=== PATIENT | male | born 1950 | race Caucasian/White ===

== ENCOUNTER 2017-10-05 05:31 | Day surgery (SDC) | payer MEDICARE, MEDICAID ==
[2017-09-27 14:36] LABS: BASOPHILS # (AUTO) 0.1 X10'3 (0-0.2); BASOPHILS % (AUTO) 0.3 % (0-1); EOSINOPHILS # (AUTO) 0.1 X10'3 (0-0.9); EOSINOPHILS % (AUTO) 0.2 % (0-6); LYMPHOCYTES # (AUTO) 18.4 X10'3 (1.1-4.8); MEAN CORPUSCULAR HEMOGLOBIN 31.7 PG (27.0-31.0); MEAN CORPUSCULAR HGB CONC 32.6 % (33.0-36.5); MEAN CORPUSCULAR VOLUME 97.1 FL (78-98); MEAN PLATELET VOLUME 7.6 FL (7.4-10.4); MONOCYTES # (AUTO) 1.3 X10'3 (0-0.9); MONOCYTES % (AUTO) 4.7 % (2-12); NEUTROPHILS # (AUTO) 7.3 X10'3 (1.8-7.7); NEUTROPHILS % (AUTO) 26.8 % (42-75); PRE OP HEMATOCRIT 41.5 % (42.0-52.0); PRE OP HEMOGLOBIN 13.5 g/dL (14.0-17.9); PRE OP PLATELET COUNT 196 X10'3 (140-440); RED BLOOD COUNT 4.27 X10'6 (4.70-6.10); RED CELL DISTRIBUTION WIDTH 14.7 % (11.5-14.5)
[2017-09-27 14:40] LABS: PARTIAL THROMBOPLASTIN TIME 22 SECONDS (22-32); PROTHROMBIN TIME 10.6 SECONDS (9.0-12.0)
[2017-09-27 14:47] LABS: ALBUMIN 3.3 G/DL (3.4-5.0); ALBUMIN/GLOBULIN RATIO 0.8 (1.1-1.5); ALKALINE PHOSPHATASE 41 IU/L (46-116); BLOOD UREA NITROGEN 30 MG/DL (7-18); BUN/CREATININE RATIO 37.5 (5.4-32.0); CALCIUM 9.2 MG/DL (8.5-10.1); CHLORIDE 106 MMOL/L (99-107); PRE OP ALT 8 U/L (30-65); PRE OP ANION GAP 9 (8-16); PRE OP AST 13 U/L (10-37); PRE OP BILIRUB, TOTAL 0.2 MG/DL (0.0-1.0); PRE OP GLUCOSE 85 MG/DL (70-104); PRE OP POTASSIUM 4.3 MMOL/L (3.4-5.1); PRE OP SODIUM 142 MMOL/L (135-145); TOTAL CARBON DIOXIDE 27.1 MMOL/L (24-32); TOTAL PROTEIN 7.2 G/DL (6.4-8.2); eGFR > 90 ML/MIN
[2017-09-27 15:31] LABS: PLATELET ESTIMATE NORMAL; TOTAL CELLS COUNTED 100
[2017-09-27 15:43] LABS: SMUDGE CELLS 2+
[2017-09-27 15:54] LABS: ELLIPTOCYTES FEW; SCHISTOCYTES FEW
[~2017-10-05] VITALS: Ht 170.2 cm; Wt 51.6 kg
[2017-10-05] VITALS (9 sets, daily range): BP systolic 106–122; BP diastolic 61–77
[~2017-10-05 05:31] MED LIST: Cefazolin 2GM/50ML dext iso,osmotic IVPB IV ONE; DIVA-76 PO; VANCOMYCIN INJ 1000 MG in NORMAL SALINE 250ml IV.SOLN IV ONE; famotidine 20mg tablet PO ONE; ringers solution, lacted 1,000 ML IV SCH
[2017-10-05] MEDS ORDERED: LIDOcaine 1% (10mg/ml) 2ml vial ONE (06:29)
[2017-10-05] MEDS ORDERED: cloNIDine hcl/PF 100mcg/ml inj ONE (07:20)
[2017-10-05] MEDS ORDERED: fentaNYL/PF 50MCG/1 ML 2ML syringe ONE (07:27)
[2017-10-05] MEDS ORDERED: MIDAZolam 5mg/ml 2ml vial ONE (07:27)
[2017-10-05] MEDS ORDERED: MIDAZolam 5mg/5ml vial ONE (07:29)
[2017-10-05] MEDS ORDERED: propofol inj 20 ML IV ONE (07:30)
[2017-10-05] MEDS ORDERED: ROPIVAcaine 0.5% (5mg/ml) 30ml vial ONE (07:30)
[2017-10-05] MEDS ORDERED: LIDOcaine 1%/PF 5ML 10 MG/ML VIAL ONE (07:30)
[2017-10-05] MEDS ORDERED: sevoflurane 250ml liquid IH ONE (07:47)
[2017-10-05] MEDS ORDERED: ePHEDrine 50MG/ML INJ. ONE (08:10)
[2017-10-05] MEDS ORDERED: dexamethasone sod phosphate 4mg/ml inj. ONE (09:05)
[2017-10-05] MEDS ORDERED: ondansetron/PF 4mg/2ml inj ONE (09:05)
[2017-10-05] MEDS ORDERED: ringers solution, lacted 1,000 ML IV SCH (09:18)
[2017-10-05] MEDS ORDERED: morphine 4 MG/ML inj SYRINge IV PRN ×2 (09:20)
[2017-10-05] MEDS ORDERED: meperidine/PF 25mg/ml syringe IV PRN ×3 (09:20)
[2017-10-05] MEDS ORDERED: proCHLORperazine 10 MG/2 ml inj IV PRN (09:20)
[2017-10-05] MEDS ORDERED: ondansetron/PF 4mg/2ml inj IV PRN (09:20)
[2017-10-05] MEDS ORDERED: BUPIVAcaine/PF 2.5mg/ml (0.25%) 10ml vial ONE (09:23)
[2017-10-06] MEDS ORDERED: HYDR-3964 PO (18:16)
[2017-10-06] MEDS ORDERED: ASPI81TA52 PO (18:17)
== END 2017-10-05 11:25 | disposition home or self-care (01) ==
LOC: PAS 05:31
PROVIDERS: ATTEND Orthopaedic Surgery
DX: S96.112A Strain of muscle and tendon of long extensor muscle of toe at ankle and foot level, left foot, initial encounter (principal); M19.072 Primary osteoarthritis, left ankle and foot; M25.775 Osteophyte, left foot; I10 Essential (primary) hypertension; I25.2 Old myocardial infarction; F32.9 Major depressive disorder, single episode, unspecified; G40.909 Epilepsy, unspecified, not intractable, without status epilepticus; I34.2 Nonrheumatic mitral (valve) stenosis; F41.9 Anxiety disorder, unspecified; K21.9 Gastro-esophageal reflux disease without esophagitis; B19.20 Unspecified viral hepatitis C without hepatic coma; E46 Unspecified protein-calorie malnutrition; F41.8 Other specified anxiety disorders; Z68.1 Body mass index [BMI] 19.9 or less, adult; Z87.891 Personal history of nicotine dependence; Z88.5 Allergy status to narcotic agent; Z87.01 Personal history of pneumonia (recurrent); Z85.6 Personal history of leukemia; Z88.8 Allergy status to other drugs, medicaments and biological substances; Z86.73 Personal history of transient ischemic attack (TIA), and cerebral infarction without residual deficits; Z79.82 Long term (current) use of aspirin; Z79.891 Long term (current) use of opiate analgesic; Z79.899 Other long term (current) drug therapy; Z98.890 Other specified postprocedural states; Z80.0 Family history of malignant neoplasm of digestive organs; X58.XXXA Exposure to other specified factors, initial encounter; Y93.89 Activity, other specified; Y92.89 Other specified places as the place of occurrence of the external cause; Y99.8 Other external cause status
CPT/HCPCS: 28208; 28740; 36415; 80053; 85025; 85610; 85730; 93005; A6449; C1713; C1762; J0690; J0735; J1100; J2001; J2250; J2405; J2704; J2795; J3010; J3370; J3490; J7120; A6250; A7000

== ENCOUNTER 2017-10-05 16:12 | Emergency (ER) | payer MEDICARE, MEDICAID ==
[~2017-10-05] VITALS: Ht 170.2 cm; Wt 58.2 kg
[~2017-10-05 16:12] MED LIST changes: -Cefazolin 2GM/50ML dext iso,osmotic IVPB IV ONE; -VANCOMYCIN INJ 1000 MG in NORMAL SALINE 250ml IV.SOLN IV ONE; -famotidine 20mg tablet PO ONE; -ringers solution, lacted 1,000 ML IV SCH
[2017-10-05 20:58] VITALS: BP 122/78
[2017-10-06] MEDS ORDERED: HYDR-3964 PO (18:16)
[2017-10-06] MEDS ORDERED: ASPI81TA52 PO (18:17)
== END 2017-10-05 21:01 | disposition home or self-care (01) ==
LOC: ER 16:13
DX: R26.89 Other abnormalities of gait and mobility (principal); R26.2 Difficulty in walking, not elsewhere classified; M79.671 Pain in right foot; Z86.73 Personal history of transient ischemic attack (TIA), and cerebral infarction without residual deficits; Z98.890 Other specified postprocedural states; Z88.5 Allergy status to narcotic agent; Z88.8 Allergy status to other drugs, medicaments and biological substances; Z79.82 Long term (current) use of aspirin; Z79.899 Other long term (current) drug therapy
CPT/HCPCS: 51702; 99284; A4315

== ENCOUNTER 2017-10-06 14:52 | Inpatient (IN) | payer MEDICARE, MEDICAID ==
[~2017-10-06] VITALS: Ht 172.7 cm; Wt 54.5 kg
[2017-10-06 15:17] LABS: BASOPHILS % (AUTO) 0.2 % (0-1); EOSINOPHILS % (AUTO) 0 % (0-6); HEMATOCRIT 33.6 % (42.0-52.0); HEMOGLOBIN 11.1 g/dl (14.0-17.9); LYMPHOCYTES # (AUTO) 16.2 X10'3 (1.1-4.8); LYMPHOCYTES % (AUTO) 66.5 % (21-51); MEAN CORPUSCULAR HEMOGLOBIN 31.9 PG (27.0-31.0); MEAN CORPUSCULAR VOLUME 96.6 FL (78-98); MEAN PLATELET VOLUME 7.2 FL (7.4-10.4); MONOCYTES # (AUTO) 0.6 X10'3 (0-0.9); MONOCYTES % (AUTO) 2.6 % (2-12); NEUTROPHILS # (AUTO) 7.5 X10'3 (1.8-7.7); NEUTROPHILS % (AUTO) 30.7 % (42-75); PLATELET COUNT 200 X10'3 (140-440); RED BLOOD COUNT 3.48 X10'6 (4.70-6.10); RED CELL DISTRIBUTION WIDTH 16.3 % (11.5-14.5); WHITE BLOOD COUNT 24.3 X10'3 (4.5-11.0)
[2017-10-06 15:31] LABS: ALANINE AMINOTRANSFERASE 7 U/L (12-78); ALBUMIN 2.9 G/DL (3.4-5.0); ALBUMIN/GLOBULIN RATIO 0.9 (1.1-1.5); ALKALINE PHOSPHATASE 40 IU/L (46-116); ANION GAP 7 (8-16); ASPARTATE AMINO TRANSFERASE 10 U/L (10-37); BILIRUBIN,TOTAL 0.2 MG/DL (0.1-1.0); BLOOD UREA NITROGEN 15 MG/DL (7-18); BUN/CREATININE RATIO 17.4 (5.4-32.0); CALCIUM 8.9 MG/DL (8.5-10.1); CHLORIDE 107 MMOL/L (99-107); CREATININE 0.86 MG/DL (0.60-1.10); GLUCOSE 88 MG/DL (70-104); POTASSIUM 4.1 MMOL/L (3.5-5.1); SODIUM 144 MMOL/L (135-145); TOTAL CARBON DIOXIDE 30.5 MMOL/L (24-32); TOTAL PROTEIN 6.3 G/DL (6.4-8.2); eGFR 88 ML/MIN
[2017-10-06 15:57] LABS: TOTAL CELLS COUNTED 100
[2017-10-06 15:58] LABS: ANISOCYTOSIS 1+; ELLIPTOCYTES 1+; PLATELET ESTIMATE NORMAL
[2017-10-06 15:59] LABS: POLYCHROMASIA FEW
[2017-10-06 16:29] LABS: CLARITY,URINE SLIGHTLY CLOUDY (Clear); COLOR,URINE YELLOW (Yellow); GLUCOSE, URINE NEGATIVE (Neg); KETONES,URINE TRACE mg/dl (Neg); LEUKOCYTE ESTERASE ,URINE NEGATIVE (Neg); NITRITES, URINE NEGATIVE (Neg); OCCULT BLOOD,URINE LARGE (Neg); PH,URINE 7.5 (4.8-8.0); PROTEIN,URINE 30 mg/dl (Neg); UROBILINOGEN,URINE 0.2 E.U/dL (0.2-1.0)
[2017-10-06 16:38] LABS: MUCUS STRANDS MODERATE /LPF (Neg); SQUAMOUS EPITHELIAL CELL,UR NONE SEEN /LPF (FEW); UA COLLECTION TYPE INDWELLING CATH
[2017-10-06 16:39] LABS: BACTERIA,URINE NONE SEEN /HPF (Neg); RBC,URINE TNTC /HPF (0-2); WBC,URINE 0-4 /HPF (0-4)
[2017-10-06] MEDS ORDERED: HYDROcodone/acetaminophen 10/325mg tab PO ONE (17:15)
[2017-10-06] MEDS ORDERED: HYDR-3964 PO (18:16)
[2017-10-06] MEDS ORDERED: ASPI81TA52 PO (18:17)
[2017-10-06] MEDS ORDERED: mag hydrox/Alum hydrox/simeth 30ml oral suspension PO PRN (19:30)
[2017-10-06] MEDS ORDERED: ondansetron/PF 4mg/2ml inj IV PRN (19:30)
[2017-10-06] MEDS ORDERED: acetaminophen 325mg tablet PO PRN (19:30)
[2017-10-06] MEDS: heparin, porcine 5000 units/ml vial SQ SCH (20:21)
[2017-10-06 20:55] VITALS: BP 126/56
[2017-10-06] MEDS: divalproex sodium 500mg tablet.DR PO SCH (21:50)
[2017-10-06 22:00] VITALS: BP 121/62
[2017-10-07 06:36] LABS: BASOPHILS # (AUTO) 0.1 X10'3 (0-0.2); BASOPHILS % (AUTO) 0.2 % (0-1); EOSINOPHILS % (AUTO) 0.2 % (0-6); HEMATOCRIT 32.4 % (42.0-52.0); HEMOGLOBIN 10.9 g/dl (14.0-17.9); LYMPHOCYTES # (AUTO) 16.7 X10'3 (1.1-4.8); LYMPHOCYTES % (AUTO) 75.2 % (21-51); MEAN CORPUSCULAR HEMOGLOBIN 32.3 PG (27.0-31.0); MEAN CORPUSCULAR HGB CONC 33.6 % (33.0-36.5); MEAN CORPUSCULAR VOLUME 96.1 FL (78-98); MEAN PLATELET VOLUME 7.8 FL (7.4-10.4); MONOCYTES # (AUTO) 0.6 X10'3 (0-0.9); MONOCYTES % (AUTO) 2.9 % (2-12); NEUTROPHILS # (AUTO) 4.8 X10'3 (1.8-7.7); NEUTROPHILS % (AUTO) 21.5 % (42-75); PLATELET COUNT 186 X10'3 (140-440); RED BLOOD COUNT 3.37 X10'6 (4.70-6.10); RED CELL DISTRIBUTION WIDTH 16.1 % (11.5-14.5); WHITE BLOOD COUNT 22.2 X10'3 (4.5-11.0)
[2017-10-07 07:00] LABS: ALANINE AMINOTRANSFERASE 10 U/L (12-78); ALBUMIN 2.7 G/DL (3.4-5.0); ALBUMIN/GLOBULIN RATIO 0.8 (1.1-1.5); ALKALINE PHOSPHATASE 34 IU/L (46-116); ANION GAP 7 (8-16); ASPARTATE AMINO TRANSFERASE 9 U/L (10-37); BILIRUBIN,TOTAL 0.2 MG/DL (0.1-1.0); BLOOD UREA NITROGEN 19 MG/DL (7-18); BUN/CREATININE RATIO 22.4 (5.4-32.0); CHLORIDE 107 MMOL/L (99-107); CREATININE 0.85 MG/DL (0.60-1.10); GLUCOSE 85 MG/DL (70-104); SODIUM 142 MMOL/L (135-145); TOTAL CARBON DIOXIDE 28.3 MMOL/L (24-32); TOTAL PROTEIN 6.1 G/DL (6.4-8.2); eGFR 90 ML/MIN
[2017-10-07] MEDS: aspirin 81mg tablet.DR PO SCH (07:15)
[2017-10-07] MEDS: divalproex sodium 500mg tablet.DR PO SCH ×2 (07:15→20:40)
[2017-10-07] MEDS: heparin, porcine 5000 units/ml vial SQ SCH ×2 (07:16→20:41)
[2017-10-07] MEDS: HYDROcodone/acetaminophen 5mg/325mg tablet PO PRN ×2 (07:20→18:50)
[2017-10-07 08:21] LABS: TOTAL CELLS COUNTED 100
[2017-10-07 08:22] LABS: ANISOCYTOSIS 1+; PLATELET ESTIMATE NORMAL; SMUDGE CELLS 1+
[2017-10-07 08:23] LABS: ELLIPTOCYTES 1+; POIKILOCYTOSIS 1+
[2017-10-07 10:00] VITALS: BP 100/57
[2017-10-07] MEDS: Protein Shake (high protein) 240ml (8oz) cup PO SCH (17:00)
[2017-10-07 18:00] VITALS: BP 103/57
[2017-10-07 22:00] VITALS: BP 111/49
[2017-10-08] MEDS: dextrose 5%-1/2 normal saline 1,000 ML IV SCH ×2 (03:46→23:30)
[2017-10-08] MEDS: HYDROcodone/acetaminophen 5mg/325mg tablet PO PRN ×2 (04:01→20:35)
[2017-10-08 06:00] VITALS: BP_SYST 118; BP_SYST 126; BP_DIAS 62; BP_DIAS 63
[2017-10-08 07:00] LABS: BASOPHILS % (AUTO) 0.1 % (0-1); EOSINOPHILS # (AUTO) 0.1 X10'3 (0-0.9); EOSINOPHILS % (AUTO) 0.2 % (0-6); HEMATOCRIT 32.8 % (42.0-52.0); HEMOGLOBIN 11.1 g/dl (14.0-17.9); LYMPHOCYTES # (AUTO) 18.9 X10'3 (1.1-4.8); LYMPHOCYTES % (AUTO) 77.2 % (21-51); MEAN CORPUSCULAR HEMOGLOBIN 32.3 PG (27.0-31.0); MEAN CORPUSCULAR HGB CONC 33.8 % (33.0-36.5); MEAN CORPUSCULAR VOLUME 95.5 FL (78-98); MEAN PLATELET VOLUME 7.7 FL (7.4-10.4); MONOCYTES # (AUTO) 0.6 X10'3 (0-0.9); MONOCYTES % (AUTO) 2.3 % (2-12); NEUTROPHILS # (AUTO) 4.9 X10'3 (1.8-7.7); NEUTROPHILS % (AUTO) 20.2 % (42-75); PLATELET COUNT 189 X10'3 (140-440); RED BLOOD COUNT 3.43 X10'6 (4.70-6.10); RED CELL DISTRIBUTION WIDTH 16.9 % (11.5-14.5); WHITE BLOOD COUNT 24.4 X10'3 (4.5-11.0)
[2017-10-08] MEDS: divalproex sodium 500mg tablet.DR PO SCH ×2 (07:24→20:34)
[2017-10-08] MEDS: heparin, porcine 5000 units/ml vial SQ SCH ×2 (07:24→20:36)
[2017-10-08] MEDS: aspirin 81mg tablet.DR PO SCH (07:24)
[2017-10-08 07:29] LABS: ALANINE AMINOTRANSFERASE 8 U/L (12-78); ALBUMIN 2.5 G/DL (3.4-5.0); ALBUMIN/GLOBULIN RATIO 0.7 (1.1-1.5); ALKALINE PHOSPHATASE 30 IU/L (46-116); ANION GAP 4 (8-16); ASPARTATE AMINO TRANSFERASE 9 U/L (10-37); BILIRUBIN,TOTAL 0.2 MG/DL (0.1-1.0); BLOOD UREA NITROGEN 24 MG/DL (7-18); BUN/CREATININE RATIO 25.5 (5.4-32.0); CALCIUM 8.8 MG/DL (8.5-10.1); CHLORIDE 107 MMOL/L (99-107); CREATININE 0.94 MG/DL (0.60-1.10); GLUCOSE 100 MG/DL (70-104); POTASSIUM 4.4 MMOL/L (3.5-5.1); SODIUM 141 MMOL/L (135-145); TOTAL CARBON DIOXIDE 29.6 MMOL/L (24-32); eGFR 80 ML/MIN
[2017-10-08 12:04] VITALS: BP 98/57
[2017-10-08 18:00] VITALS: BP 103/60
[2017-10-08] MEDS: Protein Shake (high protein) 240ml (8oz) cup PO SCH (18:24)
[2017-10-08] MEDS: levetiracetam 250mg tablet PO SCH (21:12)
[2017-10-08] MEDS: LORazepam 0.5 MG tablet PO PRN (21:12)
[2017-10-09] MEDS ORDERED: CLOP75TA15 PO (00:44)
[2017-10-09] MEDS ORDERED: LEVE750T6 PO (00:44)
[2017-10-09] MEDS: HYDROcodone/acetaminophen 5mg/325mg tablet PO PRN ×2 (04:36→18:34)
[2017-10-09] MEDS: LORazepam 0.5 MG tablet PO PRN ×2 (04:36→18:33)
[2017-10-09 05:30] VITALS: BP 112/58
[2017-10-09 06:06] LABS: BASOPHILS % (AUTO) 0.1 % (0-1); EOSINOPHILS # (AUTO) 0.1 X10'3 (0-0.9); EOSINOPHILS % (AUTO) 0.3 % (0-6); HEMATOCRIT 35.8 % (42.0-52.0); LYMPHOCYTES # (AUTO) 17.7 X10'3 (1.1-4.8); LYMPHOCYTES % (AUTO) 75.9 % (21-51); MEAN CORPUSCULAR HEMOGLOBIN 32.5 PG (27.0-31.0); MEAN CORPUSCULAR HGB CONC 33.6 % (33.0-36.5); MEAN CORPUSCULAR VOLUME 96.7 FL (78-98); MEAN PLATELET VOLUME 7.9 FL (7.4-10.4); MONOCYTES # (AUTO) 0.4 X10'3 (0-0.9); MONOCYTES % (AUTO) 1.7 % (2-12); NEUTROPHILS # (AUTO) 5.1 X10'3 (1.8-7.7); PLATELET COUNT 182 X10'3 (140-440); RED CELL DISTRIBUTION WIDTH 16.2 % (11.5-14.5); WHITE BLOOD COUNT 23.3 X10'3 (4.5-11.0)
[2017-10-09 06:25] LABS: ALANINE AMINOTRANSFERASE 11 U/L (12-78); ALBUMIN 2.6 G/DL (3.4-5.0); ALBUMIN/GLOBULIN RATIO 0.7 (1.1-1.5); ALKALINE PHOSPHATASE 33 IU/L (46-116); ANION GAP 8 (8-16); ASPARTATE AMINO TRANSFERASE 7 U/L (10-37); BILIRUBIN,TOTAL 0.2 MG/DL (0.1-1.0); BLOOD UREA NITROGEN 18 MG/DL (7-18); CALCIUM 8.8 MG/DL (8.5-10.1); CHLORIDE 106 MMOL/L (99-107); CREATININE 0.82 MG/DL (0.60-1.10); GLUCOSE 97 MG/DL (70-104); POTASSIUM 4.1 MMOL/L (3.5-5.1); SODIUM 140 MMOL/L (135-145); TOTAL PROTEIN 6.3 G/DL (6.4-8.2); eGFR > 90 ML/MIN
[2017-10-09] MEDS: levetiracetam 250mg tablet PO SCH ×2 (09:00→20:40)
[2017-10-09] MEDS: divalproex sodium 500mg tablet.DR PO SCH ×2 (09:00→20:40)
[2017-10-09] MEDS: clopidogrel 75mg tablet PO SCH (09:01)
[2017-10-09] MEDS: aspirin 81mg tablet.DR PO SCH (09:01)
[2017-10-09] MEDS: heparin, porcine 5000 units/ml vial SQ SCH ×2 (09:02→20:41)
[2017-10-09 10:00] VITALS: BP 117/65
[2017-10-09 17:01] VITALS: BP 110/67
[2017-10-09] MEDS: Protein Shake (high protein) 240ml (8oz) cup PO SCH (18:34)
[2017-10-09 19:00] VITALS: BP 112/58
[2017-10-09] MEDS: dextrose 5%-1/2 normal saline 1,000 ML IV SCH (19:30)
[2017-10-09 22:00] VITALS: BP 130/69
[2017-10-10] MEDS: LORazepam 0.5 MG tablet PO PRN ×3 (01:44→22:08)
[2017-10-10 05:00] VITALS: BP 92/46
[2017-10-10 05:52] LABS: BASOPHILS % (AUTO) 0.2 % (0-1); EOSINOPHILS # (AUTO) 0.2 X10'3 (0-0.9); EOSINOPHILS % (AUTO) 0.7 % (0-6); HEMATOCRIT 33.6 % (42.0-52.0); HEMOGLOBIN 11.4 g/dl (14.0-17.9); LYMPHOCYTES # (AUTO) 16.4 X10'3 (1.1-4.8); LYMPHOCYTES % (AUTO) 71.8 % (21-51); MEAN CORPUSCULAR HEMOGLOBIN 32.3 PG (27.0-31.0); MEAN CORPUSCULAR VOLUME 95.1 FL (78-98); MEAN PLATELET VOLUME 7.7 FL (7.4-10.4); MONOCYTES # (AUTO) 0.5 X10'3 (0-0.9); MONOCYTES % (AUTO) 2.2 % (2-12); NEUTROPHILS # (AUTO) 5.8 X10'3 (1.8-7.7); NEUTROPHILS % (AUTO) 25.1 % (42-75); PLATELET COUNT 191 X10'3 (140-440); RED BLOOD COUNT 3.53 X10'6 (4.70-6.10); RED CELL DISTRIBUTION WIDTH 16.2 % (11.5-14.5); WHITE BLOOD COUNT 22.9 X10'3 (4.5-11.0)
[2017-10-10 06:11] LABS: ALANINE AMINOTRANSFERASE 10 U/L (12-78); ALBUMIN 2.7 G/DL (3.4-5.0); ALBUMIN/GLOBULIN RATIO 0.8 (1.1-1.5); ALKALINE PHOSPHATASE 35 IU/L (46-116); ANION GAP 9 (8-16); ASPARTATE AMINO TRANSFERASE 10 U/L (10-37); BILIRUBIN,TOTAL 0.3 MG/DL (0.1-1.0); BLOOD UREA NITROGEN 21 MG/DL (7-18); BUN/CREATININE RATIO 27.3 (5.4-32.0); CALCIUM 8.7 MG/DL (8.5-10.1); CHLORIDE 106 MMOL/L (99-107); CREATININE 0.77 MG/DL (0.60-1.10); GLUCOSE 93 MG/DL (70-104); POTASSIUM 3.6 MMOL/L (3.5-5.1); SODIUM 142 MMOL/L (135-145); TOTAL CARBON DIOXIDE 26.6 MMOL/L (24-32); TOTAL PROTEIN 6.3 G/DL (6.4-8.2); eGFR > 90 ML/MIN
[2017-10-10 07:32] LABS: BASOPHILS % (MANUAL) 1 % (0-1); LYMPHOCYTES % (MANUAL) 73 % (21-51); MONOCYTES % (MANUAL) 2 % (2-12); NEUTROPHILS % (MANUAL) 24 % (42-75); PLATELET ESTIMATE NORMAL; SMUDGE CELLS 3+; TOTAL CELLS COUNTED 100
[2017-10-10 07:33] LABS: ANISOCYTOSIS 1+; ELLIPTOCYTES FEW
[2017-10-10 10:00] VITALS: BP 118/58
[2017-10-10] MEDS: heparin, porcine 5000 units/ml vial SQ SCH ×2 (11:02→19:42)
[2017-10-10] MEDS: levetiracetam 250mg tablet PO SCH ×2 (11:02→19:42)
[2017-10-10] MEDS: aspirin 81mg tablet.DR PO SCH (11:02)
[2017-10-10] MEDS: clopidogrel 75mg tablet PO SCH (11:02)
[2017-10-10] MEDS: divalproex sodium 500mg tablet.DR PO SCH ×2 (11:06→19:43)
[2017-10-10] MEDS: dextrose 5%-1/2 normal saline 1,000 ML IV SCH (15:30)
[2017-10-10] MEDS: Protein Shake (high protein) 240ml (8oz) cup PO SCH (17:00)
[2017-10-10 18:00] VITALS: BP 128/71
[2017-10-10 22:00] VITALS: BP 108/69
[2017-10-10] MEDS: HYDROcodone/acetaminophen 5mg/325mg tablet PO PRN (23:50)
[2017-10-11 06:00] VITALS: BP 111/74
[2017-10-11] MEDS: aspirin 81mg tablet.DR PO SCH (08:36)
[2017-10-11] MEDS: clopidogrel 75mg tablet PO SCH (08:36)
[2017-10-11] MEDS: divalproex sodium 500mg tablet.DR PO SCH ×2 (08:36→19:17)
[2017-10-11] MEDS: heparin, porcine 5000 units/ml vial SQ SCH ×2 (08:37→19:18)
[2017-10-11] MEDS: levetiracetam 250mg tablet PO SCH ×2 (08:37→19:18)
[2017-10-11] MEDS: HYDROcodone/acetaminophen 5mg/325mg tablet PO PRN ×2 (09:56→14:26)
[2017-10-11 10:00] VITALS: BP 119/59
[2017-10-11 13:30] VITALS: BP 127/79
[2017-10-11] MEDS: Protein Shake (high protein) 240ml (8oz) cup PO SCH (17:00)
[2017-10-11 17:08] VITALS: BP 108/54
[2017-10-11 18:00] VITALS: BP 108/54
[2017-10-11] MEDS: dextrose 5%-1/2 normal saline 1,000 ML IV SCH ×2 (18:33→19:26)
[2017-10-11] MEDS: LORazepam 0.5 MG tablet PO PRN (19:17)
[2017-10-11 22:00] VITALS: BP 138/66
[2017-10-12 06:00] VITALS: BP 122/62
[2017-10-12] MEDS: heparin, porcine 5000 units/ml vial SQ SCH ×2 (07:52→20:04)
[2017-10-12] MEDS: clopidogrel 75mg tablet PO SCH (07:52)
[2017-10-12] MEDS: levetiracetam 250mg tablet PO SCH ×2 (07:52→20:04)
[2017-10-12] MEDS: aspirin 81mg tablet.DR PO SCH (07:52)
[2017-10-12] MEDS: divalproex sodium 500mg tablet.DR PO SCH ×2 (07:52→20:03)
[2017-10-12 10:00] VITALS: BP 119/69
[2017-10-12] MEDS: Protein Shake (high protein) 240ml (8oz) cup PO SCH (17:00)
[2017-10-12] MEDS: LORazepam 0.5 MG tablet PO PRN ×2 (17:24→20:03)
[2017-10-12 18:00] VITALS: BP 111/69
[2017-10-12 22:00] VITALS: BP 114/53
[2017-10-13] MEDS: HYDROcodone/acetaminophen 5mg/325mg tablet PO PRN ×2 (03:28→21:18)
[2017-10-13 05:00] VITALS: BP 105/65
[2017-10-13] MEDS: divalproex sodium 500mg tablet.DR PO SCH ×2 (08:00→19:29)
[2017-10-13] MEDS: clopidogrel 75mg tablet PO SCH (09:12)
[2017-10-13] MEDS: levetiracetam 250mg tablet PO SCH ×2 (09:12→19:29)
[2017-10-13] MEDS: aspirin 81mg tablet.DR PO SCH (09:12)
[2017-10-13] MEDS: heparin, porcine 5000 units/ml vial SQ SCH ×2 (09:14→19:29)
[2017-10-13] MEDS: LORazepam 0.5 MG tablet PO PRN ×2 (14:30→21:18)
[2017-10-13 18:00] VITALS: BP 107/59
[2017-10-13] MEDS: Protein Shake (high protein) 240ml (8oz) cup PO SCH (18:46)
[2017-10-13 22:00] VITALS: BP 93/48
[2017-10-14 05:00] VITALS: BP 124/55
[2017-10-14 07:13] LABS: BASOPHILS % (AUTO) 0.2 % (0-1); EOSINOPHILS # (AUTO) 0.1 X10'3 (0-0.9); EOSINOPHILS % (AUTO) 0.5 % (0-6); HEMATOCRIT 35.9 % (42.0-52.0); HEMOGLOBIN 12.2 g/dl (14.0-17.9); LYMPHOCYTES # (AUTO) 18.5 X10'3 (1.1-4.8); LYMPHOCYTES % (AUTO) 75.9 % (21-51); MEAN CORPUSCULAR HEMOGLOBIN 32.6 PG (27.0-31.0); MEAN CORPUSCULAR HGB CONC 33.9 % (33.0-36.5); MEAN CORPUSCULAR VOLUME 96.1 FL (78-98); MEAN PLATELET VOLUME 7.1 FL (7.4-10.4); MONOCYTES # (AUTO) 0.6 X10'3 (0-0.9); MONOCYTES % (AUTO) 2.3 % (2-12); NEUTROPHILS # (AUTO) 5.1 X10'3 (1.8-7.7); NEUTROPHILS % (AUTO) 21.1 % (42-75); PLATELET COUNT 221 X10'3 (140-440); RED BLOOD COUNT 3.74 X10'6 (4.70-6.10); WHITE BLOOD COUNT 24.4 X10'3 (4.5-11.0)
[2017-10-14 07:41] LABS: ALANINE AMINOTRANSFERASE 11 U/L (12-78); ALBUMIN/GLOBULIN RATIO 0.7 (1.1-1.5); ALKALINE PHOSPHATASE 40 IU/L (46-116); ANION GAP 8 (8-16); ASPARTATE AMINO TRANSFERASE 6 U/L (10-37); BILIRUBIN,TOTAL 0.3 MG/DL (0.1-1.0); BLOOD UREA NITROGEN 31 MG/DL (7-18); BUN/CREATININE RATIO 34.4 (5.4-32.0); CALCIUM 9.5 MG/DL (8.5-10.1); CHLORIDE 104 MMOL/L (99-107); GLUCOSE 86 MG/DL (70-104); PHOSPHORUS 3.6 MG/DL (2.3-4.5); POTASSIUM 4.7 MMOL/L (3.5-5.1); SODIUM 139 MMOL/L (135-145); TOTAL CARBON DIOXIDE 27.1 MMOL/L (24-32); TOTAL PROTEIN 7.2 G/DL (6.4-8.2); eGFR 84 ML/MIN
[2017-10-14] MEDS: divalproex sodium 500mg tablet.DR PO SCH ×2 (08:30→19:45)
[2017-10-14] MEDS: levetiracetam 250mg tablet PO SCH ×2 (08:31→19:46)
[2017-10-14] MEDS: aspirin 81mg tablet.DR PO SCH (08:31)
[2017-10-14] MEDS: clopidogrel 75mg tablet PO SCH (08:31)
[2017-10-14] MEDS: heparin, porcine 5000 units/ml vial SQ SCH ×2 (08:32→19:46)
[2017-10-14 08:34] LABS: TOTAL CELLS COUNTED 100
[2017-10-14 08:37] LABS: ANISOCYTOSIS 1+; ELLIPTOCYTES 1+; PLATELET ESTIMATE NORMAL; ROULEAUX 1+; SMUDGE CELLS 2+
[2017-10-14 10:00] VITALS: BP 114/61
[2017-10-14] MEDS: Protein Shake (high protein) 240ml (8oz) cup PO SCH (17:58)
[2017-10-14 18:00] VITALS: BP 104/61
[2017-10-14] MEDS: HYDROcodone/acetaminophen 5mg/325mg tablet PO PRN (19:46)
[2017-10-14] MEDS: LORazepam 0.5 MG tablet PO PRN (19:46)
[2017-10-14 22:00] VITALS: BP 93/56
[2017-10-15] MEDS: clopidogrel 75mg tablet PO SCH (08:00)
[2017-10-15] MEDS: levetiracetam 250mg tablet PO SCH ×2 (08:00→20:11)
[2017-10-15] MEDS: divalproex sodium 500mg tablet.DR PO SCH ×2 (08:42→20:15)
[2017-10-15] MEDS: HYDROcodone/acetaminophen 5mg/325mg tablet PO PRN ×3 (08:42→20:14)
[2017-10-15] MEDS: aspirin 81mg tablet.DR PO SCH (08:42)
[2017-10-15] MEDS: LORazepam 0.5 MG tablet PO PRN ×3 (08:42→23:39)
[2017-10-15] MEDS: heparin, porcine 5000 units/ml vial SQ SCH ×2 (08:43→20:18)
[2017-10-15 11:00] VITALS: BP 144/78
[2017-10-15] MEDS: Protein Shake (high protein) 240ml (8oz) cup PO SCH (17:00)
[2017-10-15 18:00] VITALS: BP 106/72
[2017-10-15 22:00] VITALS: BP 109/71
[2017-10-16] MEDS: HYDROcodone/acetaminophen 5mg/325mg tablet PO PRN (03:56)
[2017-10-16 05:00] VITALS: BP 105/68
[2017-10-16] MEDS: aspirin 81mg tablet.DR PO SCH (08:46)
[2017-10-16] MEDS: levetiracetam 250mg tablet PO SCH ×2 (08:46→20:25)
[2017-10-16] MEDS: divalproex sodium 500mg tablet.DR PO SCH ×2 (08:46→20:25)
[2017-10-16] MEDS: clopidogrel 75mg tablet PO SCH (08:47)
[2017-10-16] MEDS: heparin, porcine 5000 units/ml vial SQ SCH ×2 (08:48→20:25)
[2017-10-16] MEDS: Protein Shake (high protein) 240ml (8oz) cup PO SCH (17:16)
[2017-10-16 18:00] VITALS: BP 102/59
[2017-10-16] MEDS: LORazepam 0.5 MG tablet PO PRN (18:39)
[2017-10-16] MEDS ORDERED: LORazepam 2 mg/ml vial IM ONE (19:10)
[2017-10-16 22:00] VITALS: BP 122/70
[2017-10-17] MEDS: LORazepam 0.5 MG tablet PO PRN ×2 (04:54→19:56)
[2017-10-17] MEDS: clopidogrel 75mg tablet PO SCH (08:07)
[2017-10-17] MEDS: aspirin 81mg tablet.DR PO SCH (08:07)
[2017-10-17] MEDS: divalproex sodium 500mg tablet.DR PO SCH ×2 (08:07→21:21)
[2017-10-17] MEDS: levetiracetam 250mg tablet PO SCH ×2 (08:07→19:51)
[2017-10-17] MEDS: heparin, porcine 5000 units/ml vial SQ SCH ×2 (08:08→19:51)
[2017-10-17 11:47] VITALS: BP 114/68
[2017-10-17] MEDS: Protein Shake (high protein) 240ml (8oz) cup PO SCH (17:25)
[2017-10-17 18:00] VITALS: BP 130/73
[2017-10-17 22:15] VITALS: BP 125/60
[2017-10-17] MEDS: HYDROcodone/acetaminophen 5mg/325mg tablet PO PRN (23:34)
[2017-10-18] MEDS: LORazepam 0.5 MG tablet PO PRN ×2 (02:29→19:50)
[2017-10-18 06:00] VITALS: BP 128/73
[2017-10-18 06:33] LABS: BASOPHILS # (AUTO) 0.1 X10'3 (0-0.2); BASOPHILS % (AUTO) 0.4 % (0-1); EOSINOPHILS % (AUTO) 0.1 % (0-6); HEMATOCRIT 33.9 % (42.0-52.0); HEMOGLOBIN 11.8 g/dl (14.0-17.9); LYMPHOCYTES # (AUTO) 18.3 X10'3 (1.1-4.8); LYMPHOCYTES % (AUTO) 79.3 % (21-51); MEAN CORPUSCULAR HEMOGLOBIN 33.3 PG (27.0-31.0); MEAN CORPUSCULAR HGB CONC 34.6 % (33.0-36.5); MEAN CORPUSCULAR VOLUME 96.2 FL (78-98); MONOCYTES # (AUTO) 0.7 X10'3 (0-0.9); NEUTROPHILS % (AUTO) 17.2 % (42-75); PLATELET COUNT 224 X10'3 (140-440); RED BLOOD COUNT 3.52 X10'6 (4.70-6.10); WHITE BLOOD COUNT 23.1 X10'3 (4.5-11.0)
[2017-10-18 07:31] LABS: SMUDGE CELLS 3+; TOTAL CELLS COUNTED 100
[2017-10-18 07:32] LABS: PLATELET ESTIMATE NORMAL
[2017-10-18 07:33] LABS: ANISOCYTOSIS 1+
[2017-10-18 07:35] LABS: ELLIPTOCYTES 1P
[2017-10-18] MEDS: levetiracetam 250mg tablet PO SCH ×2 (08:29→20:25)
[2017-10-18] MEDS: divalproex sodium 500mg tablet.DR PO SCH ×2 (08:29→20:25)
[2017-10-18] MEDS: clopidogrel 75mg tablet PO SCH (08:29)
[2017-10-18] MEDS: heparin, porcine 5000 units/ml vial SQ SCH ×2 (08:29→20:31)
[2017-10-18] MEDS: aspirin 81mg tablet.DR PO SCH (08:29)
[2017-10-18 10:00] VITALS: BP 98/41
[2017-10-18] MEDS: Protein Shake (high protein) 240ml (8oz) cup PO SCH (17:52)
[2017-10-18 18:00] VITALS: BP 109/56
[2017-10-18 22:00] VITALS: BP 92/59
[2017-10-18] MEDS ORDERED: haloperidol lactate 5mg/ml inj IM ONE (22:50)
[2017-10-19] MEDS: LORazepam 0.5 MG tablet PO PRN ×2 (02:20→08:00)
[2017-10-19] MEDS: HYDROcodone/acetaminophen 5mg/325mg tablet PO PRN (03:06)
[2017-10-19] MEDS ORDERED: LORazepam 2 mg/ml vial IM ONE ×2 (04:45→21:50)
[2017-10-19 06:00] VITALS: BP 116/77
[2017-10-19] MEDS: divalproex sodium 500mg tablet.DR PO SCH ×2 (08:00→19:53)
[2017-10-19] MEDS: levetiracetam 250mg tablet PO SCH ×2 (08:00→19:52)
[2017-10-19] MEDS: clopidogrel 75mg tablet PO SCH (08:00)
[2017-10-19] MEDS: aspirin 81mg tablet.DR PO SCH (08:00)
[2017-10-19] MEDS: heparin, porcine 5000 units/ml vial SQ SCH ×2 (08:05→19:52)
[2017-10-19 10:00] VITALS: BP 106/61
[2017-10-19] MEDS: Protein Shake (high protein) 240ml (8oz) cup PO SCH (17:20)
[2017-10-19 18:00] VITALS: BP 103/47
[2017-10-19] MEDS ORDERED: ziprasidone IM 20mg inj **IM only IM ONE (19:20)
[2017-10-19 22:00] VITALS: BP 129/69
[2017-10-20] MEDS: HYDROcodone/acetaminophen 5mg/325mg tablet PO PRN (02:32)
[2017-10-20] MEDS: LORazepam 0.5 MG tablet PO PRN ×2 (02:32→17:18)
[2017-10-20 06:00] VITALS: BP 103/63
[2017-10-20] MEDS: clopidogrel 75mg tablet PO SCH (09:20)
[2017-10-20] MEDS: divalproex sodium 500mg tablet.DR PO SCH ×2 (09:20→20:01)
[2017-10-20] MEDS: aspirin 81mg tablet.DR PO SCH (09:20)
[2017-10-20] MEDS: levetiracetam 250mg tablet PO SCH ×2 (09:20→20:01)
[2017-10-20] MEDS: heparin, porcine 5000 units/ml vial SQ SCH ×2 (09:21→20:01)
[2017-10-20] MEDS: FLUoxetine 20mg capsule PO SCH (13:39)
[2017-10-20] MEDS: Protein Shake (high protein) 240ml (8oz) cup PO SCH (17:00)
[2017-10-20 18:00] VITALS: BP 96/72
[2017-10-21] MEDS: magnesium hydroxide 30ml (MOM) UD suspension PO PRN (02:40)
[2017-10-21] MEDS: LORazepam 0.5 MG tablet PO PRN (03:57)
[2017-10-21] MEDS: HYDROcodone/acetaminophen 5mg/325mg tablet PO PRN (05:43)
[2017-10-21 06:00] VITALS: BP 110/70
[2017-10-21] MEDS: divalproex sodium 500mg tablet.DR PO SCH ×2 (08:27→21:00)
[2017-10-21] MEDS: FLUoxetine 20mg capsule PO SCH (08:27)
[2017-10-21] MEDS: levetiracetam 250mg tablet PO SCH ×2 (08:27→20:00)
[2017-10-21] MEDS: aspirin 81mg tablet.DR PO SCH (08:27)
[2017-10-21] MEDS: heparin, porcine 5000 units/ml vial SQ SCH ×2 (08:28→20:00)
[2017-10-21] MEDS: clopidogrel 75mg tablet PO SCH (08:28)
[2017-10-21 10:00] VITALS: BP 116/64
[2017-10-21] MEDS: QUEtiapine 25mg tablet PO ONE ×2 (11:40→12:09)
[2017-10-21] MEDS ORDERED: QUEtiapine 25mg tablet PO ONE (12:40)
[2017-10-21] MEDS: Protein Shake (high protein) 240ml (8oz) cup PO SCH (17:00)
[2017-10-21 18:00] VITALS: BP 139/74
[2017-10-21] MEDS ORDERED: LORazepam 2 mg/ml vial IM PRN (19:35)
[2017-10-21] MEDS ORDERED: LORazepam 2 mg/ml vial IM ONE (19:35)
[2017-10-21] MEDS ORDERED: ziprasidone IM 20mg inj **IM only IM ONE (19:35)
[2017-10-21] MEDS: mirtazapine 15mg tablet PO SCH (21:00)
[2017-10-21 22:00] VITALS: BP 157/82
[2017-10-22 06:54] VITALS: BP 123/73
[2017-10-22] MEDS: aspirin 81mg tablet.DR PO SCH (08:02)
[2017-10-22] MEDS: clopidogrel 75mg tablet PO SCH (08:02)
[2017-10-22] MEDS: divalproex sodium 500mg tablet.DR PO SCH ×2 (08:02→20:24)
[2017-10-22] MEDS: levetiracetam 250mg tablet PO SCH ×2 (08:02→20:24)
[2017-10-22] MEDS: heparin, porcine 5000 units/ml vial SQ SCH ×2 (08:02→20:25)
[2017-10-22] MEDS: LORazepam 0.5 MG tablet PO PRN (08:02)
[2017-10-22] MEDS: FLUoxetine 20mg capsule PO SCH (08:02)
[2017-10-22 11:32] VITALS: BP 141/77
[2017-10-22] MEDS: HYDROcodone/acetaminophen 5mg/325mg tablet PO PRN ×2 (12:21→21:02)
[2017-10-22] MEDS: Protein Shake (high protein) 240ml (8oz) cup PO SCH ×2 (17:24→20:42)
[2017-10-22 18:00] VITALS: BP 112/46
[2017-10-22] MEDS: mirtazapine 15mg tablet PO SCH (20:24)
[2017-10-23] MEDS: LORazepam 0.5 MG tablet PO PRN (01:25)
[2017-10-23 05:00] VITALS: BP 120/79
[2017-10-23 10:00] VITALS: BP 106/68
[2017-10-23] MEDS: levetiracetam 250mg tablet PO SCH ×2 (10:18→20:11)
[2017-10-23] MEDS: clopidogrel 75mg tablet PO SCH (10:18)
[2017-10-23] MEDS: divalproex sodium 500mg tablet.DR PO SCH ×2 (10:18→20:11)
[2017-10-23] MEDS: aspirin 81mg tablet.DR PO SCH (10:18)
[2017-10-23] MEDS: FLUoxetine 20mg capsule PO SCH (10:18)
[2017-10-23] MEDS: heparin, porcine 5000 units/ml vial SQ SCH ×2 (10:19→20:12)
[2017-10-23] MEDS: HYDROcodone/acetaminophen 5mg/325mg tablet PO PRN ×2 (10:20→22:25)
[2017-10-23 13:10] LABS: BASOPHILS # (AUTO) 0.1 X10'3 (0-0.2); BASOPHILS % (AUTO) 0.4 % (0-1); EOSINOPHILS # (AUTO) 0.1 X10'3 (0-0.9); EOSINOPHILS % (AUTO) 0.2 % (0-6); HEMOGLOBIN 12.7 g/dl (14.0-17.9); LYMPHOCYTES # (AUTO) 20.9 X10'3 (1.1-4.8); MEAN CORPUSCULAR HEMOGLOBIN 32.3 PG (27.0-31.0); MEAN CORPUSCULAR HGB CONC 33.4 % (33.0-36.5); MEAN CORPUSCULAR VOLUME 96.6 FL (78-98); MEAN PLATELET VOLUME 6.5 FL (7.4-10.4); MONOCYTES # (AUTO) 0.6 X10'3 (0-0.9); NEUTROPHILS % (AUTO) 24.4 % (42-75); PLATELET COUNT 312 X10'3 (140-440); RED BLOOD COUNT 3.93 X10'6 (4.70-6.10)
[2017-10-23 13:12] LABS: WHITE BLOOD COUNT 28.6 X10'3 (4.5-11.0)
[2017-10-23 13:31] LABS: VALPROATE 100 UG/ML (50-100)
[2017-10-23 14:12] LABS: TOTAL CELLS COUNTED 100
[2017-10-23 14:13] LABS: ANISOCYTOSIS 1+; PLATELET ESTIMATE NORMAL; SMUDGE CELLS 3+
[2017-10-23 18:00] VITALS: BP 112/73
[2017-10-23] MEDS: mirtazapine 15mg tablet PO SCH (20:10)
[2017-10-23 22:00] VITALS: BP 146/87
[2017-10-24] MEDS ORDERED: LORazepam 2 mg/ml vial IM ONE (04:45)
[2017-10-24] MEDS ORDERED: LORazepam 2 mg/ml vial IV PRN (04:50)
[2017-10-24] MEDS: divalproex sodium 500mg tablet.DR PO SCH ×2 (07:44→20:38)
[2017-10-24] MEDS: aspirin 81mg tablet.DR PO SCH (07:44)
[2017-10-24] MEDS: clopidogrel 75mg tablet PO SCH (07:45)
[2017-10-24] MEDS: levetiracetam 250mg tablet PO SCH ×2 (07:45→20:38)
[2017-10-24] MEDS: heparin, porcine 5000 units/ml vial SQ SCH ×2 (07:45→20:40)
[2017-10-24] MEDS: FLUoxetine 20mg capsule PO SCH (07:45)
[2017-10-24] MEDS: magnesium hydroxide 30ml (MOM) UD suspension PO PRN ×2 (07:53→22:14)
[2017-10-24 10:00] VITALS: BP 139/85
[2017-10-24] MEDS: HYDROcodone/acetaminophen 5mg/325mg tablet PO PRN (14:57)
[2017-10-24 18:00] VITALS: BP 117/70
[2017-10-24] MEDS: Protein Shake (high protein) 240ml (8oz) cup PO SCH (18:02)
[2017-10-24] MEDS: mirtazapine 15mg tablet PO SCH (20:38)
[2017-10-24 22:00] VITALS: BP 172/88
[2017-10-25] MEDS: haloperidol lactate 5mg/ml inj IM PRN (01:49)
[2017-10-25] MEDS ORDERED: LORazepam 2 mg/ml vial IM ONE (02:30)
[2017-10-25] MEDS ORDERED: hydrALAZINE 20mg/ml inj. IV PRN (02:30)
[2017-10-25 06:00] VITALS: BP 126/63
[2017-10-25] MEDS: aspirin 81mg tablet.DR PO SCH (08:00)
[2017-10-25] MEDS: divalproex sodium 500mg tablet.DR PO SCH ×2 (08:00→22:37)
[2017-10-25] MEDS: heparin, porcine 5000 units/ml vial SQ SCH ×2 (08:00→22:38)
[2017-10-25] MEDS: FLUoxetine 20mg capsule PO SCH (08:00)
[2017-10-25] MEDS: clopidogrel 75mg tablet PO SCH (08:00)
[2017-10-25] MEDS: levetiracetam 250mg tablet PO SCH ×2 (08:00→22:37)
[2017-10-25 10:00] VITALS: BP 123/69
[2017-10-25] MEDS: dextrose 5%-normal saline 1,000 ML IV SCH ×2 (10:25→22:39)
[2017-10-25 18:00] VITALS: BP 135/79
[2017-10-25] MEDS: Protein Shake (high protein) 240ml (8oz) cup PO SCH (18:00)
[2017-10-25] MEDS: mirtazapine 15mg tablet PO SCH (22:38)
[2017-10-26] MEDS: haloperidol lactate 5mg/ml inj IM PRN ×2 (01:39→20:17)
[2017-10-26] MEDS: magnesium hydroxide 30ml (MOM) UD suspension PO PRN (03:15)
[2017-10-26] MEDS: dextrose 5%-normal saline 1,000 ML IV SCH ×2 (05:55→12:54)
[2017-10-26 06:00] VITALS: BP 153/73
[2017-10-26 06:22] LABS: BASOPHILS % (AUTO) 0.2 % (0-1); EOSINOPHILS % (AUTO) 0.1 % (0-6); HEMATOCRIT 34.1 % (42.0-52.0); HEMOGLOBIN 11.5 g/dl (14.0-17.9); LYMPHOCYTES # (AUTO) 17.6 X10'3 (1.1-4.8); LYMPHOCYTES % (AUTO) 70.1 % (21-51); MEAN CORPUSCULAR HEMOGLOBIN 32.6 PG (27.0-31.0); MEAN CORPUSCULAR HGB CONC 33.8 % (33.0-36.5); MEAN CORPUSCULAR VOLUME 96.5 FL (78-98); MEAN PLATELET VOLUME 6.6 FL (7.4-10.4); MONOCYTES # (AUTO) 0.5 X10'3 (0-0.9); MONOCYTES % (AUTO) 2.2 % (2-12); NEUTROPHILS # (AUTO) 6.9 X10'3 (1.8-7.7); NEUTROPHILS % (AUTO) 27.4 % (42-75); PLATELET COUNT 255 X10'3 (140-440); RED BLOOD COUNT 3.53 X10'6 (4.70-6.10); RED CELL DISTRIBUTION WIDTH 16.9 % (11.5-14.5)
[2017-10-26 06:33] LABS: WHITE BLOOD COUNT 25.1 X10'3 (4.5-11.0)
[2017-10-26] MEDS: HYDROcodone/acetaminophen 5mg/325mg tablet PO PRN ×2 (06:47→13:54)
[2017-10-26 06:49] LABS: ALANINE AMINOTRANSFERASE 10 U/L (12-78); ALBUMIN 2.6 G/DL (3.4-5.0); ALBUMIN/GLOBULIN RATIO 0.7 (1.1-1.5); ALKALINE PHOSPHATASE 38 IU/L (46-116); ANION GAP 7 (8-16); ASPARTATE AMINO TRANSFERASE 15 U/L (10-37); BILIRUBIN,TOTAL 0.2 MG/DL (0.1-1.0); BLOOD UREA NITROGEN 32 MG/DL (7-18); BUN/CREATININE RATIO 35.2 (5.4-32.0); CALCIUM 8.7 MG/DL (8.5-10.1); CHLORIDE 109 MMOL/L (99-107); CREATININE 0.91 MG/DL (0.60-1.10); GLUCOSE 105 MG/DL (70-104); MAGNESIUM 1.9 MG/DL (1.5-2.4); PHOSPHORUS 2.8 MG/DL (2.3-4.5); POTASSIUM 4.2 MMOL/L (3.5-5.1); SODIUM 145 MMOL/L (135-145); TOTAL CARBON DIOXIDE 28.9 MMOL/L (24-32); TOTAL PROTEIN 6.4 G/DL (6.4-8.2); eGFR 83 ML/MIN
[2017-10-26] MEDS: clopidogrel 75mg tablet PO SCH (08:22)
[2017-10-26] MEDS: divalproex sodium 500mg tablet.DR PO SCH ×2 (08:22→20:18)
[2017-10-26] MEDS: FLUoxetine 20mg capsule PO SCH (08:22)
[2017-10-26] MEDS: levetiracetam 250mg tablet PO SCH ×2 (08:22→20:18)
[2017-10-26] MEDS: aspirin 81mg tablet.DR PO SCH (08:22)
[2017-10-26] MEDS: heparin, porcine 5000 units/ml vial SQ SCH ×2 (08:24→20:18)
[2017-10-26 08:44] LABS: TOTAL CELLS COUNTED 100
[2017-10-26 08:45] LABS: ANISOCYTOSIS 1+; PLATELET ESTIMATE NORMAL
[2017-10-26 08:46] LABS: BURR CELLS FEW; ELLIPTOCYTES FEW; SCHISTOCYTES FEW; SMUDGE CELLS 3+
[2017-10-26 10:00] VITALS: BP 113/62
[2017-10-26 18:00] VITALS: BP 128/65
[2017-10-26] MEDS: Protein Shake (high protein) 240ml (8oz) cup PO SCH (18:15)
[2017-10-26] MEDS: mirtazapine 15mg tablet PO SCH (20:18)
[2017-10-26] MEDS ORDERED: LORazepam 2 mg/ml vial IV ONE (23:00)
[2017-10-27 01:00] VITALS: BP 159/76
[2017-10-27] MEDS: levetiracetam 250mg tablet PO SCH ×3 (09:38→22:25)
[2017-10-27] MEDS: clopidogrel 75mg tablet PO SCH (09:38)
[2017-10-27] MEDS: aspirin 81mg tablet.DR PO SCH (09:38)
[2017-10-27] MEDS: divalproex sodium 500mg tablet.DR PO SCH ×3 (09:38→22:25)
[2017-10-27] MEDS: heparin, porcine 5000 units/ml vial SQ SCH ×2 (09:39→20:00)
[2017-10-27] MEDS: FLUoxetine 20mg capsule PO SCH (09:39)
[2017-10-27 10:00] VITALS: BP 142/88
[2017-10-27] MEDS: Protein Shake (high protein) 240ml (8oz) cup PO SCH ×2 (17:00→19:21)
[2017-10-27 18:00] VITALS: BP 97/53
[2017-10-27] MEDS: mirtazapine 15mg tablet PO SCH ×2 (21:00→22:25)
[2017-10-27 22:00] VITALS: BP 135/66
[2017-10-27 22:19] LABS: URINE AMPHETAMINE SCREEN NEGATIVE (Neg); URINE BARBITUATE SCREEN NEGATIVE (Neg); URINE BENZODIAZEPINES SCREEN NEGATIVE (Neg); URINE CANNABINOID SCREEN NEGATIVE (Neg); URINE COCAINE SCREEN NEGATIVE (Neg); URINE METHADONE SCREEN NEGATIVE (Neg); URINE OPIATE SCREEN NEGATIVE (Neg); URINE PHENCYCLIDINE SCREEN NEGATIVE (Neg)
[2017-10-28] MEDS: LORazepam 2 mg/ml vial IV PRN ×2 (01:43→19:28)
[2017-10-28] MEDS: HYDROcodone/acetaminophen 5mg/325mg tablet PO PRN (05:37)
[2017-10-28 06:00] VITALS: BP 125/73
[2017-10-28] MEDS: aspirin 81mg tablet.DR PO SCH (08:47)
[2017-10-28] MEDS: clopidogrel 75mg tablet PO SCH (08:47)
[2017-10-28] MEDS: FLUoxetine 20mg capsule PO SCH (08:47)
[2017-10-28] MEDS: levetiracetam 250mg tablet PO SCH (08:47)
[2017-10-28] MEDS: divalproex sodium 500mg tablet.DR PO SCH (08:47)
[2017-10-28] MEDS: heparin, porcine 5000 units/ml vial SQ SCH ×2 (08:48→20:00)
[2017-10-28 10:00] VITALS: BP 117/68
[2017-10-28] MEDS: QUEtiapine 25mg tablet PO SCH (13:53)
[2017-10-28 18:00] VITALS: BP 95/59
[2017-10-28] MEDS: Protein Smoothie (high protein) 240ml (8oz) cup PO SCH (18:27)
[2017-10-28 22:30] VITALS: BP 110/66
[2017-10-29] MEDS: QUEtiapine 25mg tablet PO SCH ×3 (00:06→20:35)
[2017-10-29] MEDS: levetiracetam 250mg tablet PO SCH ×3 (00:07→20:34)
[2017-10-29] MEDS: divalproex sodium 500mg tablet.DR PO SCH ×3 (00:09→20:35)
[2017-10-29 05:00] VITALS: BP 95/60
[2017-10-29] MEDS: clopidogrel 75mg tablet PO SCH (08:14)
[2017-10-29] MEDS: aspirin 81mg tablet.DR PO SCH (08:14)
[2017-10-29] MEDS: Protein Smoothie (high protein) 240ml (8oz) cup PO SCH ×3 (08:14→18:00)
[2017-10-29] MEDS: heparin, porcine 5000 units/ml vial SQ SCH ×2 (08:15→20:41)
[2017-10-29 17:00] VITALS: BP 109/67
[2017-10-29] MEDS: Protein Shake (high protein) 240ml (8oz) cup PO SCH (17:00)
[2017-10-29] MEDS: magnesium hydroxide 30ml (MOM) UD suspension PO PRN (17:11)
[2017-10-29 22:00] VITALS: BP 113/69
[2017-10-29] MEDS: LORazepam 2 mg/ml vial IV PRN (22:26)
[2017-10-30 01:00] VITALS: BP 94/67
[2017-10-30] MEDS: LORazepam 2 mg/ml vial IV PRN (04:15)
[2017-10-30 05:00] VITALS: BP 135/78
[2017-10-30 06:00] VITALS: BP 135/78
[2017-10-30] MEDS: Protein Smoothie (high protein) 240ml (8oz) cup PO SCH ×3 (08:00→18:00)
[2017-10-30] MEDS: divalproex sodium 500mg tablet.DR PO SCH ×2 (08:25→19:15)
[2017-10-30] MEDS: aspirin 81mg tablet.DR PO SCH (08:25)
[2017-10-30] MEDS: levetiracetam 250mg tablet PO SCH ×2 (08:26→19:16)
[2017-10-30] MEDS: clopidogrel 75mg tablet PO SCH (08:26)
[2017-10-30] MEDS: heparin, porcine 5000 units/ml vial SQ SCH ×2 (08:26→19:17)
[2017-10-30] MEDS: QUEtiapine 25mg tablet PO SCH (08:26)
[2017-10-30] MEDS: Protein Shake (high protein) 240ml (8oz) cup PO SCH (17:43)
[2017-10-30 18:00] VITALS: BP 143/75
[2017-10-30] MEDS ORDERED: OLANZapine **IM** 10 mg inj. IM PRN (18:45)
[2017-10-30] MEDS: quetiapine 100mg tablet PO SCH (19:15)
[2017-10-31 06:00] VITALS: BP 119/57
[2017-10-31] MEDS: levetiracetam 250mg tablet PO SCH ×2 (07:40→20:00)
[2017-10-31] MEDS: clopidogrel 75mg tablet PO SCH (07:40)
[2017-10-31] MEDS: quetiapine 100mg tablet PO SCH ×3 (07:40→22:42)
[2017-10-31] MEDS: divalproex sodium 500mg tablet.DR PO SCH ×3 (07:40→22:41)
[2017-10-31] MEDS: aspirin 81mg tablet.DR PO SCH (07:40)
[2017-10-31] MEDS: heparin, porcine 5000 units/ml vial SQ SCH ×2 (07:42→20:00)
[2017-10-31] MEDS: Protein Smoothie (high protein) 240ml (8oz) cup PO SCH ×3 (08:00→18:00)
[2017-10-31 11:00] VITALS: BP 179/79
[2017-10-31] MEDS: Protein Shake (high protein) 240ml (8oz) cup PO SCH (17:00)
[2017-10-31 18:00] VITALS: BP 95/53
[2017-10-31 21:45] VITALS: BP 111/59
[2017-11-01 07:00] VITALS: BP 97/50
[2017-11-01 10:00] VITALS: BP 124/80
[2017-11-01] MEDS: aspirin 81mg tablet.DR PO SCH (10:25)
[2017-11-01] MEDS: quetiapine 100mg tablet PO SCH ×2 (10:25→19:59)
[2017-11-01] MEDS: divalproex sodium 500mg tablet.DR PO SCH ×2 (10:25→20:00)
[2017-11-01] MEDS: levetiracetam 250mg tablet PO SCH ×2 (10:25→20:00)
[2017-11-01] MEDS: clopidogrel 75mg tablet PO SCH (10:25)
[2017-11-01] MEDS: heparin, porcine 5000 units/ml vial SQ SCH ×2 (10:26→20:00)
[2017-11-01] MEDS: Protein Smoothie (high protein) 240ml (8oz) cup PO SCH ×3 (10:26→18:48)
[2017-11-01] MEDS: HYDROcodone/acetaminophen 5mg/325mg tablet PO PRN (16:57)
[2017-11-01] MEDS: magnesium hydroxide 30ml (MOM) UD suspension PO PRN (16:58)
[2017-11-01] MEDS: Protein Shake (high protein) 240ml (8oz) cup PO SCH (17:00)
[2017-11-01 18:00] VITALS: BP 105/71
[2017-11-01 22:00] VITALS: BP 85/53
[2017-11-02 06:00] VITALS: BP 107/69
[2017-11-02] MEDS: Protein Smoothie (high protein) 240ml (8oz) cup PO SCH ×4 (08:00→20:46)
[2017-11-02] MEDS: heparin, porcine 5000 units/ml vial SQ SCH ×3 (08:00→20:00)
[2017-11-02 10:00] VITALS: BP 108/60
[2017-11-02] MEDS: quetiapine 100mg tablet PO SCH ×2 (10:15→21:00)
[2017-11-02] MEDS: aspirin 81mg tablet.DR PO SCH (10:15)
[2017-11-02] MEDS: divalproex sodium 500mg tablet.DR PO SCH ×2 (10:15→21:00)
[2017-11-02] MEDS: clopidogrel 75mg tablet PO SCH (10:16)
[2017-11-02] MEDS: levetiracetam 250mg tablet PO SCH ×2 (10:16→20:00)
[2017-11-02] MEDS: Protein Shake (high protein) 240ml (8oz) cup PO SCH (17:00)
[2017-11-02 18:00] VITALS: BP 108/52
[2017-11-02] MEDS: ciprofloxacin 0.3% 2.5ml ophthalmic solution LEFTEYE SCH (20:45)
[2017-11-02 22:00] VITALS: BP 137/80
[2017-11-03] MEDS: ciprofloxacin 0.3% 2.5ml ophthalmic solution LEFTEYE SCH ×6 (00:46→20:00)
[2017-11-03 05:00] VITALS: BP 132/63
[2017-11-03] MEDS: heparin, porcine 5000 units/ml vial SQ SCH ×2 (08:00→20:00)
[2017-11-03] MEDS: divalproex sodium 500mg tablet.DR PO SCH ×2 (08:24→21:03)
[2017-11-03] MEDS: aspirin 81mg tablet.DR PO SCH (08:27)
[2017-11-03] MEDS: clopidogrel 75mg tablet PO SCH (08:30)
[2017-11-03] MEDS: quetiapine 100mg tablet PO SCH ×3 (08:31→21:03)
[2017-11-03] MEDS: levetiracetam 250mg tablet PO SCH ×2 (08:37→21:04)
[2017-11-03 10:00] VITALS: BP 98/61
[2017-11-03] MEDS: Protein Smoothie (high protein) 240ml (8oz) cup PO SCH ×2 (13:00→18:00)
[2017-11-03 18:00] VITALS: BP_SYST 137; BP_SYST 93; BP_DIAS 60; BP_DIAS 71
[2017-11-03] MEDS: Protein Shake (high protein) 240ml (8oz) cup PO SCH (19:10)
[2017-11-03] MEDS: mirtazapine 15mg tablet PO SCH (21:03)
[2017-11-03 22:00] VITALS: BP 137/71
[2017-11-04] MEDS: ciprofloxacin 0.3% 2.5ml ophthalmic solution LEFTEYE SCH ×7 (04:00→23:50)
[2017-11-04 05:00] VITALS: BP 120/66
[2017-11-04] MEDS: heparin, porcine 5000 units/ml vial SQ SCH ×2 (08:00→20:00)
[2017-11-04] MEDS: Protein Smoothie (high protein) 240ml (8oz) cup PO SCH ×3 (08:39→18:05)
[2017-11-04] MEDS: divalproex sodium 500mg tablet.DR PO SCH ×2 (08:43→20:26)
[2017-11-04] MEDS: quetiapine 100mg tablet PO SCH ×3 (08:43→20:26)
[2017-11-04] MEDS: clopidogrel 75mg tablet PO SCH (08:47)
[2017-11-04] MEDS: levetiracetam 250mg tablet PO SCH ×2 (08:48→20:26)
[2017-11-04] MEDS: aspirin 81mg tablet.DR PO SCH (08:51)
[2017-11-04 10:00] VITALS: BP 102/58
[2017-11-04] MEDS: HYDROcodone/acetaminophen 5mg/325mg tablet PO PRN (12:49)
[2017-11-04] MEDS: Protein Shake (high protein) 240ml (8oz) cup PO SCH (17:47)
[2017-11-04 18:00] VITALS: BP 112/56
[2017-11-04] MEDS: mirtazapine 15mg tablet PO SCH (20:26)
[2017-11-04 21:40] VITALS: BP 92/51
[2017-11-05] MEDS: ciprofloxacin 0.3% 2.5ml ophthalmic solution LEFTEYE SCH ×6 (04:00→20:58)
[2017-11-05] MEDS: HYDROcodone/acetaminophen 5mg/325mg tablet PO PRN (05:28)
[2017-11-05 06:00] VITALS: BP 137/58
[2017-11-05] MEDS: heparin, porcine 5000 units/ml vial SQ SCH ×2 (08:00→20:58)
[2017-11-05] MEDS: divalproex sodium 500mg tablet.DR PO SCH ×2 (08:10→20:57)
[2017-11-05] MEDS: clopidogrel 75mg tablet PO SCH (08:10)
[2017-11-05] MEDS: quetiapine 100mg tablet PO SCH ×4 (08:10→20:57)
[2017-11-05] MEDS: levetiracetam 250mg tablet PO SCH ×2 (08:10→20:57)
[2017-11-05] MEDS: aspirin 81mg tablet.DR PO SCH (08:10)
[2017-11-05] MEDS: Protein Smoothie (high protein) 240ml (8oz) cup PO SCH ×3 (08:11→18:00)
[2017-11-05 10:00] VITALS: BP 130/69
[2017-11-05 11:23] VITALS: BP 130/69
[2017-11-05 18:00] VITALS: BP 117/67
[2017-11-05] MEDS: Protein Shake (high protein) 240ml (8oz) cup PO SCH (19:11)
[2017-11-05] MEDS: mirtazapine 15mg tablet PO SCH (20:58)
[2017-11-05 22:00] VITALS: BP 101/57
[2017-11-06] MEDS: ciprofloxacin 0.3% 2.5ml ophthalmic solution LEFTEYE SCH ×6 (04:19→20:50)
[2017-11-06] MEDS: heparin, porcine 5000 units/ml vial SQ SCH ×2 (07:17→20:00)
[2017-11-06] MEDS: aspirin 81mg tablet.DR PO SCH (07:19)
[2017-11-06] MEDS: divalproex sodium 500mg tablet.DR PO SCH ×2 (07:20→20:49)
[2017-11-06] MEDS: levetiracetam 250mg tablet PO SCH ×2 (07:21→20:50)
[2017-11-06] MEDS: quetiapine 100mg tablet PO SCH ×3 (07:22→20:49)
[2017-11-06] MEDS: clopidogrel 75mg tablet PO SCH (07:22)
[2017-11-06] MEDS: Protein Smoothie (high protein) 240ml (8oz) cup PO SCH ×3 (08:00→18:00)
[2017-11-06 10:31] VITALS: BP 104/71
[2017-11-06] MEDS: HYDROcodone/acetaminophen 5mg/325mg tablet PO PRN (11:43)
[2017-11-06] MEDS: magnesium hydroxide 30ml (MOM) UD suspension PO PRN (16:27)
[2017-11-06] MEDS: Protein Shake (high protein) 240ml (8oz) cup PO SCH (16:30)
[2017-11-06 18:00] VITALS: BP 96/56
[2017-11-06] MEDS: mirtazapine 15mg tablet PO SCH (20:50)
[2017-11-06 22:00] VITALS: BP 115/66
[2017-11-07] MEDS: ciprofloxacin 0.3% 2.5ml ophthalmic solution LEFTEYE SCH ×3 (04:00→09:47)
[2017-11-07 06:00] VITALS: BP 125/67
[2017-11-07] MEDS: Protein Smoothie (high protein) 240ml (8oz) cup PO SCH (08:00)
[2017-11-07] MEDS: aspirin 81mg tablet.DR PO SCH (09:37)
[2017-11-07] MEDS: quetiapine 100mg tablet PO SCH (09:37)
[2017-11-07] MEDS: clopidogrel 75mg tablet PO SCH (09:37)
[2017-11-07] MEDS: levetiracetam 250mg tablet PO SCH (09:47)
[2017-11-07] MEDS: divalproex sodium 500mg tablet.DR PO SCH (09:47)
[2017-11-07] MEDS: heparin, porcine 5000 units/ml vial SQ SCH (09:54)
[2017-11-07] MEDS ORDERED: QUET100T33 PO (11:34)
[2017-11-07] MEDS ORDERED: MIRT15TA8 PO (11:34)
== END 2017-11-07 12:15 | disposition home health service (06) | DRG 91 ==
LOC: ER 14:53 → ED HOLD 19:30 → ORTHO 4S 20:34
PROVIDERS: ADMIT Internal Medicine; ATTEND Family Medicine
DX: R26.81 Unsteadiness on feet (principal); E43 Unspecified severe protein-calorie malnutrition; C91.10 Chronic lymphocytic leukemia of B-cell type not having achieved remission; Z68.1 Body mass index [BMI] 19.9 or less, adult; F05 Delirium due to known physiological condition; I69.354 Hemiplegia and hemiparesis following cerebral infarction affecting left non-dominant side; I25.10 Atherosclerotic heart disease of native coronary artery without angina pectoris; E86.0 Dehydration; F01.50 Vascular dementia, unspecified severity, without behavioral disturbance, psychotic disturbance, mood disturbance, and anxiety; F41.9 Anxiety disorder, unspecified; G40.909 Epilepsy, unspecified, not intractable, without status epilepticus; G47.00 Insomnia, unspecified; B19.20 Unspecified viral hepatitis C without hepatic coma; F32.9 Major depressive disorder, single episode, unspecified; Z60.2 Problems related to living alone; H02.846 Edema of left eye, unspecified eyelid; Z75.1 Person awaiting admission to adequate facility elsewhere; Z88.8 Allergy status to other drugs, medicaments and biological substances; Z88.5 Allergy status to narcotic agent; Z79.899 Other long term (current) drug therapy; Z79.82 Long term (current) use of aspirin; Z80.0 Family history of malignant neoplasm of digestive organs
CPT/HCPCS: 36415; 70450; 71045; 73630; 80053; 80164; 80305; 81001; 83605; 83735; 83880; 84100; 84145; 84443; 85025; 87040; 87070; 92616; 93005; 97110; 97112; 97116; 97162; 97530; 97535; 99285; A4315; A6209; A6212; A6213; A6222; A6255; A6446; A6449; J1630; J1644; J2060; J3486; J7042

== ENCOUNTER 2017-12-16 18:22 | Inpatient (IN) | payer MEDICARE, MEDICAID ==
[~2017-12-16] VITALS: Ht 170.2 cm; Wt 58.4 kg
[~2017-12-16 18:22] MED LIST changes: +ASPI81TA52 PO; +CLOP75TA15 PO; +HYDR-3964 PO; +LEVE750T6 PO; +MIRT15TA8 PO; +QUET100T33 PO
[2017-12-16] MEDS ORDERED: ATORVASTATIN 20 MG TABLET (18:43)
[2017-12-16] MEDS ORDERED: CLOPIDOGREL 75 MG TABLET (18:43)
[2017-12-16] MEDS ORDERED: DIVALPROEX SOD DR 500 MG TAB (18:43)
[2017-12-16] MEDS ORDERED: LEVETIRACETAM 750 MG (18:43)
[2017-12-16] MEDS ORDERED: QUETIAPINE FUMARATE 100 MG TAB (18:43)
[2017-12-16] MEDS ORDERED: MIRTAZAPINE 30 MG TABLET (18:43)
[2017-12-16] MEDS ORDERED: normal saline 1000ml 1,000 ML IV ONE (20:30)
[2017-12-16 20:45] LABS: BASOPHILS % (AUTO) 0.2 % (0-1); EOSINOPHILS # (AUTO) 0.1 X10'3 (0-0.9); EOSINOPHILS % (AUTO) 0.6 % (0-6); HEMOGLOBIN 11.7 g/dl (14.0-17.9); LYMPHOCYTES # (AUTO) 12.4 X10'3 (1.1-4.8); LYMPHOCYTES % (AUTO) 65.4 % (21-51); MEAN CORPUSCULAR HEMOGLOBIN 31.4 PG (27.0-31.0); MEAN CORPUSCULAR HGB CONC 32.5 % (33.0-36.5); MEAN CORPUSCULAR VOLUME 96.7 FL (78-98); MONOCYTES # (AUTO) 0.7 X10'3 (0-0.9); MONOCYTES % (AUTO) 3.5 % (2-12); NEUTROPHILS # (AUTO) 5.7 X10'3 (1.8-7.7); NEUTROPHILS % (AUTO) 30.3 % (42-75); PLATELET COUNT 355 X10'3 (140-440); RED BLOOD COUNT 3.73 X10'6 (4.70-6.10); RED CELL DISTRIBUTION WIDTH 16.2 % (11.5-14.5)
[2017-12-16 20:58] LABS: PARTIAL THROMBOPLASTIN TIME 26 SECONDS (22-32)
[2017-12-16 21:01] LABS: ALANINE AMINOTRANSFERASE 10 U/L (12-78); ALBUMIN 2.9 G/DL (3.4-5.0); ALBUMIN/GLOBULIN RATIO 0.7 (1.1-1.5); ALKALINE PHOSPHATASE 45 IU/L (46-116); ANION GAP 8 (8-16); ASPARTATE AMINO TRANSFERASE 13 U/L (10-37); BILIRUBIN,TOTAL 0.2 MG/DL (0.1-1.0); BLOOD UREA NITROGEN 26 MG/DL (7-18); BUN/CREATININE RATIO 34.7 (5.4-32.0); CHLORIDE 105 MMOL/L (99-107); CREATININE 0.75 MG/DL (0.60-1.10); GLUCOSE 85 MG/DL (70-104); POTASSIUM 4.5 MMOL/L (3.5-5.1); SODIUM 143 MMOL/L (135-145); TOTAL CARBON DIOXIDE 30.5 MMOL/L (24-32); TOTAL PROTEIN 7.1 G/DL (6.4-8.2); eGFR > 90 ML/MIN
[2017-12-16 21:05] LABS: MAGNESIUM 1.7 MG/DL (1.5-2.4); TROPONIN I < 0.04 NG/ML (0.0-0.05)
--- NOTE | 2017-12-16 22:00 | NUR ---
ATTEMPTED TO CALL CAREGIVER MARIO AT [phone] WHICH WAS THE NUMBER THAT SHE PROVIDED TO EMS, NO ANSWER AT THAT NUMBER
[2017-12-16 22:06] LABS: ANISOCYTOSIS 1+; PLATELET ESTIMATE NORMAL; TOTAL CELLS COUNTED 100
[2017-12-16 22:08] LABS: ELLIPTOCYTES FEW
[2017-12-16 22:10] LABS: SMUDGE CELLS 3+
[2017-12-16 22:12] LABS: POLYCHROMASIA FEW
[2017-12-16] MEDS ORDERED: acetaminophen 325mg tablet PO PRN (22:35)
[2017-12-16] MEDS ORDERED: ondansetron/PF 4mg/2ml inj IV PRN (22:35)
[2017-12-16] MEDS: normal saline 1000ml 1,000 ML IV SCH (22:35)
[2017-12-16] MEDS ORDERED: mag hydrox/Alum hydrox/simeth 30ml oral suspension PO PRN (22:35)
[2017-12-16 22:40] VITALS: BP 95/56
[2017-12-17] MEDS: normal saline 1000ml 1,000 ML IV SCH ×2 (05:35→21:27)
[2017-12-17 06:15] LABS: BASOPHILS % (AUTO) 0.2 % (0-1); EOSINOPHILS # (AUTO) 0.1 X10'3 (0-0.9); EOSINOPHILS % (AUTO) 0.6 % (0-6); HEMATOCRIT 32.1 % (42.0-52.0); HEMOGLOBIN 10.5 g/dl (14.0-17.9); LYMPHOCYTES # (AUTO) 12.1 X10'3 (1.1-4.8); LYMPHOCYTES % (AUTO) 72.5 % (21-51); MEAN CORPUSCULAR HEMOGLOBIN 31.6 PG (27.0-31.0); MEAN CORPUSCULAR HGB CONC 32.7 % (33.0-36.5); MEAN CORPUSCULAR VOLUME 96.7 FL (78-98); MEAN PLATELET VOLUME 7.5 FL (7.4-10.4); MONOCYTES # (AUTO) 0.6 X10'3 (0-0.9); MONOCYTES % (AUTO) 3.6 % (2-12); NEUTROPHILS # (AUTO) 3.9 X10'3 (1.8-7.7); NEUTROPHILS % (AUTO) 23.1 % (42-75); PLATELET COUNT 316 X10'3 (140-440); RED BLOOD COUNT 3.32 X10'6 (4.70-6.10); RED CELL DISTRIBUTION WIDTH 16.2 % (11.5-14.5); WHITE BLOOD COUNT 16.7 X10'3 (4.5-11.0)
[2017-12-17 06:23] LABS: ALBUMIN 2.6 G/DL (3.4-5.0); ANION GAP 9 (8-16); BLOOD UREA NITROGEN 25 MG/DL (7-18); BUN/CREATININE RATIO 29.8 (5.4-32.0); CALCIUM 8.8 MG/DL (8.5-10.1); CHLORIDE 109 MMOL/L (99-107); CREATININE 0.84 MG/DL (0.60-1.10); GLUCOSE 93 MG/DL (70-104); POTASSIUM 4.4 MMOL/L (3.5-5.1); SODIUM 144 MMOL/L (135-145); eGFR > 90 ML/MIN
--- NOTE | 2017-12-17 06:33 | NUR ---
Two RN Skin Assessment has been completed with ,all skin assessed,with the following findings Red blanchable buttocks, multiple abrasions on lower ext. Addendum: 12/17/17 at 0636 by Marifer Cates RN Amended: Links added.
--- NOTE | 2017-12-17 06:35 | NUR ---
Patient in room [facility]. I have received report from Marifer CAZARES and had the opportunity to ask questions and assume patient care. patient awake in bed, bed alarm on, no complaints
--- NOTE | 2017-12-17 06:35 | NUR ---
Problems reprioritized. Patient report given, questions answered & plan of care reviewed with Yudelka CAZARES. Addendum: 12/17/17 at 0635 by Marifer Cates RN Amended: Links added.
[2017-12-17 07:23] LABS: ANISOCYTOSIS 1+; PLATELET ESTIMATE NORMAL; TOTAL CELLS COUNTED 100
[2017-12-17 07:24] LABS: POLYCHROMASIA FEW
[2017-12-17 07:25] LABS: SMUDGE CELLS 2+
[2017-12-17] MEDS: quetiapine 100mg tablet PO SCH ×3 (07:39→20:21)
[2017-12-17] MEDS: aspirin 81mg tablet.DR PO SCH (07:40)
[2017-12-17] MEDS: clopidogrel 75mg tablet PO SCH (07:40)
[2017-12-17] MEDS: levetiracetam 250mg tablet PO SCH ×2 (07:41→20:21)
[2017-12-17] MEDS: divalproex sodium 500mg tablet.DR PO SCH ×2 (07:45→20:20)
[2017-12-17 07:58] VITALS: BP 101/73
--- NOTE | 2017-12-17 11:28 | NUR ---
Dr. Valero rounded on patient I expressed to her my concern for elevated WBC and no antibiotics. 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 said we can cancel the UA it is not needed
[2017-12-17 12:22] VITALS: BP 96/55
--- NOTE | 2017-12-17 18:34 | NUR ---
Problems reprioritized. Patient report given,Lainne CAZARES questions answered & plan of care reviewed with . Patient awake in bed watching TV
[2017-12-17 20:00] VITALS: BP 103/62
[2017-12-17] MEDS: mirtazapine 15mg tablet PO SCH (20:27)
[2017-12-18] VITALS: BP 96/57
[2017-12-18 06:39] VITALS: BP 131/79
[2017-12-18] MEDS: levetiracetam 250mg tablet PO SCH ×2 (07:03→20:38)
[2017-12-18] MEDS: divalproex sodium 500mg tablet.DR PO SCH ×2 (07:03→20:37)
[2017-12-18] MEDS: clopidogrel 75mg tablet PO SCH (07:04)
[2017-12-18] MEDS: quetiapine 100mg tablet PO SCH ×3 (07:04→20:37)
[2017-12-18] MEDS: aspirin 81mg tablet.DR PO SCH (07:04)
[2017-12-18 10:25] LABS: BASOPHILS % (AUTO) 0.2 % (0-1); EOSINOPHILS # (AUTO) 0.1 X10'3 (0-0.9); EOSINOPHILS % (AUTO) 0.7 % (0-6); HEMATOCRIT 33.7 % (42.0-52.0); LYMPHOCYTES # (AUTO) 11.9 X10'3 (1.1-4.8); MEAN CORPUSCULAR HEMOGLOBIN 31.7 PG (27.0-31.0); MEAN CORPUSCULAR HGB CONC 32.7 % (33.0-36.5); MEAN CORPUSCULAR VOLUME 96.7 FL (78-98); MEAN PLATELET VOLUME 7.2 FL (7.4-10.4); MONOCYTES # (AUTO) 0.5 X10'3 (0-0.9); NEUTROPHILS # (AUTO) 4.7 X10'3 (1.8-7.7); NEUTROPHILS % (AUTO) 27.1 % (42-75); PLATELET COUNT 293 X10'3 (140-440); RED BLOOD COUNT 3.49 X10'6 (4.70-6.10); RED CELL DISTRIBUTION WIDTH 16.2 % (11.5-14.5); WHITE BLOOD COUNT 17.3 X10'3 (4.5-11.0)
[2017-12-18 10:38] LABS: ALBUMIN 2.6 G/DL (3.4-5.0); ANION GAP 9 (8-16); BLOOD UREA NITROGEN 18 MG/DL (7-18); BUN/CREATININE RATIO 25.4 (5.4-32.0); CALCIUM 8.8 MG/DL (8.5-10.1); CHLORIDE 107 MMOL/L (99-107); CREATININE 0.71 MG/DL (0.60-1.10); GLUCOSE 87 MG/DL (70-104); POTASSIUM 4.2 MMOL/L (3.5-5.1); SODIUM 143 MMOL/L (135-145); eGFR > 90 ML/MIN
[2017-12-18 12:00] VITALS: BP 122/68
[2017-12-18] MEDS: normal saline 1000ml 1,000 ML IV SCH (12:14)
[2017-12-18] MEDS: baclofen 10mg tablet PO SCH ×2 (12:17→20:38)
--- NOTE | 2017-12-18 12:23 | NUR ---
SS contacted pt's family (daughter in-law) left requesting a rt p/c to discuss pt's functioning in the home and family's desire for a dcp. Contact info for family: Braden & Imelda Lore [phone]. SS to meet pt face-face for a full psychosocial.
--- NOTE | 2017-12-18 17:49 | NUR ---
[facility] HAS COME UP TO MAKE SPLINT FOR PT WRIST. DR BAUTISTA WANTED WRIST SPLINTED. [facility] REQUESTED I FIND A BOARD AND SHELIA BANDAGE AND MAKE A SPLINT OUT OF THAT. PHYS. THERAPY DISAGREED THAT THAT WAS THE APPROPRIATE WAY TO SPLINT. I RE-PAGED [facility] AND SHE CAME AND MADE A SPLINT FOR PATIENT.
--- NOTE | 2017-12-18 18:29 | NUR ---
Problems reprioritized. Patient report given, questions answered & plan of care reviewed with Lianne CAZARES. new splint placed on left hand/arm
[2017-12-18 20:00] VITALS: BP 103/65
[2017-12-18] MEDS: mirtazapine 15mg tablet PO SCH (20:40)
[2017-12-19] VITALS: BP 105/61
[2017-12-19] MEDS: normal saline 1000ml 1,000 ML IV SCH (01:13)
[2017-12-19 08:00] VITALS: BP 108/55
[2017-12-19] MEDS: clopidogrel 75mg tablet PO SCH (08:07)
[2017-12-19] MEDS: baclofen 10mg tablet PO SCH ×3 (08:08→21:19)
[2017-12-19] MEDS: aspirin 81mg tablet.DR PO SCH (08:08)
[2017-12-19] MEDS: quetiapine 100mg tablet PO SCH ×3 (08:08→21:19)
[2017-12-19] MEDS: levetiracetam 250mg tablet PO SCH ×2 (08:09→21:19)
[2017-12-19] MEDS: divalproex sodium 500mg tablet.DR PO SCH ×2 (08:09→21:19)
[2017-12-19 12:11] VITALS: BP 113/53
[2017-12-19 13:05] LABS: BASOPHILS % (AUTO) 0.3 % (0-1); EOSINOPHILS # (AUTO) 0.1 X10'3 (0-0.9); EOSINOPHILS % (AUTO) 0.8 % (0-6); HEMATOCRIT 34.1 % (42.0-52.0); HEMOGLOBIN 11.2 g/dl (14.0-17.9); LYMPHOCYTES # (AUTO) 10.9 X10'3 (1.1-4.8); MEAN CORPUSCULAR HEMOGLOBIN 31.6 PG (27.0-31.0); MEAN CORPUSCULAR HGB CONC 32.9 % (33.0-36.5); MEAN CORPUSCULAR VOLUME 96.3 FL (78-98); MEAN PLATELET VOLUME 7.1 FL (7.4-10.4); MONOCYTES # (AUTO) 0.6 X10'3 (0-0.9); MONOCYTES % (AUTO) 3.3 % (2-12); NEUTROPHILS # (AUTO) 5.7 X10'3 (1.8-7.7); NEUTROPHILS % (AUTO) 32.6 % (42-75); PLATELET COUNT 298 X10'3 (140-440); RED BLOOD COUNT 3.54 X10'6 (4.70-6.10); WHITE BLOOD COUNT 17.4 X10'3 (4.5-11.0)
[2017-12-19 13:18] LABS: ALBUMIN 2.7 G/DL (3.4-5.0); ANION GAP 8 (8-16); BLOOD UREA NITROGEN 23 MG/DL (7-18); BUN/CREATININE RATIO 30.3 (5.4-32.0); CALCIUM 9.2 MG/DL (8.5-10.1); CHLORIDE 106 MMOL/L (99-107); CREATININE 0.76 MG/DL (0.60-1.10); GLUCOSE 91 MG/DL (70-104); POTASSIUM 4.2 MMOL/L (3.5-5.1); SODIUM 141 MMOL/L (135-145); TOTAL CARBON DIOXIDE 26.6 MMOL/L (24-32); eGFR > 90 ML/MIN
--- NOTE | 2017-12-19 18:30 | NUR ---
Patient in room [facility]. I have received report from Pallavi Bo RN and had the opportunity to ask questions and assume patient care. Patient resting, encouraged to eat. Will continue to monitor.
--- NOTE | 2017-12-19 18:31 | NUR ---
Problems reprioritized. Patient report given, questions answered & plan of care reviewed with Karen CAZARES.
[2017-12-19 20:00] VITALS: BP 108/71
[2017-12-19] MEDS: mirtazapine 15mg tablet PO SCH (21:22)
[2017-12-20] VITALS: BP 114/50
--- NOTE | 2017-12-20 06:38 | NUR ---
Problems reprioritized. Patient report given, questions answered & plan of care reviewed with Leilani CAZARES. Patient resting eyes closed respirations even.
[2017-12-20] MEDS: quetiapine 100mg tablet PO SCH ×3 (07:45→20:48)
[2017-12-20] MEDS: baclofen 10mg tablet PO SCH ×3 (07:45→20:49)
[2017-12-20] MEDS: clopidogrel 75mg tablet PO SCH (07:45)
[2017-12-20] MEDS: levetiracetam 250mg tablet PO SCH ×2 (07:45→20:48)
[2017-12-20] MEDS: aspirin 81mg tablet.DR PO SCH (07:45)
[2017-12-20] MEDS: divalproex sodium 500mg tablet.DR PO SCH ×2 (07:46→20:49)
[2017-12-20 08:02] LABS: BASOPHILS % (AUTO) 0.2 % (0-1); EOSINOPHILS # (AUTO) 0.1 X10'3 (0-0.9); EOSINOPHILS % (AUTO) 0.5 % (0-6); HEMATOCRIT 35.6 % (42.0-52.0); HEMOGLOBIN 11.6 g/dl (14.0-17.9); LYMPHOCYTES % (AUTO) 71.6 % (21-51); MEAN CORPUSCULAR HEMOGLOBIN 31.4 PG (27.0-31.0); MEAN CORPUSCULAR HGB CONC 32.7 % (33.0-36.5); MEAN CORPUSCULAR VOLUME 96.3 FL (78-98); MEAN PLATELET VOLUME 7.4 FL (7.4-10.4); MONOCYTES # (AUTO) 0.5 X10'3 (0-0.9); MONOCYTES % (AUTO) 2.7 % (2-12); NEUTROPHILS # (AUTO) 4.5 X10'3 (1.8-7.7); PLATELET COUNT 273 X10'3 (140-440); RED CELL DISTRIBUTION WIDTH 15.7 % (11.5-14.5); WHITE BLOOD COUNT 18.1 X10'3 (4.5-11.0)
[2017-12-20 08:08] LABS: ALBUMIN 2.8 G/DL (3.4-5.0); ANION GAP 7 (8-16); BLOOD UREA NITROGEN 27 MG/DL (7-18); BUN/CREATININE RATIO 35.1 (5.4-32.0); CALCIUM 9.2 MG/DL (8.5-10.1); CHLORIDE 107 MMOL/L (99-107); CREATININE 0.77 MG/DL (0.60-1.10); GLUCOSE 86 MG/DL (70-104); POTASSIUM 4.2 MMOL/L (3.5-5.1); SODIUM 142 MMOL/L (135-145); TOTAL CARBON DIOXIDE 28.3 MMOL/L (24-32); eGFR > 90 ML/MIN
[2017-12-20 08:21] VITALS: BP 109/68
[2017-12-20 09:11] LABS: TOTAL CELLS COUNTED 100
[2017-12-20 09:12] LABS: ANISOCYTOSIS 1+; PLATELET ESTIMATE NORMAL
[2017-12-20 09:15] LABS: SMUDGE CELLS 2+
[2017-12-20 12:11] VITALS: BP 111/61
--- NOTE | 2017-12-20 16:07 | NUR ---
SS had t/c with pt's son (Braden Torrez) and engaged him in formulating a safe d/c plan for pt. Per discussion, pt's son will pick pt up at time of d/c (requesting 24 hours notice). Family is trying to find a new [facility] caregiver for pt, family will provide care until they find someone willing to become pt's caregiver. SS will f/u with Cm & care team tomorrow re DCP and discuss possibility of Home Health Services and possible d/c date.
--- NOTE | 2017-12-20 16:12 | NUR ---
Initial: Pt admit w/ inability to care for himself once caregiver left him. Hx CLL and gravely disabled w/ L hemiparesis per MD note. PO 100% regular diet meeting needs on remeron. MATHIS 12/19. Will continue to monitor. Rec: 1. continue regular diet 2. wt per rx Addendum: 12/20/17 at [address] Amended: Links added.
--- NOTE | 2017-12-20 18:15 | NUR ---
Patient in room [facility]. I have received report from Leilani CAZARES and had the opportunity to ask questions and assume patient care. Patient resting, woken for dinner and sat up. Will continue to monitor.
--- NOTE | 2017-12-20 18:17 | NUR ---
Problems reprioritized. Patient report given, questions answered & plan of care reviewed with Ghada CAZARES.
[2017-12-20 20:00] VITALS: BP 112/61
[2017-12-20] MEDS: mirtazapine 15mg tablet PO SCH (20:48)
[2017-12-21] VITALS: BP 115/72
[2017-12-21 06:00] LABS: BASOPHILS % (AUTO) 0.1 % (0-1); EOSINOPHILS # (AUTO) 0.1 X10'3 (0-0.9); EOSINOPHILS % (AUTO) 0.4 % (0-6); HEMATOCRIT 37.3 % (42.0-52.0); HEMOGLOBIN 12.3 g/dl (14.0-17.9); LYMPHOCYTES # (AUTO) 12.9 X10'3 (1.1-4.8); LYMPHOCYTES % (AUTO) 63.7 % (21-51); MEAN CORPUSCULAR HEMOGLOBIN 31.4 PG (27.0-31.0); MEAN CORPUSCULAR HGB CONC 32.9 % (33.0-36.5); MEAN CORPUSCULAR VOLUME 95.6 FL (78-98); MEAN PLATELET VOLUME 7.4 FL (7.4-10.4); MONOCYTES # (AUTO) 0.7 X10'3 (0-0.9); MONOCYTES % (AUTO) 3.2 % (2-12); NEUTROPHILS # (AUTO) 6.6 X10'3 (1.8-7.7); NEUTROPHILS % (AUTO) 32.6 % (42-75); PLATELET COUNT 256 X10'3 (140-440); RED CELL DISTRIBUTION WIDTH 16.3 % (11.5-14.5); WHITE BLOOD COUNT 20.3 X10'3 (4.5-11.0)
[2017-12-21 06:16] LABS: ANION GAP 9 (8-16); BLOOD UREA NITROGEN 26 MG/DL (7-18); BUN/CREATININE RATIO 32.1 (5.4-32.0); CALCIUM 9.4 MG/DL (8.5-10.1); CHLORIDE 105 MMOL/L (99-107); CREATININE 0.81 MG/DL (0.60-1.10); GLUCOSE 85 MG/DL (70-104); POTASSIUM 4.3 MMOL/L (3.5-5.1); SODIUM 142 MMOL/L (135-145); TOTAL CARBON DIOXIDE 27.7 MMOL/L (24-32); eGFR > 90 ML/MIN
--- NOTE | 2017-12-21 06:30 | NUR ---
Problems reprioritized. Patient report given, questions answered & plan of care reviewed with Leilani CAZARES. Patient resting eyes closed respirations even.
--- NOTE | 2017-12-21 06:42 | NUR ---
Patient in room [facility]. I have received report from SAGE Riley and had the opportunity to ask questions and assume patient care.
[2017-12-21 08:00] VITALS: BP 114/57
[2017-12-21] MEDS: divalproex sodium 500mg tablet.DR PO SCH ×2 (08:08→20:29)
[2017-12-21] MEDS: baclofen 10mg tablet PO SCH ×3 (08:08→20:29)
[2017-12-21] MEDS: quetiapine 100mg tablet PO SCH ×3 (08:09→20:28)
[2017-12-21] MEDS: levetiracetam 250mg tablet PO SCH ×2 (08:09→20:29)
[2017-12-21] MEDS: aspirin 81mg tablet.DR PO SCH (08:09)
[2017-12-21] MEDS: clopidogrel 75mg tablet PO SCH (08:09)
[2017-12-21 11:00] VITALS: BP 106/58
[2017-12-21 11:34] LABS: ANISOCYTOSIS 1+; PLATELET ESTIMATE NORMAL; TOTAL CELLS COUNTED 100
[2017-12-21 11:35] LABS: SMUDGE CELLS 2+
[2017-12-21 11:36] LABS: POLYCHROMASIA FEW
[2017-12-21] MEDS ORDERED: BAC10T PO (11:41)
--- NOTE | 2017-12-21 12:07 | NUR ---
SS consulted w/attending physician & CM and was informed that pt is ready for d/c; informed physician & CM that pt's family will pick him up @ time of d/c. SS contacted [facility] to check status of pt's current IHSS support; left vm for pt's [facility]H[employer] SW requesting a rt p/c to discuss pt's on-going need for 24/7 caregiving.
--- NOTE | 2017-12-21 15:21 | NUR ---
Placed 2 phone calls to pt's son Arcenio re discharge with messages left both times.
--- NOTE | 2017-12-21 16:59 | NUR ---
SS contacted pt's son & daughter in-law via phone, left vm request rt p/c to arrange a pick-up time for pt as doctor's already signed a discharge order stipulating that pt is ready for d/c tomorrow. Plan: if family does not respond to coordinate pick-up time for pt, SS will contact [facility]PS as family is pt's IHSS provider at the moment.
--- NOTE | 2017-12-21 17:26 | NUR ---
Paged Dr. Valero re pt's family not responding to multiple calls and messages from this RN and Service Parts Coordinator to pick patient up. PAGER ID: [phone] MESSAGE: Pt Denis Torrez is still here. Unable to reach family. marketing services specialist will try again tomorrow.
--- NOTE | 2017-12-21 18:20 | NUR ---
Problems reprioritized. Patient report given, questions answered & plan of care reviewed with SAGE Sheppard.
--- NOTE | 2017-12-21 18:47 | NUR ---
Dr Valero aware we have been unable to contact family member Arcenio today for discharge, left message on voice mail. Per Dr Valero notify social human services assistants and have them make a plan. Reported off to noc shift RN
--- NOTE | 2017-12-21 18:48 | NUR ---
Patient in room [facility]. I have received report from TAMMIE CAZARES AND GIANFRANCO CAZARES and had the opportunity to ask questions and assume patient care.
[2017-12-21 20:00] VITALS: BP 113/61
[2017-12-21] MEDS: mirtazapine 15mg tablet PO SCH (20:28)
[2017-12-22] VITALS: BP 135/66
--- NOTE | 2017-12-22 06:30 | NUR ---
Problems reprioritized. Patient report given, questions answered & plan of care reviewed with VALENTINA CAZARES.
--- NOTE | 2017-12-22 06:54 | NUR ---
Patient in room [facility]. I have received report from SAGE Sheppard and had the opportunity to ask questions and assume patient care.
[2017-12-22 07:21] VITALS: BP 131/75
[2017-12-22] MEDS: baclofen 10mg tablet PO SCH ×3 (09:03→21:06)
[2017-12-22] MEDS: quetiapine 100mg tablet PO SCH ×3 (09:03→21:06)
[2017-12-22] MEDS: clopidogrel 75mg tablet PO SCH (09:03)
[2017-12-22] MEDS: levetiracetam 250mg tablet PO SCH ×2 (09:04→21:05)
[2017-12-22] MEDS: aspirin 81mg tablet.DR PO SCH (09:04)
[2017-12-22] MEDS: divalproex sodium 500mg tablet.DR PO SCH ×2 (09:04→21:06)
--- NOTE | 2017-12-22 09:45 | NUR ---
SS contacted pt's son & [id number] (Iftikhar Torrez) after they failed to rt p/cs from nurses & ss for the past 2 days to coordinate pick-up of pt as pt is ready for discharge home. Left VM with Iftikhar Torrez requesting a rt p/c. SS also contacted older son, Jaspal, spoke w/Jaspal Torrez via phone to let him know that hospital's been trying to reach Iftikhar to arrange pick-up time for pt but neither have rtd hospital's calls. Jaspal wanted to know if his father was walking again, after SS reminded him of the consultation family had w/physician the last time pt was hospitalized w/re to pt's ability to walk again, Jaspal responded by stating, "oh well he's just gonna have to wait until one of us can come and get him". As family's not willing to participate in pt's DCP, and they are currently his IHSS caregivers, SS contacted APS and reported concerns of possible abandonment as [place] is just a week away and family may not be in town for all of next week. APS social media marketing analyst will contact pt's sons.
[2017-12-22 11:50] VITALS: BP 101/67
--- NOTE | 2017-12-22 14:35 | NUR ---
SS have not received any rt p/cs from family to coordinate d/c for pt. SS contacted APS again to f/u on referral to APS. Per APS consultation, APS suggested that hospital "find placement for him as he needs 24/7 care and family's not doing that for him". SS informed APS that pt's been referred to all the local care facilities but he's been declined by some already, in the mean time he does not have any medical conditions that warrants hospitalization. APS informed that "we have a 10-day time frame from the time that the referral was called in to respond to it". Plan: per APS consult, APS has 10-days to respond to SS referral on behalf of pt; pt can conceivably be here for enext 10-days. Therefore, SS will continue to contact family to in an effort to coordinate a safe d/c for pt.
--- NOTE | 2017-12-22 18:15 | NUR ---
Problems reprioritized. Patient report given, questions answered & plan of care reviewed with Claribel Sanford RN.
--- NOTE | 2017-12-22 18:30 | NUR ---
Patient in room [facility]. I have received report from IRENE CAZARES and had the opportunity to ask questions and assume patient care.
[2017-12-22 20:00] VITALS: BP 110/60
--- NOTE | 2017-12-22 20:30 | NUR ---
CALLED DR. NDIAYE AND WAS INFORMED ABOUT PATIENT BEING COMBATIVE AND CONFUSED, JOSÉ MIGUEL FREDERICK WAS CALLED, HE HIT MALE STAFF WHO WAS TRYING TO HELP HIM, AND STILL CONTINUES TO BE PHYSICALLY AGGRESSIVE WITH ORDERS FOR ZYPREXA 5MG. IM ONE TIME DOSE AND SOFT WRIST RESTRAINT PRN.
[2017-12-22] MEDS ORDERED: OLANZapine **IM** 10 mg inj. IM ONE (20:35)
[2017-12-22] MEDS: mirtazapine 15mg tablet PO SCH (21:05)
[2017-12-23] VITALS: BP 137/75
--- NOTE | 2017-12-23 03:00 | NUR ---
PATIENT CALMED AT THIS TIME AND IS ABLE TO FOLLOW INSTRUCTIONS. RESTRAINTS DISCONTINUED.
--- NOTE | 2017-12-23 06:30 | NUR ---
Problems reprioritized. Patient report given, questions answered & plan of care reviewed with MOISES CAZARES.
--- NOTE | 2017-12-23 06:52 | NUR ---
Patient in room [facility]. I have received report from Silver CAZARES and had the opportunity to ask questions and assume patient care.
[2017-12-23 06:55] VITALS: BP 139/76
[2017-12-23] MEDS: divalproex sodium 500mg tablet.DR PO SCH ×2 (08:12→21:01)
[2017-12-23] MEDS: levetiracetam 250mg tablet PO SCH ×2 (08:13→21:02)
[2017-12-23] MEDS: clopidogrel 75mg tablet PO SCH (08:13)
[2017-12-23] MEDS: aspirin 81mg tablet.DR PO SCH (08:13)
[2017-12-23] MEDS: baclofen 10mg tablet PO SCH ×3 (08:13→21:02)
[2017-12-23] MEDS: quetiapine 100mg tablet PO SCH ×3 (08:13→21:03)
[2017-12-23 11:38] VITALS: BP 116/70
[2017-12-23] MEDS ORDERED: LORazepam 2 mg/ml vial IV PRN (12:20)
--- NOTE | 2017-12-23 18:29 | NUR ---
Problems reprioritized. Patient report given, questions answered & plan of care reviewed with Silver CAZARES.
--- NOTE | 2017-12-23 18:30 | NUR ---
Patient in room [facility]. I have received report from MOISES CAZARES and had the opportunity to ask questions and assume patient care.
[2017-12-23 20:00] VITALS: BP 115/71
[2017-12-23] MEDS: mirtazapine 15mg tablet PO SCH (21:02)
[2017-12-23] MEDS: LORazepam 0.5 MG tablet PO PRN (21:03)
[2017-12-24] VITALS: BP 146/77
--- NOTE | 2017-12-24 06:12 | NUR ---
Problems reprioritized. Patient report given, questions answered & plan of care reviewed with MOISES CAZARES.
--- NOTE | 2017-12-24 06:36 | NUR ---
Patient in room [facility]. I have received report from Silver CAZARES and had the opportunity to ask questions and assume patient care.
[2017-12-24 07:29] VITALS: BP 128/77
[2017-12-24] MEDS: divalproex sodium 500mg tablet.DR PO SCH ×2 (08:00→21:00)
[2017-12-24] MEDS: levetiracetam 250mg tablet PO SCH ×2 (08:00→21:00)
[2017-12-24] MEDS: clopidogrel 75mg tablet PO SCH (08:00)
[2017-12-24] MEDS: baclofen 10mg tablet PO SCH ×3 (08:00→21:01)
[2017-12-24] MEDS: quetiapine 100mg tablet PO SCH (08:00)
[2017-12-24] MEDS: aspirin 81mg tablet.DR PO SCH (08:00)
[2017-12-24 11:46] VITALS: BP 118/75
[2017-12-24] MEDS: QUEtiapine 25mg tablet PO SCH ×2 (12:22→21:01)
[2017-12-24] MEDS: LORazepam 0.5 MG tablet PO PRN (12:58)
--- NOTE | 2017-12-24 18:27 | NUR ---
Problems reprioritized. Patient report given, questions answered & plan of care reviewed with Pat RN.
--- NOTE | 2017-12-24 18:30 | NUR ---
Patient in room [facility]. I have received report from SAGE Dan and had the opportunity to ask questions and assume patient care.
[2017-12-24 19:30] VITALS: BP 87/63
[2017-12-24 20:00] VITALS: BP 103/66
[2017-12-24] MEDS: mirtazapine 15mg tablet PO SCH (21:01)
[2017-12-25] VITALS: BP 132/77
--- NOTE | 2017-12-25 06:01 | NUR ---
checked q1hr; slept at intervals with resp even and unlabored; awake late last night eating a sandwich; pt turned average q2hr; incont of urine; PCT reports he assisted with his care the previous business law instructor & reported he had a large BM...no further changes from earlier notes
--- NOTE | 2017-12-25 06:30 | NUR ---
report given to SAGE Sylvester
--- NOTE | 2017-12-25 06:54 | NUR ---
Patient in room [facility]. I have received report from Pat RN and had the opportunity to ask questions and assume patient care.
[2017-12-25 07:00] VITALS: BP 104/64
[2017-12-25] MEDS: baclofen 10mg tablet PO SCH ×3 (08:38→20:55)
[2017-12-25] MEDS: aspirin 81mg tablet.DR PO SCH (08:39)
[2017-12-25] MEDS: QUEtiapine 25mg tablet PO SCH ×3 (08:39→20:54)
[2017-12-25] MEDS: clopidogrel 75mg tablet PO SCH (08:39)
[2017-12-25] MEDS: divalproex sodium 500mg tablet.DR PO SCH ×2 (08:39→20:50)
[2017-12-25] MEDS: levetiracetam 250mg tablet PO SCH ×2 (08:40→20:55)
[2017-12-25 11:00] VITALS: BP 112/58
--- NOTE | 2017-12-25 11:21 | NUR ---
Cassi at staff Addendum: 12/25/17 at 1122 by Charlene Izquierdo RN Amended: Links added.
--- NOTE | 2017-12-25 16:35 | NUR ---
reassessment: Pt encephalopathy continues w/ PO 100% meals meeting needs. LBM 12/23. No nutrition concerns at this time. Rec: 1. continue regular diet 2. wt per rx Addendum: 12/25/17 at [address] Amended: Links added.
--- NOTE | 2017-12-25 18:48 | NUR ---
Patient in room [facility]. I have received report from Luis Miguel CAZARES and had the opportunity to ask questions and assume patient care. Patient attempting to get out of bed, continued to re-iterate safety and need to stay in bed to prevent falls.
[2017-12-25 19:00] VITALS: BP 112/65
[2017-12-25] MEDS: mirtazapine 15mg tablet PO SCH (20:51)
[2017-12-26] VITALS: BP 115/56
--- NOTE | 2017-12-26 06:00 | NUR ---
RECEIVED REPORT FROM ELLYN CAZARES
--- NOTE | 2017-12-26 06:30 | NUR ---
Patient in room [facility]. I have received report from ELLYN CAZARES and had the opportunity to ask questions and assume patient care.
--- NOTE | 2017-12-26 06:52 | NUR ---
Problems reprioritized. Patient report given, questions answered & plan of care reviewed with Kristine CAZARES. Patient resting eyes closed respirations.
[2017-12-26 07:00] VITALS: BP 155/77
--- NOTE | 2017-12-26 07:37 | NUR ---
navneetakote not available. pages pharmacy and requested it
[2017-12-26] MEDS: levetiracetam 250mg tablet PO SCH ×2 (07:39→19:33)
[2017-12-26] MEDS: QUEtiapine 25mg tablet PO SCH ×3 (07:39→19:32)
[2017-12-26] MEDS: aspirin 81mg tablet.DR PO SCH (07:39)
[2017-12-26] MEDS: clopidogrel 75mg tablet PO SCH (07:39)
[2017-12-26] MEDS: baclofen 10mg tablet PO SCH ×3 (07:39→19:32)
[2017-12-26] MEDS: divalproex sodium 500mg tablet.DR PO SCH ×2 (10:59→19:33)
[2017-12-26 11:00] VITALS: BP 104/67
--- NOTE | 2017-12-26 16:16 | NUR ---
Per consultation w/CM Director, SS will d/c contacting family to coordinate DCP as family is unwilling to participate in discharge planning activities for pt. CM will refer pt to LTC facilities. SS met pt today @ his bedside, pt was alert but only oriented to person-he knew who SS was but could not tell me where he is, why he's in the hospital or what season it is. Pt's mood appears to be slightly depressed. SS consulted w/CM re possible need for referral to the Public Guardian's office for a conservatorship as pt is not able to care for himself and there's no one who has come forward to assume care of him. Per consultation, CM will attempt to f/u with referrals to LTCs this week and revisit the discussion of involving the Public Guardian's office next week. SS to continue to monitor.
--- NOTE | 2017-12-26 18:00 | NUR ---
Problems reprioritized. Patient report given, questions answered & plan of care reviewed with ELENA CAZARES.
[2017-12-26] MEDS: mirtazapine 15mg tablet PO SCH (19:32)
[2017-12-26] MEDS: LORazepam 0.5 MG tablet PO PRN (19:32)
[2017-12-26 20:00] VITALS: BP 144/68
--- NOTE | 2017-12-26 22:47 | NUR ---
Patient in room [facility]. I have received report from SAGE Carmona and had the opportunity to ask questions and assume patient care. Addendum: 12/26/17 at 2248 by Bisi Hadley RN Amended: Links added.
[2017-12-26 23:00] VITALS: BP 146/86
[2017-12-27 04:50] LABS: BASOPHILS % (AUTO) 0.2 % (0-1); EOSINOPHILS % (AUTO) 0.1 % (0-6); HEMATOCRIT 37.8 % (42.0-52.0); HEMOGLOBIN 12.4 g/dl (14.0-17.9); LYMPHOCYTES # (AUTO) 12.7 X10'3 (1.1-4.8); LYMPHOCYTES % (AUTO) 51.5 % (21-51); MEAN CORPUSCULAR HEMOGLOBIN 31.3 PG (27.0-31.0); MEAN CORPUSCULAR HGB CONC 32.7 % (33.0-36.5); MEAN CORPUSCULAR VOLUME 95.7 FL (78-98); MEAN PLATELET VOLUME 7.8 FL (7.4-10.4); MONOCYTES # (AUTO) 0.6 X10'3 (0-0.9); MONOCYTES % (AUTO) 2.5 % (2-12); NEUTROPHILS # (AUTO) 11.3 X10'3 (1.8-7.7); NEUTROPHILS % (AUTO) 45.7 % (42-75); PLATELET COUNT 194 X10'3 (140-440); RED BLOOD COUNT 3.95 X10'6 (4.70-6.10); WHITE BLOOD COUNT 24.7 X10'3 (4.5-11.0)
[2017-12-27 05:10] LABS: ALANINE AMINOTRANSFERASE 9 U/L (12-78); ALBUMIN 3.1 G/DL (3.4-5.0); ALBUMIN/GLOBULIN RATIO 0.8 (1.1-1.5); ALKALINE PHOSPHATASE 43 IU/L (46-116); ANION GAP 8 (8-16); ASPARTATE AMINO TRANSFERASE 11 U/L (10-37); BILIRUBIN,TOTAL 0.3 MG/DL (0.1-1.0); BLOOD UREA NITROGEN 31 MG/DL (7-18); BUN/CREATININE RATIO 39.7 (5.4-32.0); CALCIUM 9.1 MG/DL (8.5-10.1); CHLORIDE 105 MMOL/L (99-107); CREATININE 0.78 MG/DL (0.60-1.10); GLUCOSE 90 MG/DL (70-104); POTASSIUM 4.1 MMOL/L (3.5-5.1); SODIUM 141 MMOL/L (135-145); TOTAL PROTEIN 7.2 G/DL (6.4-8.2); eGFR > 90 ML/MIN
--- NOTE | 2017-12-27 06:33 | NUR ---
Problems reprioritized. Patient report given, questions answered & plan of care reviewed with SAGE Duke. Addendum: 12/27/17 at 0633 by Bisi Hadley RN Amended: Links added.
[2017-12-27 06:40] LABS: TOTAL CELLS COUNTED 100
[2017-12-27 06:41] LABS: ANISOCYTOSIS 1+; ELLIPTOCYTES FEW; PLATELET ESTIMATE NORMAL; SMUDGE CELLS 2+; TARGET CELLS FEW
--- NOTE | 2017-12-27 07:03 | NUR ---
Patient in room [facility]. I have received report from Bisi CAZARES and had the opportunity to ask questions and assume patient care patient dry flow changed and given a warm blanket .
[2017-12-27 08:08] VITALS: BP 105/63
[2017-12-27] MEDS: divalproex sodium 500mg tablet.DR PO SCH ×2 (08:30→20:21)
[2017-12-27] MEDS: baclofen 10mg tablet PO SCH ×3 (08:30→20:21)
[2017-12-27] MEDS: QUEtiapine 25mg tablet PO SCH ×3 (08:31→20:21)
[2017-12-27] MEDS: levetiracetam 250mg tablet PO SCH ×2 (08:31→20:20)
[2017-12-27] MEDS: aspirin 81mg tablet.DR PO SCH (08:31)
[2017-12-27] MEDS: clopidogrel 75mg tablet PO SCH (08:31)
[2017-12-27 12:00] VITALS: BP 127/75
--- NOTE | 2017-12-27 13:49 | NUR ---
Patient very sedated does wake up to voice, however patient is unable to stay awake to eat his lunch keeps falling asleep with fork in his hand. Advised Dr Guadarrama awaiting a response from page.
[2017-12-27 18:00] VITALS: BP 115/67
[2017-12-27] MEDS: mirtazapine 15mg tablet PO SCH (20:21)
[2017-12-28] VITALS: BP 125/66
--- NOTE | 2017-12-28 01:34 | NUR ---
Patient in room [facility]. I have received report from SAGE Duke and had the opportunity to ask questions and assume patient care. Addendum: 12/28/17 at 0139 by Bisi Hadley RN Amended: Links added.
--- NOTE | 2017-12-28 06:29 | NUR ---
Problems reprioritized. Patient report given, questions answered & plan of care reviewed with SAGE Duke. Addendum: 12/28/17 at 0629 by Bisi Hadley RN Amended: Links added.
[2017-12-28 07:00] VITALS: BP 117/62
--- NOTE | 2017-12-28 07:11 | NUR ---
Patient in room [facility]. I have received report from Bisi CAZARES and had the opportunity to ask questions and assume patient care.
[2017-12-28] MEDS: divalproex sodium 500mg tablet.DR PO SCH ×2 (08:05→20:39)
[2017-12-28] MEDS: aspirin 81mg tablet.DR PO SCH (08:05)
[2017-12-28] MEDS: levetiracetam 250mg tablet PO SCH ×2 (08:05→20:38)
[2017-12-28] MEDS: QUEtiapine 25mg tablet PO SCH ×2 (08:05→20:40)
[2017-12-28] MEDS: clopidogrel 75mg tablet PO SCH (08:05)
[2017-12-28] MEDS: baclofen 10mg tablet PO SCH ×2 (08:05→20:38)
[2017-12-28] MEDS: enoxaparin 40mg/0.4ml syringe SUBCUT SCH (08:06)
[2017-12-28 12:00] VITALS: BP 122/62
[2017-12-28 18:00] VITALS: BP 115/64
--- NOTE | 2017-12-28 19:00 | NUR ---
Patient in room [facility] 348. I have received report from Leilani CAZARES and had the opportunity to ask questions and assume patient care.
--- NOTE | 2017-12-28 19:09 | NUR ---
Problems reprioritized. Patient report given, questions answered & plan of care reviewed with Kirsty CAZARES.
[2017-12-28] MEDS: mirtazapine 15mg tablet PO SCH (20:39)
[2017-12-29] VITALS: BP 118/70
--- NOTE | 2017-12-29 06:40 | NUR ---
Problems reprioritized. Patient report given, questions answered & plan of care reviewed with Uyen CAZARES.
[2017-12-29 07:00] VITALS: BP 123/70
[2017-12-29] MEDS: levetiracetam 250mg tablet PO SCH ×2 (08:47→20:30)
[2017-12-29] MEDS: clopidogrel 75mg tablet PO SCH (08:47)
[2017-12-29] MEDS: aspirin 81mg tablet.DR PO SCH (08:47)
[2017-12-29] MEDS: baclofen 10mg tablet PO SCH ×2 (08:47→20:29)
[2017-12-29] MEDS: divalproex sodium 500mg tablet.DR PO SCH ×2 (08:47→20:30)
[2017-12-29] MEDS: enoxaparin 40mg/0.4ml syringe SUBCUT SCH (08:48)
[2017-12-29] MEDS: QUEtiapine 25mg tablet PO SCH ×2 (08:58→20:29)
[2017-12-29 12:28] VITALS: BP 117/65
--- NOTE | 2017-12-29 18:07 | NUR ---
Problems reprioritized. Patient report given, questions answered & plan of care reviewed with arden myers.
[2017-12-29 20:00] VITALS: BP 117/69
[2017-12-29] MEDS: mirtazapine 15mg tablet PO SCH (20:29)
[2017-12-30] VITALS: BP 116/64
[2017-12-30 06:00] VITALS: BP 124/69
--- NOTE | 2017-12-30 06:30 | NUR ---
Problems reprioritized. Patient report given, questions answered & plan of care reviewed with Aryan CAZARES .
[2017-12-30] MEDS: levetiracetam 250mg tablet PO SCH ×2 (07:52→20:46)
[2017-12-30] MEDS: clopidogrel 75mg tablet PO SCH (07:52)
[2017-12-30] MEDS: divalproex sodium 500mg tablet.DR PO SCH ×2 (07:53→20:46)
[2017-12-30] MEDS: baclofen 10mg tablet PO SCH ×2 (07:53→20:47)
[2017-12-30] MEDS: QUEtiapine 25mg tablet PO SCH ×2 (07:53→20:47)
[2017-12-30] MEDS: aspirin 81mg tablet.DR PO SCH (07:53)
[2017-12-30] MEDS: enoxaparin 40mg/0.4ml syringe SUBCUT SCH (07:54)
[2017-12-30 11:00] VITALS: BP 101/74
--- NOTE | 2017-12-30 11:06 | NUR ---
Reassessment: PO intake 75-100% meeting nutrient needs. Per MD progress notes pt remains encephalopathic. LBM 12/27, pt with no routine bowel care. Will continue to follow. Rec: 1. Continue regular diet 2. Monitor need for bowel care 3. Wt per rx Addendum: 12/30/17 at [address] Amended: Links added.
--- NOTE | 2017-12-30 18:30 | NUR ---
Patient in room [facility]. I have received report from QUIN and had the opportunity to ask questions and assume patient care. ASSUMED CARE WITH RN STUDENT VELIA Dos Santos
[2017-12-30] MEDS: acetaminophen 325mg tablet PO PRN (19:59)
[2017-12-30 20:00] VITALS: BP 122/71
[2017-12-30] MEDS: mirtazapine 15mg tablet PO SCH (20:46)
[2017-12-31] VITALS: BP 107/64
--- NOTE | 2017-12-31 04:14 | NUR ---
Student documentation: I have reviewed and agree with all interventions, assessments performed and documented by VELIA Dos Santos
--- NOTE | 2017-12-31 04:14 | NUR ---
Student Medication Administration: For this medication-pass time frame, all medication were reviewed, dispensed, administered and documented per hospital policy by VELIA Dos Santos
--- NOTE | 2017-12-31 06:11 | NUR ---
Patient in room [facility]. I have received report from Janet CAZARES and had the opportunity to ask questions and assume patient care.
--- NOTE | 2017-12-31 06:52 | NUR ---
Problems reprioritized. Patient report given, questions answered & plan of care reviewed with JUAN ANTONIO.
[2017-12-31 07:49] VITALS: BP 123/69
[2017-12-31] MEDS: baclofen 10mg tablet PO SCH ×2 (08:25→20:00)
[2017-12-31] MEDS: divalproex sodium 500mg tablet.DR PO SCH ×2 (08:26→21:19)
[2017-12-31] MEDS: levetiracetam 250mg tablet PO SCH ×2 (08:26→21:19)
[2017-12-31] MEDS: enoxaparin 40mg/0.4ml syringe SUBCUT SCH (08:27)
[2017-12-31] MEDS: clopidogrel 75mg tablet PO SCH (08:27)
[2017-12-31] MEDS: aspirin 81mg tablet.DR PO SCH (08:27)
[2017-12-31] MEDS: QUEtiapine 25mg tablet PO SCH ×2 (08:27→21:19)
[2017-12-31 12:29] VITALS: BP 109/63
--- NOTE | 2017-12-31 17:36 | NUR ---
Patient pleasant to care for, was very cooperative in his care. He worked with PT and tolerated well. Patient ate his meals independently. Patient held a pleasant conversation with staff. No new orders given today.
--- NOTE | 2017-12-31 18:27 | NUR ---
Problems reprioritized. Patient report given, questions answered & plan of care reviewed with Gabby CAZARES.
--- NOTE | 2017-12-31 18:30 | NUR ---
Patient in room [facility]. I have received report from JUAN ANTONIO and had the opportunity to ask questions and assume patient care.
[2017-12-31 19:00] VITALS: BP 126/77
[2017-12-31] MEDS: mirtazapine 15mg tablet PO SCH (21:00)
[2017-12-31] MEDS: acetaminophen 325mg tablet PO PRN (21:27)
[2017-12-31 23:00] VITALS: BP 106/70
--- NOTE | 2018-01-01 06:34 | NUR ---
Problems reprioritized. Patient report given, questions answered & plan of care reviewed with JUAN ANTONIO.
--- NOTE | 2018-01-01 06:36 | NUR ---
Patient in room [facility] 348. I have received report from Gabby CAZARES and had the opportunity to ask questions and assume patient care.
[2018-01-01 07:20] VITALS: BP 119/68
[2018-01-01] MEDS: QUEtiapine 25mg tablet PO SCH ×2 (07:36→22:08)
[2018-01-01] MEDS: divalproex sodium 500mg tablet.DR PO SCH ×2 (07:36→22:08)
[2018-01-01] MEDS: baclofen 10mg tablet PO SCH ×2 (07:37→22:07)
[2018-01-01] MEDS: aspirin 81mg tablet.DR PO SCH (07:37)
[2018-01-01] MEDS: levetiracetam 250mg tablet PO SCH ×2 (07:37→22:07)
[2018-01-01] MEDS: clopidogrel 75mg tablet PO SCH (07:37)
[2018-01-01] MEDS: enoxaparin 40mg/0.4ml syringe SUBCUT SCH (07:38)
[2018-01-01 11:25] LABS: BASOPHILS # (AUTO) 0.1 X10'3 (0-0.2); BASOPHILS % (AUTO) 0.4 % (0-1); EOSINOPHILS # (AUTO) 0.1 X10'3 (0-0.9); EOSINOPHILS % (AUTO) 0.6 % (0-6); HEMATOCRIT 36.7 % (42.0-52.0); LYMPHOCYTES # (AUTO) 12.6 X10'3 (1.1-4.8); LYMPHOCYTES % (AUTO) 65.5 % (21-51); MEAN CORPUSCULAR HEMOGLOBIN 31.4 PG (27.0-31.0); MEAN CORPUSCULAR HGB CONC 32.5 % (33.0-36.5); MEAN CORPUSCULAR VOLUME 96.4 FL (78-98); MEAN PLATELET VOLUME 7.3 FL (7.4-10.4); MONOCYTES # (AUTO) 0.5 X10'3 (0-0.9); MONOCYTES % (AUTO) 2.5 % (2-12); PLATELET COUNT 208 X10'3 (140-440); RED BLOOD COUNT 3.81 X10'6 (4.70-6.10); RED CELL DISTRIBUTION WIDTH 16.5 % (11.5-14.5); WHITE BLOOD COUNT 19.3 X10'3 (4.5-11.0)
[2018-01-01 11:39] VITALS: BP 119/96
[2018-01-01 11:40] LABS: ALANINE AMINOTRANSFERASE 11 U/L (12-78); ALBUMIN 2.8 G/DL (3.4-5.0); ALBUMIN/GLOBULIN RATIO 0.7 (1.1-1.5); ALKALINE PHOSPHATASE 42 IU/L (46-116); ANION GAP 7 (8-16); ASPARTATE AMINO TRANSFERASE 13 U/L (10-37); BILIRUBIN,TOTAL 0.1 MG/DL (0.1-1.0); BLOOD UREA NITROGEN 32 MG/DL (7-18); BUN/CREATININE RATIO 36.4 (5.4-32.0); CALCIUM 8.8 MG/DL (8.5-10.1); CHLORIDE 105 MMOL/L (99-107); CREATININE 0.88 MG/DL (0.60-1.10); GLUCOSE 101 MG/DL (70-104); POTASSIUM 3.9 MMOL/L (3.5-5.1); SODIUM 142 MMOL/L (135-145); TOTAL CARBON DIOXIDE 29.8 MMOL/L (24-32); TOTAL PROTEIN 6.8 G/DL (6.4-8.2); eGFR 86 ML/MIN
--- NOTE | 2018-01-01 18:43 | NUR ---
Problems reprioritized. Patient report given, questions answered & plan of care reviewed with Silver CAZARES.
--- NOTE | 2018-01-01 18:45 | NUR ---
Patient in room [facility] 348. I have received report from JUAN ANTONIO CAZARES and had the opportunity to ask questions and assume patient care.
[2018-01-01 20:00] VITALS: BP 119/64
[2018-01-01] MEDS: mirtazapine 15mg tablet PO SCH (22:08)
[2018-01-02] VITALS: BP 104/59
--- NOTE | 2018-01-02 06:20 | NUR ---
Problems reprioritized. Patient report given, questions answered & plan of care reviewed with BONITA RN.
--- NOTE | 2018-01-02 06:30 | NUR ---
Patient in room [facility] 348. I have received report from Claribel Sanford RN and had the opportunity to ask questions and assume patient care.
[2018-01-02 07:52] VITALS: BP 119/57
[2018-01-02] MEDS: clopidogrel 75mg tablet PO SCH (09:22)
[2018-01-02] MEDS: divalproex sodium 500mg tablet.DR PO SCH ×2 (09:22→21:44)
[2018-01-02] MEDS: aspirin 81mg tablet.DR PO SCH (09:22)
[2018-01-02] MEDS: QUEtiapine 25mg tablet PO SCH ×2 (09:23→21:45)
[2018-01-02] MEDS: enoxaparin 40mg/0.4ml syringe SUBCUT SCH (09:23)
[2018-01-02] MEDS: levetiracetam 250mg tablet PO SCH ×2 (09:24→21:41)
[2018-01-02] MEDS: baclofen 10mg tablet PO SCH ×2 (09:24→21:42)
[2018-01-02] MEDS: acetaminophen 325mg tablet PO PRN (09:25)
[2018-01-02 12:57] VITALS: BP 94/55
--- NOTE | 2018-01-02 18:30 | NUR ---
Problems reprioritized. Patient report given, questions answered & plan of care reviewed with SAGE Mota.
[2018-01-02 19:00] VITALS: BP 110/68
[2018-01-02] MEDS: mirtazapine 15mg tablet PO SCH (21:43)
--- NOTE | 2018-01-02 23:50 | NUR ---
Patient in room [facility] 348. I have received report from Shannan CAZARES and had the opportunity to ask questions and assume patient care.
[2018-01-03] VITALS: BP 107/56
--- NOTE | 2018-01-03 03:42 | NUR ---
Eyes closed, mouth open and respirations slow and steady. Thus far, patient has not shown any s/s of pain. Addendum: 01/03/18 at 0343 by Svetlana Barkley RN Amended: Links added.
--- NOTE | 2018-01-03 06:30 | NUR ---
Patient in room [facility] 348. I have received report from NETO CAZARES and had the opportunity to ask questions and assume patient care.
--- NOTE | 2018-01-03 06:48 | NUR ---
Problems reprioritized. Patient report given, questions answered & plan of care reviewed with Onesimo RN. Pt. currently sleeping, eyes closed, respirations steady on left side. Bed low/locked and alarm on.
[2018-01-03 07:27] VITALS: BP 142/64
[2018-01-03] MEDS: divalproex sodium 500mg tablet.DR PO SCH ×2 (08:24→21:55)
[2018-01-03] MEDS: aspirin 81mg tablet.DR PO SCH (08:25)
[2018-01-03] MEDS: levetiracetam 250mg tablet PO SCH ×2 (08:26→21:54)
[2018-01-03] MEDS: clopidogrel 75mg tablet PO SCH (08:27)
[2018-01-03] MEDS: baclofen 10mg tablet PO SCH ×2 (08:27→21:55)
[2018-01-03] MEDS: QUEtiapine 25mg tablet PO SCH ×2 (08:31→21:57)
[2018-01-03] MEDS: enoxaparin 40mg/0.4ml syringe SUBCUT SCH (08:33)
--- NOTE | 2018-01-03 10:00 | NUR ---
pt refused am care/oral care Addendum: 01/03/18 at 1200 by Varun WING Amended: Links added.
--- NOTE | 2018-01-03 15:19 | NUR ---
SS consulted w/CM & Director of Cm/SS services as pt has been declined by [facility]. Per Consultation, SS was directed to contact family again to invite them to a family meeting w/physician and care team to assess feasibility of pt returning home. SS met w/pt and engaged him in discussion re his progress to date and gathering information re his preferences w/re to d/c destination. Per discussion, pt continues to maintain that he wants to return home, he would like his family to come to the hospital and talk to his doctor and care team to determine if it's possible for him to return home at this time. SS to contact family and coordinate family meeting.
[2018-01-03 15:49] VITALS: BP 136/62
--- NOTE | 2018-01-03 18:40 | NUR ---
Patient in room [facility] 348. I have received report from Onesimo Calderon and had the opportunity to ask questions and assume patient care.
--- NOTE | 2018-01-03 18:46 | NUR ---
Patient in room [facility] 348. I have received report from Onesimo CAZARES and had the opportunity to ask questions and assume patient care.
--- NOTE | 2018-01-03 18:50 | NUR ---
Patient laying in his bed eating cheetos. Patient chatty, in no distress. Patient states that he ate 100% of his dinner earlier this evening. Addendum: 01/03/18 at 1851 by Svetlana Barkley RN Amended: Links added.
--- NOTE | 2018-01-03 18:52 | NUR ---
Problems reprioritized. Patient report given, questions answered & plan of care reviewed with SONAL CAZARES.
[2018-01-03 19:00] VITALS: BP 143/68
[2018-01-03 19:22] VITALS: BP 111/59
[2018-01-03] MEDS: mirtazapine 15mg tablet PO SCH (21:56)
[2018-01-04] VITALS: BP 109/60
--- NOTE | 2018-01-04 06:30 | NUR ---
Problems reprioritized. Patient report given, questions answered & plan of care reviewed with Onesimo rn. Patient is resting comfortably at this time. Bed low and locked.
--- NOTE | 2018-01-04 06:30 | NUR ---
Patient in room [facility] 348. I have received report from Svetlana CAZARES and had the opportunity to ask questions and assume patient care.
[2018-01-04 07:30] VITALS: BP 115/62
[2018-01-04] MEDS: divalproex sodium 500mg tablet.DR PO SCH ×2 (09:20→21:01)
[2018-01-04] MEDS: aspirin 81mg tablet.DR PO SCH (09:20)
[2018-01-04] MEDS: baclofen 10mg tablet PO SCH ×2 (09:20→21:01)
[2018-01-04] MEDS: levetiracetam 250mg tablet PO SCH ×2 (09:21→21:01)
[2018-01-04] MEDS: clopidogrel 75mg tablet PO SCH (09:21)
[2018-01-04] MEDS: QUEtiapine 25mg tablet PO SCH ×2 (09:21→21:01)
[2018-01-04] MEDS: enoxaparin 40mg/0.4ml syringe SUBCUT SCH (09:27)
--- NOTE | 2018-01-04 09:58 | NUR ---
SS contacted pt's son & daughter in-law via phone (Braden & Imelda Torrez) left vm requesting a rt pc to coordinate a family meeting to discuss DCP and options for out of home placement for pt as he's not been accepted by any facilities.
[2018-01-04 11:00] VITALS: BP 110/68
--- NOTE | 2018-01-04 12:42 | NUR ---
Problems reprioritized. Patient report given, questions answered & plan of care reviewed with IRENE CAZARES.
--- NOTE | 2018-01-04 12:43 | NUR ---
Patient in room [facility] 348. I have received report from SAGE Echols and had the opportunity to ask questions and assume patient care.
[2018-01-04 18:00] VITALS: BP 102/52
--- NOTE | 2018-01-04 18:50 | NUR ---
Patient in room [facility] 348. I have received report from Radha CAZARES and had the opportunity to ask questions and assume patient care.
--- NOTE | 2018-01-04 18:54 | NUR ---
Problems reprioritized. Patient report given, questions answered & plan of care reviewed with SAGE Lofton.
[2018-01-04] MEDS: mirtazapine 15mg tablet PO SCH (21:01)
[2018-01-05] VITALS: BP 102/62
--- NOTE | 2018-01-05 06:15 | NUR ---
Problems reprioritized. Patient report given, questions answered & plan of care reviewed with Elizabeth CAZARES.
[2018-01-05 07:00] VITALS: BP 105/62
[2018-01-05] MEDS: QUEtiapine 25mg tablet PO SCH ×2 (09:09→20:56)
[2018-01-05] MEDS: divalproex sodium 500mg tablet.DR PO SCH ×2 (09:09→20:56)
[2018-01-05] MEDS: enoxaparin 40mg/0.4ml syringe SUBCUT SCH (09:10)
[2018-01-05] MEDS: clopidogrel 75mg tablet PO SCH (09:10)
[2018-01-05] MEDS: aspirin 81mg tablet.DR PO SCH (09:10)
[2018-01-05] MEDS: baclofen 10mg tablet PO SCH ×2 (09:10→20:56)
[2018-01-05] MEDS: levetiracetam 250mg tablet PO SCH ×2 (09:10→20:56)
--- NOTE | 2018-01-05 16:32 | NUR ---
SS completed request to establish Probate Conservatorship of pt and faxed to [facility] Public Guardian's office as pt's family did not response to invitation for a family conference with the care team to discuss options for a safe discharge for pt. Furthermore, family continues to report that they are unable to care for patient and wants the hospital to find parts counterman placement for patient.
--- NOTE | 2018-01-05 16:54 | NUR ---
Reassessment: Documented PO intake 100% on regular diet meeting nutrient needs. Per MD progress notes patient's metabolic encephalopathy has resolved. Pt continues with no edema or wounds. [facility] 01/04. Will continue to follow. Rec: 1. Continue regular diet 2. Monitor need for bowel care 3. Wt per rx Addendum: 01/05/18 at [address] Amended: Links added.
[2018-01-05 18:00] VITALS: BP 105/73
[2018-01-05] MEDS: mirtazapine 15mg tablet PO SCH (20:55)
[2018-01-06] VITALS: BP 110/62
--- NOTE | 2018-01-06 06:37 | NUR ---
Problems reprioritized. Patient report given, questions answered & plan of care reviewed with Leilani CAZARES.
--- NOTE | 2018-01-06 06:46 | NUR ---
Patient in room [facility]. I have received report from Kirsty CAZARES and had the opportunity to ask questions and assume patient care. Patient awake wanting to use urinal assisted him with placement. Addendum: 01/06/18 at 0655 by Leilani Collado RN Bed alarm on 3 rails up
[2018-01-06 06:48] VITALS: BP 103/66
[2018-01-06] MEDS: clopidogrel 75mg tablet PO SCH (07:55)
[2018-01-06] MEDS: enoxaparin 40mg/0.4ml syringe SUBCUT SCH (07:55)
[2018-01-06] MEDS: baclofen 10mg tablet PO SCH ×2 (07:55→20:00)
[2018-01-06] MEDS: levetiracetam 250mg tablet PO SCH ×2 (07:55→20:51)
[2018-01-06] MEDS: QUEtiapine 25mg tablet PO SCH ×2 (07:55→20:52)
[2018-01-06] MEDS: aspirin 81mg tablet.DR PO SCH (07:56)
[2018-01-06] MEDS: divalproex sodium 500mg tablet.DR PO SCH ×2 (07:56→20:51)
[2018-01-06 11:51] VITALS: BP 112/59
--- NOTE | 2018-01-06 18:39 | NUR ---
Problems reprioritized. Patient report given, questions answered & plan of care reviewed with Janis CAZARES.
--- NOTE | 2018-01-06 18:40 | NUR ---
Patient in room [facility]. I have received report from GIANFRANCO CAZARES and had the opportunity to ask questions and assume patient care. Addendum: 01/06/18 at 1840 by Nellie Sun RN Amended: Links added.
[2018-01-06 19:30] VITALS: BP 126/66
[2018-01-06] MEDS: mirtazapine 15mg tablet PO SCH (20:52)
--- NOTE | 2018-01-06 20:57 | NUR ---
TOOK HIS HS PILLS BUT REFUSED HIS BACOFEN SAID IT DOESN'T STOP LEFT FOOT SPASMS AND KICKING.
--- NOTE | 2018-01-06 21:35 | NUR ---
PT REPOSITIONED IN BED FOR COMFORT UP IN BED AND VOIDING PER URINAL.
[2018-01-06] MEDS: acetaminophen 325mg tablet PO PRN (23:18)
--- NOTE | 2018-01-06 23:20 | NUR ---
PT C/O LEFT FOOT PAIN 8/10 SHARP SHOOTING RADIATES TO THE SECOND TO BIG TOE ON THE LEFT FOOT.MEDICATED WITH TYLENOL FOR THIS.
[2018-01-07] VITALS: BP 97/59
--- NOTE | 2018-01-07 00:06 | NUR ---
pt resting eyes closed appears comfortable at this time.
--- NOTE | 2018-01-07 00:09 | NUR ---
pt jamee requested urinal be positioned in place for him to void.
--- NOTE | 2018-01-07 01:22 | NUR ---
pt confused and forgetful of events that has happened tonight. Ie what and when things have been done for and with him.
--- NOTE | 2018-01-07 03:09 | NUR ---
resting eyes closed without s&s of distress at this time.
--- NOTE | 2018-01-07 04:48 | NUR ---
pt used the urinal to void. no s&s of distress at this time.
--- NOTE | 2018-01-07 05:32 | NUR ---
resting eyes closed without changes at this time.
--- NOTE | 2018-01-07 06:20 | NUR ---
Patient in room [facility]. I have received report from SAGE Ballard and had the opportunity to ask questions and assume patient care.
--- NOTE | 2018-01-07 06:36 | NUR ---
Problems reprioritized. Patient report given, questions answered & plan of care reviewed with CECILIO CAZARES. Addendum: 01/07/18 at 0636 by Nellie Sun RN Amended: Links added.
[2018-01-07 07:28] VITALS: BP 120/78
[2018-01-07] MEDS: enoxaparin 40mg/0.4ml syringe SUBCUT SCH ×2 (08:00→13:38)
[2018-01-07] MEDS: aspirin 81mg tablet.DR PO SCH (08:06)
[2018-01-07] MEDS: divalproex sodium 500mg tablet.DR PO SCH ×2 (08:06→21:02)
[2018-01-07] MEDS: baclofen 10mg tablet PO SCH ×2 (08:07→20:00)
[2018-01-07] MEDS: levetiracetam 250mg tablet PO SCH ×2 (08:07→21:06)
[2018-01-07] MEDS: clopidogrel 75mg tablet PO SCH (08:08)
[2018-01-07] MEDS: QUEtiapine 25mg tablet PO SCH ×2 (08:09→21:05)
--- NOTE | 2018-01-07 08:25 | NUR ---
Did not give Lovenox injection because patient hasn't had labs since 01/01. Will address with doctor.
[2018-01-07 11:06] VITALS: BP 95/60
--- NOTE | 2018-01-07 13:02 | NUR ---
aware of that the patient hasn't had labs for 6 days. Wants me to give Lovenox anyway.
--- NOTE | 2018-01-07 17:29 | NUR ---
Bladder scanned patient because he had only voided 100ML for the entire shift. Patient had 244ML in his bladder. He hasn't had very much intake; encouraged an increase in water intake instead of soda.
--- NOTE | 2018-01-07 18:15 | NUR ---
Problems reprioritized. Patient report given, questions answered & plan of care reviewed with SAGE Ballard.
--- NOTE | 2018-01-07 18:43 | NUR ---
Patient in room [facility]. I have received report from CECILIO CAZARES and had the opportunity to ask questions and assume patient care. Addendum: 01/07/18 at 1844 by Nellie Sun RN Amended: Links added.
[2018-01-07 19:30] VITALS: BP 112/66
--- NOTE | 2018-01-07 20:30 | NUR ---
pt took his hs meds when explained the need for it and aslo due to giving him his favorite snack of vanilla ice cream. said he also likes vanilla pudding for his meds as well.
--- NOTE | 2018-01-07 21:00 | NUR ---
pt snacking on crackers his family had brought in for him. no complaints at this time.
[2018-01-07] MEDS: mirtazapine 15mg tablet PO SCH (21:02)
[2018-01-07] MEDS: LORazepam 0.5 MG tablet PO PRN (21:05)
--- NOTE | 2018-01-07 23:24 | NUR ---
pt administration internship light for urinal use to turn light on and off and repositioning.
[2018-01-08] VITALS: BP 129/92
--- NOTE | 2018-01-08 01:20 | NUR ---
pt appears comfortable resting eyes closed without s&s of distress at this time.
--- NOTE | 2018-01-08 03:37 | NUR ---
pt resting eyes closed without s&S of distress at this time.
--- NOTE | 2018-01-08 04:45 | NUR ---
resting eyes closed without s&s of distress at this time.
--- NOTE | 2018-01-08 06:15 | NUR ---
Patient in room [facility]. I have received report from SAGE Ballard and had the opportunity to ask questions and assume patient care.
--- NOTE | 2018-01-08 06:28 | NUR ---
Problems reprioritized. Patient report given, questions answered & plan of care reviewed with Shaye Calderon. Addendum: 01/08/18 at 0628 by Nellie Sun RN Amended: Links added.
[2018-01-08 06:56] VITALS: BP 116/56
[2018-01-08] MEDS: divalproex sodium 500mg tablet.DR PO SCH ×2 (07:13→20:30)
[2018-01-08] MEDS: baclofen 10mg tablet PO SCH ×2 (07:14→20:00)
[2018-01-08] MEDS: aspirin 81mg tablet.DR PO SCH (07:14)
[2018-01-08] MEDS: levetiracetam 250mg tablet PO SCH ×2 (07:14→20:31)
[2018-01-08] MEDS: clopidogrel 75mg tablet PO SCH (07:15)
[2018-01-08] MEDS: QUEtiapine 25mg tablet PO SCH ×2 (07:19→20:31)
[2018-01-08] MEDS: enoxaparin 40mg/0.4ml syringe SUBCUT SCH (07:19)
[2018-01-08 11:37] VITALS: BP 102/63
--- NOTE | 2018-01-08 14:20 | NUR ---
SS received vm from Delia Weiss [facility], requesting clarification re reasons for Depakote, Seroquel and any MH Dxs as well as appropriateness of SNF for pt, PG will open case and assign it to a social media intern by this Monday. SS rtd PG's p/c left vm requesting a call back from the PG re the challenges [facility]'s CMs & DCPs have had in finding an appropriate placement for him.
--- NOTE | 2018-01-08 18:20 | NUR ---
Problems reprioritized. Patient report given, questions answered & plan of care reviewed with SAGE Ballard.
--- NOTE | 2018-01-08 18:45 | NUR ---
Patient in room [facility]. I have received report from CECILIO CAZARES and had the opportunity to ask questions and assume patient care. Addendum: 01/08/18 at 1845 by Nellie Sun RN Amended: Links added.
[2018-01-08 19:30] VITALS: BP 91/47
[2018-01-08] MEDS: LORazepam 0.5 MG tablet PO PRN (20:31)
[2018-01-08] MEDS: mirtazapine 15mg tablet PO SCH (20:31)
[2018-01-08] MEDS: acetaminophen 325mg tablet PO PRN (20:32)
[2018-01-08] MEDS: magnesium hydroxide 30ml (MOM) UD suspension PO PRN (20:32)
--- NOTE | 2018-01-08 20:43 | NUR ---
PT AWAKE AFETR GETTING BACK IN BED WAS IN THE CHAIR. PT CONSTIPATED AND MEDICATED WITH MOM FOR THIS. PT REFUSED BACOLFEN BUT TOOK ATIVAN FOR ANXIETY AND HIS OTHER HS MEDS TOLERATED WELL AT THIS TIME.
--- NOTE | 2018-01-08 20:45 | NUR ---
pt constipated and medicated with MOM for this.
--- NOTE | 2018-01-08 22:00 | NUR ---
put on the bedpan and had medium hard formed stool.
--- NOTE | 2018-01-08 22:30 | NUR ---
PT REMAINS AWAKE AND SNACKING ON FOOD AT THE BEDSIDE.
--- NOTE | 2018-01-08 22:40 | NUR ---
pt had a seond formed BM.
[2018-01-09] VITALS: BP 94/59
--- NOTE | 2018-01-09 00:30 | NUR ---
PT YELLING AT STAFF THEN INC SKIN CARE DONE AND LIENS CHANGED.
--- NOTE | 2018-01-09 02:31 | NUR ---
RESTING EYES CLOSED NO S&S OF DISTRESS AT THIS TIME.
--- NOTE | 2018-01-09 04:15 | NUR ---
pt appears comfortable resting eyes closed without changes at this time.
--- NOTE | 2018-01-09 05:11 | NUR ---
remains resting without s&s of distress at this time.
--- NOTE | 2018-01-09 06:46 | NUR ---
Problems reprioritized. Patient report given, questions answered & plan of care reviewed with Jaclyn Calderon. Addendum: 01/09/18 at 0646 by Nellie Sun RN Amended: Links added.
--- NOTE | 2018-01-09 06:51 | NUR ---
Patient in room [facility]. I have received report from SAGE DC and had the opportunity to ask questions and assume patient care.
[2018-01-09 07:02] VITALS: BP 90/50
[2018-01-09] MEDS: levetiracetam 250mg tablet PO SCH ×2 (07:55→20:11)
[2018-01-09] MEDS: QUEtiapine 25mg tablet PO SCH ×2 (07:55→20:15)
[2018-01-09] MEDS: divalproex sodium 500mg tablet.DR PO SCH ×2 (07:55→20:11)
[2018-01-09] MEDS: clopidogrel 75mg tablet PO SCH (07:55)
[2018-01-09] MEDS: baclofen 10mg tablet PO SCH ×2 (07:56→20:08)
[2018-01-09] MEDS: aspirin 81mg tablet.DR PO SCH (07:56)
[2018-01-09] MEDS: enoxaparin 40mg/0.4ml syringe SUBCUT SCH (08:00)
[2018-01-09 11:27] VITALS: BP 105/56
--- NOTE | 2018-01-09 16:25 | NUR ---
SS contacted [facility] office, spoke w/[facility] Figueroa, per consultation-PG's office will not conserve pt if he cannot be placed anywhere. PG will contact family to see if there's a way for pt to rt to his home w/IHSS. PG also suggests d/c use of Seroquel for pt. CM informed.
--- NOTE | 2018-01-09 18:30 | NUR ---
Patient in room [facility]. I have received report from Jaclyn CAZARES and had the opportunity to ask questions and assume patient care.
--- NOTE | 2018-01-09 18:32 | NUR ---
Problems reprioritized. Patient report given, questions answered & plan of care reviewed with louis miranda.
[2018-01-09 19:00] VITALS: BP 101/62
[2018-01-09] MEDS: mirtazapine 15mg tablet PO SCH (20:08)
[2018-01-09] MEDS: LORazepam 0.5 MG tablet PO PRN (20:09)
[2018-01-10] VITALS: BP 98/53
--- NOTE | 2018-01-10 06:30 | NUR ---
Patient in room [facility]. I have received report from Susan CAZARES and had the opportunity to ask questions and assume patient care.
[2018-01-10 07:30] VITALS: BP 114/58
[2018-01-10] MEDS: clopidogrel 75mg tablet PO SCH (08:21)
[2018-01-10] MEDS: divalproex sodium 500mg tablet.DR PO SCH ×2 (08:21→20:51)
[2018-01-10] MEDS: levetiracetam 250mg tablet PO SCH ×2 (08:22→20:53)
[2018-01-10] MEDS: aspirin 81mg tablet.DR PO SCH (08:22)
[2018-01-10] MEDS: baclofen 10mg tablet PO SCH ×2 (08:23→20:51)
[2018-01-10] MEDS: QUEtiapine 25mg tablet PO SCH ×2 (08:23→20:53)
[2018-01-10] MEDS: enoxaparin 40mg/0.4ml syringe SUBCUT SCH (08:25)
[2018-01-10 11:00] VITALS: BP 91/53
[2018-01-10] MEDS ORDERED: haloperidol lactate 5mg/ml inj IM PRN (13:15)
--- NOTE | 2018-01-10 18:30 | NUR ---
Problems reprioritized. Patient report given, questions answered & plan of care reviewed with Margoth CAZARES.
--- NOTE | 2018-01-10 18:30 | NUR ---
Patient in room [facility]. I have received report from SAGE Echols and had the opportunity to ask questions and assume patient care. Pt sitting up in bed awake, alert. no complaints. combing hair. turns self wtih ease. Addendum: 01/10/18 at 1943 by Patricia Schuster RN Amended: Links added.
[2018-01-10 19:00] VITALS: BP 94/62
[2018-01-10] MEDS: mirtazapine 15mg tablet PO SCH (20:52)
[2018-01-10 23:30] VITALS: BP 102/53
[2018-01-11] VITALS (7 sets, daily range): BP systolic 101–124; BP diastolic 63–69
--- NOTE | 2018-01-11 06:33 | NUR ---
Problems reprioritized. Patient report given, questions answered & plan of care reviewed with SAGE DE OLIVEIRA. Addendum: 01/11/18 at 0634 by Patricia Schuster RN Amended: Links added.
[2018-01-11] MEDS: divalproex sodium 500mg tablet.DR PO SCH ×2 (08:35→21:59)
[2018-01-11] MEDS: QUEtiapine 25mg tablet PO SCH ×2 (08:37→21:59)
[2018-01-11] MEDS: aspirin 81mg tablet.DR PO SCH (08:38)
[2018-01-11] MEDS: baclofen 10mg tablet PO SCH ×2 (08:39→21:58)
[2018-01-11] MEDS: levetiracetam 250mg tablet PO SCH ×2 (08:39→21:58)
[2018-01-11] MEDS: clopidogrel 75mg tablet PO SCH (08:39)
[2018-01-11] MEDS: enoxaparin 40mg/0.4ml syringe SUBCUT SCH (08:47)
--- NOTE | 2018-01-11 10:13 | NUR ---
Reassessment: Documented PO intake fluctuates with average of 50-75% on regular diet likely meeting nutrient needs. Per physical assessment pt remains confused. notes state pt is awaiting placement and has started conservatorship process. [facility] 01/10. Will continue to follow. Rec: 1. Continue regular diet 2. Monitor need for bowel care 3. Wt per rx Addendum: 01/11/18 at [address] Amended: Links added.
--- NOTE | 2018-01-11 10:32 | NUR ---
pt ambulating with assist of P.T.
--- NOTE | 2018-01-11 12:00 | NUR ---
Patient in room [facility] 348 a. I have received report from Onesimo VALLES and had the opportunity to ask questions and assume patient care.
--- NOTE | 2018-01-11 14:30 | NUR ---
Patient refused bed bath/shower, oral care, linen change and warm wash cloth. Patient stated, "I would like a shower tomorrow."
--- NOTE | 2018-01-11 16:29 | NUR ---
Student documentation: I have reviewed and agree with all interventions, assessments performed and documented by Keerthi VALLES.
--- NOTE | 2018-01-11 16:52 | NUR ---
SS met w/pt and engaged pt in conversation to monitor his emotional status and verify reports to family members living in his home. Per discussion, pt continues to miss his home life and expressed desires to return there. Pt also reports that he has 2 dogs at his home and that his sons are going there to take care of them. Pt has been referred to APS & PG, neither agency sees any urgency w/pt's case. APS does not feel that family has any obligation to care for pt, PG feels that since pt has a home, & IHSS services he should go home and that they won't conserve him if he has no where to go. SS will continue to monitor.
--- NOTE | 2018-01-11 19:05 | NUR ---
Problems reprioritized. Patient report given, questions answered & plan of care reviewed with Claribel Sanford RN.
--- NOTE | 2018-01-11 19:06 | NUR ---
Patient in room [facility]. I have received report from YENNIFER CAZARES and had the opportunity to ask questions and assume patient care.
[2018-01-11] MEDS: mirtazapine 15mg tablet PO SCH (21:59)
[2018-01-12] VITALS: BP 116/54
--- NOTE | 2018-01-12 06:30 | NUR ---
Problems reprioritized. Patient report given, questions answered & plan of care reviewed with YENNIFER RN.
--- NOTE | 2018-01-12 06:30 | NUR ---
Patient in room [facility] 348. I have received report from Claribel Sanford RN and had the opportunity to ask questions and assume patient care.
[2018-01-12 08:00] VITALS: BP 142/78
[2018-01-12] MEDS: clopidogrel 75mg tablet PO SCH (08:34)
[2018-01-12] MEDS: aspirin 81mg tablet.DR PO SCH (08:34)
[2018-01-12] MEDS: baclofen 10mg tablet PO SCH ×3 (08:34→23:47)
[2018-01-12] MEDS: levetiracetam 250mg tablet PO SCH ×3 (08:34→23:44)
[2018-01-12] MEDS: enoxaparin 40mg/0.4ml syringe SUBCUT SCH (08:35)
[2018-01-12] MEDS: QUEtiapine 25mg tablet PO SCH ×3 (08:35→23:46)
[2018-01-12] MEDS: divalproex sodium 500mg tablet.DR PO SCH ×3 (08:41→23:45)
[2018-01-12 12:00] VITALS: BP 102/62
--- NOTE | 2018-01-12 18:37 | NUR ---
Problems reprioritized. Patient report given, questions answered & plan of care reviewed with SAGE Jean.
--- NOTE | 2018-01-12 18:38 | NUR ---
Patient in room [facility]. I have received report from Miri Calderon and had the opportunity to ask questions and assume patient care.
[2018-01-12 19:00] VITALS: BP 132/74
[2018-01-12] MEDS: mirtazapine 15mg tablet PO SCH ×2 (21:00→23:46)
[2018-01-12] MEDS ORDERED: LORazepam 2 mg/ml vial IM ONE (23:55)
--- NOTE | 2018-01-13 00:05 | NUR ---
Pt. agitated, trying to get out of bed, Dr. Templeton notified, new order received. Ativan 2 mg. given Im, security at bedside.
[2018-01-13] MEDS: normal saline 1000ml 1,000 ML IV SCH ×2 (00:13→10:13)
[2018-01-13] MEDS ORDERED: normal saline 500ml IV soln 500 ML IV ONE (00:15)
--- NOTE | 2018-01-13 00:25 | NUR ---
Dr. Templeton aware that Pt. refuses iv and tele but still ordered it, Pt. cont. to refuse iv and tele, Fabrication Mig Welder aware.
--- NOTE | 2018-01-13 06:15 | NUR ---
Patient in room TER[facility] 348a. I have received report from SAGE Jean and had the opportunity to ask questions and assume patient care.
--- NOTE | 2018-01-13 06:32 | NUR ---
Problems reprioritized. Patient report given, questions answered & plan of care reviewed with JANUSZ CAZARES.
[2018-01-13 07:40] VITALS: BP 111/63
[2018-01-13] MEDS: divalproex sodium 500mg tablet.DR PO SCH ×2 (07:40→20:01)
[2018-01-13] MEDS: baclofen 10mg tablet PO SCH ×2 (07:40→20:00)
[2018-01-13] MEDS: levetiracetam 250mg tablet PO SCH ×2 (07:41→20:01)
[2018-01-13] MEDS: aspirin 81mg tablet.DR PO SCH (07:41)
[2018-01-13] MEDS: clopidogrel 75mg tablet PO SCH (07:41)
[2018-01-13] MEDS: QUEtiapine 25mg tablet PO SCH ×2 (07:42→20:01)
[2018-01-13] MEDS: enoxaparin 40mg/0.4ml syringe SUBCUT SCH (07:45)
[2018-01-13 10:47] LABS: BASOPHILS % (AUTO) 0.2 % (0-1); EOSINOPHILS # (AUTO) 0.1 X10'3 (0-0.9); EOSINOPHILS % (AUTO) 0.7 % (0-6); HEMATOCRIT 37.5 % (42.0-52.0); HEMOGLOBIN 12.2 g/dl (14.0-17.9); LYMPHOCYTES # (AUTO) 10.3 X10'3 (1.1-4.8); LYMPHOCYTES % (AUTO) 66.5 % (21-51); MEAN CORPUSCULAR HEMOGLOBIN 31.3 PG (27.0-31.0); MEAN CORPUSCULAR HGB CONC 32.6 % (33.0-36.5); MEAN CORPUSCULAR VOLUME 96.1 FL (78-98); MEAN PLATELET VOLUME 7.5 FL (7.4-10.4); MONOCYTES # (AUTO) 0.2 X10'3 (0-0.9); MONOCYTES % (AUTO) 1.3 % (2-12); NEUTROPHILS # (AUTO) 4.8 X10'3 (1.8-7.7); NEUTROPHILS % (AUTO) 31.3 % (42-75); PLATELET COUNT 235 X10'3 (140-440); RED CELL DISTRIBUTION WIDTH 16.8 % (11.5-14.5); WHITE BLOOD COUNT 15.5 X10'3 (4.5-11.0)
[2018-01-13 10:59] LABS: ALANINE AMINOTRANSFERASE 7 U/L (12-78); ALBUMIN 2.8 G/DL (3.4-5.0); ALBUMIN/GLOBULIN RATIO 0.7 (1.1-1.5); ALKALINE PHOSPHATASE 42 IU/L (46-116); ANION GAP 9 (8-16); ASPARTATE AMINO TRANSFERASE 18 U/L (10-37); BILIRUBIN,TOTAL 0.2 MG/DL (0.1-1.0); BLOOD UREA NITROGEN 25 MG/DL (7-18); BUN/CREATININE RATIO 33.3 (5.4-32.0); CALCIUM 9.2 MG/DL (8.5-10.1); CHLORIDE 107 MMOL/L (99-107); CREATININE 0.75 MG/DL (0.60-1.10); GLUCOSE 111 MG/DL (70-104); POTASSIUM 3.9 MMOL/L (3.5-5.1); SODIUM 143 MMOL/L (135-145); TOTAL CARBON DIOXIDE 26.6 MMOL/L (24-32); TOTAL PROTEIN 6.7 G/DL (6.4-8.2); eGFR > 90 ML/MIN
[2018-01-13 11:29] LABS: ANISOCYTOSIS 1+; PLATELET ESTIMATE NORMAL; TOTAL CELLS COUNTED 100
[2018-01-13 11:31] LABS: SMUDGE CELLS 2+
[2018-01-13 11:45] VITALS: BP 93/64
--- NOTE | 2018-01-13 12:30 | NUR ---
Patient refusing IV placement and tele monitor. Spoke with Dr. Torres, orders discontinued.
[2018-01-13] MEDS: lactose-reduced food (Ensure Enlive) - 237ml bottle PO SCH ×2 (13:00→17:37)
[2018-01-13 18:00] VITALS: BP 99/60
--- NOTE | 2018-01-13 18:26 | NUR ---
Problems reprioritized. Patient report given, questions answered & plan of care reviewed with SAGE ZIMMERMAN.
--- NOTE | 2018-01-13 18:30 | NUR ---
Patient in room [facility]. I have received report from Eleanor CAZARES and had the opportunity to ask questions and assume patient care. Pt is in bed,bed alarm is on. No s/s of distress, pt is eating dinner
[2018-01-13] MEDS: mirtazapine 15mg tablet PO SCH (20:01)
[2018-01-14] VITALS: BP 91/69
--- NOTE | 2018-01-14 06:30 | NUR ---
Problems reprioritized. Patient report given, questions answered & plan of care reviewed with Grace RN. Patient in bed, bed alarm is on.
--- NOTE | 2018-01-14 06:32 | NUR ---
Patient in room [facility]. I have received report from Prakash CAZARES and had the opportunity to ask questions and assume patient care.
[2018-01-14] MEDS: baclofen 10mg tablet PO SCH ×2 (06:49→21:05)
[2018-01-14] MEDS: enoxaparin 40mg/0.4ml syringe SUBCUT SCH (06:49)
[2018-01-14] MEDS: aspirin 81mg tablet.DR PO SCH (06:49)
[2018-01-14] MEDS: QUEtiapine 25mg tablet PO SCH ×2 (06:49→21:05)
[2018-01-14] MEDS: clopidogrel 75mg tablet PO SCH (06:49)
[2018-01-14] MEDS: divalproex sodium 500mg tablet.DR PO SCH ×2 (06:50→21:06)
[2018-01-14] MEDS: levetiracetam 250mg tablet PO SCH ×2 (06:52→21:05)
[2018-01-14 07:49] VITALS: BP 108/48
[2018-01-14] MEDS: lactose-reduced food (Ensure Enlive) - 237ml bottle PO SCH ×3 (08:00→18:00)
[2018-01-14 11:25] VITALS: BP 108/62
--- NOTE | 2018-01-14 18:29 | NUR ---
Problems reprioritized. Patient report given, questions answered & plan of care reviewed with Kirsty CAZARES.
--- NOTE | 2018-01-14 18:29 | NUR ---
Patient in room [facility]. I have received report from Grace CAZARES and had the opportunity to ask questions and assume patient care. pt resting, BLL, SR up x2, call light in reach. will continue to monitor.
[2018-01-14 20:00] VITALS: BP 124/59
--- NOTE | 2018-01-14 20:00 | NUR ---
BM brown in color, hard, formed and small in size. could be part of a larger amount of stool not yet passed. Pt states ' my dinner gave me the diarrhea' but stool was anything but loose.
[2018-01-14] MEDS: mirtazapine 15mg tablet PO SCH (21:05)
[2018-01-14 23:30] VITALS: BP 105/65
--- NOTE | 2018-01-15 06:12 | NUR ---
Problems reprioritized. Patient report given, questions answered & plan of care reviewed with Grace CAZARES.
--- NOTE | 2018-01-15 06:15 | NUR ---
Patient in room [facility]. I have received report from Grace and had the opportunity to ask questions and assume patient care.
--- NOTE | 2018-01-15 06:27 | NUR ---
Patient in room [facility]. I have received report from Kirsty CAZARES and had the opportunity to ask questions and assume patient care.
[2018-01-15 07:10] VITALS: BP 113/46
[2018-01-15] MEDS: levetiracetam 250mg tablet PO SCH ×2 (07:13→20:47)
[2018-01-15] MEDS: divalproex sodium 500mg tablet.DR PO SCH ×2 (07:15→20:47)
[2018-01-15] MEDS: QUEtiapine 25mg tablet PO SCH ×2 (07:17→20:47)
[2018-01-15] MEDS: clopidogrel 75mg tablet PO SCH (07:17)
[2018-01-15] MEDS: aspirin 81mg tablet.DR PO SCH (07:17)
[2018-01-15] MEDS: baclofen 10mg tablet PO SCH ×2 (07:18→20:47)
[2018-01-15] MEDS: enoxaparin 40mg/0.4ml syringe SUBCUT SCH (07:19)
[2018-01-15] MEDS: lactose-reduced food (Ensure Enlive) - 237ml bottle PO SCH ×3 (08:34→18:03)
--- NOTE | 2018-01-15 10:33 | NUR ---
Student Medication Administration: For this medication-pass time frame, all medication were reviewed, dispensed, administered and documented per hospital policy by Anshul nursing care partner.
--- NOTE | 2018-01-15 10:33 | NUR ---
Student documentation: I have reviewed and agree with all interventions, assessments performed and documented by Anshul, executive director of nursing.
[2018-01-15 11:46] VITALS: BP 110/67
--- NOTE | 2018-01-15 11:48 | NUR ---
Problems reprioritized. Patient report given, questions answered & plan of care reviewed with Grace.
--- NOTE | 2018-01-15 12:36 | NUR ---
Patient in room [facility]. I have received report from Grace and had the opportunity to ask questions and assume patient care.
[2018-01-15 16:23] VITALS: BP 109/53
--- NOTE | 2018-01-15 16:39 | NUR ---
Student documentation: I have reviewed and agree with all interventions, assessments performed and documented by Martha student nurse.
--- NOTE | 2018-01-15 17:12 | NUR ---
Problems reprioritized. Patient report given, questions answered & plan of care reviewed with Grace.
--- NOTE | 2018-01-15 18:04 | NUR ---
Problems reprioritized. Patient report given, questions answered & plan of care reviewed with Kirsty CAZARES.
--- NOTE | 2018-01-15 18:04 | NUR ---
Patient in room [facility]. I have received report from Grace CAZARES and had the opportunity to ask questions and assume patient care.
[2018-01-15 20:00] VITALS: BP 109/58
[2018-01-15] MEDS: mirtazapine 15mg tablet PO SCH (20:47)
[2018-01-15 23:30] VITALS: BP 91/41
[2018-01-15 23:45] VITALS: BP 96/47
--- NOTE | 2018-01-16 06:15 | NUR ---
Patient in room [facility]. I have received report from Grace and had the opportunity to ask questions and assume patient care.
--- NOTE | 2018-01-16 06:32 | NUR ---
Problems reprioritized. Patient report given, questions answered & plan of care reviewed with Grace CAZARES.
--- NOTE | 2018-01-16 06:50 | NUR ---
Patient in room [facility]. I have received report from Kirsty CAZARES and had the opportunity to ask questions and assume patient care.
[2018-01-16] MEDS: divalproex sodium 500mg tablet.DR PO SCH ×2 (07:59→21:07)
[2018-01-16] MEDS: levetiracetam 250mg tablet PO SCH ×2 (08:00→21:07)
[2018-01-16] MEDS: aspirin 81mg tablet.DR PO SCH (08:00)
[2018-01-16] MEDS: QUEtiapine 25mg tablet PO SCH ×2 (08:00→21:07)
[2018-01-16] MEDS: baclofen 10mg tablet PO SCH ×2 (08:01→21:07)
[2018-01-16] MEDS: clopidogrel 75mg tablet PO SCH (08:01)
[2018-01-16] MEDS: enoxaparin 40mg/0.4ml syringe SUBCUT SCH (08:02)
[2018-01-16] MEDS: lactose-reduced food (Ensure Enlive) - 237ml bottle PO SCH ×3 (08:03→18:30)
--- NOTE | 2018-01-16 08:18 | NUR ---
On 01/15, pt was declined by 2 more SNF/LTCs facilities.
[2018-01-16 08:31] VITALS: BP 117/59
[2018-01-16 10:47] VITALS: BP 119/71
[2018-01-16 11:06] VITALS: BP 119/71
--- NOTE | 2018-01-16 11:59 | NUR ---
Problems reprioritized. Patient report given, questions answered & plan of care reviewed with Grace.
--- NOTE | 2018-01-16 12:00 | NUR ---
Patient in room [facility]. I have received report from Grace and had the opportunity to ask questions and assume patient care.
--- NOTE | 2018-01-16 15:49 | NUR ---
Student documentation: I have reviewed and agree with all interventions, assessments performed and documented by Martha student nurse.
[2018-01-16 16:21] VITALS: BP 111/59
--- NOTE | 2018-01-16 17:08 | NUR ---
Problems reprioritized. Patient report given, questions answered & plan of care reviewed with Grace.
--- NOTE | 2018-01-16 18:20 | NUR ---
Problems reprioritized. Patient report given, questions answered & plan of care reviewed with Kirsty CAZARES.
--- NOTE | 2018-01-16 18:20 | NUR ---
Patient in room [facility]. I have received report from Grace CAZARES and had the opportunity to ask questions and assume patient care.
[2018-01-16 20:00] VITALS: BP 123/73
[2018-01-16] MEDS: mirtazapine 15mg tablet PO SCH (21:08)
[2018-01-17 05:06] VITALS: BP 116/62
--- NOTE | 2018-01-17 06:50 | NUR ---
Problems reprioritized. Patient report given, questions answered & plan of care reviewed with Jackeline CAZARES.
[2018-01-17 07:15] VITALS: BP 110/65
[2018-01-17] MEDS: lactose-reduced food (Ensure Enlive) - 237ml bottle PO SCH ×3 (07:44→18:26)
[2018-01-17] MEDS: levetiracetam 250mg tablet PO SCH ×2 (07:57→20:46)
[2018-01-17] MEDS: aspirin 81mg tablet.DR PO SCH (07:57)
[2018-01-17] MEDS: clopidogrel 75mg tablet PO SCH (07:57)
[2018-01-17] MEDS: divalproex sodium 500mg tablet.DR PO SCH ×2 (07:57→20:48)
[2018-01-17] MEDS: QUEtiapine 25mg tablet PO SCH ×2 (07:58→20:47)
[2018-01-17] MEDS: enoxaparin 40mg/0.4ml syringe SUBCUT SCH (07:59)
[2018-01-17] MEDS: baclofen 10mg tablet PO SCH ×2 (08:06→20:47)
--- NOTE | 2018-01-17 09:52 | NUR ---
To date, family has not accepted invitation for a family conference. Today SS contacted [facility], left a vm requesting a rt p/c to f/u on recent referral for a probate conservatorship on behalf of pt. Pt is an older adult, who has limited mobility, experienced cognitive impairments associated w/TBI & Dementia, and whose family members have maintained that they are unable to care for him in the home. While our CM team have been providing LTC/SNFs referrals for pt (both locally & out of the area),these facilities have all declined to accept pt as pt's Dementia symptoms/behaviors are currently being managed via medication(s) which many facilities view as a chemical restraint. In addition, pt has no family members/a conservator who can assist care facilities in the decision making process w/re to pt's medical care. SS also contacted Pt's [facility] SW (Edith) in an attempt to identify pt's current [facility] caregiver to engage him/her in dcp activities for pt as pt no longer requires inpatient hospitalization. [facility] temporary receptionist informed SS that she cannot provide any information to SS, she did report that pt does currently have an active caregiver; this is different from what family's reported to SS. [facility] temporary receptionist would not provide name/contact info for this caregiver but transferred SS to pt's [facility] SW. SS left for Edith requesting a rt p/c.
[2018-01-17 11:30] VITALS: BP 125/74
--- NOTE | 2018-01-17 15:23 | NUR ---
reassessment: Pt PO 100% regular meals w/ protein supplement meeting needs. LBM 01/16. No nutrition concerns. Rec: 1. Continue regular diet 2. Monitor need for bowel care 3. Wt per rx Addendum: 01/17/18 at [address] Amended: Links added.
--- NOTE | 2018-01-17 16:45 | NUR ---
SS received rtd p/c from pt's IHSS SW and was informed that pt still has an active IHSS worker and that family never called IHSS to request for the 'protected supervision' time so a family member can be pt's overnight IHSS provider. SS contacted the [facility] office to f/u on referral for a probate conservatorship and was informed that since pt is safe now, the referral is not urgent for the PG's office.
--- NOTE | 2018-01-17 18:30 | NUR ---
Patient in room [facility]. I have received report from SAGE Viveros and had the opportunity to ask questions and assume patient care. Addendum: 01/17/18 at 1950 by Patricia Schuster RN Amended: Links added.
[2018-01-17 19:59] VITALS: BP 104/62
[2018-01-17] MEDS: mirtazapine 15mg tablet PO SCH (20:46)
[2018-01-18 00:30] VITALS: BP 125/63
--- NOTE | 2018-01-18 06:18 | NUR ---
Problems reprioritized. Patient report given, questions answered & plan of care reviewed with SAGE Viveros. Addendum: 01/18/18 at 0619 by Patricia Schuster RN Amended: Links added.
[2018-01-18 08:00] VITALS: BP 133/65
[2018-01-18] MEDS: lactose-reduced food (Ensure Enlive) - 237ml bottle PO SCH ×3 (08:30→18:03)
[2018-01-18] MEDS: aspirin 81mg tablet.DR PO SCH (08:38)
[2018-01-18] MEDS: clopidogrel 75mg tablet PO SCH (08:38)
[2018-01-18] MEDS: baclofen 10mg tablet PO SCH ×2 (08:39→20:46)
[2018-01-18] MEDS: levetiracetam 250mg tablet PO SCH ×2 (08:40→20:46)
[2018-01-18] MEDS: QUEtiapine 25mg tablet PO SCH ×2 (08:40→20:47)
[2018-01-18] MEDS: enoxaparin 40mg/0.4ml syringe SUBCUT SCH (08:41)
[2018-01-18] MEDS: divalproex sodium 500mg tablet.DR PO SCH ×2 (08:45→20:46)
[2018-01-18 12:00] VITALS: BP 125/72
--- NOTE | 2018-01-18 18:20 | NUR ---
Patient in room [facility]. I have received report from SAGE Viveros and had the opportunity to ask questions and assume patient care. Addendum: 01/18/18 at 1841 by Patricia Schuster RN Amended: Links added.
[2018-01-18 19:30] VITALS: BP 109/63
[2018-01-18] MEDS: mirtazapine 15mg tablet PO SCH (20:47)
[2018-01-19 00:30] VITALS: BP 107/59
--- NOTE | 2018-01-19 06:14 | NUR ---
Problems reprioritized. Patient report given, questions answered & plan of care reviewed with SAGE Viveros. Addendum: 01/19/18 at 0615 by Patricia Schuster RN Amended: Links added.
[2018-01-19 07:26] VITALS: BP 132/60
[2018-01-19] MEDS: lactose-reduced food (Ensure Enlive) - 237ml bottle PO SCH ×3 (08:00→18:00)
[2018-01-19] MEDS: levetiracetam 250mg tablet PO SCH ×2 (09:05→21:32)
[2018-01-19] MEDS: baclofen 10mg tablet PO SCH ×2 (09:06→21:40)
[2018-01-19] MEDS: aspirin 81mg tablet.DR PO SCH (09:06)
[2018-01-19] MEDS: clopidogrel 75mg tablet PO SCH (09:06)
[2018-01-19] MEDS: QUEtiapine 25mg tablet PO SCH ×2 (09:06→21:34)
[2018-01-19] MEDS: divalproex sodium 500mg tablet.DR PO SCH ×2 (09:09→21:39)
[2018-01-19] MEDS: enoxaparin 40mg/0.4ml syringe SUBCUT SCH (09:10)
[2018-01-19 12:00] VITALS: BP 132/72
[2018-01-19 18:00] VITALS: BP 109/64
--- NOTE | 2018-01-19 19:04 | NUR ---
Patient in room [facility] 348. I have received report from Jackeline CAZARES and had the opportunity to ask questions and assume patient care.
[2018-01-19] MEDS: mirtazapine 15mg tablet PO SCH (21:33)
[2018-01-20] VITALS: BP 117/65
--- NOTE | 2018-01-20 06:30 | NUR ---
Patient in room [facility]. I have received report from ELDER CAZARES and had the opportunity to ask questions and assume patient care.
--- NOTE | 2018-01-20 06:42 | NUR ---
Problems reprioritized. Patient report given, questions answered & plan of care reviewed with Uyen CAZARES. Pt awake in bed during report,no signs of distress noted.
[2018-01-20 07:00] VITALS: BP 125/79
[2018-01-20] MEDS: baclofen 10mg tablet PO SCH ×2 (07:54→20:53)
[2018-01-20] MEDS: levetiracetam 250mg tablet PO SCH ×2 (07:55→20:55)
[2018-01-20] MEDS: clopidogrel 75mg tablet PO SCH (07:55)
[2018-01-20] MEDS: QUEtiapine 25mg tablet PO SCH ×2 (07:55→20:53)
[2018-01-20] MEDS: divalproex sodium 500mg tablet.DR PO SCH ×2 (07:55→20:55)
[2018-01-20] MEDS: aspirin 81mg tablet.DR PO SCH (07:55)
[2018-01-20] MEDS: lactose-reduced food (Ensure Enlive) - 237ml bottle PO SCH ×4 (07:55→18:01)
[2018-01-20] MEDS: enoxaparin 40mg/0.4ml syringe SUBCUT SCH (07:56)
[2018-01-20 12:00] VITALS: BP 104/62
[2018-01-20 18:00] VITALS: BP 122/63
--- NOTE | 2018-01-20 18:09 | NUR ---
Problems reprioritized. Patient report given, questions answered & plan of care reviewed with ELDER CAZARES.
--- NOTE | 2018-01-20 18:50 | NUR ---
Patient in room [facility]. I have received report from Uyen CAZARES and had the opportunity to ask questions and assume patient care. Pt sitting up in bed comfortably with no signs of distress. Will continue to monitor.
[2018-01-20] MEDS: mirtazapine 15mg tablet PO SCH (20:55)
[2018-01-21] VITALS: BP 121/73
--- NOTE | 2018-01-21 06:44 | NUR ---
Problems reprioritized. Patient report given, questions answered & plan of care reviewed with Analisa CAZARES.
--- NOTE | 2018-01-21 06:51 | NUR ---
Patient in room [facility] 348. I have received report from Christina CAZARES and had the opportunity to ask questions and assume patient care.
[2018-01-21 07:25] VITALS: BP 108/69
[2018-01-21] MEDS: divalproex sodium 500mg tablet.DR PO SCH ×2 (07:47→20:16)
[2018-01-21] MEDS: lactose-reduced food (Ensure Enlive) - 237ml bottle PO SCH ×3 (07:47→17:56)
[2018-01-21] MEDS: levetiracetam 250mg tablet PO SCH ×2 (07:48→20:17)
[2018-01-21] MEDS: clopidogrel 75mg tablet PO SCH (07:48)
[2018-01-21] MEDS: QUEtiapine 25mg tablet PO SCH ×2 (07:48→20:16)
[2018-01-21] MEDS: aspirin 81mg tablet.DR PO SCH (07:48)
[2018-01-21] MEDS: baclofen 10mg tablet PO SCH ×2 (07:48→20:17)
[2018-01-21] MEDS: enoxaparin 40mg/0.4ml syringe SUBCUT SCH (07:49)
[2018-01-21 11:00] VITALS: BP 125/66
--- NOTE | 2018-01-21 12:52 | NUR ---
Dr. Cabral in to see pt.
[2018-01-21 18:00] VITALS: BP 98/57
--- NOTE | 2018-01-21 18:26 | NUR ---
Problems reprioritized. Patient report given, questions answered & plan of care reviewed with Bisi CAZARES.
[2018-01-21] MEDS: mirtazapine 15mg tablet PO SCH (20:17)
--- NOTE | 2018-01-21 21:03 | NUR ---
Patient in room [facility] 348. I have received report from SAGE Hauser and had the opportunity to ask questions and assume patient care. Addendum: 01/21/18 at 2104 by Bisi Hadley RN Amended: Links added.
[2018-01-22] VITALS: BP 123/68
--- NOTE | 2018-01-22 06:18 | NUR ---
Problems reprioritized. Patient report given, questions answered & plan of care reviewed with SAGE Carmona. Addendum: 01/22/18 at 0619 by Bisi Hadley RN Amended: Links added.
[2018-01-22 07:00] VITALS: BP 123/75
[2018-01-22] MEDS: divalproex sodium 500mg tablet.DR PO SCH ×2 (08:05→20:05)
[2018-01-22] MEDS: aspirin 81mg tablet.DR PO SCH (08:05)
[2018-01-22] MEDS: baclofen 10mg tablet PO SCH ×2 (08:06→20:06)
[2018-01-22] MEDS: clopidogrel 75mg tablet PO SCH (08:07)
[2018-01-22] MEDS: QUEtiapine 25mg tablet PO SCH ×2 (08:08→20:06)
[2018-01-22] MEDS: levetiracetam 250mg tablet PO SCH ×2 (08:09→20:06)
[2018-01-22] MEDS: enoxaparin 40mg/0.4ml syringe SUBCUT SCH (08:10)
[2018-01-22] MEDS: lactose-reduced food (Ensure Enlive) - 237ml bottle PO SCH ×3 (08:16→18:00)
[2018-01-22 11:00] VITALS: BP 101/59
--- NOTE | 2018-01-22 12:03 | NUR ---
Student Medication Administration: For this medication-pass time frame, all medication were reviewed, dispensed, administered and documented per hospital policy by Loli professional nursing assistant.
--- NOTE | 2018-01-22 15:50 | NUR ---
Patient in room [facility]. I have received report from ELENA CAZARES and had the opportunity to ask questions and assume patient care.
[2018-01-22 20:00] VITALS: BP 107/64
[2018-01-22] MEDS: mirtazapine 15mg tablet PO SCH (20:06)
--- NOTE | 2018-01-22 20:48 | NUR ---
Patient in room [facility] 348. I have received report from SAGE Webster and had the opportunity to ask questions and assume patient care. Addendum: 01/22/18 at 2048 by Bisi Hadley RN Amended: Links added.
[2018-01-23 00:11] VITALS: BP 96/61
--- NOTE | 2018-01-23 06:12 | NUR ---
Problems reprioritized. Patient report given, questions answered & plan of care reviewed with SAGE Webster. Addendum: 01/23/18 at 0612 by Bisi Hadley RN Amended: Links added.
--- NOTE | 2018-01-23 06:38 | NUR ---
Patient in room [facility]. I have received report from SAGE BOWEN and had the opportunity to ask questions and assume patient care.
[2018-01-23 07:30] VITALS: BP 95/61
[2018-01-23] MEDS: baclofen 10mg tablet PO SCH ×2 (08:23→20:10)
[2018-01-23] MEDS: aspirin 81mg tablet.DR PO SCH (08:24)
[2018-01-23] MEDS: levetiracetam 250mg tablet PO SCH ×2 (08:24→20:11)
[2018-01-23] MEDS: clopidogrel 75mg tablet PO SCH (08:24)
[2018-01-23] MEDS: lactose-reduced food (Ensure Enlive) - 237ml bottle PO SCH ×5 (08:25→22:25)
[2018-01-23] MEDS: enoxaparin 40mg/0.4ml syringe SUBCUT SCH (08:25)
[2018-01-23] MEDS: divalproex sodium 500mg tablet.DR PO SCH ×2 (08:26→20:10)
[2018-01-23] MEDS: QUEtiapine 25mg tablet PO SCH ×2 (08:26→20:10)
[2018-01-23 11:22] VITALS: BP 119/67
--- NOTE | 2018-01-23 15:43 | NUR ---
SS consulted w/CM-SS health unit supervisor re dcp for pt. Per consultation, as pt has no acute conditions, pt needs to be discharge home as he has a home. SS contacted pt's IHSS SW (Edith [phone]) to confirm that pt still has IHSS provider-he does. SS requested that IHSS reassess pt to increase his IHSS hours, Edith will go out and meet pt once he returns home to provide a reassessment. SS met w/pt to ascertain who his current IHSS caregiver is, pt reports that Godfrey is his caregiver and pt likes working with Godfrey. Pt even reported that he would even give Godfrey a room in his home if Godfrey wants to stay there at night. SS contacted Godfrey, , left vm requesting a call back to coordinate dcp. Attending RN informed.
--- NOTE | 2018-01-23 18:39 | NUR ---
Problems reprioritized. Patient report given, questions answered & plan of care reviewed with SAGE Garcia.
[2018-01-23 20:00] VITALS: BP 136/67
[2018-01-23] MEDS: mirtazapine 15mg tablet PO SCH (20:10)
--- NOTE | 2018-01-23 21:09 | NUR ---
Patient in room [facility] 348. I have received report from SAGE Webster and had the opportunity to ask questions and assume patient care. Addendum: 01/23/18 at 2109 by Bisi Hadley RN Amended: Links added.
[2018-01-24] VITALS: BP 109/67
--- NOTE | 2018-01-24 06:29 | NUR ---
Problems reprioritized. Patient report given, questions answered & plan of care reviewed with SAGE Olivo. Addendum: 01/24/18 at 0629 by Bisi Hadley RN Amended: Links added.
[2018-01-24] MEDS: divalproex sodium 500mg tablet.DR PO SCH ×2 (07:13→21:02)
[2018-01-24] MEDS: levetiracetam 250mg tablet PO SCH ×2 (07:13→19:21)
[2018-01-24] MEDS: clopidogrel 75mg tablet PO SCH (07:14)
[2018-01-24] MEDS: QUEtiapine 25mg tablet PO SCH ×2 (07:14→19:19)
[2018-01-24] MEDS: aspirin 81mg tablet.DR PO SCH (07:14)
[2018-01-24] MEDS: enoxaparin 40mg/0.4ml syringe SUBCUT SCH (07:18)
[2018-01-24] MEDS: baclofen 10mg tablet PO SCH ×2 (07:18→19:20)
[2018-01-24 08:00] VITALS: BP 119/58
--- NOTE | 2018-01-24 09:11 | NUR ---
SS contacted pt's IHSS caregiver via phone, left vm requesting rt p/c to coordinate pt's d/c home.
[2018-01-24 12:00] VITALS: BP 145/91
[2018-01-24] MEDS: lactose-reduced food (Ensure Enlive) - 237ml bottle PO SCH (17:56)
--- NOTE | 2018-01-24 19:03 | NUR ---
Problems reprioritized. Patient report given, questions answered & plan of care reviewed with JONATAN CHEUNG RN.
--- NOTE | 2018-01-24 19:04 | NUR ---
Patient in room [facility]. I have received report from ELEANOR CAZARES and had the opportunity to ask questions and assume patient care.
[2018-01-24] MEDS: mirtazapine 15mg tablet PO SCH (19:20)
[2018-01-24 20:00] VITALS: BP 112/61
[2018-01-25] VITALS: BP 99/56
--- NOTE | 2018-01-25 06:32 | NUR ---
Problems reprioritized. Patient report given, questions answered & plan of care reviewed with ELEANOR CAZARES.
[2018-01-25 07:14] VITALS: BP 121/69
[2018-01-25] MEDS: clopidogrel 75mg tablet PO SCH (08:22)
[2018-01-25] MEDS: aspirin 81mg tablet.DR PO SCH (08:23)
[2018-01-25] MEDS: levetiracetam 250mg tablet PO SCH ×2 (08:23→19:50)
[2018-01-25] MEDS: QUEtiapine 25mg tablet PO SCH ×2 (08:24→19:49)
[2018-01-25] MEDS: lactose-reduced food (Ensure Enlive) - 237ml bottle PO SCH ×3 (08:26→18:06)
[2018-01-25] MEDS: baclofen 10mg tablet PO SCH ×2 (08:26→19:49)
[2018-01-25] MEDS: enoxaparin 40mg/0.4ml syringe SUBCUT SCH (08:27)
[2018-01-25] MEDS: divalproex sodium 500mg tablet.DR PO SCH ×2 (08:28→19:49)
--- NOTE | 2018-01-25 09:38 | NUR ---
SS contacted APS and reported that pt's been abandoned by family & caregiver as no one's returning p/cs to coordinate dcp with hospital and pt no longer requires hospitalization & desires to rt home.
[2018-01-25 11:23] VITALS: BP 106/63
--- NOTE | 2018-01-25 16:58 | NUR ---
SS received rt p/c from APS, per consultation APS will not open case @ this time as pt does not meet criteria of an abandoned adult since he does not live w/family members. APS suggest to keep trying to engage the IHSS caregiver. SS will consult w/CM team to continue to provide referrals for LTCs.
[2018-01-25] MEDS: mirtazapine 15mg tablet PO SCH (19:49)
[2018-01-25 20:00] VITALS: BP 129/70
--- NOTE | 2018-01-25 23:45 | NUR ---
Patient in room [facility]. I have received report from ELEANOR CAZARES and had the opportunity to ask questions and assume patient care.
[2018-01-26] VITALS: BP 97/58
--- NOTE | 2018-01-26 06:30 | NUR ---
Problems reprioritized. Patient report given, questions answered & plan of care reviewed with IRENE CAZARES.
--- NOTE | 2018-01-26 06:36 | NUR ---
Patient in room [facility]. I have received report from SAGE Sheppard and had the opportunity to ask questions and assume patient care.
[2018-01-26 08:00] VITALS: BP 117/71
[2018-01-26] MEDS: levetiracetam 250mg tablet PO SCH ×2 (08:03→19:40)
[2018-01-26] MEDS: divalproex sodium 500mg tablet.DR PO SCH ×2 (08:03→21:36)
[2018-01-26] MEDS: clopidogrel 75mg tablet PO SCH (08:03)
[2018-01-26] MEDS: QUEtiapine 25mg tablet PO SCH ×2 (08:03→19:40)
[2018-01-26] MEDS: aspirin 81mg tablet.DR PO SCH (08:04)
[2018-01-26] MEDS: lactose-reduced food (Ensure Enlive) - 237ml bottle PO SCH ×4 (08:04→20:00)
[2018-01-26] MEDS: baclofen 10mg tablet PO SCH ×2 (08:04→19:39)
[2018-01-26] MEDS: enoxaparin 40mg/0.4ml syringe SUBCUT SCH (08:04)
[2018-01-26 11:00] VITALS: BP 122/64
--- NOTE | 2018-01-26 11:27 | NUR ---
Reassessment:Pt is refusing Ensure, states he does not enjoy them. Discussed dietary options with pt. Pt agreeable to Leonor High Protein shake, discussed with dietary. PO intake 75-100% likely meeting nutrition needs. [facility] 01/26. Will continue to monitor Addendum: 01/26/18 at [address] Amended: Links added. Addendum: 01/26/18 at [address] agree with note Addendum: 01/26/18 at [address] Reassessment:Pt is refusing Ensure, states he does not enjoy them but will try and drink them.Discussed dietary options with pt. Pt agreeable to Vanilla High Protein shake, discussed with dietary. PO intake 75-100% likely meeting nutrition needs. [facility] 01/26. Will continue to monitor.
[2018-01-26] MEDS: JUVEN Shake w/Arg/Glut/Ca2+Bmb (Juven 19.3gm) pkt 240ml PO SCH (13:00)
--- NOTE | 2018-01-26 18:10 | NUR ---
Problems reprioritized. Patient report given, questions answered & plan of care reviewed with Rafa Post RN.
[2018-01-26 20:00] VITALS: BP 128/77
[2018-01-26] MEDS: mirtazapine 15mg tablet PO SCH (21:00)
[2018-01-27] VITALS: BP 110/66
[2018-01-27 07:01] VITALS: BP 113/70
[2018-01-27] MEDS: levetiracetam 250mg tablet PO SCH ×2 (08:34→21:54)
[2018-01-27] MEDS: clopidogrel 75mg tablet PO SCH (08:34)
[2018-01-27] MEDS: aspirin 81mg tablet.DR PO SCH (08:34)
[2018-01-27] MEDS: divalproex sodium 500mg tablet.DR PO SCH ×2 (08:34→21:54)
[2018-01-27] MEDS: QUEtiapine 25mg tablet PO SCH ×2 (08:34→21:59)
[2018-01-27] MEDS: baclofen 10mg tablet PO SCH ×2 (08:34→21:55)
[2018-01-27] MEDS: enoxaparin 40mg/0.4ml syringe SUBCUT SCH (08:35)
[2018-01-27 11:14] LABS: BASOPHILS # (AUTO) 0.1 X10'3 (0-0.2); BASOPHILS % (AUTO) 0.3 % (0-1); EOSINOPHILS # (AUTO) 0.2 X10'3 (0-0.9); EOSINOPHILS % (AUTO) 0.8 % (0-6); HEMATOCRIT 34.3 % (42.0-52.0); HEMOGLOBIN 11.4 g/dl (14.0-17.9); LYMPHOCYTES # (AUTO) 11.7 X10'3 (1.1-4.8); LYMPHOCYTES % (AUTO) 58.7 % (21-51); MEAN CORPUSCULAR HEMOGLOBIN 31.6 PG (27.0-31.0); MEAN CORPUSCULAR HGB CONC 33.3 % (33.0-36.5); MEAN CORPUSCULAR VOLUME 94.9 FL (78-98); MEAN PLATELET VOLUME 8.1 FL (7.4-10.4); NEUTROPHILS % (AUTO) 35.2 % (42-75); PLATELET COUNT 184 X10'3 (140-440); RED BLOOD COUNT 3.62 X10'6 (4.70-6.10); RED CELL DISTRIBUTION WIDTH 16.5 % (11.5-14.5); WHITE BLOOD COUNT 19.9 X10'3 (4.5-11.0)
[2018-01-27 11:29] LABS: ALANINE AMINOTRANSFERASE 9 U/L (12-78); ALBUMIN 2.8 G/DL (3.4-5.0); ALBUMIN/GLOBULIN RATIO 0.7 (1.1-1.5); ALKALINE PHOSPHATASE 45 IU/L (46-116); ANION GAP 12 (8-16); ASPARTATE AMINO TRANSFERASE 13 U/L (10-37); BILIRUBIN,TOTAL 0.2 MG/DL (0.1-1.0); BLOOD UREA NITROGEN 28 MG/DL (7-18); BUN/CREATININE RATIO 37.3 (5.4-32.0); CALCIUM 8.5 MG/DL (8.5-10.1); CHLORIDE 106 MMOL/L (99-107); CREATININE 0.75 MG/DL (0.60-1.10); GLUCOSE 94 MG/DL (70-104); SODIUM 141 MMOL/L (135-145); TOTAL CARBON DIOXIDE 23.3 MMOL/L (24-32); TOTAL PROTEIN 6.7 G/DL (6.4-8.2); eGFR > 90 ML/MIN
[2018-01-27 11:48] LABS: PLATELET ESTIMATE NORMAL; SMUDGE CELLS 2+; TOTAL CELLS COUNTED 100
[2018-01-27 11:49] LABS: ANISOCYTOSIS 1+; POIKILOCYTOSIS 1+; POLYCHROMASIA FEW
[2018-01-27 12:09] VITALS: BP 117/67
[2018-01-27] MEDS: acetaminophen 325mg tablet PO PRN (13:58)
[2018-01-27] MEDS: lactose-reduced food (Ensure Enlive) - 237ml bottle PO SCH ×2 (13:58→18:46)
--- NOTE | 2018-01-27 18:41 | NUR ---
Problems reprioritized. Patient report given, questions answered & plan of care reviewed with SAGE Abdalla.
[2018-01-27 20:00] VITALS: BP_SYST 112; BP_SYST 154; BP_DIAS 55; BP_DIAS 78
[2018-01-27] MEDS: mirtazapine 15mg tablet PO SCH (21:54)
[2018-01-28] VITALS: BP 133/78
[2018-01-28 07:47] VITALS: BP 130/70
[2018-01-28] MEDS: levetiracetam 250mg tablet PO SCH ×2 (08:39→21:12)
[2018-01-28] MEDS: clopidogrel 75mg tablet PO SCH (08:40)
[2018-01-28] MEDS: aspirin 81mg tablet.DR PO SCH (08:40)
[2018-01-28] MEDS: enoxaparin 40mg/0.4ml syringe SUBCUT SCH (08:40)
[2018-01-28] MEDS: lactose-reduced food (Ensure Enlive) - 237ml bottle PO SCH ×3 (08:41→18:26)
--- NOTE | 2018-01-28 08:47 | NUR ---
sent message to pharmacy concerning patient need for depakote and seroquel AM dose needed.
[2018-01-28] MEDS: baclofen 10mg tablet PO SCH ×2 (08:51→21:14)
[2018-01-28] MEDS: divalproex sodium 500mg tablet.DR PO SCH ×2 (10:25→21:13)
[2018-01-28] MEDS: QUEtiapine 25mg tablet PO SCH ×2 (10:26→21:14)
[2018-01-28] MEDS: acetaminophen 325mg tablet PO PRN (13:25)
[2018-01-28 17:28] VITALS: BP 112/61
--- NOTE | 2018-01-28 18:25 | NUR ---
Patient in room [facility]. I have received report from Grace CAZARES and had the opportunity to ask questions and assume patient care. Patient eating dinner and requested a pepsi which was provided as requested. Will continue to monitor.
--- NOTE | 2018-01-28 18:25 | NUR ---
Problems reprioritized. Patient report given, questions answered & plan of care reviewed with Ghada CAZARES.
[2018-01-28 19:00] VITALS: BP 105/48
[2018-01-28] MEDS: mirtazapine 15mg tablet PO SCH (21:13)
[2018-01-29 02:58] VITALS: BP 140/74
--- NOTE | 2018-01-29 06:30 | NUR ---
Patient in room [facility]. I have received report from ELLYN CAZARES and had the opportunity to ask questions and assume patient care.
--- NOTE | 2018-01-29 06:53 | NUR ---
Problems reprioritized. Patient report given, questions answered & plan of care reviewed with Uyen CAZARES. Patient resting in bed respirations even.
[2018-01-29 07:00] VITALS: BP 134/73
[2018-01-29] MEDS: clopidogrel 75mg tablet PO SCH (07:55)
[2018-01-29] MEDS: baclofen 10mg tablet PO SCH ×2 (07:55→21:04)
[2018-01-29] MEDS: QUEtiapine 25mg tablet PO SCH ×2 (07:55→21:05)
[2018-01-29] MEDS: aspirin 81mg tablet.DR PO SCH (07:55)
[2018-01-29] MEDS: divalproex sodium 500mg tablet.DR PO SCH ×2 (07:56→21:07)
[2018-01-29] MEDS: lactose-reduced food (Ensure Enlive) - 237ml bottle PO SCH ×3 (07:56→18:33)
[2018-01-29] MEDS: enoxaparin 40mg/0.4ml syringe SUBCUT SCH (07:56)
[2018-01-29] MEDS: levetiracetam 250mg tablet PO SCH ×2 (07:56→21:07)
[2018-01-29 11:28] VITALS: BP 128/69
[2018-01-29] MEDS: HYDROcodone/acetaminophen 5mg/325mg tablet PO PRN ×2 (16:01→22:19)
[2018-01-29] MEDS: JUVEN Shake w/Arg/Glut/Ca2+Bmb (Juven 19.3gm) pkt 240ml PO SCH ×4 (18:00→18:33)
--- NOTE | 2018-01-29 18:16 | NUR ---
Problems reprioritized. Patient report given, questions answered & plan of care reviewed with ELLYN CAZARES.
[2018-01-29 19:13] VITALS: BP 116/69
[2018-01-29] MEDS: mirtazapine 15mg tablet PO SCH (21:05)
[2018-01-30] VITALS: BP 124/64
--- NOTE | 2018-01-30 06:30 | NUR ---
Problems reprioritized. Patient report given, questions answered & plan of care reviewed with Grace RN. Patient actively involved in bedside report.
--- NOTE | 2018-01-30 06:30 | NUR ---
I have received report from Ghada CAZARES and had the opportunity to ask questions and assume patient care.
[2018-01-30 07:24] VITALS: BP 118/71
[2018-01-30] MEDS: aspirin 81mg tablet.DR PO SCH (08:21)
[2018-01-30] MEDS: HYDROcodone/acetaminophen 5mg/325mg tablet PO PRN ×3 (08:21→20:27)
[2018-01-30] MEDS: clopidogrel 75mg tablet PO SCH (08:21)
[2018-01-30] MEDS: levetiracetam 250mg tablet PO SCH ×2 (08:21→20:26)
[2018-01-30] MEDS: divalproex sodium 500mg tablet.DR PO SCH ×2 (08:21→20:26)
[2018-01-30] MEDS: QUEtiapine 25mg tablet PO SCH ×2 (08:21→20:26)
[2018-01-30] MEDS: JUVEN Shake w/Arg/Glut/Ca2+Bmb (Juven 19.3gm) pkt 240ml PO SCH ×3 (08:22→18:01)
[2018-01-30] MEDS: lactose-reduced food (Ensure Enlive) - 237ml bottle PO SCH ×3 (08:22→18:01)
[2018-01-30] MEDS: baclofen 10mg tablet PO SCH ×2 (08:22→20:26)
[2018-01-30 11:10] VITALS: BP 102/68
[2018-01-30] MEDS: magnesium hydroxide 30ml (MOM) UD suspension PO PRN (14:12)
--- NOTE | 2018-01-30 17:58 | NUR ---
Report given to NOC shift.
[2018-01-30 20:00] VITALS: BP 120/67
[2018-01-30] MEDS: mirtazapine 15mg tablet PO SCH (20:26)
--- NOTE | 2018-01-30 21:13 | NUR ---
Patient in room [facility]. I have received report from SAGE Edwards and had the opportunity to ask questions and assume patient care. Addendum: 01/30/18 at 2114 by Bisi Hadley RN Amended: Links added.
[2018-01-30 23:00] VITALS: BP 102/65
--- NOTE | 2018-01-31 06:10 | NUR ---
Problems reprioritized. Patient report given, questions answered & plan of care reviewed with SAGE Edwards. Addendum: 01/31/18 at 0610 by Bisi Hadley RN Amended: Links added.
--- NOTE | 2018-01-31 06:18 | NUR ---
Patient in room [facility]. I have received report from Bisi CAZARES and had the opportunity to ask questions and assume patient care.
[2018-01-31] MEDS: QUEtiapine 25mg tablet PO SCH ×2 (08:10→20:00)
[2018-01-31] MEDS: clopidogrel 75mg tablet PO SCH (08:10)
[2018-01-31] MEDS: aspirin 81mg tablet.DR PO SCH (08:10)
[2018-01-31] MEDS: levetiracetam 250mg tablet PO SCH ×2 (08:10→19:59)
[2018-01-31] MEDS: divalproex sodium 500mg tablet.DR PO SCH ×2 (08:11→19:59)
[2018-01-31] MEDS: baclofen 10mg tablet PO SCH ×2 (08:11→20:00)
[2018-01-31] MEDS: lactose-reduced food (Ensure Enlive) - 237ml bottle PO SCH ×3 (08:14→13:17)
[2018-01-31] MEDS: JUVEN Shake w/Arg/Glut/Ca2+Bmb (Juven 19.3gm) pkt 240ml PO SCH ×3 (08:15→18:00)
[2018-01-31 08:50] VITALS: BP 114/65
[2018-01-31 11:40] VITALS: BP 101/59
--- NOTE | 2018-01-31 13:17 | NUR ---
Ensures have been DC'd.
[2018-01-31] MEDS: HYDROcodone/acetaminophen 5mg/325mg tablet PO PRN (17:10)
[2018-01-31 20:00] VITALS: BP 114/60
[2018-01-31] MEDS: mirtazapine 15mg tablet PO SCH (20:00)
--- NOTE | 2018-01-31 22:28 | NUR ---
Patient in room [facility]. I have received report from SAGE Edwards and had the opportunity to ask questions and assume patient care. Addendum: 01/31/18 at 2230 by Bisi Hadley RN Amended: Links added.
[2018-02-01 00:19] VITALS: BP 134/74
[2018-02-01] MEDS: HYDROcodone/acetaminophen 5mg/325mg tablet PO PRN (03:50)
--- NOTE | 2018-02-01 06:28 | NUR ---
Problems reprioritized. Patient report given, questions answered & plan of care reviewed with SAGE Wilson. Addendum: 02/01/18 at 0628 by Bisi Hadley RN Amended: Links added.
--- NOTE | 2018-02-01 06:44 | NUR ---
Patient in room [facility]. I have received report from SAGE Mathews and had the opportunity to ask questions and assume patient care.
[2018-02-01 07:00] VITALS: BP 100/54
[2018-02-01] MEDS: levetiracetam 250mg tablet PO SCH ×2 (07:30→20:17)
[2018-02-01] MEDS: aspirin 81mg tablet.DR PO SCH (07:30)
[2018-02-01] MEDS: divalproex sodium 500mg tablet.DR PO SCH ×2 (07:30→20:19)
[2018-02-01] MEDS: clopidogrel 75mg tablet PO SCH (07:31)
[2018-02-01] MEDS: QUEtiapine 25mg tablet PO SCH ×2 (07:31→20:18)
[2018-02-01] MEDS: baclofen 10mg tablet PO SCH ×2 (07:31→20:17)
[2018-02-01] MEDS: JUVEN Shake w/Arg/Glut/Ca2+Bmb (Juven 19.3gm) pkt 240ml PO SCH ×3 (07:37→18:02)
[2018-02-01] MEDS ORDERED: ondansetron 4mg rapidly disintigrating tab PO PRN (10:55)
[2018-02-01 11:00] VITALS: BP 123/62
--- NOTE | 2018-02-01 12:54 | NUR ---
SS contacted APS & PG to get updates re referrals for APS & PG services. APS did not open case for pt; PG noted that [facility] continues to seek placement for pt.
[2018-02-01 18:00] VITALS: BP 137/75
--- NOTE | 2018-02-01 18:26 | NUR ---
Problems reprioritized. Patient report given, questions answered & plan of care reviewed with SAGE Vasquez.
--- NOTE | 2018-02-01 18:26 | NUR ---
Patient in room [facility]. I have received report from Katie CAZARES and had the opportunity to ask questions and assume patient care. PT sitting up in bed eating dinner. No signs of distress. Will continue to monitor.
[2018-02-01] MEDS: mirtazapine 15mg tablet PO SCH (20:17)
[2018-02-01] MEDS: oxyCODONE/APAP 5-325mg tablet PO PRN (21:22)
[2018-02-02] VITALS: BP 110/66
--- NOTE | 2018-02-02 06:23 | NUR ---
Problems reprioritized. Patient report given, questions answered & plan of care reviewed with Katie CAZARES.
--- NOTE | 2018-02-02 06:24 | NUR ---
Patient in room [facility]. I have received report from Yumiko Vasquez and had the opportunity to ask questions and assume patient care.
[2018-02-02 07:00] VITALS: BP 104/68
[2018-02-02] MEDS: QUEtiapine 25mg tablet PO SCH ×2 (08:07→21:13)
[2018-02-02] MEDS: clopidogrel 75mg tablet PO SCH (08:07)
[2018-02-02] MEDS: baclofen 10mg tablet PO SCH ×2 (08:08→21:14)
[2018-02-02] MEDS: aspirin 81mg tablet.DR PO SCH (08:08)
[2018-02-02] MEDS: levetiracetam 250mg tablet PO SCH ×2 (08:08→21:13)
[2018-02-02] MEDS: divalproex sodium 500mg tablet.DR PO SCH ×2 (08:08→21:11)
[2018-02-02] MEDS: JUVEN Shake w/Arg/Glut/Ca2+Bmb (Juven 19.3gm) pkt 240ml PO SCH ×3 (08:14→18:50)
[2018-02-02 11:00] VITALS: BP 123/63
[2018-02-02] MEDS: oxyCODONE/APAP 5-325mg tablet PO PRN ×2 (13:50→21:12)
--- NOTE | 2018-02-02 17:48 | NUR ---
reassessment: Pt PO 100% meals w/ high protein shake added per meeting needs. LBM 01/30. No nutrition concerns at this time. Rec: 1. Continue regular diet 2. Wt per rx 3. Encourage ONS intake Addendum: 02/02/18 at [address] Amended: Links added.
[2018-02-02 18:00] VITALS: BP 147/60
--- NOTE | 2018-02-02 18:50 | NUR ---
Problems reprioritized. Patient report given, questions answered & plan of care reviewed with SAGE Escudero.
--- NOTE | 2018-02-02 19:05 | NUR ---
Patient in room [facility]. I have received report from Katie CAZARES and had the opportunity to ask questions and assume patient care.
[2018-02-02] MEDS: mirtazapine 15mg tablet PO SCH (21:12)
[2018-02-03] VITALS: BP 124/64
--- NOTE | 2018-02-03 06:30 | NUR ---
Patient in room [facility]. I have received report from SAGE Vasquez and had the opportunity to ask questions and assume patient care.
[2018-02-03 07:00] VITALS: BP 117/64
--- NOTE | 2018-02-03 07:03 | NUR ---
Problems reprioritized. Patient report given, questions answered & plan of care reviewed with Shannan RN.
[2018-02-03] MEDS: JUVEN Shake w/Arg/Glut/Ca2+Bmb (Juven 19.3gm) pkt 240ml PO SCH ×3 (08:00→18:10)
[2018-02-03] MEDS: clopidogrel 75mg tablet PO SCH (09:59)
[2018-02-03] MEDS: baclofen 10mg tablet PO SCH ×2 (09:59→21:58)
[2018-02-03] MEDS: levetiracetam 250mg tablet PO SCH ×2 (10:00→22:01)
[2018-02-03] MEDS: QUEtiapine 25mg tablet PO SCH ×2 (10:00→21:59)
[2018-02-03] MEDS: aspirin 81mg tablet.DR PO SCH (10:00)
[2018-02-03] MEDS: divalproex sodium 500mg tablet.DR PO SCH ×2 (10:00→22:01)
[2018-02-03] MEDS: magnesium hydroxide 30ml (MOM) UD suspension PO PRN (10:07)
[2018-02-03 11:00] VITALS: BP 126/63
[2018-02-03 18:00] VITALS: BP 126/90
--- NOTE | 2018-02-03 18:15 | NUR ---
Problems reprioritized. Patient report given, questions answered & plan of care reviewed with SAGE Vasquez.
[2018-02-03] MEDS: mirtazapine 15mg tablet PO SCH (21:59)
[2018-02-03] MEDS: oxyCODONE/APAP 5-325mg tablet PO PRN (22:00)
[2018-02-04] VITALS: BP 95/70
--- NOTE | 2018-02-04 06:18 | NUR ---
Pt was heard calling out for help. He was found beside the bed on his knees after trying to get out of bed to use the bathroom. Bed alarm was on at the time of the event, however it did not go off. Pt was assisted back to bed by the RN, aide and rn relief charge, vital signs were taken and stable, pt did not hit his head and was alert and oriented after the event. It was reinforced again for the pt not to get out of bed, a tabs alarm was placed on the pt. Hospitalist was paged, incident report was filed. Will continue to monitor.
[2018-02-04 06:30] VITALS: BP 128/54
--- NOTE | 2018-02-04 06:30 | NUR ---
Patient in room [facility]. I have received report from SAGE Vasquez and had the opportunity to ask questions and assume patient care.
--- NOTE | 2018-02-04 06:47 | NUR ---
Problems reprioritized. Patient report given, questions answered & plan of care reviewed with Shannan RN.
[2018-02-04] MEDS: JUVEN Shake w/Arg/Glut/Ca2+Bmb (Juven 19.3gm) pkt 240ml PO SCH ×3 (08:00→18:03)
[2018-02-04] MEDS: enoxaparin 40mg/0.4ml syringe SUBCUT SCH (09:06)
[2018-02-04] MEDS: aspirin 81mg tablet.DR PO SCH (09:07)
[2018-02-04] MEDS: divalproex sodium 500mg tablet.DR PO SCH ×2 (09:07→19:10)
[2018-02-04] MEDS: QUEtiapine 25mg tablet PO SCH ×2 (09:07→19:09)
[2018-02-04] MEDS: clopidogrel 75mg tablet PO SCH (09:07)
[2018-02-04] MEDS: levetiracetam 250mg tablet PO SCH ×2 (09:07→19:10)
[2018-02-04] MEDS: baclofen 10mg tablet PO SCH ×2 (09:08→19:10)
[2018-02-04] MEDS: magnesium hydroxide 30ml (MOM) UD suspension PO PRN (10:13)
[2018-02-04 11:00] VITALS: BP 116/76
[2018-02-04] MEDS: oxyCODONE/APAP 5-325mg tablet PO PRN ×2 (18:01→21:45)
--- NOTE | 2018-02-04 18:10 | NUR ---
Problems reprioritized. Patient report given, questions answered & plan of care reviewed with SAGE Pierre.
--- NOTE | 2018-02-04 18:30 | NUR ---
Patient in room [facility]. I have received report from BONITA and had the opportunity to ask questions and assume patient care.
--- NOTE | 2018-02-04 18:30 | NUR ---
Patient in room [facility]. I have received report from BONITA and had the opportunity to ask questions and assume patient care.
[2018-02-04 19:00] VITALS: BP 113/73
--- NOTE | 2018-02-04 19:00 | NUR ---
PT PAIN 11/15 TO RIGHT HIP. PERCOCET GIVEN BY ENE CAZARES AT 1800. PT REPOSITIONED, WARM PACK APPLIED. WILL CONTINUE TO MONITOR. Addendum: 02/05/18 at 0156 by Janet Gold RN Amended: Links added. Addendum: 02/05/18 at 0159 by Janet Gold RN LEFT HIP
[2018-02-04] MEDS: mirtazapine 15mg tablet PO SCH (19:10)
--- NOTE | 2018-02-04 20:40 | NUR ---
DR TOVAR NOTIFIED: PT CONTINUES TO HAVE 10/10 PAIN TO LEFT HIP AFTER PERCOCET AND NIGHT TIME MEDICATIONS ADMINISTERED. MD INFORMED OF INCREASED PAIN TO HIP AREA AFTER FALL THIS MORNING. ORDERS TO START IV, IV PAIN MEDICATIONS. NO ORDERS FOR FURTHER IMAGING OF LEFT HIP.
[2018-02-04] MEDS ORDERED: HYDROmorphone inj. 0.5 MG/0.5 ML DISP.SYRIN IV PRN (20:55)
[2018-02-04] MEDS ORDERED: morphine 4 MG/ML inj SYRINge IV PRN (20:55)
[2018-02-04] MEDS ORDERED: HYDROmorphone 1 mg/ml syringe IV PRN (20:55)
[2018-02-04] MEDS ORDERED: oxyCODONE/APAP 10/325mg tablet PO ONE (23:20)
[2018-02-04 23:30] VITALS: BP 122/77
--- NOTE | 2018-02-04 23:30 | NUR ---
DR TOVAR NOTIFIED: AFTER MULTIPLE ATTEMPTS TO START IV BY MULTIPLE RNs, NO SUCCESS. DR TOVAR NOTIFIED TO INCREASE ORAL PAIN MEDICATIONS. PAIN STILL 10/10. ORDERS TO PLACE LIDODERM PATCH AND INCREASE PERCOCET DOSE. UPON GOING INTO ROOM TO ADMINISTER PAIN MEDICATIONS, PT WAS ASLEEP. LIDODERM PATCH APPLIED. WILL HOLD ADDITIONAL PERCOCET DOSE FOR NOW. WILL CONTINUE TO MONITOR.
[2018-02-04] MEDS: LIDOcaine 5% patch TP SCH (23:36)
--- NOTE | 2018-02-05 06:25 | NUR ---
Problems reprioritized. Patient report given, questions answered & plan of care reviewed with ODELL.
[2018-02-05 07:00] VITALS: BP 109/70
[2018-02-05] MEDS: divalproex sodium 500mg tablet.DR PO SCH ×2 (07:27→21:19)
[2018-02-05] MEDS: QUEtiapine 25mg tablet PO SCH ×2 (07:27→21:19)
[2018-02-05] MEDS: clopidogrel 75mg tablet PO SCH (07:27)
[2018-02-05] MEDS: LIDOcaine 5% patch TP SCH (07:27)
[2018-02-05] MEDS: levetiracetam 250mg tablet PO SCH ×2 (07:27→21:18)
[2018-02-05] MEDS: baclofen 10mg tablet PO SCH ×2 (07:27→21:18)
[2018-02-05] MEDS: aspirin 81mg tablet.DR PO SCH (07:27)
[2018-02-05] MEDS: enoxaparin 40mg/0.4ml syringe SUBCUT SCH (07:28)
[2018-02-05] MEDS: JUVEN Shake w/Arg/Glut/Ca2+Bmb (Juven 19.3gm) pkt 240ml PO SCH ×3 (08:00→18:14)
[2018-02-05 11:32] VITALS: BP 106/65
--- NOTE | 2018-02-05 13:25 | NUR ---
PT SEEMS VERY DROWSY TODAY. NOTIFIED CHARGE NURSE AND BRAIDING OPERATOR. THEY BOTH EVALUATED PT ALONG WITH MYSELF. IT APPEARS HES JUST VERY TIRED, WILL CONT TO MONITOR.
[2018-02-05 15:10] VITALS: BP 99/63
--- NOTE | 2018-02-05 15:18 | NUR ---
NOTIFIED DR MENDEZ RE PTS EXTREME FATIGUE. REQ VS AND BS. VSS STABLE, BS 81. PT STATES THAT HE IS "OK AND I WILL LET YOU KNOW IF I DONT FEEL OK, I JUST FEEL TIRED TODAY." WILL CONT TO MONITOR.
--- NOTE | 2018-02-05 18:13 | NUR ---
Problems reprioritized. Patient report given, questions answered & plan of care reviewed with ALEJANDRO CAZARES.
--- NOTE | 2018-02-05 18:30 | NUR ---
Patient in room [facility]. I have received report from ODELL and had the opportunity to ask questions and assume patient care.
[2018-02-05 18:45] VITALS: BP 116/55
[2018-02-05] MEDS: oxyCODONE/APAP 10/325mg tablet PO PRN ×2 (19:07→23:30)
--- NOTE | 2018-02-05 19:20 | NUR ---
DR TOVAR NOTIFIED: PT HAS BILATERAL EYES WITH YELLOWISH DISCHARGE. LEFT EYE IS WORSE THAN RIGHT EYE. SEE ORDERS.
[2018-02-05] MEDS: mirtazapine 15mg tablet PO SCH (21:18)
[2018-02-05] MEDS: erythromycin ophthalmic ointment 1gm tube EACHEYE SCH (21:19)
[2018-02-05 23:30] VITALS: BP 131/73
[2018-02-06] VITALS: BP 131/73
[2018-02-06] MEDS: erythromycin ophthalmic ointment 1gm tube EACHEYE SCH ×4 (03:58→21:29)
--- NOTE | 2018-02-06 06:55 | NUR ---
Problems reprioritized. Patient report given, questions answered & plan of care reviewed with ODELL.
[2018-02-06 07:00] VITALS: BP 106/59
[2018-02-06] MEDS: baclofen 10mg tablet PO SCH ×2 (07:43→21:25)
[2018-02-06] MEDS: aspirin 81mg tablet.DR PO SCH (07:43)
[2018-02-06] MEDS: divalproex sodium 500mg tablet.DR PO SCH ×2 (07:43→21:25)
[2018-02-06] MEDS: levetiracetam 250mg tablet PO SCH ×2 (07:43→21:25)
[2018-02-06] MEDS: clopidogrel 75mg tablet PO SCH (07:43)
[2018-02-06] MEDS: QUEtiapine 25mg tablet PO SCH ×2 (07:44→21:25)
[2018-02-06] MEDS: enoxaparin 40mg/0.4ml syringe SUBCUT SCH (07:44)
[2018-02-06] MEDS: LIDOcaine 5% patch TP SCH (07:44)
[2018-02-06] MEDS: JUVEN Shake w/Arg/Glut/Ca2+Bmb (Juven 19.3gm) pkt 240ml PO SCH ×3 (07:45→18:18)
[2018-02-06 11:26] VITALS: BP 108/70
[2018-02-06 15:20] LABS: BASOPHILS # (AUTO) 0.2 X10'3 (0-0.2); BASOPHILS % (AUTO) 1.3 % (0-1); EOSINOPHILS # (AUTO) 0.1 X10'3 (0-0.9); EOSINOPHILS % (AUTO) 0.3 % (0-6); HEMATOCRIT 30.4 % (42.0-52.0); HEMOGLOBIN 10.3 g/dl (14.0-17.9); MEAN CORPUSCULAR HEMOGLOBIN 32.3 PG (27.0-31.0); MEAN CORPUSCULAR HGB CONC 33.8 % (33.0-36.5); MEAN CORPUSCULAR VOLUME 95.3 FL (78-98); MEAN PLATELET VOLUME 6.7 FL (7.4-10.4); MONOCYTES # (AUTO) 0.9 X10'3 (0-0.9); MONOCYTES % (AUTO) 4.8 % (2-12); NEUTROPHILS # (AUTO) 6.5 X10'3 (1.8-7.7); NEUTROPHILS % (AUTO) 34.6 % (42-75); PLATELET COUNT 302 X10'3 (140-440); RED BLOOD COUNT 3.19 X10'6 (4.70-6.10); RED CELL DISTRIBUTION WIDTH 15.7 % (11.5-14.5); WHITE BLOOD COUNT 18.7 X10'3 (4.5-11.0)
[2018-02-06 15:45] LABS: ALANINE AMINOTRANSFERASE 13 U/L (12-78); ALBUMIN 2.7 G/DL (3.4-5.0); ALBUMIN/GLOBULIN RATIO 0.6 (1.1-1.5); ALKALINE PHOSPHATASE 47 IU/L (46-116); ANION GAP 12 (8-16); ASPARTATE AMINO TRANSFERASE 26 U/L (10-37); BILIRUBIN,TOTAL 0.5 MG/DL (0.1-1.0); BLOOD UREA NITROGEN 33 MG/DL (7-18); BUN/CREATININE RATIO 37.5 (5.4-32.0); CHLORIDE 103 MMOL/L (99-107); CREATININE 0.88 MG/DL (0.60-1.10); GLUCOSE 91 MG/DL (70-104); POTASSIUM 4.6 MMOL/L (3.5-5.1); SODIUM 141 MMOL/L (135-145); TOTAL CARBON DIOXIDE 25.7 MMOL/L (24-32); TOTAL PROTEIN 7.2 G/DL (6.4-8.2); eGFR 86 ML/MIN
[2018-02-06 16:04] LABS: TOTAL CELLS COUNTED 100
[2018-02-06 16:06] LABS: ANISOCYTOSIS 1+; PLATELET ESTIMATE NORMAL; POLYCHROMASIA FEW
[2018-02-06 16:07] LABS: SMUDGE CELLS 2+
[2018-02-06 16:08] LABS: MICROCYTOSIS FEW; POIKILOCYTOSIS FEW
--- NOTE | 2018-02-06 18:17 | NUR ---
Problems reprioritized. Patient report given, questions answered & plan of care reviewed with JULI CAZARES.
[2018-02-06] MEDS: oxyCODONE/APAP 10/325mg tablet PO PRN (19:36)
[2018-02-06 20:00] VITALS: BP 152/83
[2018-02-06] MEDS: mirtazapine 15mg tablet PO SCH (21:26)
--- NOTE | 2018-02-06 22:50 | NUR ---
Patient extremely agitated tonight. trying to punch staff and kick. Patient punch television, television out of patient's reach. Patient cursing and trying to climb out of bed. Bed alarm on, tab alarm on. Patient currently in bed restless and kicking and moving. Will continue to monitor.
[2018-02-07] VITALS: BP 145/86
[2018-02-07] MEDS: oxyCODONE/APAP 10/325mg tablet PO PRN ×2 (01:29→20:02)
[2018-02-07] MEDS: erythromycin ophthalmic ointment 1gm tube EACHEYE SCH ×4 (01:29→20:00)
--- NOTE | 2018-02-07 06:40 | NUR ---
Patient in room [facility]. I have received report from Lianne CAZARES and had the opportunity to ask questions and assume patient care.
[2018-02-07 07:08] VITALS: BP 110/57
[2018-02-07] MEDS: clopidogrel 75mg tablet PO SCH (08:42)
[2018-02-07] MEDS: QUEtiapine 25mg tablet PO SCH ×2 (08:42→20:01)
[2018-02-07] MEDS: LIDOcaine 5% patch TP SCH (08:42)
[2018-02-07] MEDS: divalproex sodium 500mg tablet.DR PO SCH ×2 (08:42→20:01)
[2018-02-07] MEDS: aspirin 81mg tablet.DR PO SCH (08:42)
[2018-02-07] MEDS: levetiracetam 250mg tablet PO SCH ×2 (08:43→20:00)
[2018-02-07] MEDS: enoxaparin 40mg/0.4ml syringe SUBCUT SCH (08:43)
[2018-02-07] MEDS: baclofen 10mg tablet PO SCH ×3 (08:43→20:01)
[2018-02-07] MEDS: JUVEN Shake w/Arg/Glut/Ca2+Bmb (Juven 19.3gm) pkt 240ml PO SCH ×3 (08:53→17:53)
--- NOTE | 2018-02-07 18:46 | NUR ---
patient pleasant during shift. cooperative with care. Tolerating reg diet. Report given to Silver CAZARES. stable at time of report.
--- NOTE | 2018-02-07 18:47 | NUR ---
Patient in room [facility]. I have received report from MANDEEP CAZARES and had the opportunity to ask questions and assume patient care.
[2018-02-07 20:00] VITALS: BP 97/66
[2018-02-07] MEDS: mirtazapine 15mg tablet PO SCH (20:00)
[2018-02-08] VITALS: BP 116/66
[2018-02-08] MEDS: erythromycin ophthalmic ointment 1gm tube EACHEYE SCH ×4 (03:11→20:52)
--- NOTE | 2018-02-08 06:25 | NUR ---
Problems reprioritized. Patient report given, questions answered & plan of care reviewed with NASRIN RN.
--- NOTE | 2018-02-08 06:30 | NUR ---
Patient in room [facility]. I have received report from Silver CAZARES and had the opportunity to ask questions and assume patient care.
[2018-02-08 07:10] VITALS: BP 113/73
[2018-02-08] MEDS: baclofen 10mg tablet PO SCH ×2 (08:59→20:51)
[2018-02-08] MEDS: clopidogrel 75mg tablet PO SCH (08:59)
[2018-02-08] MEDS: divalproex sodium 500mg tablet.DR PO SCH ×2 (08:59→20:52)
[2018-02-08] MEDS: levetiracetam 250mg tablet PO SCH ×2 (09:00→20:53)
[2018-02-08] MEDS: aspirin 81mg tablet.DR PO SCH (09:00)
[2018-02-08] MEDS: QUEtiapine 25mg tablet PO SCH (09:02)
[2018-02-08] MEDS: enoxaparin 40mg/0.4ml syringe SUBCUT SCH (09:03)
[2018-02-08] MEDS: LIDOcaine 5% patch TP SCH (09:04)
[2018-02-08] MEDS: JUVEN Shake w/Arg/Glut/Ca2+Bmb (Juven 19.3gm) pkt 240ml PO SCH ×3 (09:32→18:18)
--- NOTE | 2018-02-08 09:34 | NUR ---
Per CM consultation, [facility] LTC/SNF is reviewing pt's referral for possible placement.
[2018-02-08 11:00] VITALS: BP 102/57
[2018-02-08 18:00] VITALS: BP 116/69
--- NOTE | 2018-02-08 18:10 | NUR ---
Patient in room [facility] 348. I have received report from Onesimo CAZARES and had the opportunity to ask questions and assume patient care.
--- NOTE | 2018-02-08 18:16 | NUR ---
Patient report given to Kirsty Calderon, all questions answered at this time, patient requested milk to drink. Patient seems more awake at this time.
[2018-02-08] MEDS: mirtazapine 15mg tablet PO SCH (20:53)
[2018-02-08] MEDS: quetiapine 100mg tablet PO SCH (20:53)
[2018-02-09] VITALS: BP 117/60
[2018-02-09] MEDS: erythromycin ophthalmic ointment 1gm tube EACHEYE SCH ×4 (01:26→20:48)
[2018-02-09] MEDS: magnesium hydroxide 30ml (MOM) UD suspension PO PRN (05:02)
--- NOTE | 2018-02-09 06:27 | NUR ---
Problems reprioritized. Patient report given, questions answered & plan of care reviewed with Onesimo RN.
--- NOTE | 2018-02-09 06:30 | NUR ---
Patient in room [facility]. I have received report from Kirsty CAZARES and had the opportunity to ask questions and assume patient care.
[2018-02-09 07:51] VITALS: BP 104/63
[2018-02-09] MEDS: JUVEN Shake w/Arg/Glut/Ca2+Bmb (Juven 19.3gm) pkt 240ml PO SCH ×3 (08:00→18:00)
[2018-02-09] MEDS: LIDOcaine 5% patch TP SCH (08:00)
[2018-02-09] MEDS: aspirin 81mg tablet.DR PO SCH (09:47)
[2018-02-09] MEDS: divalproex sodium 500mg tablet.DR PO SCH ×2 (09:47→20:38)
[2018-02-09] MEDS: clopidogrel 75mg tablet PO SCH (09:47)
[2018-02-09] MEDS: quetiapine 100mg tablet PO SCH ×2 (09:47→20:36)
[2018-02-09] MEDS: baclofen 10mg tablet PO SCH ×2 (09:48→20:34)
[2018-02-09] MEDS: levetiracetam 250mg tablet PO SCH ×2 (09:48→20:34)
[2018-02-09] MEDS: enoxaparin 40mg/0.4ml syringe SUBCUT SCH (09:51)
[2018-02-09 11:00] VITALS: BP 112/63
--- NOTE | 2018-02-09 13:53 | NUR ---
Reassessment: PO intake fluctuates with average 25-50% of meals and high protein shake. Per RN notes pt requesting milk between meals providing pt with additional calories and protein. LBM 02/04, pt with MoM PRN just given 02/09. Will continue to follow. Rec: 1. Continue regular diet 2. Wt per rx 3. Encourage ONS intake 4. Monitor need for additional bowel care 5. Monitor need for additional ONS Addendum: 02/09/18 at [address] Amended: Links added.
[2018-02-09 18:00] VITALS: BP 105/64
--- NOTE | 2018-02-09 18:30 | NUR ---
Problems reprioritized. Patient report given, questions answered & plan of care reviewed with CHASE CAZARES. RN AWARE THAT PATIENT DUMPED TRAY ON FLOOR PRIOR TO SHIFT CHANGE
--- NOTE | 2018-02-09 18:30 | NUR ---
Patient in room [facility] 348. I have received report from Onesimo CAZARES and had the opportunity to ask questions and assume patient care.
[2018-02-09] MEDS: mirtazapine 15mg tablet PO SCH (20:35)
[2018-02-10] VITALS: BP 95/56
[2018-02-10] MEDS: erythromycin ophthalmic ointment 1gm tube EACHEYE SCH ×5 (02:00→19:37)
[2018-02-10 06:30] VITALS: BP 102/55
--- NOTE | 2018-02-10 06:34 | NUR ---
Problems reprioritized. Patient report given, questions answered & plan of care reviewed with Shannan RN.
--- NOTE | 2018-02-10 06:45 | NUR ---
Patient in room [facility]. I have received report from SAGE Lofton and had the opportunity to ask questions and assume patient care.
[2018-02-10] MEDS: JUVEN Shake w/Arg/Glut/Ca2+Bmb (Juven 19.3gm) pkt 240ml PO SCH ×3 (08:00→17:20)
[2018-02-10] MEDS: enoxaparin 40mg/0.4ml syringe SUBCUT SCH (10:00)
[2018-02-10] MEDS: LIDOcaine 5% patch TP SCH (10:00)
[2018-02-10] MEDS: levetiracetam 250mg tablet PO SCH ×2 (10:00→19:37)
[2018-02-10] MEDS: quetiapine 100mg tablet PO SCH ×2 (10:01→19:37)
[2018-02-10] MEDS: aspirin 81mg tablet.DR PO SCH (10:01)
[2018-02-10] MEDS: baclofen 10mg tablet PO SCH ×2 (10:01→19:37)
[2018-02-10] MEDS: clopidogrel 75mg tablet PO SCH (10:02)
[2018-02-10] MEDS: divalproex sodium 500mg tablet.DR PO SCH ×2 (10:02→19:38)
[2018-02-10 11:00] VITALS: BP 110/62
--- NOTE | 2018-02-10 18:20 | NUR ---
Problems reprioritized. Patient report given, questions answered & plan of care reviewed with Claribel Sanford RN.
--- NOTE | 2018-02-10 18:30 | NUR ---
Patient in room [facility]. I have received report from BONITA CAZARES and had the opportunity to ask questions and assume patient care.
[2018-02-10] MEDS: mirtazapine 15mg tablet PO SCH (19:37)
[2018-02-10 20:00] VITALS: BP 103/64
[2018-02-11] VITALS: BP 110/58
[2018-02-11] MEDS: oxyCODONE/APAP 10/325mg tablet PO PRN ×2 (01:13→20:22)
[2018-02-11] MEDS: erythromycin ophthalmic ointment 1gm tube EACHEYE SCH ×4 (02:00→20:00)
--- NOTE | 2018-02-11 06:00 | NUR ---
Patient in room [facility] 348. I have received report from Claribel Sanford RN and had the opportunity to ask questions and assume patient care.
--- NOTE | 2018-02-11 06:12 | NUR ---
Problems reprioritized. Patient report given, questions answered & plan of care reviewed with BONITA RN.
[2018-02-11 06:30] VITALS: BP 115/64
[2018-02-11] MEDS: enoxaparin 40mg/0.4ml syringe SUBCUT SCH (07:30)
[2018-02-11] MEDS: levetiracetam 250mg tablet PO SCH ×2 (07:31→20:22)
[2018-02-11] MEDS: divalproex sodium 500mg tablet.DR PO SCH ×2 (07:31→20:24)
[2018-02-11] MEDS: LIDOcaine 5% patch TP SCH (07:31)
[2018-02-11] MEDS: clopidogrel 75mg tablet PO SCH (07:32)
[2018-02-11] MEDS: baclofen 10mg tablet PO SCH ×2 (07:32→20:21)
[2018-02-11] MEDS: aspirin 81mg tablet.DR PO SCH (07:32)
[2018-02-11] MEDS: quetiapine 100mg tablet PO SCH ×2 (07:32→20:22)
[2018-02-11] MEDS: JUVEN Shake w/Arg/Glut/Ca2+Bmb (Juven 19.3gm) pkt 240ml PO SCH ×3 (08:15→18:03)
[2018-02-11 11:00] VITALS: BP 108/59
--- NOTE | 2018-02-11 13:41 | NUR ---
Patient in room [facility] 348. I have received report from Shannan CAZARES and had the opportunity to ask questions and assume patient care.
--- NOTE | 2018-02-11 18:29 | NUR ---
Problems reprioritized. Patient report given, questions answered & plan of care reviewed with prosper CAZARES.
--- NOTE | 2018-02-11 18:31 | NUR ---
Patient in room [facility] 348. I have received report from Helena CAZARES and had the opportunity to ask questions and assume patient care. Pt sitting up in bed eating dinner with no signs of distress. Will continue to monitor.
[2018-02-11 20:00] VITALS: BP 116/56
[2018-02-11] MEDS: mirtazapine 15mg tablet PO SCH (20:21)
[2018-02-12] VITALS: BP 106/58
[2018-02-12] MEDS: erythromycin ophthalmic ointment 1gm tube EACHEYE SCH ×3 (02:00→10:29)
--- NOTE | 2018-02-12 06:14 | NUR ---
Problems reprioritized. Patient report given, questions answered & plan of care reviewed with Shannan RN.
[2018-02-12 06:30] VITALS: BP 112/64
--- NOTE | 2018-02-12 06:30 | NUR ---
Patient in room [facility]. I have received report from SAGE Vasquez and had the opportunity to ask questions and assume patient care.
[2018-02-12] MEDS: JUVEN Shake w/Arg/Glut/Ca2+Bmb (Juven 19.3gm) pkt 240ml PO SCH ×3 (08:00→18:41)
--- NOTE | 2018-02-12 09:31 | NUR ---
SS [id number] rt [facility] to discuss her concerns re placement for pt.
[2018-02-12] MEDS: quetiapine 100mg tablet PO SCH ×2 (10:27→21:14)
[2018-02-12] MEDS: levetiracetam 250mg tablet PO SCH ×2 (10:27→21:12)
[2018-02-12] MEDS: clopidogrel 75mg tablet PO SCH (10:27)
[2018-02-12] MEDS: baclofen 10mg tablet PO SCH ×2 (10:28→21:14)
[2018-02-12] MEDS: aspirin 81mg tablet.DR PO SCH (10:28)
[2018-02-12] MEDS: divalproex sodium 500mg tablet.DR PO SCH ×2 (10:29→21:15)
[2018-02-12] MEDS: LIDOcaine 5% patch TP SCH (10:30)
[2018-02-12] MEDS: enoxaparin 40mg/0.4ml syringe SUBCUT SCH (10:30)
[2018-02-12 11:00] VITALS: BP 102/53
--- NOTE | 2018-02-12 14:06 | NUR ---
SS in consultation w/CM-Director re possible placement for pt @ [facility] in [facility]. Per consultation, [facility] will admit pt if there's family members they can work with w/re to pt's medical needs (ie adjustment in medication and/or consultation for medical procedures) as pt has dementia. SS contacted pt's son & [id number], left vm requesting rt p/c to determine extent of family's involvement in pt's care and/or treatment in a LTC/SNF. SS will continue to monitor to support dcp.
--- NOTE | 2018-02-12 18:47 | NUR ---
Problems reprioritized. Patient report given, questions answered & plan of care reviewed with SAGE Vasquez.
--- NOTE | 2018-02-12 18:50 | NUR ---
Patient in room [facility] 348. I have received report from Shannan CAZARES and had the opportunity to ask questions and assume patient care. Pt is sitting up in bed eating dinner, with no signs of distress. Will continue to monitor.
[2018-02-12 19:00] VITALS: BP 113/69
[2018-02-12] MEDS: mirtazapine 15mg tablet PO SCH (21:15)
[2018-02-12] MEDS: oxyCODONE/APAP 10/325mg tablet PO PRN (22:50)
[2018-02-13] VITALS: BP 102/56
--- NOTE | 2018-02-13 06:39 | NUR ---
Problems reprioritized. Patient report given, questions answered & plan of care reviewed with Pallavi CAZARES. Pt was sleeping comfortably at time of report.
[2018-02-13 07:35] VITALS: BP 101/59
[2018-02-13] MEDS: JUVEN Shake w/Arg/Glut/Ca2+Bmb (Juven 19.3gm) pkt 240ml PO SCH ×3 (08:00→18:41)
[2018-02-13] MEDS: enoxaparin 40mg/0.4ml syringe SUBCUT SCH (08:29)
[2018-02-13] MEDS: clopidogrel 75mg tablet PO SCH (08:30)
[2018-02-13] MEDS: levetiracetam 250mg tablet PO SCH ×2 (08:30→20:09)
[2018-02-13] MEDS: LIDOcaine 5% patch TP SCH (08:30)
[2018-02-13] MEDS: aspirin 81mg tablet.DR PO SCH (08:30)
[2018-02-13] MEDS: quetiapine 100mg tablet PO SCH ×2 (08:31→20:10)
[2018-02-13] MEDS: baclofen 10mg tablet PO SCH ×2 (08:31→20:10)
[2018-02-13] MEDS: divalproex sodium 500mg tablet.DR PO SCH ×2 (08:54→20:10)
--- NOTE | 2018-02-13 09:16 | NUR ---
SS received vm from pt's son-Braden, SS rt'd p/c left vm requesting son call SS to finalize dcp so pt can be placed in a LTC.
[2018-02-13 12:03] VITALS: BP 112/49
--- NOTE | 2018-02-13 12:15 | NUR ---
Reassessment: PO intake continues to fluctuate with recent significant improvement with average 75% on regular diet. Intake of protein shake fluctuates with refusals however documented intake 25% and 75% on 02/12. Pt likely meeting nutrient needs at this time. LBM 02/10. CM still working on placement. Will continue to follow. Rec: 1. Continue regular diet 2. Wt per rx 3. Encourage ONS intake 4. Monitor need for additional bowel care 5. Monitor need for additional ONS Addendum: 02/13/18 at [address] Amended: Links added.
--- NOTE | 2018-02-13 18:36 | NUR ---
Patient in room [facility]. I have received report from Megan CAZARES and Pallavi RN and had the opportunity to ask questions and assume patient care. Pt was sleeping when we entered the room. He was easily aroused. We sat him up to eat dinner. Was told during report that pt was drowsy and slept most of the day. Will continue to monitor.
--- NOTE | 2018-02-13 18:39 | NUR ---
Problems reprioritized. Patient report given, questions answered & plan of care reviewed with
[2018-02-13 20:00] VITALS: BP 116/70
[2018-02-13] MEDS: mirtazapine 15mg tablet PO SCH (20:08)
[2018-02-13 23:50] VITALS: BP 98/56
--- NOTE | 2018-02-14 06:24 | NUR ---
Problems reprioritized. Patient report given, questions answered & plan of care reviewed with Eleanor CAZARES. Pt was sleeping comfortably with no signs of distress.
[2018-02-14 07:40] VITALS: BP 128/63
[2018-02-14] MEDS: LIDOcaine 5% patch TP SCH (07:41)
[2018-02-14] MEDS: clopidogrel 75mg tablet PO SCH (07:41)
[2018-02-14] MEDS: levetiracetam 250mg tablet PO SCH ×2 (07:41→21:21)
[2018-02-14] MEDS: quetiapine 100mg tablet PO SCH ×2 (07:42→21:23)
[2018-02-14] MEDS: aspirin 81mg tablet.DR PO SCH (07:42)
[2018-02-14] MEDS: divalproex sodium 500mg tablet.DR PO SCH ×2 (07:42→21:21)
[2018-02-14] MEDS: enoxaparin 40mg/0.4ml syringe SUBCUT SCH (07:42)
[2018-02-14] MEDS: baclofen 10mg tablet PO SCH ×2 (07:42→21:22)
[2018-02-14] MEDS: JUVEN Shake w/Arg/Glut/Ca2+Bmb (Juven 19.3gm) pkt 240ml PO SCH ×3 (08:00→18:02)
[2018-02-14 12:25] VITALS: BP 134/68
--- NOTE | 2018-02-14 18:39 | NUR ---
Problems reprioritized. Patient report given, questions answered & plan of care reviewed with Naila RN.
[2018-02-14 19:30] VITALS: BP 84/58
[2018-02-14 20:00] VITALS: BP 114/54
[2018-02-14] MEDS: mirtazapine 15mg tablet PO SCH (21:20)
[2018-02-15] VITALS: BP 107/59
--- NOTE | 2018-02-15 06:15 | NUR ---
Patient in room [facility] 341. I have received report from Pat RN and had the opportunity to ask questions and assume patient care.
--- NOTE | 2018-02-15 06:30 | NUR ---
report given to SAGE Dan
[2018-02-15 07:44] VITALS: BP 122/42
[2018-02-15] MEDS: clopidogrel 75mg tablet PO SCH (08:49)
[2018-02-15] MEDS: divalproex sodium 500mg tablet.DR PO SCH ×2 (08:49→20:11)
[2018-02-15] MEDS: baclofen 10mg tablet PO SCH ×2 (08:49→20:11)
[2018-02-15] MEDS: quetiapine 100mg tablet PO SCH ×2 (08:49→20:11)
[2018-02-15] MEDS: levetiracetam 250mg tablet PO SCH ×2 (08:49→20:11)
[2018-02-15] MEDS: aspirin 81mg tablet.DR PO SCH (08:49)
[2018-02-15] MEDS: LIDOcaine 5% patch TP SCH (08:50)
[2018-02-15] MEDS: JUVEN Shake w/Arg/Glut/Ca2+Bmb (Juven 19.3gm) pkt 240ml PO SCH ×3 (08:50→18:00)
[2018-02-15] MEDS: enoxaparin 40mg/0.4ml syringe SUBCUT SCH (08:50)
[2018-02-15 11:41] VITALS: BP 136/57
--- NOTE | 2018-02-15 18:10 | NUR ---
Patient in room [facility] 359. I have received report from Ni CAZARES and had the opportunity to ask questions and assume patient care.
--- NOTE | 2018-02-15 18:40 | NUR ---
Problems reprioritized. Patient report given, questions answered & plan of care reviewed with Kirsty CAZARES.
[2018-02-15 19:00] VITALS: BP 107/55
[2018-02-15] MEDS: mirtazapine 15mg tablet PO SCH (20:11)
[2018-02-16] VITALS: BP 119/56
--- NOTE | 2018-02-16 06:30 | NUR ---
Problems reprioritized. Patient report given, questions answered & plan of care reviewed with Ni CAZARES.
--- NOTE | 2018-02-16 07:00 | NUR ---
Patient in room [facility] 359. I have received report from Kirsty CAZARES and had the opportunity to ask questions and assume patient care.
[2018-02-16] MEDS: aspirin 81mg tablet.DR PO SCH (07:39)
[2018-02-16] MEDS: clopidogrel 75mg tablet PO SCH (07:39)
[2018-02-16] MEDS: LIDOcaine 5% patch TP SCH (07:40)
[2018-02-16] MEDS: levetiracetam 250mg tablet PO SCH ×2 (07:40→20:34)
[2018-02-16] MEDS: baclofen 10mg tablet PO SCH ×2 (07:40→20:34)
[2018-02-16] MEDS: quetiapine 100mg tablet PO SCH ×2 (07:40→20:35)
[2018-02-16] MEDS: divalproex sodium 500mg tablet.DR PO SCH ×2 (07:40→20:34)
[2018-02-16] MEDS: enoxaparin 40mg/0.4ml syringe SUBCUT SCH (07:40)
[2018-02-16 07:47] VITALS: BP 113/62
[2018-02-16] MEDS: JUVEN Shake w/Arg/Glut/Ca2+Bmb (Juven 19.3gm) pkt 240ml PO SCH ×3 (08:40→18:11)
[2018-02-16 12:13] VITALS: BP 111/67
--- NOTE | 2018-02-16 12:33 | NUR ---
SS met w/pt to prepare him for LTC eval by [facility]. Following eval, SS consulted w/CM, per consultation, [facility] acceptance is pending pt having a POA so the facility can contact and discuss pt's medical needs as they come up. To date pt's son & [id number] have not responded to request from CM/SS to come in & complete POA paperwork so pt can access LTC placement. SS had t/c with [facility] Vaz[facility], per consultation APS is requesting for a new report. New APS report completed & faxed to APS.
--- NOTE | 2018-02-16 18:40 | NUR ---
Problems reprioritized. Patient report given, questions answered & plan of care reviewed with Kirsty CAZARES.
[2018-02-16 20:00] VITALS: BP 108/42
[2018-02-16] MEDS: mirtazapine 15mg tablet PO SCH (20:35)
--- NOTE | 2018-02-17 05:39 | NUR ---
Pt getting agitated. He wants to go home. He is throwing his phone and belongings on his tray at staff. Dr. Wright made aware. orders given. will continue to monitor.
[2018-02-17] MEDS ORDERED: LORazepam 0.5 MG tablet PO ONE (05:40)
--- NOTE | 2018-02-17 06:30 | NUR ---
Problems reprioritized. Patient report given, questions answered & plan of care reviewed with Opal CAZARES. BLL, SR up x3, call ligth in reach, bed alarm on. PT introduced to oncoming nurse. Pt upset.
--- NOTE | 2018-02-17 07:04 | NUR ---
Patient in room [facility]. I have received report from SAGE Lofton and had the opportunity to ask questions and assume patient care. Patient is awake and alert and having his vitals checked by the PCT. Items of frequent use are in reach of the patient, including the call light.
[2018-02-17] MEDS: LIDOcaine 5% patch TP SCH (08:00)
[2018-02-17] MEDS: levetiracetam 250mg tablet PO SCH ×2 (10:00→20:35)
[2018-02-17] MEDS: divalproex sodium 500mg tablet.DR PO SCH ×2 (10:00→20:35)
[2018-02-17] MEDS: baclofen 10mg tablet PO SCH ×2 (10:00→20:35)
[2018-02-17] MEDS: aspirin 81mg tablet.DR PO SCH (10:00)
[2018-02-17] MEDS: JUVEN Shake w/Arg/Glut/Ca2+Bmb (Juven 19.3gm) pkt 240ml PO SCH ×3 (10:00→18:46)
--- NOTE | 2018-02-17 10:00 | NUR ---
Patient refused Lidocaine patch stating "it makes me sick, and my hip is already better so I don't need it anymore". Patient was educated on the Lidocaine patch but patient still refused. Will continue to monitor patient and his pain level.
[2018-02-17] MEDS: quetiapine 100mg tablet PO SCH ×2 (10:01→20:35)
[2018-02-17] MEDS: clopidogrel 75mg tablet PO SCH (10:01)
[2018-02-17] MEDS: enoxaparin 40mg/0.4ml syringe SUBCUT SCH (10:01)
--- NOTE | 2018-02-17 18:30 | NUR ---
Problems reprioritized. Patient report given, questions answered & plan of care reviewed with SAGE Lofton. Patient alert and sitting up eating dinner. Items of frequent use in reach of patient including call light.
[2018-02-17 20:00] VITALS: BP 101/60
[2018-02-17] MEDS: mirtazapine 15mg tablet PO SCH (20:35)
[2018-02-18] VITALS: BP 118/59
--- NOTE | 2018-02-18 06:30 | NUR ---
Problems reprioritized. Patient report given, questions answered & plan of care reviewed with Opal CAZARES. Pt resting. no signs of distress. Call light and personal belongings within reach. Bed alarm on
--- NOTE | 2018-02-18 07:00 | NUR ---
Patient in room [facility]. I have received report from SAGE Lofton and had the opportunity to ask questions and assume patient care. Patient currently resting comfortably and in no apparent distress on room air. Call light and items of frequent use in reach of patient.
[2018-02-18 08:00] VITALS: BP 120/69
[2018-02-18] MEDS: LIDOcaine 5% patch TP SCH (08:00)
[2018-02-18] MEDS: divalproex sodium 500mg tablet.DR PO SCH ×2 (09:33→21:03)
[2018-02-18] MEDS: levetiracetam 250mg tablet PO SCH ×2 (09:33→21:02)
[2018-02-18] MEDS: clopidogrel 75mg tablet PO SCH (09:33)
[2018-02-18] MEDS: quetiapine 100mg tablet PO SCH ×2 (09:33→21:02)
[2018-02-18] MEDS: baclofen 10mg tablet PO SCH ×2 (09:33→21:09)
[2018-02-18] MEDS: aspirin 81mg tablet.DR PO SCH (09:33)
[2018-02-18] MEDS: enoxaparin 40mg/0.4ml syringe SUBCUT SCH (09:34)
[2018-02-18] MEDS: JUVEN Shake w/Arg/Glut/Ca2+Bmb (Juven 19.3gm) pkt 240ml PO SCH ×3 (09:34→18:33)
[2018-02-18 12:00] VITALS: BP 100/57
--- NOTE | 2018-02-18 18:30 | NUR ---
Problems reprioritized. Patient report given, questions answered & plan of care reviewed with SAGE Mota. Patient resting at this time and not wanting to eat dinner right now. Call light and items of frequent use are in reach of the patient.
--- NOTE | 2018-02-18 18:48 | NUR ---
Patient in room [facility] 359. I have received report from Opal CAZARES and had the opportunity to ask questions and assume patient care.
[2018-02-18 19:30] VITALS: BP 117/66
[2018-02-18] MEDS: mirtazapine 15mg tablet PO SCH (21:03)
[2018-02-19] VITALS: BP 141/71
--- NOTE | 2018-02-19 06:37 | NUR ---
Problems reprioritized. Patient report given, questions answered & plan of care reviewed with Opal CAZARES.
[2018-02-19 07:00] VITALS: BP 126/64
[2018-02-19] MEDS: LIDOcaine 5% patch TP SCH (08:00)
[2018-02-19] MEDS: aspirin 81mg tablet.DR PO SCH (08:27)
[2018-02-19] MEDS: divalproex sodium 500mg tablet.DR PO SCH ×2 (08:27→21:32)
[2018-02-19] MEDS: levetiracetam 250mg tablet PO SCH ×2 (08:28→21:32)
[2018-02-19] MEDS: clopidogrel 75mg tablet PO SCH (08:29)
[2018-02-19] MEDS: quetiapine 100mg tablet PO SCH ×2 (08:29→21:32)
[2018-02-19] MEDS: baclofen 10mg tablet PO SCH ×2 (08:29→21:32)
[2018-02-19] MEDS: enoxaparin 40mg/0.4ml syringe SUBCUT SCH (08:30)
[2018-02-19] MEDS: JUVEN Shake w/Arg/Glut/Ca2+Bmb (Juven 19.3gm) pkt 240ml PO SCH ×3 (08:30→18:42)
--- NOTE | 2018-02-19 10:16 | NUR ---
SS had t/c w/[facility], JOSE ALFREDOW-Nery re pt's current status: Pt was recently evaluated by a LTC facility, acceptance is pending pt having a Designated Healthcare Agent. None of pt's adult children are willing to accept this responsibility as they do not want pt to be placed out of the area. There are currently no local LTC beds that have accepted pt at this time. Per consultation with APS, as long as pt has access to food, clothing & usp there is no urgency for APS. [facility] also have denied to open a case for pt for the same reasons. SS consulted w/CM mold making plastics sheets supervisor, per consultation, SS will complete a written report to provide info to Management re pt's current situation.
[2018-02-19 12:00] VITALS: BP 93/53
--- NOTE | 2018-02-19 18:30 | NUR ---
Patient in room [facility] 359. I have received report from Opal CAZARES and had the opportunity to ask questions and assume patient care.
--- NOTE | 2018-02-19 18:43 | NUR ---
Problems reprioritized. Patient report given, questions answered & plan of care reviewed with SAGE Mota. Patient resting at this time. Not wanting to eat dinner. Call light and items of frequent use in reach.
[2018-02-19 19:30] VITALS: BP 129/63
[2018-02-19] MEDS: mirtazapine 15mg tablet PO SCH (21:32)
[2018-02-19] MEDS: magnesium hydroxide 30ml (MOM) UD suspension PO PRN (21:42)
[2018-02-19] MEDS: oxyCODONE/APAP 10/325mg tablet PO PRN (23:38)
[2018-02-20] VITALS: BP 116/66
[2018-02-20] MEDS: LORazepam 0.5 MG tablet PO PRN (00:56)
--- NOTE | 2018-02-20 06:30 | NUR ---
Patient in room [facility]. I have received report from Svetlana CAZARES and had the opportunity to ask questions and assume patient care.
--- NOTE | 2018-02-20 06:48 | NUR ---
Problems reprioritized. Patient report given, questions answered & plan of care reviewed with Onesimo RN.
[2018-02-20 07:49] VITALS: BP 121/61
[2018-02-20] MEDS: LIDOcaine 5% patch TP SCH (08:00)
[2018-02-20] MEDS: JUVEN Shake w/Arg/Glut/Ca2+Bmb (Juven 19.3gm) pkt 240ml PO SCH ×3 (08:00→18:30)
[2018-02-20] MEDS: aspirin 81mg tablet.DR PO SCH (10:17)
[2018-02-20] MEDS: quetiapine 100mg tablet PO SCH ×2 (10:18→21:05)
[2018-02-20] MEDS: divalproex sodium 500mg tablet.DR PO SCH ×2 (10:18→21:06)
[2018-02-20] MEDS: baclofen 10mg tablet PO SCH ×2 (10:18→21:05)
[2018-02-20] MEDS: levetiracetam 250mg tablet PO SCH ×2 (10:19→21:05)
[2018-02-20] MEDS: enoxaparin 40mg/0.4ml syringe SUBCUT SCH (10:20)
[2018-02-20] MEDS: clopidogrel 75mg tablet PO SCH (10:22)
[2018-02-20 11:00] VITALS: BP 107/38
--- NOTE | 2018-02-20 13:07 | NUR ---
Reassessment: PO intake continues to fluctuate with recent significant decline with average 25-50% on regular diet. Intake of protein shake fluctuates but pt states he tries to drink them. Spoke with nursing about food fluctuations. Nursing states he goes up and down w/ times of not waking to eat. Met pt a bedside w/ lunch tray in front of him. Pt ate one bite of burger ~3 tator tots drank 3/4 of protein shake and stated he ate until he was so full he couldn't take it anymore. Pt likely not meeting nutrient needs at this time. LB 02/17/18 Rec: 1. Continue regular diet 2. Wt per rx 3. Encourage ONS intake 4. Monitor need for additional bowel care 5. Monitor need for additional ONS Addendum: 02/20/18 at [address] Amended: Links added.
--- NOTE | 2018-02-20 18:30 | NUR ---
Patient in room [facility]. I have received report from SAGE Echols and had the opportunity to ask questions and assume patient care.
--- NOTE | 2018-02-20 18:30 | NUR ---
Problems reprioritized. Patient report given, questions answered & plan of care reviewed with Pat RN.
[2018-02-20 19:30] VITALS: BP 106/71
[2018-02-20] MEDS: mirtazapine 15mg tablet PO SCH (21:06)
[2018-02-21] VITALS: BP 111/61
--- NOTE | 2018-02-21 06:30 | NUR ---
Patient in room [facility] 359. I have received report from PAT RN and had the opportunity to ask questions and assume patient care.
--- NOTE | 2018-02-21 06:30 | NUR ---
report given to SAGE Echols
[2018-02-21 08:00] VITALS: BP 107/67
[2018-02-21] MEDS: LIDOcaine 5% patch TP SCH (08:00)
[2018-02-21] MEDS: levetiracetam 250mg tablet PO SCH ×2 (08:40→20:14)
[2018-02-21] MEDS: clopidogrel 75mg tablet PO SCH (08:40)
[2018-02-21] MEDS: divalproex sodium 500mg tablet.DR PO SCH ×2 (08:40→20:16)
[2018-02-21] MEDS: quetiapine 100mg tablet PO SCH ×2 (08:41→20:13)
[2018-02-21] MEDS: aspirin 81mg tablet.DR PO SCH (08:41)
[2018-02-21] MEDS: baclofen 10mg tablet PO SCH ×2 (08:41→20:14)
[2018-02-21] MEDS: enoxaparin 40mg/0.4ml syringe SUBCUT SCH (08:43)
[2018-02-21] MEDS: JUVEN Shake w/Arg/Glut/Ca2+Bmb (Juven 19.3gm) pkt 240ml PO SCH ×3 (08:46→18:00)
--- NOTE | 2018-02-21 09:41 | NUR ---
Reassessment: PO intake continues to fluctuate with recent significant decline with average 25-50% on regular diet, MD note states pt is w/ moderate malnutrition. Intake of protein shake fluctuates but pt states he tries to drink them. Spoke with nursing about food fluctuations. Nursing states he goes up and down w/ times of not waking to eat. Met pt a bedside w/ lunch tray in front of him. Pt ate one bite of burger ~3 tator tots 3/4 of protein shake and stated he ate until he was so full he couldn't take it anymore. Pt likely not meeting nutrient needs at this time. LBM 02/17/18 Rec: 1. Continue regular diet 2. Wt per rx 3. Encourage ONS intake 4. Monitor need for additional bowel care 5. Monitor need for additional ONS Addendum: 02/21/18 at [address] Amended: Links added. Addendum: 02/21/18 at [address] I have reviewed and approve of note by Microstrategy Architect. Brynn Lieberman, FIDE
[2018-02-21 11:00] VITALS: BP 98/57
[2018-02-21 18:00] VITALS: BP 123/71
--- NOTE | 2018-02-21 19:01 | NUR ---
Problems reprioritized. Patient report given, questions answered & plan of care reviewed with ULISES CAZARES.
--- NOTE | 2018-02-21 19:02 | NUR ---
Patient in room [facility]. I have received report from SAGE Echols and had the opportunity to ask questions and assume patient care.
[2018-02-21] MEDS: mirtazapine 15mg tablet PO SCH (20:15)
[2018-02-21] MEDS: LORazepam 0.5 MG tablet PO PRN (21:13)
[2018-02-22] VITALS: BP 131/81
--- NOTE | 2018-02-22 06:30 | NUR ---
Problems reprioritized. Patient report given, questions answered & plan of care reviewed with SAGE Garcia.
--- NOTE | 2018-02-22 06:39 | NUR ---
Patient in room [facility] 359. I have received report from SAGE Hammer and had the opportunity to ask questions and assume patient care.
[2018-02-22 07:26] VITALS: BP 117/70
[2018-02-22] MEDS: JUVEN Shake w/Arg/Glut/Ca2+Bmb (Juven 19.3gm) pkt 240ml PO SCH ×3 (08:41→18:25)
[2018-02-22] MEDS: divalproex sodium 500mg tablet.DR PO SCH ×2 (08:42→20:41)
[2018-02-22] MEDS: quetiapine 100mg tablet PO SCH ×2 (08:42→20:41)
[2018-02-22] MEDS: levetiracetam 250mg tablet PO SCH ×2 (08:42→20:42)
[2018-02-22] MEDS: aspirin 81mg tablet.DR PO SCH (08:42)
[2018-02-22] MEDS: baclofen 10mg tablet PO SCH ×2 (08:42→20:41)
[2018-02-22] MEDS: clopidogrel 75mg tablet PO SCH (08:42)
[2018-02-22] MEDS: enoxaparin 40mg/0.4ml syringe SUBCUT SCH (08:43)
[2018-02-22] MEDS: LIDOcaine 5% patch TP SCH (08:43)
[2018-02-22 11:10] VITALS: BP 128/63
--- NOTE | 2018-02-22 16:58 | NUR ---
Reassessment: PO intake continues to fluctuate continuing w/ average 25-50% on regular diet since last reassessment however noted pt w/ 100% intake at breakfast this AM. Intake of protein shake fluctuates, trending down to an average of 25% intake. Spoke with nursing about food fluctuations. Nursing states he goes up and down w/ times of not waking to eat. Pt was fast asleep at time of visit. Note, yesterday this real estate intern was visiting pt's roommate and pt was also fast asleep at that time. LBM 02/21/18. Will continue to monitor. Rec: 1. Continue regular diet 2. Wt per rx 3. Encourage ONS intake 4. Monitor need for additional bowel care 5. Monitor need for additional ONS Addendum: 02/22/18 at [address] Amended: Links added. Addendum: 02/22/18 at [address] I have reviewed and agree with note by County Tax Assessor. Brynn Lieberman, FIDE
[2018-02-22 18:00] VITALS: BP 112/79
--- NOTE | 2018-02-22 18:24 | NUR ---
Problems reprioritized. Patient report given, questions answered & plan of care reviewed with SAGE Hammer.
--- NOTE | 2018-02-22 18:25 | NUR ---
Patient in room [facility]. I have received report from SAGE Garcia and had the opportunity to ask questions and assume patient care.
[2018-02-22] MEDS: mirtazapine 15mg tablet PO SCH (20:40)
[2018-02-22 23:53] VITALS: BP 123/66
--- NOTE | 2018-02-23 06:20 | NUR ---
Problems reprioritized. Patient report given, questions answered & plan of care reviewed with SAGE Garcia.
--- NOTE | 2018-02-23 06:23 | NUR ---
Patient in room [facility] 359. I have received report from SAGE Hammer and had the opportunity to ask questions and assume patient care.
[2018-02-23 07:29] VITALS: BP 114/70
[2018-02-23] MEDS: baclofen 10mg tablet PO SCH ×2 (07:35→20:33)
[2018-02-23] MEDS: levetiracetam 250mg tablet PO SCH ×2 (07:35→20:31)
[2018-02-23] MEDS: divalproex sodium 500mg tablet.DR PO SCH ×2 (07:35→20:32)
[2018-02-23] MEDS: quetiapine 100mg tablet PO SCH ×2 (07:36→20:32)
[2018-02-23] MEDS: clopidogrel 75mg tablet PO SCH (07:36)
[2018-02-23] MEDS: LIDOcaine 5% patch TP SCH (07:36)
[2018-02-23] MEDS: aspirin 81mg tablet.DR PO SCH (07:38)
[2018-02-23] MEDS: enoxaparin 40mg/0.4ml syringe SUBCUT SCH (07:38)
[2018-02-23] MEDS: JUVEN Shake w/Arg/Glut/Ca2+Bmb (Juven 19.3gm) pkt 240ml PO SCH ×3 (07:47→18:06)
[2018-02-23 11:06] VITALS: BP 108/66
[2018-02-23] MEDS: oxyCODONE/APAP 5-325mg tablet PO PRN (13:39)
[2018-02-23 18:00] VITALS: BP 118/70
--- NOTE | 2018-02-23 18:41 | NUR ---
Problems reprioritized. Patient report given, questions answered & plan of care reviewed with SAGE Hammer.
--- NOTE | 2018-02-23 18:42 | NUR ---
Patient in room [facility]. I have received report from SAGE Garcia and had the opportunity to ask questions and assume patient care.
[2018-02-23] MEDS: mirtazapine 15mg tablet PO SCH (20:33)
[2018-02-24] VITALS: BP 105/63
--- NOTE | 2018-02-24 06:02 | NUR ---
Problems reprioritized. Patient report given, questions answered & plan of care reviewed with SAGE Garcia.
--- NOTE | 2018-02-24 06:13 | NUR ---
Patient in room [facility] 359. I have received report from SAGE Hammer and had the opportunity to ask questions and assume patient care.
[2018-02-24] MEDS: baclofen 10mg tablet PO SCH ×2 (07:50→20:38)
[2018-02-24] MEDS: levetiracetam 250mg tablet PO SCH ×2 (07:50→20:37)
[2018-02-24] MEDS: divalproex sodium 500mg tablet.DR PO SCH ×2 (07:50→20:36)
[2018-02-24] MEDS: quetiapine 100mg tablet PO SCH ×2 (07:50→20:37)
[2018-02-24] MEDS: clopidogrel 75mg tablet PO SCH (07:50)
[2018-02-24] MEDS: aspirin 81mg tablet.DR PO SCH (07:50)
[2018-02-24] MEDS: LIDOcaine 5% patch TP SCH (07:51)
[2018-02-24] MEDS: enoxaparin 40mg/0.4ml syringe SUBCUT SCH (07:51)
[2018-02-24] MEDS: JUVEN Shake w/Arg/Glut/Ca2+Bmb (Juven 19.3gm) pkt 240ml PO SCH ×3 (07:51→18:01)
[2018-02-24 08:00] VITALS: BP 97/65
[2018-02-24 11:33] VITALS: BP 102/65
--- NOTE | 2018-02-24 18:30 | NUR ---
Problems reprioritized. Patient report given, questions answered & plan of care reviewed with SAGE Caicedo.
[2018-02-24 19:00] VITALS: BP 129/68
[2018-02-24] MEDS: mirtazapine 15mg tablet PO SCH (20:37)
[2018-02-25] VITALS: BP 88/66
--- NOTE | 2018-02-25 06:37 | NUR ---
Problems reprioritized. Patient report given, questions answered & plan of care reviewed with Katie CAZARES. Addendum: 02/25/18 at 0638 by Marifer Cates RN Amended: Links added.
[2018-02-25 07:00] VITALS: BP 115/70
[2018-02-25] MEDS: JUVEN Shake w/Arg/Glut/Ca2+Bmb (Juven 19.3gm) pkt 240ml PO SCH ×3 (08:00→18:42)
[2018-02-25] MEDS: LIDOcaine 5% patch TP SCH (08:38)
[2018-02-25] MEDS: baclofen 10mg tablet PO SCH ×2 (08:38→21:34)
[2018-02-25] MEDS: clopidogrel 75mg tablet PO SCH (08:38)
[2018-02-25] MEDS: quetiapine 100mg tablet PO SCH ×2 (08:39→21:32)
[2018-02-25] MEDS: levetiracetam 250mg tablet PO SCH ×2 (08:39→21:32)
[2018-02-25] MEDS: aspirin 81mg tablet.DR PO SCH (08:39)
[2018-02-25] MEDS: divalproex sodium 500mg tablet.DR PO SCH ×2 (08:39→21:33)
[2018-02-25] MEDS: enoxaparin 40mg/0.4ml syringe SUBCUT SCH (08:39)
[2018-02-25 11:00] VITALS: BP 143/75
[2018-02-25] MEDS: oxyCODONE/APAP 10/325mg tablet PO PRN (11:48)
--- NOTE | 2018-02-25 18:30 | NUR ---
Patient in room [facility] 359. I have received report from Katie CAZARES and had the opportunity to ask questions and assume patient care.
--- NOTE | 2018-02-25 18:41 | NUR ---
Problems reprioritized. Patient report given, questions answered & plan of care reviewed with SAGE Mota.
[2018-02-25 19:00] VITALS: BP 115/75
[2018-02-25] MEDS: mirtazapine 15mg tablet PO SCH (21:31)
[2018-02-26] VITALS: BP 115/62
[2018-02-26] MEDS: oxyCODONE/APAP 10/325mg tablet PO PRN ×2 (03:47→21:43)
--- NOTE | 2018-02-26 06:35 | NUR ---
Problems reprioritized. Patient report given, questions answered & plan of care reviewed with Grace myers.
--- NOTE | 2018-02-26 06:51 | NUR ---
Patient in room [facility]. I have received report from Svetlana CAZARES and had the opportunity to ask questions and assume patient care.
[2018-02-26 06:57] VITALS: BP 99/64
[2018-02-26] MEDS: baclofen 10mg tablet PO SCH ×2 (07:44→21:29)
[2018-02-26] MEDS: clopidogrel 75mg tablet PO SCH (07:44)
[2018-02-26] MEDS: levetiracetam 250mg tablet PO SCH ×2 (07:44→21:27)
[2018-02-26] MEDS: aspirin 81mg tablet.DR PO SCH (07:44)
[2018-02-26] MEDS: divalproex sodium 500mg tablet.DR PO SCH ×2 (07:44→21:28)
[2018-02-26] MEDS: quetiapine 100mg tablet PO SCH ×2 (07:44→21:27)
[2018-02-26] MEDS: LIDOcaine 5% patch TP SCH (07:45)
[2018-02-26] MEDS: enoxaparin 40mg/0.4ml syringe SUBCUT SCH (07:45)
[2018-02-26] MEDS: JUVEN Shake w/Arg/Glut/Ca2+Bmb (Juven 19.3gm) pkt 240ml PO SCH ×3 (07:46→18:03)
[2018-02-26 11:00] VITALS: BP 120/59
--- NOTE | 2018-02-26 18:05 | NUR ---
Problems reprioritized. Patient report given, questions answered & plan of care reviewed with Svetlana CAZARES.
--- NOTE | 2018-02-26 18:20 | NUR ---
Patient in room [facility] 359. I have received report from Grace CAZARES and had the opportunity to ask questions and assume patient care.
[2018-02-26 19:00] VITALS: BP 98/58
[2018-02-26] MEDS: mirtazapine 15mg tablet PO SCH (21:28)
[2018-02-27 02:35] VITALS: BP 120/67
--- NOTE | 2018-02-27 06:20 | NUR ---
Patient in room [facility] 359. I have received report from SAGE Mota and had the opportunity to ask questions and assume patient care.
--- NOTE | 2018-02-27 06:40 | NUR ---
Problems reprioritized. Patient report given, questions answered & plan of care reviewed with Lorena CAZARES and nursing staff development coordinator.
[2018-02-27 07:30] VITALS: BP 117/61
[2018-02-27] MEDS: JUVEN Shake w/Arg/Glut/Ca2+Bmb (Juven 19.3gm) pkt 240ml PO SCH ×4 (08:00→18:05)
[2018-02-27] MEDS: LIDOcaine 5% patch TP SCH (08:00)
--- NOTE | 2018-02-27 09:22 | NUR ---
Reassessment: No significant changes in PO intake, it continues to fluctuate with average 25-50% with some 100% intake and 75-100% intake of high protein shake with some 50% intake. No new documented wt to assess at this time. LBM 02/24. Pt continues awaiting placement. Will continue to follow. Rec: 1. Continue regular diet 2. High Protein shake TID 3. Encourage ONS intake 4. Monitor need for additional bowel care 5. Monitor need for additional ONS 6. Wt per rx Addendum: 02/27/18 at [address] Amended: Links added.
--- NOTE | 2018-02-27 09:24 | NUR ---
SS contacted APS, spoke with Nery patel pt's finances. Per discussion, APS have been unable to contact family to gather info re pt's finances, APS will make an attempt to contact family today. SS to continue to monitor to support a safe dcp.
--- NOTE | 2018-02-27 09:30 | NUR ---
Patient only got part of his aspirin. It got stuck between his gums and his dentures and he took it out and set it on the bed. Part of it was dissolved so I didn't feel that I could give him another one. He also receives Plavix so he should be covered as far as blood thinners go.
[2018-02-27] MEDS: divalproex sodium 500mg tablet.DR PO SCH ×2 (09:31→20:40)
[2018-02-27] MEDS: aspirin 81mg tablet.DR PO SCH (09:32)
[2018-02-27] MEDS: levetiracetam 250mg tablet PO SCH ×2 (09:32→20:40)
[2018-02-27] MEDS: baclofen 10mg tablet PO SCH ×2 (09:32→20:40)
[2018-02-27] MEDS: quetiapine 100mg tablet PO SCH ×2 (09:33→20:40)
[2018-02-27] MEDS: clopidogrel 75mg tablet PO SCH (09:33)
[2018-02-27] MEDS: enoxaparin 40mg/0.4ml syringe SUBCUT SCH (09:34)
[2018-02-27 11:59] VITALS: BP 122/66
[2018-02-27] MEDS: magnesium hydroxide 30ml (MOM) UD suspension PO PRN (16:56)
--- NOTE | 2018-02-27 18:15 | NUR ---
Problems reprioritized. Patient report given, questions answered & plan of care reviewed with Ayala Kent RN.
[2018-02-27 19:55] VITALS: BP 108/48
[2018-02-27] MEDS: mirtazapine 15mg tablet PO SCH (20:40)
[2018-02-28] MEDS: oxyCODONE/APAP 10/325mg tablet PO PRN ×2 (01:26→11:58)
[2018-02-28 01:31] VITALS: BP 125/66
--- NOTE | 2018-02-28 06:24 | NUR ---
Problems reprioritized. Patient report given, questions answered & plan of care reviewed with SAGE Hauser.
--- NOTE | 2018-02-28 06:56 | NUR ---
Patient in room [facility]. I have received report from Ayala CAZARES and had the opportunity to ask questions and assume patient care.
[2018-02-28] MEDS: clopidogrel 75mg tablet PO SCH (07:32)
[2018-02-28] MEDS: LIDOcaine 5% patch TP SCH (07:32)
[2018-02-28] MEDS: divalproex sodium 500mg tablet.DR PO SCH ×2 (07:32→21:46)
[2018-02-28] MEDS: quetiapine 100mg tablet PO SCH ×2 (07:32→21:46)
[2018-02-28] MEDS: baclofen 10mg tablet PO SCH ×2 (07:32→21:46)
[2018-02-28] MEDS: levetiracetam 250mg tablet PO SCH ×2 (07:33→21:48)
[2018-02-28] MEDS: enoxaparin 40mg/0.4ml syringe SUBCUT SCH (07:33)
[2018-02-28] MEDS: aspirin 81mg tablet.DR PO SCH (07:33)
[2018-02-28 08:00] VITALS: BP 125/48
[2018-02-28] MEDS: JUVEN Shake w/Arg/Glut/Ca2+Bmb (Juven 19.3gm) pkt 240ml PO SCH ×3 (08:00→17:57)
[2018-02-28 12:00] VITALS: BP 116/65
--- NOTE | 2018-02-28 18:46 | NUR ---
Problems reprioritized. Patient report given, questions answered & plan of care reviewed with Lianne CAZARES.
[2018-02-28 20:00] VITALS: BP 95/71
[2018-02-28] MEDS: mirtazapine 15mg tablet PO SCH (21:46)
[2018-03-01] VITALS: BP 116/63
--- NOTE | 2018-03-01 07:01 | NUR ---
Patient in room [facility]. I have received report from Lianne CAZARES and had the opportunity to ask questions and assume patient care.
[2018-03-01 08:00] VITALS: BP 112/65
[2018-03-01] MEDS: enoxaparin 40mg/0.4ml syringe SUBCUT SCH (08:01)
[2018-03-01] MEDS: LIDOcaine 5% patch TP SCH (08:01)
[2018-03-01] MEDS: quetiapine 100mg tablet PO SCH ×2 (08:01→20:14)
[2018-03-01] MEDS: clopidogrel 75mg tablet PO SCH (08:01)
[2018-03-01] MEDS: levetiracetam 250mg tablet PO SCH ×2 (08:01→20:13)
[2018-03-01] MEDS: aspirin 81mg tablet.DR PO SCH (08:01)
[2018-03-01] MEDS: divalproex sodium 500mg tablet.DR PO SCH ×2 (08:01→20:13)
[2018-03-01] MEDS: baclofen 10mg tablet PO SCH ×2 (08:02→20:13)
[2018-03-01] MEDS: JUVEN Shake w/Arg/Glut/Ca2+Bmb (Juven 19.3gm) pkt 240ml PO SCH ×3 (08:04→17:58)
[2018-03-01] MEDS: oxyCODONE/APAP 10/325mg tablet PO PRN (10:48)
[2018-03-01 12:00] VITALS: BP 116/60
--- NOTE | 2018-03-01 18:33 | NUR ---
Problems reprioritized. Patient report given, questions answered & plan of care reviewed with Lianne CAZARES.
[2018-03-01 20:00] VITALS: BP 113/56
[2018-03-01] MEDS: mirtazapine 15mg tablet PO SCH (20:13)
[2018-03-02 02:00] VITALS: BP 104/61
--- NOTE | 2018-03-02 06:40 | NUR ---
Patient in room [facility]. I have received report from SAGE Abdalla and had the opportunity to ask questions and assume patient care.
[2018-03-02 07:45] VITALS: BP 128/53
[2018-03-02] MEDS: JUVEN Shake w/Arg/Glut/Ca2+Bmb (Juven 19.3gm) pkt 240ml PO SCH ×3 (08:00→17:59)
[2018-03-02] MEDS: levetiracetam 250mg tablet PO SCH ×2 (09:06→20:28)
[2018-03-02] MEDS: clopidogrel 75mg tablet PO SCH (09:06)
[2018-03-02] MEDS: aspirin 81mg tablet.DR PO SCH (09:06)
[2018-03-02] MEDS: quetiapine 100mg tablet PO SCH ×2 (09:07→20:29)
[2018-03-02] MEDS: divalproex sodium 500mg tablet.DR PO SCH ×2 (09:07→20:29)
[2018-03-02] MEDS: baclofen 10mg tablet PO SCH ×2 (09:07→20:30)
[2018-03-02] MEDS: enoxaparin 40mg/0.4ml syringe SUBCUT SCH (09:07)
[2018-03-02] MEDS: LIDOcaine 5% patch TP SCH (09:11)
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
[2018-03-02 12:38] VITALS: BP 145/76
[2018-03-02] MEDS: oxyCODONE/APAP 10/325mg tablet PO PRN (15:26)
--- NOTE | 2018-03-02 18:27 | NUR ---
Problems reprioritized. Patient report given, questions answered & plan of care reviewed with SAGE Silva.
--- NOTE | 2018-03-02 18:30 | NUR ---
Received report from Eleanor CAZARES pt is awake eating dinner in no apparent distress, call light and items of freq use within reach.
[2018-03-02 19:00] VITALS: BP 106/60
[2018-03-02] MEDS: mirtazapine 15mg tablet PO SCH (20:28)
[2018-03-03 00:28] VITALS: BP 121/62
--- NOTE | 2018-03-03 06:23 | NUR ---
Patient in room [facility]. I have received report from Jerica CAZARES and had the opportunity to ask questions and assume patient care.
[2018-03-03 07:00] VITALS: BP 144/80
[2018-03-03] MEDS: levetiracetam 250mg tablet PO SCH ×2 (08:32→20:19)
[2018-03-03] MEDS: quetiapine 100mg tablet PO SCH ×2 (08:32→20:20)
[2018-03-03] MEDS: clopidogrel 75mg tablet PO SCH (08:32)
[2018-03-03] MEDS: divalproex sodium 500mg tablet.DR PO SCH ×2 (08:32→20:20)
[2018-03-03] MEDS: JUVEN Shake w/Arg/Glut/Ca2+Bmb (Juven 19.3gm) pkt 240ml PO SCH ×3 (08:33→18:36)
[2018-03-03] MEDS: LIDOcaine 5% patch TP SCH (08:33)
[2018-03-03] MEDS: aspirin 81mg tablet.DR PO SCH (08:33)
[2018-03-03] MEDS: baclofen 10mg tablet PO SCH ×2 (08:33→20:21)
[2018-03-03] MEDS: enoxaparin 40mg/0.4ml syringe SUBCUT SCH (08:34)
[2018-03-03 11:00] VITALS: BP 127/75
--- NOTE | 2018-03-03 15:58 | NUR ---
Reassessment: PO intake continues at 75-100% of meals with fluctuating intake of high protein shake with 25% and 100% intake of supplement. Pt meeting nutrient needs d/t adequate intake of meals. [facility] 03/03. Pt continues awaiting placement. Rec: 1. Continue regular diet 2. High Protein shake TID 3. Encourage ONS intake 4. Monitor need for additional bowel care 5. Monitor need for additional ONS 6. Wt per rx Addendum: 03/03/18 at [address] Amended: Links added.
[2018-03-03 18:00] VITALS: BP 105/62
--- NOTE | 2018-03-03 18:34 | NUR ---
Problems reprioritized. Patient report given, questions answered & plan of care reviewed with Cheryl CAZARES.
--- NOTE | 2018-03-03 18:35 | NUR ---
Received report from primary care nurse Luis Miguel CAZARES. Assumed patient care. Patient is awake and alert eating his dinner and watching television. Call light and items of frequent use within reach. Will continue to monitor for changes.
[2018-03-03] MEDS: mirtazapine 15mg tablet PO SCH (20:20)
[2018-03-03] MEDS: oxyCODONE/APAP 5-325mg tablet PO PRN (20:23)
[2018-03-04] VITALS: BP 103/64
--- NOTE | 2018-03-04 06:51 | NUR ---
Reported off to Lorena CAZARES. Patient is awake and alert on room air. In no apparent distress on room in no apparent distress. Call light and items of frequent use within reach.
--- NOTE | 2018-03-04 06:57 | NUR ---
Patient in room [facility]. I have received report from SAGE Luna and had the opportunity to ask questions and assume patient care.
[2018-03-04 07:39] VITALS: BP 130/67
[2018-03-04] MEDS: LIDOcaine 5% patch TP SCH (08:00)
[2018-03-04] MEDS: JUVEN Shake w/Arg/Glut/Ca2+Bmb (Juven 19.3gm) pkt 240ml PO SCH ×3 (08:00→18:00)
[2018-03-04] MEDS: aspirin 81mg tablet.DR PO SCH (09:57)
[2018-03-04] MEDS: divalproex sodium 500mg tablet.DR PO SCH ×2 (09:57→20:10)
[2018-03-04] MEDS: baclofen 10mg tablet PO SCH ×2 (09:58→20:10)
[2018-03-04] MEDS: levetiracetam 250mg tablet PO SCH ×2 (09:58→20:10)
[2018-03-04] MEDS: quetiapine 100mg tablet PO SCH ×2 (09:59→20:10)
[2018-03-04] MEDS: clopidogrel 75mg tablet PO SCH (09:59)
[2018-03-04] MEDS: enoxaparin 40mg/0.4ml syringe SUBCUT SCH (10:01)
[2018-03-04 11:00] VITALS: BP 128/74
--- NOTE | 2018-03-04 18:15 | NUR ---
Problems reprioritized. Patient report given, questions answered & plan of care reviewed with SAGE Gonzales.
--- NOTE | 2018-03-04 18:30 | NUR ---
Patient in room [facility]. I have received report from NORRIS and had the opportunity to ask questions and assume patient care.
[2018-03-04 19:00] VITALS: BP 112/59
[2018-03-04] MEDS: magnesium hydroxide 30ml (MOM) UD suspension PO PRN ×2 (19:01→19:07)
[2018-03-04] MEDS: mirtazapine 15mg tablet PO SCH (20:10)
--- NOTE | 2018-03-05 06:05 | NUR ---
Patient in room [facility]. I have received report from SAGE Gonzales and had the opportunity to ask questions and assume patient care.
--- NOTE | 2018-03-05 06:30 | NUR ---
Problems reprioritized. Patient report given, questions answered & plan of care reviewed with NORRIS.
[2018-03-05 07:11] VITALS: BP 102/61
[2018-03-05] MEDS: aspirin 81mg tablet.DR PO SCH (07:20)
[2018-03-05] MEDS: clopidogrel 75mg tablet PO SCH (07:20)
[2018-03-05] MEDS: quetiapine 100mg tablet PO SCH ×2 (07:20→21:10)
[2018-03-05] MEDS: divalproex sodium 500mg tablet.DR PO SCH ×2 (07:20→21:10)
[2018-03-05] MEDS: levetiracetam 250mg tablet PO SCH ×2 (07:20→21:02)
[2018-03-05] MEDS: baclofen 10mg tablet PO SCH ×2 (07:21→21:14)
[2018-03-05] MEDS: enoxaparin 40mg/0.4ml syringe SUBCUT SCH (07:21)
[2018-03-05] MEDS: LIDOcaine 5% patch TP SCH (08:00)
[2018-03-05] MEDS: JUVEN Shake w/Arg/Glut/Ca2+Bmb (Juven 19.3gm) pkt 240ml PO SCH ×3 (08:11→17:52)
--- NOTE | 2018-03-05 11:00 | NUR ---
Spoke with Dr. Carbal regarding labs for the patient; he didn't think that he needed them. The patient continues to get Lovenox.
[2018-03-05 11:27] VITALS: BP 112/65
--- NOTE | 2018-03-05 18:00 | NUR ---
Problems reprioritized. Patient report given, questions answered & plan of care reviewed with SAGE Mota.
--- NOTE | 2018-03-05 18:40 | NUR ---
Patient in room [facility]. I have received report from Lorena CAZARES and had the opportunity to ask questions and assume patient care.
[2018-03-05 19:00] VITALS: BP 117/45
--- NOTE | 2018-03-05 20:50 | NUR ---
Has dx of CLL Addendum: 03/06/18 at 0446 by Svetlana Barkley RN Amended: Links added.
[2018-03-05] MEDS: mirtazapine 15mg tablet PO SCH (21:10)
[2018-03-06] VITALS: BP 118/68
--- NOTE | 2018-03-06 06:39 | NUR ---
Patient in room [facility] 359. I have received report from SAGE Mota and had the opportunity to ask questions and assume patient care.
--- NOTE | 2018-03-06 06:50 | NUR ---
Problems reprioritized. Patient report given, questions answered & plan of care reviewed with Yessi CAZARES.
[2018-03-06 07:50] VITALS: BP 102/55
[2018-03-06] MEDS: divalproex sodium 500mg tablet.DR PO SCH ×2 (08:00→21:29)
[2018-03-06] MEDS: enoxaparin 40mg/0.4ml syringe SUBCUT SCH (08:00)
[2018-03-06] MEDS: LIDOcaine 5% patch TP SCH (08:00)
[2018-03-06] MEDS: clopidogrel 75mg tablet PO SCH (08:00)
[2018-03-06] MEDS: levetiracetam 250mg tablet PO SCH ×2 (08:00→21:28)
[2018-03-06] MEDS: aspirin 81mg tablet.DR PO SCH (08:00)
[2018-03-06] MEDS: baclofen 10mg tablet PO SCH ×2 (08:00→21:28)
[2018-03-06] MEDS: quetiapine 100mg tablet PO SCH ×2 (08:00→21:29)
[2018-03-06] MEDS: JUVEN Shake w/Arg/Glut/Ca2+Bmb (Juven 19.3gm) pkt 240ml PO SCH ×3 (08:06→18:08)
--- NOTE | 2018-03-06 08:16 | NUR ---
Patient refused all 0800 medications. Wasted PO meds. Returned Lidocaine patch, and Lovenox.
[2018-03-06 10:55] VITALS: BP 121/74
--- NOTE | 2018-03-06 18:26 | NUR ---
Problems reprioritized. Patient report given, questions answered & plan of care reviewed with SAGE FRIEDMAN.
--- NOTE | 2018-03-06 18:42 | NUR ---
Patient in room [facility]. I have received report from Eleanor CAZARES and had the opportunity to ask questions and assume patient care.
[2018-03-06 20:00] VITALS: BP 117/73
[2018-03-06] MEDS: mirtazapine 15mg tablet PO SCH (21:27)
[2018-03-07 00:09] VITALS: BP 135/76
--- NOTE | 2018-03-07 06:25 | NUR ---
Problems reprioritized. Patient report given, questions answered & plan of care reviewed with Eleanor CAZARES.
[2018-03-07 07:50] VITALS: BP 121/69
[2018-03-07] MEDS: divalproex sodium 500mg tablet.DR PO SCH ×2 (08:12→22:35)
[2018-03-07] MEDS: quetiapine 100mg tablet PO SCH ×2 (08:13→22:34)
[2018-03-07] MEDS: baclofen 10mg tablet PO SCH ×2 (08:13→22:34)
[2018-03-07] MEDS: clopidogrel 75mg tablet PO SCH (08:13)
[2018-03-07] MEDS: aspirin 81mg tablet.DR PO SCH (08:13)
[2018-03-07] MEDS: levetiracetam 250mg tablet PO SCH ×2 (08:13→22:33)
[2018-03-07] MEDS: enoxaparin 40mg/0.4ml syringe SUBCUT SCH (08:16)
[2018-03-07] MEDS: JUVEN Shake w/Arg/Glut/Ca2+Bmb (Juven 19.3gm) pkt 240ml PO SCH ×3 (08:17→18:07)
[2018-03-07] MEDS: LIDOcaine 5% patch TP SCH (08:17)
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
[2018-03-07 18:00] VITALS: BP 111/76
--- NOTE | 2018-03-07 18:51 | NUR ---
Problems reprioritized. Patient report given, questions answered & plan of care reviewed with SAGE MONTGOMERY.
--- NOTE | 2018-03-07 18:52 | NUR ---
Patient in room [facility]. I have received report from SAGE Webster and had the opportunity to ask questions and assume patient care.
[2018-03-07] MEDS: mirtazapine 15mg tablet PO SCH (22:35)
[2018-03-08] MEDS: oxyCODONE/APAP 10/325mg tablet PO PRN (03:01)
--- NOTE | 2018-03-08 06:05 | NUR ---
Problems reprioritized. Patient report given, questions answered & plan of care reviewed with SAGE Carrillo.
--- NOTE | 2018-03-08 06:30 | NUR ---
Patient in room [facility] 359. I have received report from SAGE Hammer and had the opportunity to ask questions and assume patient care.
[2018-03-08 07:26] VITALS: BP 123/67
[2018-03-08] MEDS: JUVEN Shake w/Arg/Glut/Ca2+Bmb (Juven 19.3gm) pkt 240ml PO SCH ×3 (08:00→18:24)
[2018-03-08] MEDS: divalproex sodium 500mg tablet.DR PO SCH ×2 (10:09→20:48)
[2018-03-08] MEDS: clopidogrel 75mg tablet PO SCH (10:09)
[2018-03-08] MEDS: quetiapine 100mg tablet PO SCH ×2 (10:10→20:48)
[2018-03-08] MEDS: aspirin 81mg tablet.DR PO SCH (10:10)
[2018-03-08] MEDS: levetiracetam 250mg tablet PO SCH ×2 (10:11→20:49)
[2018-03-08] MEDS: baclofen 10mg tablet PO SCH ×2 (10:11→20:49)
[2018-03-08] MEDS: enoxaparin 40mg/0.4ml syringe SUBCUT SCH (10:14)
[2018-03-08] MEDS: LIDOcaine 5% patch TP SCH (10:14)
--- NOTE | 2018-03-08 10:23 | NUR ---
Reassessment: PO intake 75-100% of meals with 0-100% intake of high protein shake likely meeting nutrient needs at this time. [facility] 03/06. Will continue to follow. Rec: 1. Continue regular diet 2. High Protein shake TID 3. Encourage ONS intake 4. Monitor need for additional bowel care 5. Monitor need for additional ONS 6. Wt per rx Addendum: 03/08/18 at [address] Amended: Links added.
[2018-03-08 11:00] VITALS: BP 116/58
[2018-03-08 18:00] VITALS: BP 113/73
--- NOTE | 2018-03-08 18:15 | NUR ---
Problems reprioritized. Patient report given, questions answered & plan of care reviewed with SAGE Hammer.
--- NOTE | 2018-03-08 18:16 | NUR ---
Patient in room [facility]. I have received report from SAGE Carrillo and had the opportunity to ask questions and assume patient care.
[2018-03-08] MEDS: mirtazapine 15mg tablet PO SCH (20:48)
--- NOTE | 2018-03-09 06:03 | NUR ---
Problems reprioritized. Patient report given, questions answered & plan of care reviewed with SAGE Qiu.
[2018-03-09 07:00] VITALS: BP 126/77
[2018-03-09] MEDS: baclofen 10mg tablet PO SCH ×2 (08:09→22:30)
[2018-03-09] MEDS: quetiapine 100mg tablet PO SCH ×2 (08:09→22:28)
[2018-03-09] MEDS: clopidogrel 75mg tablet PO SCH (08:10)
[2018-03-09] MEDS: aspirin 81mg tablet.DR PO SCH (08:10)
[2018-03-09] MEDS: LIDOcaine 5% patch TP SCH (08:10)
[2018-03-09] MEDS: divalproex sodium 500mg tablet.DR PO SCH ×2 (08:10→22:27)
[2018-03-09] MEDS: levetiracetam 250mg tablet PO SCH ×2 (08:10→22:27)
[2018-03-09] MEDS: enoxaparin 40mg/0.4ml syringe SUBCUT SCH (08:11)
[2018-03-09] MEDS: JUVEN Shake w/Arg/Glut/Ca2+Bmb (Juven 19.3gm) pkt 240ml PO SCH ×3 (08:11→18:00)
--- NOTE | 2018-03-09 18:30 | NUR ---
Patient in room [facility]. I have received report from Uyen CAZARES and had the opportunity to ask questions and assume patient care. Patient resting, visible at nurse's station. Will continue to monitor.
--- NOTE | 2018-03-09 18:35 | NUR ---
Problems reprioritized. Patient report given, questions answered & plan of care reviewed with ELLYN CAZARES.
[2018-03-09 19:00] VITALS: BP 108/63
[2018-03-09] MEDS: mirtazapine 15mg tablet PO SCH (22:28)
--- NOTE | 2018-03-10 06:30 | NUR ---
Problems reprioritized. Patient report given, questions answered & plan of care reviewed with Uyen RN. Patient resting in no distress.
[2018-03-10 07:07] VITALS: BP 122/66
[2018-03-10] MEDS: clopidogrel 75mg tablet PO SCH (07:33)
[2018-03-10] MEDS: levetiracetam 250mg tablet PO SCH ×2 (07:33→19:46)
[2018-03-10] MEDS: baclofen 10mg tablet PO SCH ×2 (07:33→19:46)
[2018-03-10] MEDS: divalproex sodium 500mg tablet.DR PO SCH ×2 (07:34→19:46)
[2018-03-10] MEDS: LIDOcaine 5% patch TP SCH (07:34)
[2018-03-10] MEDS: aspirin 81mg tablet.DR PO SCH (07:34)
[2018-03-10] MEDS: quetiapine 100mg tablet PO SCH ×2 (07:34→19:46)
[2018-03-10] MEDS: enoxaparin 40mg/0.4ml syringe SUBCUT SCH (07:34)
[2018-03-10] MEDS: JUVEN Shake w/Arg/Glut/Ca2+Bmb (Juven 19.3gm) pkt 240ml PO SCH ×3 (07:41→18:00)
[2018-03-10] MEDS: magnesium hydroxide 30ml (MOM) UD suspension PO PRN (07:43)
[2018-03-10 12:07] VITALS: BP 125/67
[2018-03-10 18:00] VITALS: BP 117/71
--- NOTE | 2018-03-10 18:30 | NUR ---
Patient in room [facility]. I have received report from Uyen CAZARES and had the opportunity to ask questions and assume patient care. Pt is in bed, alarm is on.
--- NOTE | 2018-03-10 18:45 | NUR ---
Problems reprioritized. Patient report given, questions answered & plan of care reviewed with ELSIE CAZARES.
[2018-03-10] MEDS: mirtazapine 15mg tablet PO SCH (19:46)
[2018-03-11] VITALS: BP 113/61
--- NOTE | 2018-03-11 06:30 | NUR ---
Problems reprioritized. Patient report given, questions answered & plan of care reviewed with Kristine CAZARES. Bed alarm is on.
--- NOTE | 2018-03-11 06:39 | NUR ---
Patient in room [facility]. I have received report from ELSIE CAZARES and had the opportunity to ask questions and assume patient care.
[2018-03-11 07:00] VITALS: BP 135/79
[2018-03-11] MEDS: JUVEN Shake w/Arg/Glut/Ca2+Bmb (Juven 19.3gm) pkt 240ml PO SCH ×4 (08:00→18:00)
[2018-03-11] MEDS: levetiracetam 250mg tablet PO SCH ×2 (08:32→20:20)
[2018-03-11] MEDS: aspirin 81mg tablet.DR PO SCH (08:33)
[2018-03-11] MEDS: baclofen 10mg tablet PO SCH ×2 (08:33→20:20)
[2018-03-11] MEDS: LIDOcaine 5% patch TP SCH (08:33)
[2018-03-11] MEDS: divalproex sodium 500mg tablet.DR PO SCH ×2 (08:33→20:20)
[2018-03-11] MEDS: clopidogrel 75mg tablet PO SCH (08:33)
[2018-03-11] MEDS: quetiapine 100mg tablet PO SCH ×2 (08:33→20:20)
[2018-03-11] MEDS: enoxaparin 40mg/0.4ml syringe SUBCUT SCH (08:34)
[2018-03-11 11:00] VITALS: BP 118/68
--- NOTE | 2018-03-11 17:56 | NUR ---
GAVE REPORT TO CHASE CAZARES
--- NOTE | 2018-03-11 18:35 | NUR ---
Patient in room [facility]. I have received report from Kristine CAZARES and had the opportunity to ask questions and assume patient care.
[2018-03-11 20:00] VITALS: BP 103/46
[2018-03-11] MEDS: mirtazapine 15mg tablet PO SCH (20:20)
--- NOTE | 2018-03-12 06:00 | NUR ---
Patient in room [facility]. I have received report from CHASE CAZARES and had the opportunity to ask questions and assume patient care.
--- NOTE | 2018-03-12 06:06 | NUR ---
Problems reprioritized. Patient report given, questions answered & plan of care reviewed with Kristine CAZARES.
[2018-03-12 07:12] VITALS: BP 123/65
[2018-03-12] MEDS: LIDOcaine 5% patch TP SCH (07:46)
[2018-03-12] MEDS: divalproex sodium 500mg tablet.DR PO SCH ×2 (07:47→21:14)
[2018-03-12] MEDS: aspirin 81mg tablet.DR PO SCH (07:47)
[2018-03-12] MEDS: levetiracetam 250mg tablet PO SCH ×2 (07:47→21:13)
[2018-03-12] MEDS: quetiapine 100mg tablet PO SCH ×2 (07:47→21:13)
[2018-03-12] MEDS: clopidogrel 75mg tablet PO SCH (07:47)
[2018-03-12] MEDS: baclofen 10mg tablet PO SCH ×2 (07:47→21:15)
[2018-03-12] MEDS: enoxaparin 40mg/0.4ml syringe SUBCUT SCH (07:48)
[2018-03-12] MEDS: JUVEN Shake w/Arg/Glut/Ca2+Bmb (Juven 19.3gm) pkt 240ml PO SCH ×3 (07:50→18:09)
[2018-03-12 11:00] VITALS: BP_SYST 106; BP_SYST 134; BP_DIAS 53; BP_DIAS 71
--- NOTE | 2018-03-12 18:12 | NUR ---
Patient in room [facility]. I have received report from Kristine CAZARES and had the opportunity to ask questions and assume patient care. Patient eating dinner, will continue to monitor.
[2018-03-12 19:00] VITALS: BP 116/72
[2018-03-12] MEDS: mirtazapine 15mg tablet PO SCH (21:14)
--- NOTE | 2018-03-13 06:17 | NUR ---
Problems reprioritized. Patient report given, questions answered & plan of care reviewed with Jackeline CAZARES. Patient resting eyes closed respirations even.
[2018-03-13 07:19] VITALS: BP 107/71
[2018-03-13] MEDS: levetiracetam 250mg tablet PO SCH ×2 (08:42→20:11)
[2018-03-13] MEDS: clopidogrel 75mg tablet PO SCH (08:42)
[2018-03-13] MEDS: aspirin 81mg tablet.DR PO SCH (08:42)
[2018-03-13] MEDS: baclofen 10mg tablet PO SCH ×2 (08:42→20:12)
[2018-03-13] MEDS: quetiapine 100mg tablet PO SCH ×2 (08:42→20:11)
[2018-03-13] MEDS: divalproex sodium 500mg tablet.DR PO SCH ×2 (08:42→20:12)
[2018-03-13] MEDS: enoxaparin 40mg/0.4ml syringe SUBCUT SCH (08:43)
[2018-03-13] MEDS: JUVEN Shake w/Arg/Glut/Ca2+Bmb (Juven 19.3gm) pkt 240ml PO SCH ×3 (08:43→18:44)
[2018-03-13] MEDS: LIDOcaine 5% patch TP SCH (08:46)
[2018-03-13 11:00] VITALS: BP 110/67
--- NOTE | 2018-03-13 13:18 | NUR ---
Reassessment:Per documentation PO intake fluctuates. Current PO intake ~50-75%, with some refusals of meals and refusal of ONS. Poor PO intake of ONS `25%. LBM 2/2. Will continue to monitor. Rec: 1. Continue regular diet 2. High Protein shake TID 3. Encourage ONS intake 4. Monitor need for additional bowel care 5. Monitor need for additional ONS 6. Wt per rx Addendum: 03/13/18 at [address] Amended: Links added.
[2018-03-13] MEDS: magnesium hydroxide 30ml (MOM) UD suspension PO PRN (14:00)
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
[2018-03-13 19:00] VITALS: BP 92/74
[2018-03-13] MEDS: mirtazapine 15mg tablet PO SCH (20:12)
--- NOTE | 2018-03-14 06:15 | NUR ---
Problems reprioritized. Patient report given, questions answered & plan of care reviewed with HUANG. Addendum: 03/14/18 at 0615 by Hector Nieto RN Amended: Links added.
[2018-03-14 07:26] VITALS: BP 117/66
[2018-03-14] MEDS: levetiracetam 250mg tablet PO SCH ×2 (08:18→20:16)
[2018-03-14] MEDS: LIDOcaine 5% patch TP SCH (08:19)
[2018-03-14] MEDS: baclofen 10mg tablet PO SCH ×2 (08:19→21:03)
[2018-03-14] MEDS: divalproex sodium 500mg tablet.DR PO SCH ×2 (08:19→21:03)
[2018-03-14] MEDS: aspirin 81mg tablet.DR PO SCH (08:19)
[2018-03-14] MEDS: quetiapine 100mg tablet PO SCH ×2 (08:19→20:16)
[2018-03-14] MEDS: clopidogrel 75mg tablet PO SCH (08:19)
[2018-03-14] MEDS: enoxaparin 40mg/0.4ml syringe SUBCUT SCH (08:20)
[2018-03-14] MEDS: JUVEN Shake w/Arg/Glut/Ca2+Bmb (Juven 19.3gm) pkt 240ml PO SCH ×4 (08:21→19:00)
--- NOTE | 2018-03-14 09:27 | NUR ---
Reassessment:Per documentation PO intake fluctuates. Current PO intake ~50-75%, with some refusals of meals and refusal of ONS. Poor PO intake of ONS `25%. LBM 2/2. Will continue to monitor. Rec: 1. Continue regular diet 2. High Protein shake TID 3. Encourage ONS intake 4. Monitor need for additional bowel care 5. Monitor need for additional ONS 6. Wt per rx Addendum: 03/14/18 at [address] Amended: Links added. Addendum: 03/14/18 at [address] [employer] [employer]
[2018-03-14 10:42] VITALS: BP 119/70
--- NOTE | 2018-03-14 11:22 | NUR ---
SS met w/older son (Jaspal) & his spouse-Saida. Saida had questions re the Healthcare Agent request, SS educated her on the purpose of an ADR, she expressed concerns that family may be saddle w/pt's medical bills if they agree to be his healthcare POA. SS again provided info re the purpose of an ADR, but Saida states that "the boys won't do it, can I sign and be his agent?" SS informed Saida that she can, but that is a decision she needs to make on her own. Saida will discuss the option of her being pt's designated healthcare agent w/pt's son and let SS know, SS informed her that the paperwork is in pt's binder all she has to do is let the RN know that she wants to complete it as SS had already highlighted sections where signatures are needed. Saida asked if we can send referral to [facility]. Note entered late, family engagement occurred after 5:00 PM yesterday.
--- NOTE | 2018-03-14 12:19 | NUR ---
SS contacted the [place] [id number] [employer] Ombudsman, Tommie to let her know that family members are hesitant in becoming pt's healthcare agent, per consultation, Tommie asked that SS let family know that they can contact Tommie directly to discuss their concerns associated with pt's access to LTC and the ADR. SS contacted pt's son, left vm with Tommie's contact info and encouraged them to call her re their concerns associated w/the ADR & pt's access to LTC.
[2018-03-14 20:00] VITALS: BP 104/84
[2018-03-14] MEDS: mirtazapine 15mg tablet PO SCH (21:03)
[2018-03-15 07:00] VITALS: BP 122/72
[2018-03-15] MEDS: baclofen 10mg tablet PO SCH ×2 (07:57→20:10)
[2018-03-15] MEDS: clopidogrel 75mg tablet PO SCH (07:57)
[2018-03-15] MEDS: divalproex sodium 500mg tablet.DR PO SCH ×2 (07:57→20:10)
[2018-03-15] MEDS: levetiracetam 250mg tablet PO SCH ×2 (07:57→20:11)
[2018-03-15] MEDS: quetiapine 100mg tablet PO SCH ×2 (07:57→20:11)
[2018-03-15] MEDS: aspirin 81mg tablet.DR PO SCH (07:57)
[2018-03-15] MEDS: enoxaparin 40mg/0.4ml syringe SUBCUT SCH (07:58)
[2018-03-15] MEDS: LIDOcaine 5% patch TP SCH (07:58)
[2018-03-15] MEDS: JUVEN Shake w/Arg/Glut/Ca2+Bmb (Juven 19.3gm) pkt 240ml PO SCH ×2 (13:06→18:00)
--- NOTE | 2018-03-15 17:55 | NUR ---
Problems reprioritized. Patient report given, questions answered & plan of care reviewed with [].
--- NOTE | 2018-03-15 18:20 | NUR ---
Patient in room [facility]. I have received report from Uyen CAZARES and had the opportunity to ask questions and assume patient care.
[2018-03-15 19:00] VITALS: BP 111/81
[2018-03-15] MEDS: mirtazapine 15mg tablet PO SCH (20:11)
--- NOTE | 2018-03-16 00:21 | NUR ---
Problems reprioritized. Patient report given, questions answered & plan of care reviewed with sejal RN. patient requesting to speak with director of social media marketing about family siyuation tomorrow. Sejal cunningham..
--- NOTE | 2018-03-16 01:35 | NUR ---
Assumed care of patient at 00:30 from Helena Weber RN. Pt has been sleeping soundly no change in assessment.
[2018-03-16 06:30] VITALS: BP 130/80
--- NOTE | 2018-03-16 07:15 | NUR ---
Patient in room [facility]. I have received report from SAGE Post and had the opportunity to ask questions and assume patient care.
[2018-03-16] MEDS: JUVEN Shake w/Arg/Glut/Ca2+Bmb (Juven 19.3gm) pkt 240ml PO SCH ×3 (08:00→18:00)
[2018-03-16] MEDS: LIDOcaine 5% patch TP SCH (08:00)
[2018-03-16] MEDS: magnesium hydroxide 30ml (MOM) UD suspension PO PRN (08:42)
[2018-03-16] MEDS: aspirin 81mg tablet.DR PO SCH (08:42)
[2018-03-16] MEDS: enoxaparin 40mg/0.4ml syringe SUBCUT SCH (08:42)
[2018-03-16] MEDS: levetiracetam 250mg tablet PO SCH ×2 (08:42→20:16)
[2018-03-16] MEDS: divalproex sodium 500mg tablet.DR PO SCH ×2 (08:43→20:17)
[2018-03-16] MEDS: clopidogrel 75mg tablet PO SCH (08:43)
[2018-03-16] MEDS: quetiapine 100mg tablet PO SCH ×2 (08:43→20:17)
[2018-03-16] MEDS: baclofen 10mg tablet PO SCH ×2 (08:43→20:16)
[2018-03-16] MEDS: oxyCODONE/APAP 10/325mg tablet PO PRN (16:28)
--- NOTE | 2018-03-16 18:35 | NUR ---
Problems reprioritized. Patient report given, questions answered & plan of care reviewed with SAGE Silva.
--- NOTE | 2018-03-16 18:41 | NUR ---
Received report from Shannan CAZARES pt is awake just finished up with dinner, in no apparent distress, call light and items of freq use within reach.
[2018-03-16 19:05] VITALS: BP 126/63
[2018-03-16] MEDS: mirtazapine 15mg tablet PO SCH (20:16)
[2018-03-17 00:53] VITALS: BP 129/60
--- NOTE | 2018-03-17 06:15 | NUR ---
Gave report to Opal CAZARES pt is resting on RA in no apparent distress, call light and items of freq use within reach.
--- NOTE | 2018-03-17 06:22 | NUR ---
Patient in room [facility]. I have received report from SAGE Silva and had the opportunity to ask questions and assume patient care. patient resting comfortably at this time. In no apparent distress on room air. Call light and items of frequent use in reach of patient.
[2018-03-17 07:00] VITALS: BP 116/68
[2018-03-17] MEDS: aspirin 81mg tablet.DR PO SCH (07:59)
[2018-03-17] MEDS: divalproex sodium 500mg tablet.DR PO SCH ×2 (07:59→20:44)
[2018-03-17] MEDS: levetiracetam 250mg tablet PO SCH ×2 (08:00→20:45)
[2018-03-17] MEDS: quetiapine 100mg tablet PO SCH ×2 (08:01→20:45)
[2018-03-17] MEDS: clopidogrel 75mg tablet PO SCH (08:01)
[2018-03-17] MEDS: enoxaparin 40mg/0.4ml syringe SUBCUT SCH (08:01)
[2018-03-17] MEDS: baclofen 10mg tablet PO SCH ×2 (08:01→20:45)
[2018-03-17] MEDS: JUVEN Shake w/Arg/Glut/Ca2+Bmb (Juven 19.3gm) pkt 240ml PO SCH ×3 (08:05→18:43)
[2018-03-17 11:00] VITALS: BP 101/65
[2018-03-17] MEDS: oxyCODONE/APAP 10/325mg tablet PO PRN (16:05)
--- NOTE | 2018-03-17 18:15 | NUR ---
Problems reprioritized. Patient report given, questions answered & plan of care reviewed with SAGE Urrutia. Patient resting comfortably at this time. Call light and items of frequent use in reach of patient.
--- NOTE | 2018-03-17 18:15 | NUR ---
Patient in room [facility]. I have received report from Opal CAZARES and had the opportunity to ask questions and assume patient care. Patient finishing dinner, will continue to monitor.
[2018-03-17 19:00] VITALS: BP 101/55
[2018-03-17] MEDS: mirtazapine 15mg tablet PO SCH (20:44)
[2018-03-18] VITALS: BP 121/75
--- NOTE | 2018-03-18 06:42 | NUR ---
Problems reprioritized. Patient report given, questions answered & plan of care reviewed with Eleanor RN. Patient resting eyes closed respirations even.
[2018-03-18 08:00] VITALS: BP 106/70
[2018-03-18] MEDS: enoxaparin 40mg/0.4ml syringe SUBCUT SCH (08:34)
[2018-03-18] MEDS: aspirin 81mg tablet.DR PO SCH (08:34)
[2018-03-18] MEDS: levetiracetam 250mg tablet PO SCH ×2 (08:34→21:11)
[2018-03-18] MEDS: divalproex sodium 500mg tablet.DR PO SCH ×2 (08:34→21:07)
[2018-03-18] MEDS: clopidogrel 75mg tablet PO SCH (08:34)
[2018-03-18] MEDS: quetiapine 100mg tablet PO SCH ×2 (08:34→21:06)
[2018-03-18] MEDS: JUVEN Shake w/Arg/Glut/Ca2+Bmb (Juven 19.3gm) pkt 240ml PO SCH ×3 (08:35→18:49)
[2018-03-18] MEDS: baclofen 10mg tablet PO SCH ×2 (08:36→21:07)
[2018-03-18 11:00] VITALS: BP 130/67
[2018-03-18] MEDS: magnesium hydroxide 30ml (MOM) UD suspension PO PRN (12:06)
--- NOTE | 2018-03-18 15:50 | NUR ---
Reassessment: Per documentation PO intake fluctuates. Current PO intake ~50%, avg with some refusals of meals and refusal of ONS. Poor PO intake of ONS `25%. LBM 03/16. CLL and severely disabled wants to go home per MD note. Will continue to monitor. Rec: 1. Continue regular diet 2. High Protein shake TID 3. Encourage ONS intake 4. Wt per rx Addendum: 03/18/18 at [address] Amended: Links added.
--- NOTE | 2018-03-18 18:50 | NUR ---
Problems reprioritized. Patient report given, questions answered & plan of care reviewed with SAGE Ballard.
[2018-03-18 20:00] VITALS: BP 121/75
--- NOTE | 2018-03-18 21:00 | NUR ---
awake wathing tv used urinal and took hs meds at this time. no complaints of pain or discomfort.
[2018-03-18] MEDS: mirtazapine 15mg tablet PO SCH (21:07)
--- NOTE | 2018-03-18 23:00 | NUR ---
resting eyes closed no changes.
--- NOTE | 2018-03-19 01:00 | NUR ---
resting eyes closed no changes
--- NOTE | 2018-03-19 03:00 | NUR ---
pt appears comfortable resting eyes closed without changes.
--- NOTE | 2018-03-19 05:00 | NUR ---
resting eyes closed without changes.
--- NOTE | 2018-03-19 06:13 | NUR ---
Problems reprioritized. Patient report given, questions answered & plan of care reviewed with Yessi Calderon. Addendum: 03/19/18 at 0613 by Nellie Sun RN Amended: Links added.
[2018-03-19 08:00] VITALS: BP 122/55
[2018-03-19] MEDS: aspirin 81mg tablet.DR PO SCH (09:07)
[2018-03-19] MEDS: clopidogrel 75mg tablet PO SCH (09:07)
[2018-03-19] MEDS: quetiapine 100mg tablet PO SCH ×2 (09:07→21:34)
[2018-03-19] MEDS: divalproex sodium 500mg tablet.DR PO SCH ×2 (09:07→21:35)
[2018-03-19] MEDS: baclofen 10mg tablet PO SCH ×2 (09:08→21:37)
[2018-03-19] MEDS: enoxaparin 40mg/0.4ml syringe SUBCUT SCH (09:08)
[2018-03-19] MEDS: levetiracetam 250mg tablet PO SCH ×2 (09:08→21:34)
--- NOTE | 2018-03-19 09:10 | NUR ---
pt states he is going blind. pupils equal but not reactive to light Addendum: 03/19/18 at 0912 by Connie WING Amended: Links added.
[2018-03-19] MEDS: JUVEN Shake w/Arg/Glut/Ca2+Bmb (Juven 19.3gm) pkt 240ml PO SCH ×3 (09:12→18:03)
[2018-03-19 09:54] VITALS: BP 132/95
[2018-03-19 11:14] VITALS: BP 131/84
--- NOTE | 2018-03-19 18:22 | NUR ---
Problems reprioritized. Patient report given, questions answered & plan of care reviewed with SAGE Ballard.
--- NOTE | 2018-03-19 18:25 | NUR ---
Patient in room [facility]. I have received report from Eleanor Calderon and had the opportunity to ask questions and assume patient care. Addendum: 03/19/18 at 1933 by Nellie Sun RN Amended: Links added.
[2018-03-19 20:00] VITALS: BP 130/71
[2018-03-19] MEDS: mirtazapine 15mg tablet PO SCH (21:34)
--- NOTE | 2018-03-19 21:41 | NUR ---
PT TOOK HS MEDS TOLERATED WELL. NO S&SD OF DISTRESS AT THIS TIME.
--- NOTE | 2018-03-20 00:05 | NUR ---
RESTING EYES CLOSED WITHOUT S&S OF DISTRESS AT THIS TIME.
--- NOTE | 2018-03-20 02:00 | NUR ---
resting eyes closed without changes or s&s of distress at this time.
--- NOTE | 2018-03-20 03:51 | NUR ---
pt remains resting without changes or s&s of distress at this time.
--- NOTE | 2018-03-20 05:16 | NUR ---
AWAKE AND WITHOUT COMPLAINTS AT THIS TIME,
--- NOTE | 2018-03-20 05:56 | NUR ---
Student documentation: I have reviewed and agree with all interventions, assessments performed and documented by Tiffani Calderon student.Student Medication Administration: For this medication-pass time frame, all medication were reviewed, dispensed, administered and documented per hospital policy by Tiffani whitaker [facility] Yumiko student. Addendum: 03/20/18 at 0601 by Nellie Sun RN Amended: Links added.
--- NOTE | 2018-03-20 06:11 | NUR ---
Problems reprioritized. Patient report given, questions answered & plan of care reviewed with Opal Calderon by Tiffani fairchild Rn student and myself. Addendum: 03/20/18 at 0616 by Nellie Sun RN Amended: Links added.
--- NOTE | 2018-03-20 06:20 | NUR ---
Patient in room [facility]. I have received report from SAGE Garcia and had the opportunity to ask questions and assume patient care. Patient awake and comfortably at this time. Call light and items of frequent use in reach of patient.
[2018-03-20] MEDS: divalproex sodium 500mg tablet.DR PO SCH ×2 (07:14→21:07)
[2018-03-20] MEDS: levetiracetam 250mg tablet PO SCH ×2 (07:15→21:07)
[2018-03-20] MEDS: aspirin 81mg tablet.DR PO SCH (07:15)
[2018-03-20] MEDS: quetiapine 100mg tablet PO SCH ×2 (07:16→21:07)
[2018-03-20] MEDS: clopidogrel 75mg tablet PO SCH (07:16)
[2018-03-20] MEDS: baclofen 10mg tablet PO SCH ×2 (07:16→21:07)
[2018-03-20] MEDS: oxyCODONE/APAP 10/325mg tablet PO PRN (07:17)
[2018-03-20] MEDS: enoxaparin 40mg/0.4ml syringe SUBCUT SCH (07:17)
[2018-03-20 07:25] VITALS: BP 138/73
[2018-03-20] MEDS: JUVEN Shake w/Arg/Glut/Ca2+Bmb (Juven 19.3gm) pkt 240ml PO SCH ×3 (08:07→18:28)
--- NOTE | 2018-03-20 18:26 | NUR ---
Problems reprioritized. Patient report given, questions answered & plan of care reviewed with SGAE Kramer. Patient resting comfortably at this time. Call light and items of frequent use in reach of patient.
[2018-03-20 18:40] VITALS: BP 106/65
[2018-03-20] MEDS: mirtazapine 15mg tablet PO SCH (21:08)
[2018-03-21 07:30] VITALS: BP 116/63
[2018-03-21] MEDS: quetiapine 100mg tablet PO SCH ×2 (08:51→19:30)
[2018-03-21] MEDS: clopidogrel 75mg tablet PO SCH (08:52)
[2018-03-21] MEDS: levetiracetam 250mg tablet PO SCH ×2 (08:52→19:30)
[2018-03-21] MEDS: aspirin 81mg tablet.DR PO SCH (08:53)
[2018-03-21] MEDS: baclofen 10mg tablet PO SCH ×2 (08:53→19:31)
[2018-03-21] MEDS: divalproex sodium 500mg tablet.DR PO SCH ×2 (08:53→19:31)
[2018-03-21] MEDS: JUVEN Shake w/Arg/Glut/Ca2+Bmb (Juven 19.3gm) pkt 240ml PO SCH ×3 (08:54→18:03)
[2018-03-21] MEDS: enoxaparin 40mg/0.4ml syringe SUBCUT SCH (08:56)
--- NOTE | 2018-03-21 18:54 | NUR ---
Problems reprioritized. Patient report given, questions answered & plan of care reviewed with Daksha CAZARES.
[2018-03-21] MEDS: mirtazapine 15mg tablet PO SCH (19:32)
[2018-03-21 20:12] VITALS: BP 106/60
--- NOTE | 2018-03-22 06:22 | NUR ---
Report given to Pallavi CAZARES, care of patients assumed at this time
[2018-03-22 08:00] VITALS: BP 112/68
[2018-03-22] MEDS: JUVEN Shake w/Arg/Glut/Ca2+Bmb (Juven 19.3gm) pkt 240ml PO SCH ×3 (08:00→18:48)
[2018-03-22] MEDS: divalproex sodium 500mg tablet.DR PO SCH ×2 (09:48→20:04)
[2018-03-22] MEDS: levetiracetam 250mg tablet PO SCH ×2 (09:48→20:05)
[2018-03-22] MEDS: aspirin 81mg tablet.DR PO SCH (09:49)
[2018-03-22] MEDS: baclofen 10mg tablet PO SCH ×2 (09:49→20:04)
[2018-03-22] MEDS: clopidogrel 75mg tablet PO SCH (09:49)
[2018-03-22] MEDS: enoxaparin 40mg/0.4ml syringe SUBCUT SCH (09:50)
[2018-03-22] MEDS: quetiapine 100mg tablet PO SCH ×2 (09:50→20:05)
[2018-03-22 11:00] VITALS: BP 136/71
[2018-03-22 18:00] VITALS: BP 119/65
--- NOTE | 2018-03-22 18:29 | NUR ---
Report given to
--- NOTE | 2018-03-22 18:30 | NUR ---
Patient in room [facility]. I have received report from SAGE Edgar and had the opportunity to ask questions and assume patient care.
[2018-03-22] MEDS: mirtazapine 15mg tablet PO SCH (20:05)
--- NOTE | 2018-03-23 06:34 | NUR ---
Problems reprioritized. Patient report given, questions answered & plan of care reviewed with SAGE Webster.
[2018-03-23 07:55] VITALS: BP 98/71
[2018-03-23] MEDS: JUVEN Shake w/Arg/Glut/Ca2+Bmb (Juven 19.3gm) pkt 240ml PO SCH ×3 (08:02→18:03)
[2018-03-23] MEDS: clopidogrel 75mg tablet PO SCH (08:04)
[2018-03-23] MEDS: levetiracetam 250mg tablet PO SCH ×2 (08:04→20:35)
[2018-03-23] MEDS: divalproex sodium 500mg tablet.DR PO SCH ×2 (08:04→20:34)
[2018-03-23] MEDS: aspirin 81mg tablet.DR PO SCH (08:04)
[2018-03-23] MEDS: baclofen 10mg tablet PO SCH ×2 (08:04→20:35)
[2018-03-23] MEDS: quetiapine 100mg tablet PO SCH ×2 (08:05→20:34)
[2018-03-23] MEDS: enoxaparin 40mg/0.4ml syringe SUBCUT SCH (08:05)
--- NOTE | 2018-03-23 11:39 | NUR ---
Reassessment: Per documentation PO intake fluctuates. Current PO intake 100%, 03/22 25-50%, 03/21 75-100%, with refusal of all ONS. Pt documented as AOx2, LBM 03/22. Skin integrity remains the same, lawrence 17. Will continue to monitor. Rec: 1. Continue regular diet 2. High Protein shake TID 3. Encourage ONS intake 4. Wt per rx Addendum: 03/23/18 at [address] Amended: Links added. Addendum: 03/23/18 at [address] I have reviewed and agree with note by Director Custom. Brynn Lieberman RD
[2018-03-23 18:00] VITALS: BP 114/63
--- NOTE | 2018-03-23 18:36 | NUR ---
Problems reprioritized. Patient report given, questions answered & plan of care reviewed with Harman CAZARES.
--- NOTE | 2018-03-23 18:37 | NUR ---
Patient in room [facility]. I have received report from SAGE Webster and had the opportunity to ask questions and assume patient care.
[2018-03-23] MEDS: mirtazapine 15mg tablet PO SCH (20:34)
--- NOTE | 2018-03-24 06:57 | NUR ---
Problems reprioritized. Patient report given, questions answered & plan of care reviewed with SAGE Malik.
[2018-03-24 07:00] VITALS: BP 130/60
--- NOTE | 2018-03-24 07:22 | NUR ---
Patient in room [facility]. I have received report from ULISES CAZARES and had the opportunity to ask questions and assume patient care.
[2018-03-24] MEDS: baclofen 10mg tablet PO SCH ×2 (08:14→20:12)
[2018-03-24] MEDS: quetiapine 100mg tablet PO SCH ×2 (08:14→20:13)
[2018-03-24] MEDS: clopidogrel 75mg tablet PO SCH (08:14)
[2018-03-24] MEDS: aspirin 81mg tablet.DR PO SCH (08:14)
[2018-03-24] MEDS: levetiracetam 250mg tablet PO SCH ×2 (08:15→20:13)
[2018-03-24] MEDS: divalproex sodium 500mg tablet.DR PO SCH ×2 (08:15→20:13)
[2018-03-24] MEDS: JUVEN Shake w/Arg/Glut/Ca2+Bmb (Juven 19.3gm) pkt 240ml PO SCH ×3 (08:15→18:36)
[2018-03-24] MEDS: enoxaparin 40mg/0.4ml syringe SUBCUT SCH (08:18)
[2018-03-24 18:00] VITALS: BP 129/75
--- NOTE | 2018-03-24 18:33 | NUR ---
ambulated with pt, appears stable, managing to eat dinner, but poor appetite for breakfast and lunch. Report given to Harman CAZARES
--- NOTE | 2018-03-24 18:34 | NUR ---
Patient in room [facility]. I have received report from SAGE Mailk and had the opportunity to ask questions and assume patient care.
[2018-03-24] MEDS: mirtazapine 15mg tablet PO SCH (20:12)
[2018-03-24] MEDS ORDERED: LORazepam 1 MG tablet PO PRN (22:15)
--- NOTE | 2018-03-25 06:28 | NUR ---
Problems reprioritized. Patient report given, questions answered & plan of care reviewed with SAGE Malik.
--- NOTE | 2018-03-25 06:35 | NUR ---
Patient in room [facility]. I have received report from Harman CAZARES and had the opportunity to ask questions and assume patient care.
[2018-03-25 08:00] VITALS: BP 104/61
[2018-03-25] MEDS: clopidogrel 75mg tablet PO SCH (08:17)
[2018-03-25] MEDS: quetiapine 100mg tablet PO SCH ×2 (08:18→22:01)
[2018-03-25] MEDS: levetiracetam 250mg tablet PO SCH ×2 (08:18→22:01)
[2018-03-25] MEDS: baclofen 10mg tablet PO SCH ×2 (08:18→21:59)
[2018-03-25] MEDS: divalproex sodium 500mg tablet.DR PO SCH ×2 (08:18→21:59)
[2018-03-25] MEDS: enoxaparin 40mg/0.4ml syringe SUBCUT SCH (08:19)
[2018-03-25] MEDS: JUVEN Shake w/Arg/Glut/Ca2+Bmb (Juven 19.3gm) pkt 240ml PO SCH ×3 (08:19→18:07)
[2018-03-25] MEDS: aspirin 81mg tablet.DR PO SCH (08:19)
[2018-03-25 18:00] VITALS: BP 110/66
--- NOTE | 2018-03-25 18:05 | NUR ---
[facility] very sleepy today [facility]. patient has not eaten breakfast or lunch incontinent of urine x1. little more awake this pm. Report given to jeanette CAZARES
--- NOTE | 2018-03-25 18:30 | NUR ---
Patient in room [facility]. I have received report from Helena CAZARES and had the opportunity to ask questions and assume patient care. Patient sitting up in bed eating dinner, in no distress.
--- NOTE | 2018-03-25 20:30 | NUR ---
Problems reprioritized. Patient report given, questions answered & plan of care reviewed with Ghada CAZARES.
--- NOTE | 2018-03-25 20:30 | NUR ---
Patient in room [facility]. I have received report from Imelda CAZARES and had the opportunity to ask questions and assume patient care. Patient speaking loudly and appears frustrated. Calmed easily with quiet voices. Will continue to monitor.
[2018-03-25] MEDS: mirtazapine 15mg tablet PO SCH (21:59)
--- NOTE | 2018-03-26 06:22 | NUR ---
Patient in room [facility]. I have received report from Ghada CAZARES and had the opportunity to ask questions and assume patient care.
--- NOTE | 2018-03-26 06:42 | NUR ---
Problems reprioritized. Patient report given, questions answered & plan of care reviewed with Leilani CAZARES. Patient resting in bed, appears in good spirits.
[2018-03-26 07:00] VITALS: BP 110/58
[2018-03-26] MEDS: enoxaparin 40mg/0.4ml syringe SUBCUT SCH (08:00)
[2018-03-26] MEDS: JUVEN Shake w/Arg/Glut/Ca2+Bmb (Juven 19.3gm) pkt 240ml PO SCH ×3 (08:00→18:40)
--- NOTE | 2018-03-26 08:28 | NUR ---
Patient periodically uses urinal. Otherwise incontinent. Addendum: 03/26/18 at 0832 by Karmen WING Amended: Links added.
[2018-03-26] MEDS: quetiapine 100mg tablet PO SCH ×2 (09:18→21:12)
[2018-03-26] MEDS: clopidogrel 75mg tablet PO SCH (09:18)
[2018-03-26] MEDS: baclofen 10mg tablet PO SCH ×2 (09:19→21:10)
[2018-03-26] MEDS: levetiracetam 250mg tablet PO SCH ×2 (09:19→21:11)
[2018-03-26] MEDS: divalproex sodium 500mg tablet.DR PO SCH ×2 (09:20→21:10)
[2018-03-26] MEDS: aspirin 81mg tablet.DR PO SCH (09:20)
[2018-03-26 12:00] VITALS: BP 120/61
--- NOTE | 2018-03-26 17:29 | NUR ---
Bladder scanned patient, scan shows that she has 207ml's in bladder patient trying to void at this time.
--- NOTE | 2018-03-26 18:45 | NUR ---
Problems reprioritized. Patient report given, questions answered & plan of care reviewed with Pat RN.
[2018-03-26 19:30] VITALS: BP 111/67
[2018-03-26] MEDS: LIDOcaine 5% patch TP SCH (21:10)
[2018-03-26] MEDS: mirtazapine 15mg tablet PO SCH (21:11)
--- NOTE | 2018-03-27 06:55 | NUR ---
Patient in room [facility]. I have received report from Pat RN and had the opportunity to ask questions and assume patient care.
[2018-03-27 07:00] VITALS: BP 109/63
[2018-03-27] MEDS: levetiracetam 250mg tablet PO SCH ×2 (08:01→20:19)
[2018-03-27] MEDS: quetiapine 100mg tablet PO SCH ×2 (08:01→20:19)
[2018-03-27] MEDS: baclofen 10mg tablet PO SCH ×2 (08:01→20:19)
[2018-03-27] MEDS: aspirin 81mg tablet.DR PO SCH (08:01)
[2018-03-27] MEDS: clopidogrel 75mg tablet PO SCH (08:01)
[2018-03-27] MEDS: divalproex sodium 500mg tablet.DR PO SCH ×2 (08:01→20:18)
[2018-03-27] MEDS: LIDOcaine 5% patch TP SCH (08:02)
[2018-03-27] MEDS: enoxaparin 40mg/0.4ml syringe SUBCUT SCH (08:02)
[2018-03-27] MEDS: JUVEN Shake w/Arg/Glut/Ca2+Bmb (Juven 19.3gm) pkt 240ml PO SCH ×3 (08:08→18:41)
--- NOTE | 2018-03-27 18:40 | NUR ---
Problems reprioritized. Patient report given, questions answered & plan of care reviewed with Katt CAZARES.
[2018-03-27 20:00] VITALS: BP 120/74
[2018-03-27] MEDS: mirtazapine 15mg tablet PO SCH (20:18)
--- NOTE | 2018-03-28 06:23 | NUR ---
Problems reprioritized. Patient report given, questions answered & plan of care reviewed with SAGE Bolanos.
[2018-03-28 07:00] VITALS: BP 121/83
[2018-03-28] MEDS: LIDOcaine 5% patch TP SCH ×2 (08:00→08:06)
[2018-03-28] MEDS: clopidogrel 75mg tablet PO SCH (08:04)
[2018-03-28] MEDS: levetiracetam 250mg tablet PO SCH ×2 (08:04→20:48)
[2018-03-28] MEDS: divalproex sodium 500mg tablet.DR PO SCH ×2 (08:04→20:47)
[2018-03-28] MEDS: quetiapine 100mg tablet PO SCH ×2 (08:04→20:48)
[2018-03-28] MEDS: baclofen 10mg tablet PO SCH ×2 (08:04→20:48)
[2018-03-28] MEDS: aspirin 81mg tablet.DR PO SCH (08:04)
[2018-03-28] MEDS: enoxaparin 40mg/0.4ml syringe SUBCUT SCH (08:05)
--- NOTE | 2018-03-28 08:16 | NUR ---
Patient's behavior today as per my observation: Patient is alert, oriented to person, place, time. Patient answers questions appropriately, has been cooperative with the staff, and motivated to ambulation today. Patient just finishing his breakfast when I got to his room to give his morning meds.
[2018-03-28] MEDS: JUVEN Shake w/Arg/Glut/Ca2+Bmb (Juven 19.3gm) pkt 240ml PO SCH ×3 (08:24→18:00)
--- NOTE | 2018-03-28 09:52 | NUR ---
Reassessment: Documented PO intake continues to fluctuate with 25%, 100%, and refusals of meals. PO intake of high protein shake fluctuates as well with some refusals, noted that documented 100% intake shake last PM. No documented PO intake for B this AM however per RN notes pt was eating. LBM 03/27. Pt continues to await placement. Will continue to follow. Rec: 1. Continue regular diet 2. High Protein shake TID 3. Encourage ONS intake 4. Wt per rx Addendum: 03/28/18 at [address] Amended: Links added.
[2018-03-28 11:00] VITALS: BP 123/67
--- NOTE | 2018-03-28 11:48 | NUR ---
Patient was agitated because he wanted to walk. LORI Hays and charge nurse Katie ambulated patient from his room to the hallway with the tall walker, tolerated.
[2018-03-28] MEDS: oxyCODONE/APAP 10/325mg tablet PO PRN (16:51)
--- NOTE | 2018-03-28 18:30 | NUR ---
Patient in room [facility]. I have received report from Efraín CAZARES and had the opportunity to ask questions and assume patient care. Patient resting in bed, finishing dinner. Will continue to monitor.
--- NOTE | 2018-03-28 18:39 | NUR ---
Problems reprioritized. Patient report given, questions answered & plan of care reviewed with Uyen CAZARES.
[2018-03-28 20:00] VITALS: BP 116/74
--- NOTE | 2018-03-28 20:30 | NUR ---
Patient has pressed call light every 10-15 minutes requesting MOM and states is constipated. Re-oriented patient that he had a large incontinent bowel movement on 03/27/18. States, "No, I didn't. I haven't had a bowel movement." Patient is very forgetful at times. Staff member that was present on 03/27/18 states that she remembers bowel movement. Explained to patient that the bowel care medications are to be given if the patient has not had a bowel movement for 3 days or we have permission. Patient agreed to apple sauce at this time. Will continue to monitor. Patient took medications well.
[2018-03-28] MEDS: mirtazapine 15mg tablet PO SCH (20:48)
--- NOTE | 2018-03-29 05:00 | NUR ---
Patient is attempting to get out of bed without assistance. Re-oriented on safety of needing assistance to get out of bed, Patient states, "I know but I want to get out of here." Will continue to monitor. Bed Alarm placed.
--- NOTE | 2018-03-29 06:36 | NUR ---
Patient in room [facility]. I have received report from Ghada CAZARES and had the opportunity to ask questions and assume patient care.
--- NOTE | 2018-03-29 06:54 | NUR ---
Problems reprioritized. Patient report given, questions answered & plan of care reviewed with Helena CAZARES. Patient states understanding of needing assistance when getting up. Helena introduced self and states she will address bowel concern.
[2018-03-29 07:00] VITALS: BP 123/63
[2018-03-29] MEDS: divalproex sodium 500mg tablet.DR PO SCH ×2 (07:42→21:35)
[2018-03-29] MEDS: clopidogrel 75mg tablet PO SCH (07:42)
[2018-03-29] MEDS: quetiapine 100mg tablet PO SCH ×2 (07:43→21:37)
[2018-03-29] MEDS: baclofen 10mg tablet PO SCH ×2 (07:43→21:38)
[2018-03-29] MEDS: levetiracetam 250mg tablet PO SCH ×2 (07:44→21:36)
[2018-03-29] MEDS: magnesium hydroxide 30ml (MOM) UD suspension PO PRN (07:44)
[2018-03-29] MEDS: aspirin 81mg tablet.DR PO SCH (07:44)
[2018-03-29] MEDS: enoxaparin 40mg/0.4ml syringe SUBCUT SCH (07:45)
[2018-03-29] MEDS: JUVEN Shake w/Arg/Glut/Ca2+Bmb (Juven 19.3gm) pkt 240ml PO SCH ×3 (07:46→18:28)
[2018-03-29] MEDS: LIDOcaine 5% patch TP SCH (07:46)
[2018-03-29 09:14] LABS: BASOPHILS % (AUTO) 0.1 % (0-1); EOSINOPHILS # (AUTO) 0.1 X10'3 (0-0.9); EOSINOPHILS % (AUTO) 0.4 % (0-6); HEMOGLOBIN 12.4 g/dl (14.0-17.9); LYMPHOCYTES # (AUTO) 10.6 X10'3 (1.1-4.8); MONOCYTES # (AUTO) 0.6 X10'3 (0-0.9); MONOCYTES % (AUTO) 3.8 % (2-12)
[2018-03-29 09:17] LABS: HEMATOCRIT 37.4 % (42.0-52.0); LYMPHOCYTES % (AUTO) 71.7 % (21-51); MEAN CORPUSCULAR HEMOGLOBIN 30.2 PG (27.0-31.0); MEAN CORPUSCULAR HGB CONC 33.1 g/dL (33.0-36.5); MEAN CORPUSCULAR VOLUME 91.3 FL (78-98); MEAN PLATELET VOLUME 7.5 FL (7.4-10.4); NEUTROPHILS # (AUTO) 3.5 X10'3 (1.8-7.7); PLATELET COUNT 218 X10'3 (140-440); RED CELL DISTRIBUTION WIDTH 16.6 % (11.5-14.5); WHITE BLOOD COUNT 14.8 X10'3 (4.5-11.0)
[2018-03-29 09:27] LABS: ALANINE AMINOTRANSFERASE 9 U/L (12-78); ALBUMIN 2.7 G/DL (3.4-5.0); ALBUMIN/GLOBULIN RATIO 0.6 (1.1-1.5); ALKALINE PHOSPHATASE 44 IU/L (46-116); ANION GAP 8 (8-16); ASPARTATE AMINO TRANSFERASE 13 U/L (10-37); BILIRUBIN,TOTAL 0.2 MG/DL (0.1-1.0); BLOOD UREA NITROGEN 22 MG/DL (7-18); CALCIUM 9.1 MG/DL (8.5-10.1); CHLORIDE 106 MMOL/L (99-107); CREATININE 0.71 MG/DL (0.60-1.10); GLUCOSE 89 MG/DL (70-104); MAGNESIUM 1.8 MG/DL (1.5-2.4); PHOSPHORUS 2.8 MG/DL (2.3-4.5); POTASSIUM 3.5 MMOL/L (3.5-5.1); SODIUM 143 MMOL/L (135-145); TOTAL CARBON DIOXIDE 28.7 MMOL/L (24-32); eGFR > 90 ML/MIN
[2018-03-29 10:43] LABS: TOTAL CELLS COUNTED 100
[2018-03-29 10:44] LABS: ANISOCYTOSIS 1+; PLATELET ESTIMATE NORMAL; POIKILOCYTOSIS FEW; POLYCHROMASIA FEW; SMUDGE CELLS 2+
[2018-03-29 10:45] LABS: SCHISTOCYTES FEW
--- NOTE | 2018-03-29 18:17 | NUR ---
patient was pleasant this shift. motivated to ambulate. Better appetite still only about 25%. Showered this shift. compliant with all cares, appropriate in affect.
--- NOTE | 2018-03-29 18:20 | NUR ---
Problems reprioritized. Patient report given, questions answered & plan of care reviewed with Ghada CAZARES.
--- NOTE | 2018-03-29 18:30 | NUR ---
Patient in room [facility]. I have received report from Helena CAZARES and had the opportunity to ask questions and assume patient care. Patient finishing dinner, will continue to monitor.
[2018-03-29 19:00] VITALS: BP 100/67
[2018-03-29] MEDS: mirtazapine 15mg tablet PO SCH (21:37)
--- NOTE | 2018-03-30 06:37 | NUR ---
Patient in room [facility]. I have received report from prasanna myers and had the opportunity to ask questions and assume patient care.
--- NOTE | 2018-03-30 06:50 | NUR ---
Problems reprioritized. Patient report given, questions answered & plan of care reviewed with Uyen RN. Patient is resting in bed, states that he has had a good day. Patient calm through out shift and pleasant. Did not attempt to get out of bed without assistance.
[2018-03-30] MEDS: clopidogrel 75mg tablet PO SCH (07:58)
[2018-03-30] MEDS: quetiapine 100mg tablet PO SCH ×2 (07:58→20:31)
[2018-03-30] MEDS: aspirin 81mg tablet.DR PO SCH (07:58)
[2018-03-30] MEDS: levetiracetam 250mg tablet PO SCH ×2 (07:58→20:28)
[2018-03-30] MEDS: baclofen 10mg tablet PO SCH ×2 (07:58→20:31)
[2018-03-30] MEDS: LIDOcaine 5% patch TP SCH (07:59)
[2018-03-30] MEDS: enoxaparin 40mg/0.4ml syringe SUBCUT SCH (07:59)
[2018-03-30] MEDS: divalproex sodium 500mg tablet.DR PO SCH ×2 (07:59→20:30)
[2018-03-30] MEDS: JUVEN Shake w/Arg/Glut/Ca2+Bmb (Juven 19.3gm) pkt 240ml PO SCH ×3 (08:02→18:01)
[2018-03-30 09:25] VITALS: BP 128/68
--- NOTE | 2018-03-30 14:51 | NUR ---
PT STATES THAT HE WANTS TO GET A RESTRAINING ORDER AGAINST HIS SON. NOTIFIED RICK FROM SS.
[2018-03-30 18:00] VITALS: BP 122/79
--- NOTE | 2018-03-30 18:30 | NUR ---
Patient in room [facility]. I have received report from Pallavi Calderon and had the opportunity to ask questions and assume patient care. Addendum: 03/30/18 at 1911 by Nellie Sun RN Amended: Links added.
--- NOTE | 2018-03-30 18:36 | NUR ---
Problems reprioritized. Patient report given, questions answered & plan of care reviewed with VANDA CAZARES.
--- NOTE | 2018-03-30 20:00 | NUR ---
Student documentation: I have reviewed and agree with all interventions, assessments performed and documented by Tiffani Calderon. Addendum: 03/31/18 at 0458 by Nellie Sun RN Amended: Links added.
[2018-03-30] MEDS: oxyCODONE/APAP 10/325mg tablet PO PRN (20:32)
[2018-03-30] MEDS: mirtazapine 15mg tablet PO SCH (20:32)
--- NOTE | 2018-03-30 21:00 | NUR ---
PATIENT WAS ASSISTED IN USING INCENTIVE SPIROMETER, HE WAS COOPERATIVE AND GOT UP TO 500 ONCE AND ALMOST REACHED 700.
--- NOTE | 2018-03-30 23:00 | NUR ---
pt resting eyes closed without changes at this time.
--- NOTE | 2018-03-31 01:00 | NUR ---
pt resting eyes closed without s&s of distress at this time.
--- NOTE | 2018-03-31 02:45 | NUR ---
PATIENT'S BED ALARM WENT OFF WHEN HE HAD HIS LEGS OUT OF BED. AN AID CAME BY AND HEARD THE ALARM AND PROCEEDED TO HELP HIM OUT OF BED TO THE BEDSIDE COMMODE WITH A SECOND ASSIST. THE AID STATED HE WAS TOO TIRED AND THEY HAD TO DO A LOT OF THE WORK. A BED AGUIAR WILL BE USED FOR THE REST OF THE NIGHT THE PATIENT IS TOO TIRED TO GET UP TO THE COMMODE. HE HAD TAKEN FIVE WALKS TODAY AND OVER EXERTED HIMSELF. HE WAS ALSO HAVING DIFFICULTY FOLLOWING SIMPLE COMMANDS AND COORDINATING HIS FEET. HE WAS VERY DROWSY.
--- NOTE | 2018-03-31 04:52 | NUR ---
pt resting without change at this time.
--- NOTE | 2018-03-31 04:59 | NUR ---
Student Medication Administration: For this medication-pass time frame, all medication were reviewed, dispensed, administered and documented per hospital policy by Tiffani Lin [facility] Rn student.Also reieved all of her charting outcomes and care plans. Addendum: 03/31/18 at 0501 by Nellie Sun RN Amended: Links added.
--- NOTE | 2018-03-31 06:05 | NUR ---
Problems reprioritized. Patient report given, questions answered & plan of care reviewed with Uyen Calderon. Addendum: 03/31/18 at 0605 by Nellie Sun RN Amended: Links added.
--- NOTE | 2018-03-31 06:36 | NUR ---
Patient in room [facility]. I have received report from VANDA CAZARES and had the opportunity to ask questions and assume patient care.
[2018-03-31 07:16] VITALS: BP 97/73
[2018-03-31] MEDS: JUVEN Shake w/Arg/Glut/Ca2+Bmb (Juven 19.3gm) pkt 240ml PO SCH ×3 (08:00→18:00)
[2018-03-31] MEDS: LIDOcaine 5% patch TP SCH (08:00)
[2018-03-31] MEDS: enoxaparin 40mg/0.4ml syringe SUBCUT SCH (08:04)
[2018-03-31] MEDS: quetiapine 100mg tablet PO SCH ×2 (08:04→22:20)
[2018-03-31] MEDS: levetiracetam 250mg tablet PO SCH ×2 (08:04→22:21)
[2018-03-31] MEDS: aspirin 81mg tablet.DR PO SCH (08:04)
[2018-03-31] MEDS: baclofen 10mg tablet PO SCH ×2 (08:04→22:23)
[2018-03-31] MEDS: clopidogrel 75mg tablet PO SCH (08:04)
[2018-03-31] MEDS: divalproex sodium 500mg tablet.DR PO SCH ×2 (08:04→22:19)
[2018-03-31 13:26] LABS: HEMOGLOBIN 12.3 g/dl (14.0-17.9); MEAN PLATELET VOLUME 7.2 FL (7.4-10.4); WHITE BLOOD COUNT 14.1 X10'3 (4.5-11.0)
[2018-03-31 13:28] LABS: BASOPHILS % (AUTO) 0.2 % (0-1); EOSINOPHILS % (AUTO) 0.3 % (0-6); LYMPHOCYTES % (AUTO) 71.4 % (21-51); MEAN CORPUSCULAR HEMOGLOBIN 30.5 PG (27.0-31.0); MEAN CORPUSCULAR HGB CONC 33.2 g/dL (33.0-36.5); MEAN CORPUSCULAR VOLUME 91.9 FL (78-98); MONOCYTES # (AUTO) 0.5 X10'3 (0-0.9); MONOCYTES % (AUTO) 3.4 % (2-12); NEUTROPHILS # (AUTO) 3.5 X10'3 (1.8-7.7); NEUTROPHILS % (AUTO) 24.7 % (42-75); PLATELET COUNT 248 X10'3 (140-440); RED BLOOD COUNT 4.03 X10'6 (4.70-6.10); RED CELL DISTRIBUTION WIDTH 17.2 % (11.5-14.5)
[2018-03-31 13:47] LABS: ALANINE AMINOTRANSFERASE 6 U/L (12-78); ALBUMIN 2.6 G/DL (3.4-5.0); ALBUMIN/GLOBULIN RATIO 0.6 (1.1-1.5); ALKALINE PHOSPHATASE 38 IU/L (46-116); ANION GAP 8 (8-16); ASPARTATE AMINO TRANSFERASE 12 U/L (10-37); BILIRUBIN,TOTAL 0.2 MG/DL (0.1-1.0); BLOOD UREA NITROGEN 22 MG/DL (7-18); BUN/CREATININE RATIO 25.9 (5.4-32.0); CALCIUM 8.8 MG/DL (8.5-10.1); CHLORIDE 106 MMOL/L (99-107); CREATININE 0.85 MG/DL (0.60-1.10); GLUCOSE 88 MG/DL (70-104); POTASSIUM 3.8 MMOL/L (3.5-5.1); SODIUM 142 MMOL/L (135-145); TOTAL CARBON DIOXIDE 28.2 MMOL/L (24-32); TOTAL PROTEIN 6.8 G/DL (6.4-8.2); eGFR 89 ML/MIN
[2018-03-31 14:13] LABS: TOTAL CELLS COUNTED 100
[2018-03-31 14:14] LABS: ANISOCYTOSIS 1+; PLATELET ESTIMATE NORMAL; POIKILOCYTOSIS FEW; POLYCHROMASIA FEW; ROULEAUX 1+; SMUDGE CELLS 1+
[2018-03-31 17:59] LABS: CLARITY,URINE CLEAR (Clear); COLOR,URINE YELLOW (Yellow); GLUCOSE, URINE NEGATIVE (Neg); KETONES,URINE NEGATIVE (Neg); LEUKOCYTE ESTERASE ,URINE NEGATIVE (Neg); NITRITES, URINE NEGATIVE (Neg); OCCULT BLOOD,URINE TRACE-LYSED (Neg); PROTEIN,URINE NEGATIVE (Neg); UROBILINOGEN,URINE 0.2 E.U/dL (0.2-1.0)
[2018-03-31 18:00] VITALS: BP 113/68
[2018-03-31 18:02] LABS: UA COLLECTION TYPE NON-SPECIFIED
[2018-03-31 18:04] LABS: BACTERIA,URINE FEW /HPF (Neg); MUCUS STRANDS FEW /LPF (Neg); RBC,URINE 0-2 /HPF (0-2); SQUAMOUS EPITHELIAL CELL,UR FEW /LPF (FEW)
[2018-03-31 18:05] LABS: COARSE GRANULAR CAST 0-3 /LPF (NEGATIVE)
--- NOTE | 2018-03-31 18:14 | NUR ---
Problems reprioritized. Patient report given, questions answered & plan of care reviewed with VANDA CAZARES.
--- NOTE | 2018-03-31 18:18 | NUR ---
PT HAD A DECENT DAY TODAY. DID NOT ATTEMPT TO GET OUT OF BED. SEEMED TO BE DROWSY TODAY, DID A LOT OF AMBULATING THE HALLWAYS YESTERDAY. OVERALL, KELBY HAD A GOOD DAY.
--- NOTE | 2018-03-31 18:32 | NUR ---
Patient in room [facility]. I have received report from ODELL CAZARES and had the opportunity to ask questions and assume patient care.
--- NOTE | 2018-03-31 18:35 | NUR ---
Patient in room [facility]. I have received report from ODELL CAZARES and had the opportunity to ask questions and assume patient care. Addendum: 03/31/18 at 1841 by Nellie Sun RN Amended: Links added.
--- NOTE | 2018-03-31 20:00 | NUR ---
Student documentation: I have reviewed and agree with all interventions, assessments performed and documented by FAHAD GAITAN [facility] SAGE STUDENT. Addendum: 04/01/18 at 0030 by Nellie Sun RN Amended: Links added.
--- NOTE | 2018-03-31 21:04 | NUR ---
PATIENT APPEARED AGITATED AT HAVING TO STAY IN BED, HE STATED HE HAD TO "FIGHT THEM ALL THEY WAY" IN ORDER TO WALK TO THE SHOWER EARLIER TODAY. AFTER REASSURING HIM, WE WANTED HIM TO REST BECAUSE WE FELT HE OVEREXERTED HIMSELF YESTERDAY HE CALMED DOWN A LITTLE BUT STATED "I JUST HAVE TO SHOW THEM THAT I AM STRONG ENOUGH" AND "I COULD CRAWL OUT OF THIS BED AND SHOW THEM". I CALMLY ASKED HIM NOT TO CRAWL OUT OF BED AND TRY AND REST. HE SAID HE WOULD AND SEEMED LESS AGITATED WHEN I LEFT. HE WAS RESTING AND WATCHING TELEVISION WHEN I LEFT HIM. HIS BED ALARM IS ON AND AUDIBLE. Addendum: 04/01/18 at 0139 by Tiffani QUEVEDO [facility] PATIENT WAS NOT AGITATED BUT VERBALIZED FRUSTRATION BECAUSE HE HAS BEEN IN BED ALL DAY. HE WANTED TO GET OUT OF BED AND WALK. LATER WE WALKED HIM 500 FT AND HE DID VERY WELL. HE WAS COOPERATIVE AND IN A MUCH BETTER MOOD AFTER THE WALK. HE WAS APPRECIATIVE THAT WE WERE ABLE TO WALK AND TOOK HIM TO A DIFFERENT PART OF THE HOSPITAL SO HE COULD HAVE A CHANGE OF SCENERY. WE FOLLOWED HIM WITH A WHEELCHAIR. HE DECIDED WHEN HE HAD HAD ENOUGH AND WE WHEELED HIM BACK TO HIS ROOM. HE WAS THANKFUL FOR THE WALK AND WE GOT HIM READY FOR BED, CHANGED HIS GOWN AND COMBED HIS HAIR. WHILE COMBING HIS HAIR WE DID FIND FLAKES OF DANDER EVEN THOUGH HIS HAIR HAD BEEN WASHED EARLIER IN THE DAY. WE APPLIED CREAM TO THE DRY FLAKING SKIN TO HIS FACE AND BILATERAL LEGS WELL. HE WATCHED TV UNTIL HE FELL ASLEEP.
[2018-03-31] MEDS: oxyCODONE/APAP 10/325mg tablet PO PRN (22:20)
[2018-03-31] MEDS: mirtazapine 15mg tablet PO SCH (22:21)
--- NOTE | 2018-03-31 23:05 | NUR ---
PT DOZED OFF FOR AWHILE WHILE WATCHING TV.
--- NOTE | 2018-04-01 01:00 | NUR ---
PT AWAKE AND WATCHING TV.
--- NOTE | 2018-04-01 02:00 | NUR ---
PT IN GOOD SPIRITS AWAKE AND REQUESTED FOOD DOES NOT LIKE PROTEIN SHAKES BUT DOSE LIKE CHEESE SNACKS.
--- NOTE | 2018-04-01 04:02 | NUR ---
PATIENT WOKE A COUPLE TIMES THROUGHOUT THE NIGHT WANTING SNACKS, TO WASH FACE AND BRUSH TEETH. HE ASKED TO WALK ONCE BUT I TOLD HIM HE LOOKED TOO TIRED TO WALK, HE AGREED AND WENT BACK TO SLEEP. HE WAS ABLE TO WASH HIS OWN FACE BUT WAS TOO TIRED TO BRUSH HIS TEETH SO HE WAS ENCOURAGED TO GET SOME SLEEP. HES HAVING TROUBLE STAYING ASLEEP TONIGHT BUT HE'S COOPERATIVE AND PLEASANT.
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
--- NOTE | 2018-04-01 05:37 | NUR ---
Student documentation: I have reviewed and agree with all interventions, assessments performed and documented by Fahad walden rn student.Student Medication Administration: For this medication-pass time frame, all medication were reviewed, dispensed, administered and documented per hospital policy by FAHAD WALDEN RN STUDENT. Addendum: 04/01/18 at 0538 by Nellie Sun RN Amended: Links added.
--- NOTE | 2018-04-01 06:44 | NUR ---
Problems reprioritized. Patient report given, questions answered & plan of care reviewed with AJNUSZ CAZARES. Addendum: 04/01/18 at 0645 by Nellie Sun RN Amended: Links added.
[2018-04-01 07:50] VITALS: BP 122/72
[2018-04-01] MEDS: LIDOcaine 5% patch TP SCH (08:00)
[2018-04-01] MEDS: levetiracetam 250mg tablet PO SCH ×2 (08:26→20:26)
[2018-04-01] MEDS: divalproex sodium 500mg tablet.DR PO SCH ×2 (08:26→20:27)
[2018-04-01] MEDS: baclofen 10mg tablet PO SCH ×2 (08:26→20:28)
[2018-04-01] MEDS: aspirin 81mg tablet.DR PO SCH (08:26)
[2018-04-01] MEDS: clopidogrel 75mg tablet PO SCH (08:26)
[2018-04-01] MEDS: quetiapine 100mg tablet PO SCH ×2 (08:26→20:28)
[2018-04-01] MEDS: enoxaparin 40mg/0.4ml syringe SUBCUT SCH (08:29)
[2018-04-01] MEDS: JUVEN Shake w/Arg/Glut/Ca2+Bmb (Juven 19.3gm) pkt 240ml PO SCH ×4 (08:30→20:34)
[2018-04-01 11:21] VITALS: BP 108/62
--- NOTE | 2018-04-01 12:47 | NUR ---
reassessment: Pt PO 50% avg regular meals and refused high protein shake w/ breakfast this AM. LBM 03/31. Pt PO does fluctuate likely r/t probable dementia per MD note. Per EMR chronic leukocytosis w/ lymphocytic leukemia. Will monitor for ONS acceptance and additional ONS preferences if continue refusal. Rec: 1. Continue regular diet 2. High Protein shake TID 3. Encourage ONS intake/PO 4. Wt per rx Addendum: 04/01/18 at [address] Amended: Links added.
[2018-04-01 16:39] LABS: CLARITY,URINE CLEAR (Clear); COLOR,URINE YELLOW (Yellow); GLUCOSE, URINE NEGATIVE (Neg); KETONES,URINE TRACE mg/dl (Neg); LEUKOCYTE ESTERASE ,URINE NEGATIVE (Neg); NITRITES, URINE NEGATIVE (Neg); OCCULT BLOOD,URINE TRACE-LYSED (Neg); PROTEIN,URINE NEGATIVE (Neg); UROBILINOGEN,URINE 0.2 E.U/dL (0.2-1.0)
[2018-04-01 16:41] LABS: UA COLLECTION TYPE CLN CATCH MIDSTREAM
[2018-04-01 17:06] LABS: MUCUS STRANDS MODERATE /LPF (Neg); SQUAMOUS EPITHELIAL CELL,UR FEW /LPF (FEW)
[2018-04-01 17:07] LABS: HYALINE CASTS 0-3 /LPF (NEGATIVE)
[2018-04-01 17:11] LABS: BACTERIA,URINE FEW /HPF (Neg); RBC,URINE 0-2 /HPF (0-2)
--- NOTE | 2018-04-01 17:22 | NUR ---
Shift Summary : Patient had a very good day. Requested ambulation twice today. Ambulated 600 feet one time and 900 feet the second time. Patient rested and watched TV most of the day. No complaints.
--- NOTE | 2018-04-01 18:05 | NUR ---
Patient in room [facility]. I have received report from Eleanor Calderon and had the opportunity to ask questions and assume patient care. Addendum: 04/01/18 at 1918 by Nellie Sun RN Amended: Links added.
--- NOTE | 2018-04-01 18:26 | NUR ---
Problems reprioritized. Patient report given, questions answered & plan of care reviewed with SAGE Ballard.
--- NOTE | 2018-04-01 18:45 | NUR ---
Patient in room [facility]. I have received report from JANUSZ CAZARES and had the opportunity to ask questions and assume patient care.
[2018-04-01 20:00] VITALS: BP 122/71
--- NOTE | 2018-04-01 20:10 | NUR ---
pt medicated for pain and took hs meds tolerated well. no complaints.
[2018-04-01] MEDS: oxyCODONE/APAP 10/325mg tablet PO PRN (20:26)
[2018-04-01] MEDS: mirtazapine 15mg tablet PO SCH (20:28)
--- NOTE | 2018-04-01 22:25 | NUR ---
watching tv no s&s of distress at this time.
--- NOTE | 2018-04-02 02:13 | NUR ---
PATIENT HAS BEEN VERY PLEASANT TONIGHT. HE HAS BEEN SNACKING, SLEEPING AND WATCHING TV ON AND OFF. NO SIGNS OF DISCOMFORT.
--- NOTE | 2018-04-02 02:16 | NUR ---
hair with cradle cap and hair combed thick and dry hair conditioner applied to help soften it up and combed through. pt to have a shower today with hair wash. pt skin on face dry and lotion applied to it as well.
--- NOTE | 2018-04-02 04:10 | NUR ---
PT RESTING EYES CLOSED NO S&S OF DISTRESS AT THIS TIME.
--- NOTE | 2018-04-02 05:04 | NUR ---
Problems reprioritized. Patient report given, questions answered & plan of care reviewed with Tiffani whitaker [facility] Yumiko student. Addendum: 04/02/18 at 0505 by Nellie Sun RN Amended: Links added.
--- NOTE | 2018-04-02 05:05 | NUR ---
Student Medication Administration: For this medication-pass time frame, all medication were reviewed, dispensed, administered and documented per hospital policy by FAHAD GAITAN [facility] SAGE STUDENT. Addendum: 04/02/18 at 0506 by Nellie Sun RN Amended: Links added.
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
--- NOTE | 2018-04-02 06:17 | NUR ---
Problems reprioritized. Patient report given, questions answered & plan of care reviewed with JANUSZ CAZARES. Addendum: 04/02/18 at 0619 by Nellie Sun RN Amended: Links added.
--- NOTE | 2018-04-02 06:37 | NUR ---
Problems reprioritized. Patient report given, questions answered & plan of care reviewed with JANUSZ Barron RN. Addendum: 04/02/18 at 0637 by Nellie Sun RN Amended: Links added.
[2018-04-02] MEDS: quetiapine 100mg tablet PO SCH ×2 (07:37→19:46)
[2018-04-02] MEDS: levetiracetam 250mg tablet PO SCH ×2 (07:37→19:48)
[2018-04-02] MEDS: clopidogrel 75mg tablet PO SCH (07:38)
[2018-04-02] MEDS: baclofen 10mg tablet PO SCH ×2 (07:38→19:52)
[2018-04-02] MEDS: enoxaparin 40mg/0.4ml syringe SUBCUT SCH (07:38)
[2018-04-02] MEDS: divalproex sodium 500mg tablet.DR PO SCH ×2 (07:38→19:49)
[2018-04-02] MEDS: LIDOcaine 5% patch TP SCH (07:38)
[2018-04-02] MEDS: aspirin 81mg tablet.DR PO SCH (07:38)
[2018-04-02 07:50] VITALS: BP 121/59
[2018-04-02 11:00] VITALS: BP 113/68
[2018-04-02] MEDS: JUVEN Shake w/Arg/Glut/Ca2+Bmb (Juven 19.3gm) pkt 240ml PO SCH ×2 (13:00→17:59)
--- NOTE | 2018-04-02 18:00 | NUR ---
Patient had a very good day, rested mostly. No complaints. Ate well.
--- NOTE | 2018-04-02 18:30 | NUR ---
Patient in room [facility]. I have received report from Eleanor CAZARES and had the opportunity to ask questions and assume patient care.
--- NOTE | 2018-04-02 18:30 | NUR ---
Patient in room [facility]. I have received report from Eleanor Calderon and had the opportunity to ask questions and assume patient care. Addendum: 04/02/18 at 1923 by Nellie Sun RN Amended: Links added.
--- NOTE | 2018-04-02 18:31 | NUR ---
Problems reprioritized. Patient report given, questions answered & plan of care reviewed with SAGE Ballard.
--- NOTE | 2018-04-02 19:35 | NUR ---
patient refused protein shake because he says they are too sweet. we have been supplementing with cheese sticks.
[2018-04-02] MEDS: oxyCODONE/APAP 10/325mg tablet PO PRN (19:47)
[2018-04-02] MEDS: mirtazapine 15mg tablet PO SCH (19:50)
[2018-04-02 20:00] VITALS: BP 122/71
--- NOTE | 2018-04-02 21:30 | NUR ---
pt watching tv without complaints at this time.
--- NOTE | 2018-04-02 22:35 | NUR ---
pt taken to the shower hair washed and combed out x3, complete shower done. p0t had ambulated with rehab walker to the shower then when time to get out taken out by wc with 2 people. pt tolerated well. noted having some difficulty tonight coordinating his left leg. transferred with 2 back into bed. bed liens had been changed prior to getting him back into bed.
--- NOTE | 2018-04-03 00:35 | NUR ---
pt resting eyes closed without s&s of distress at this time.
--- NOTE | 2018-04-03 01:26 | NUR ---
patient was repositioned and given a warm blanket and warm milk to help him sleep.
--- NOTE | 2018-04-03 03:23 | NUR ---
Student documentation: I have reviewed and agree with all interventions, assessments performed and documented by FAHAD FELTON RN STUDENT.Student Medication Administration: For this medication-pass time frame, all medication were reviewed, dispensed, administered and documented per hospital policy by FAHAD FELTON RN STUDENT. Addendum: 04/03/18 at 0324 by Nellie Sun RN Amended: Links added.
--- NOTE | 2018-04-03 03:52 | NUR ---
pt resting eyes closed without changes or s&s of distress.
--- NOTE | 2018-04-03 05:34 | NUR ---
SHIFT SUMMARY; pt at start of shift did not want to take a shower but did want to walk. encouraged with 2 nurses rehab walker and gait belt to walk to the shower he did but noted he had left foot drop more and had trouble picking it up when he was ambulating. noted he was tired and had some difficulty following directions but did. transferred to the shower stool tolerated shower well and hair wash. after completion pt said thank you for doing this. noted that a wheel chair transfer from shower to bed was a safer plan. pt agreed with this stating he was tired and needed get some rest. warm blanket given and tv on for him to watch. he dozed off and on throughout the night. sleep and hour awake 30min to one hour then doze off again. currently resting eyes closed.
--- NOTE | 2018-04-03 06:50 | NUR ---
Problems reprioritized. Patient report given, questions answered & plan of care reviewed with Tala Calderon. Addendum: 04/03/18 at 0651 by Nellie Sun RN Amended: Links added.
[2018-04-03 07:22] VITALS: BP 138/65
[2018-04-03] MEDS: JUVEN Shake w/Arg/Glut/Ca2+Bmb (Juven 19.3gm) pkt 240ml PO SCH ×3 (08:00→18:00)
[2018-04-03] MEDS: aspirin 81mg tablet.DR PO SCH (10:49)
[2018-04-03] MEDS: levetiracetam 250mg tablet PO SCH ×2 (10:49→20:21)
[2018-04-03] MEDS: clopidogrel 75mg tablet PO SCH (10:49)
[2018-04-03] MEDS: quetiapine 100mg tablet PO SCH ×2 (10:49→20:21)
[2018-04-03] MEDS: baclofen 10mg tablet PO SCH ×2 (10:49→20:21)
[2018-04-03] MEDS: divalproex sodium 500mg tablet.DR PO SCH ×2 (10:49→20:21)
[2018-04-03] MEDS: enoxaparin 40mg/0.4ml syringe SUBCUT SCH (10:50)
--- NOTE | 2018-04-03 11:59 | NUR ---
MD KUMARIO in to assess pt. Aware of scabs on head and picking. See new orders for lotion BID.
[2018-04-03] MEDS: LIDOcaine 5% patch TP SCH (12:46)
[2018-04-03] MEDS: oxyCODONE/APAP 10/325mg tablet PO PRN ×2 (12:46→17:34)
[2018-04-03] MEDS: mineral oil/petrolatum, white cream 113gm jar TP SCH (17:34)
--- NOTE | 2018-04-03 18:41 | NUR ---
Pt in stable condition. Gave report to
[2018-04-03 20:00] VITALS: BP 125/56
[2018-04-03] MEDS: mirtazapine 15mg tablet PO SCH (20:21)
--- NOTE | 2018-04-04 06:22 | NUR ---
Problems reprioritized. Patient report given, questions answered & plan of care reviewed with SAGE Viveros. Addendum: 04/04/18 at 0623 by Bisi Hadley RN Amended: Links added.
[2018-04-04] MEDS: baclofen 10mg tablet PO SCH ×2 (08:55→19:58)
[2018-04-04] MEDS: aspirin 81mg tablet.DR PO SCH (08:55)
[2018-04-04] MEDS: divalproex sodium 500mg tablet.DR PO SCH ×2 (08:56→19:57)
[2018-04-04] MEDS: quetiapine 100mg tablet PO SCH ×2 (08:56→19:57)
[2018-04-04] MEDS: JUVEN Shake w/Arg/Glut/Ca2+Bmb (Juven 19.3gm) pkt 240ml PO SCH ×3 (08:56→18:00)
[2018-04-04] MEDS: levetiracetam 250mg tablet PO SCH ×2 (08:56→19:58)
[2018-04-04] MEDS: clopidogrel 75mg tablet PO SCH (08:56)
[2018-04-04] MEDS: LIDOcaine 5% patch TP SCH (08:57)
[2018-04-04] MEDS: enoxaparin 40mg/0.4ml syringe SUBCUT SCH (08:57)
[2018-04-04] MEDS: mineral oil/petrolatum, white cream 113gm jar TP SCH ×2 (08:57→20:00)
[2018-04-04 11:00] VITALS: BP 129/70
--- NOTE | 2018-04-04 14:16 | NUR ---
Reassessment: Documented PO intake fluctuates 50% and 100% with 25-50% intake of high protein shake likely meeting nutrient needs at this time. [facility] 04/03. Will continue to follow. Rec: 1. Continue regular diet 2. High Protein shake TID 3. Encourage ONS intake/PO 4. Wt per rx Addendum: 04/04/18 at [address] Amended: Links added.
[2018-04-04] MEDS: mirtazapine 15mg tablet PO SCH (19:58)
[2018-04-04] MEDS: oxyCODONE/APAP 10/325mg tablet PO PRN (19:59)
[2018-04-04 20:00] VITALS: BP 122/74
--- NOTE | 2018-04-05 06:27 | NUR ---
Problems reprioritized. Patient report given, questions answered & plan of care reviewed with SAGE Webster. Addendum: 04/05/18 at 0628 by Bisi Hadley RN Amended: Links added.
[2018-04-05 07:40] VITALS: BP 105/75
[2018-04-05] MEDS: enoxaparin 40mg/0.4ml syringe SUBCUT SCH (08:00)
[2018-04-05] MEDS: LIDOcaine 5% patch TP SCH (08:00)
[2018-04-05] MEDS: clopidogrel 75mg tablet PO SCH (08:02)
[2018-04-05] MEDS: JUVEN Shake w/Arg/Glut/Ca2+Bmb (Juven 19.3gm) pkt 240ml PO SCH ×3 (08:02→17:54)
[2018-04-05] MEDS: aspirin 81mg tablet.DR PO SCH (08:03)
[2018-04-05] MEDS: baclofen 10mg tablet PO SCH ×2 (08:03→20:31)
[2018-04-05] MEDS: divalproex sodium 500mg tablet.DR PO SCH ×2 (08:03→20:30)
[2018-04-05] MEDS: levetiracetam 250mg tablet PO SCH ×2 (08:03→20:30)
[2018-04-05] MEDS: quetiapine 100mg tablet PO SCH ×2 (08:03→20:30)
[2018-04-05] MEDS: mineral oil/petrolatum, white cream 113gm jar TP SCH ×2 (08:09→20:32)
--- NOTE | 2018-04-05 18:00 | NUR ---
PATIENT HAD A VERY GOOD DAY. PLEASANT ALL DAY, NO COMPLAINTS. ATE WELL.
--- NOTE | 2018-04-05 18:23 | NUR ---
Patient in room [facility]. I have received report from SAGE Dickson and had the opportunity to ask questions and assume patient care. Addendum: 04/05/18 at 1824 by Patricia Schuster RN Amended: Links added.
--- NOTE | 2018-04-05 18:34 | NUR ---
Problems reprioritized. Patient report given, questions answered & plan of care reviewed with SAGE BUSTOS
[2018-04-05 20:30] VITALS: BP 124/53
[2018-04-05] MEDS: mirtazapine 15mg tablet PO SCH (20:30)
--- NOTE | 2018-04-06 06:39 | NUR ---
Problems reprioritized. Patient report given, questions answered & plan of care reviewed with SAGE VALLADARES. Addendum: 04/06/18 at 0639 by Patricia Schuster RN Amended: Links added.
--- NOTE | 2018-04-06 06:45 | NUR ---
Patient in room [facility] 357. I have received report from Margoth CAZARES and had the opportunity to ask questions and assume patient care.
[2018-04-06 07:00] VITALS: BP 127/67
[2018-04-06] MEDS: JUVEN Shake w/Arg/Glut/Ca2+Bmb (Juven 19.3gm) pkt 240ml PO SCH ×3 (08:00→18:34)
[2018-04-06] MEDS: levetiracetam 250mg tablet PO SCH ×2 (09:46→20:06)
[2018-04-06] MEDS: baclofen 10mg tablet PO SCH ×2 (09:46→20:05)
[2018-04-06] MEDS: aspirin 81mg tablet.DR PO SCH (09:47)
[2018-04-06] MEDS: divalproex sodium 500mg tablet.DR PO SCH ×2 (09:48→20:06)
[2018-04-06] MEDS: clopidogrel 75mg tablet PO SCH (09:49)
[2018-04-06] MEDS: quetiapine 100mg tablet PO SCH ×2 (09:50→20:06)
[2018-04-06] MEDS: LIDOcaine 5% patch TP SCH (09:51)
[2018-04-06] MEDS: enoxaparin 40mg/0.4ml syringe SUBCUT SCH (09:57)
[2018-04-06] MEDS: mineral oil/petrolatum, white cream 113gm jar TP SCH ×2 (10:11→20:08)
[2018-04-06 11:00] VITALS: BP 122/78
--- NOTE | 2018-04-06 13:15 | NUR ---
Patient has been calm today, appropriate and follow instructions.
[2018-04-06 18:00] VITALS: BP 114/71
--- NOTE | 2018-04-06 18:32 | NUR ---
Problems reprioritized. Patient report given, questions answered & plan of care reviewed with Harman CAZARES
--- NOTE | 2018-04-06 18:33 | NUR ---
Patient in room [facility] 357. I have received report from SAGE Bolanos and had the opportunity to ask questions and assume patient care.
[2018-04-06] MEDS: mirtazapine 15mg tablet PO SCH (20:06)
--- NOTE | 2018-04-07 06:30 | NUR ---
Pt was very pleasant at the begenning of shift, and as the night went on became more confused. Began calling out, forgetting to use call light, etc.
--- NOTE | 2018-04-07 06:34 | NUR ---
Problems reprioritized. Patient report given, questions answered & plan of care reviewed with SAGE Edwards.
--- NOTE | 2018-04-07 06:37 | NUR ---
Patient in room [facility] 347B. I have received report from Harman CAZARES and had the opportunity to ask questions and assume patient care. Student documentation: I have reviewed and agree with all interventions, assessments performed and documented by Kathie CAZARES. Student Medication Administration: For this medication-pass time frame, all medication were reviewed, dispensed, administered and documented per hospital policy by Kathie CAZARES.
[2018-04-07 07:10] VITALS: BP 143/80
[2018-04-07] MEDS: JUVEN Shake w/Arg/Glut/Ca2+Bmb (Juven 19.3gm) pkt 240ml PO SCH ×3 (08:00→17:48)
[2018-04-07] MEDS: LIDOcaine 5% patch TP SCH (08:37)
[2018-04-07] MEDS: levetiracetam 250mg tablet PO SCH ×2 (08:39→20:09)
[2018-04-07] MEDS: aspirin 81mg tablet.DR PO SCH (08:40)
[2018-04-07] MEDS: divalproex sodium 500mg tablet.DR PO SCH ×2 (08:40→20:09)
[2018-04-07] MEDS: quetiapine 100mg tablet PO SCH ×2 (08:40→20:08)
[2018-04-07] MEDS: clopidogrel 75mg tablet PO SCH (08:40)
[2018-04-07] MEDS: enoxaparin 40mg/0.4ml syringe SUBCUT SCH (08:45)
[2018-04-07] MEDS: baclofen 10mg tablet PO SCH ×2 (08:47→20:08)
[2018-04-07] MEDS: mineral oil/petrolatum, white cream 113gm jar TP SCH ×2 (12:10→20:09)
[2018-04-07 18:00] VITALS: BP 119/65
--- NOTE | 2018-04-07 18:39 | NUR ---
Problems reprioritized. Patient report given, questions answered & plan of care reviewed with louis paredes.
--- NOTE | 2018-04-07 18:39 | NUR ---
Patient pleasant and cooperative this shift. Patient has had no outbursts and has not been impulsive. Patient smiling while conversing.
--- NOTE | 2018-04-07 18:40 | NUR ---
Patient in room [facility] 357. I have received report from SAGE Edwards and had the opportunity to ask questions and assume patient care.
[2018-04-07] MEDS: mirtazapine 15mg tablet PO SCH (20:08)
[2018-04-08] VITALS: BP 105/66
--- NOTE | 2018-04-08 05:18 | NUR ---
Pt was pleasant the whole shift.
[2018-04-08 06:00] VITALS: BP 139/68
--- NOTE | 2018-04-08 06:30 | NUR ---
Patient in room [facility] 357. I have received report from SAGE Hammer and had the opportunity to ask questions and assume patient care.
--- NOTE | 2018-04-08 06:43 | NUR ---
Problems reprioritized. Patient report given, questions answered & plan of care reviewed with SAGE Campbell.
[2018-04-08] MEDS: JUVEN Shake w/Arg/Glut/Ca2+Bmb (Juven 19.3gm) pkt 240ml PO SCH ×2 (08:00→12:36)
[2018-04-08] MEDS: LIDOcaine 5% patch TP SCH (08:00)
[2018-04-08] MEDS: aspirin 81mg tablet.DR PO SCH (09:28)
[2018-04-08] MEDS: clopidogrel 75mg tablet PO SCH (09:28)
[2018-04-08] MEDS: divalproex sodium 500mg tablet.DR PO SCH ×2 (09:28→20:43)
[2018-04-08] MEDS: quetiapine 100mg tablet PO SCH ×2 (09:30→20:41)
[2018-04-08] MEDS: baclofen 10mg tablet PO SCH ×2 (09:30→20:42)
[2018-04-08] MEDS: levetiracetam 250mg tablet PO SCH ×2 (09:30→20:43)
[2018-04-08] MEDS: enoxaparin 40mg/0.4ml syringe SUBCUT SCH (09:31)
[2018-04-08] MEDS: mineral oil/petrolatum, white cream 113gm jar TP SCH ×2 (10:32→20:46)
[2018-04-08 11:01] VITALS: BP 116/69
--- NOTE | 2018-04-08 18:00 | NUR ---
Problems reprioritized. Patient report given, questions answered & plan of care reviewed with SAGE Vasquez.
--- NOTE | 2018-04-08 18:29 | NUR ---
Patient in room [facility] 357. I have received report from Shannan CAZARES and had the opportunity to ask questions and assume patient care.
--- NOTE | 2018-04-08 18:30 | NUR ---
Pt pleasant & cooperative entire shift.
[2018-04-08 20:00] VITALS: BP 109/64
[2018-04-08] MEDS: mirtazapine 15mg tablet PO SCH (20:42)
--- NOTE | 2018-04-09 04:46 | NUR ---
Pt was very calm and cooperative on this shift. He showed no signs of anxiousness, was appropriate and very interactive in conversations.
--- NOTE | 2018-04-09 06:32 | NUR ---
Problems reprioritized. Patient report given, questions answered & plan of care reviewed with Tala CAZARES.
[2018-04-09 07:00] VITALS: BP 143/80
[2018-04-09] MEDS: divalproex sodium 500mg tablet.DR PO SCH ×2 (07:59→20:46)
[2018-04-09] MEDS: clopidogrel 75mg tablet PO SCH (07:59)
[2018-04-09] MEDS: quetiapine 100mg tablet PO SCH ×2 (07:59→20:46)
[2018-04-09] MEDS: aspirin 81mg tablet.DR PO SCH (07:59)
[2018-04-09] MEDS: oxyCODONE/APAP 10/325mg tablet PO PRN (08:00)
[2018-04-09] MEDS: LIDOcaine 5% patch TP SCH (08:00)
[2018-04-09] MEDS: baclofen 10mg tablet PO SCH ×2 (08:00→20:47)
[2018-04-09] MEDS: levetiracetam 250mg tablet PO SCH ×2 (08:01→20:45)
[2018-04-09] MEDS: enoxaparin 40mg/0.4ml syringe SUBCUT SCH (08:01)
[2018-04-09] MEDS: mineral oil/petrolatum, white cream 113gm jar TP SCH ×2 (08:04→20:44)
--- NOTE | 2018-04-09 09:19 | NUR ---
Pt. very cooperative and pleasant. Relaxed, laying in bed, watching TV. Requested milk with his medications. Willing and wanting to ambulate with staff. Took medications with no complications and tolerated well. Alert and orientated x 4, holds conversation appropriately. Some anxiety statements about family situation but after acknowledgement, easily redirected towards other topics. Will cont. to monitor for any changes on my shift.
[2018-04-09 11:00] VITALS: BP 103/57
--- NOTE | 2018-04-09 11:24 | NUR ---
PAGER ID: [phone] MESSAGE: [phone] Denis ARMENDARIZ Do you want a new Valproic or Keppra level for this pt? Last Valproic 03/17/18 was 92 Last keppra 01/04/18 34.1 Thank you, Tala CAZARES [phone]
[2018-04-09 12:29] VITALS: BP 106/62
--- NOTE | 2018-04-09 12:49 | NUR ---
SS met w/pt, he was alert & oriented x4, in cheerful mood this afternoon. SS discussed plan for pt to hire a new [facility] worker so pt can be d/c home pending result of teleneuro consult. Pt would like this. Plan: SS to discuss [facility] referral with pt. Addendum: 04/09/18 at 1253 by Rosalind Austin SS Amended: Links added.
--- NOTE | 2018-04-09 13:04 | NUR ---
reassessment: Pt PO increased to 75-100% regular meals on remeron and seroquel meeting needs. Likely dementia per MD note. LBM 04/09. Will continue to monitor. Rec: 1. Continue regular diet 2. High Protein shake TID 3. Encourage ONS intake/PO 4. Wt per rx Addendum: 04/09/18 at [address] Amended: Links added.
--- NOTE | 2018-04-09 13:50 | NUR ---
Teleneuro consult complete. Neuro MD states that pt will need a tele pysch. not tele neuro to determine mental status.
--- NOTE | 2018-04-09 13:54 | NUR ---
also states no additional paperwork or process for [facility]. Isabelle ALATORRE will call pt. momentarily.
--- NOTE | 2018-04-09 14:54 | NUR ---
Psych consult called and requested to speak to Leilani case checker to review specific details about patient's case/ situation. Phone number provided and page sent with phone number.
--- NOTE | 2018-04-09 18:26 | NUR ---
Patient in room [facility] 357. I have received report from Tala CAZARES and had the opportunity to ask questions and assume patient care.
--- NOTE | 2018-04-09 18:42 | NUR ---
Problems reprioritized. Patient report given, questions answered & plan of care reviewed with
[2018-04-09] MEDS: mirtazapine 15mg tablet PO SCH (20:48)
[2018-04-09 21:50] VITALS: BP 109/90
--- NOTE | 2018-04-10 03:28 | NUR ---
Pt was in a very good mood this evening. Talked about walking the unit twice today and his willingness to try and get stronger. H was alert, oriented and appropriate. Pt participated actively in all care.
--- NOTE | 2018-04-10 05:59 | NUR ---
Problems reprioritized. Patient report given, questions answered & plan of care reviewed with Tala CAZARES.
--- NOTE | 2018-04-10 06:42 | NUR ---
[facility] at [facility]. Telepysch phone number provided to [employer] spray unit feeder- who will follow up to get results.
[2018-04-10 07:00] VITALS: BP 118/67
[2018-04-10] MEDS: quetiapine 100mg tablet PO SCH ×2 (07:36→21:01)
[2018-04-10] MEDS: aspirin 81mg tablet.DR PO SCH (07:37)
[2018-04-10] MEDS: clopidogrel 75mg tablet PO SCH (07:37)
[2018-04-10] MEDS: levetiracetam 250mg tablet PO SCH ×2 (07:37→21:00)
[2018-04-10] MEDS: oxyCODONE/APAP 10/325mg tablet PO PRN (07:37)
[2018-04-10] MEDS: divalproex sodium 500mg tablet.DR PO SCH ×2 (07:37→21:01)
[2018-04-10] MEDS: baclofen 10mg tablet PO SCH ×2 (07:38→21:00)
[2018-04-10] MEDS: enoxaparin 40mg/0.4ml syringe SUBCUT SCH (07:38)
[2018-04-10] MEDS: mineral oil/petrolatum, white cream 113gm jar TP SCH ×2 (07:41→21:02)
[2018-04-10] MEDS: LIDOcaine 5% patch TP SCH (08:00)
--- NOTE | 2018-04-10 14:09 | NUR ---
SS met with pt and engaged him in a discussion re the recent tele-neuropsych eval and the the result/recommendation from the doctor. Pt was alert & oriented to person & place, demonstrated very limited understanding/awareness of what the tel-neuropsych eval recommendation mean. Pt continues to insist that he alone can decide on what's best for him w/re to medical care/treatment and believes that all he needs to do is learn to walk again and agree to go to rehab to get stronger then he can go home. Pt also noted that his family only visits him when they want to. Plan: SS to page hospitalist to request that she completes the Declaration of Mental Capacity for pt as part of the referral for a conservatorship. Addendum: 04/10/18 at 1434 by Rosalind Austin SS Amended: Links added.
--- NOTE | 2018-04-10 18:48 | NUR ---
PT. RELAXED SLEEPING MOST OF THE DAY, PLEASANT ENCOUNTERS. ATE WELL, AMBULATED ONLY ONE TIME R/T 2 PERSON MOD ASSIST.
--- NOTE | 2018-04-10 19:05 | NUR ---
Problems reprioritized. Patient report given, questions answered & plan of care reviewed with
[2018-04-10] MEDS: mirtazapine 15mg tablet PO SCH (21:00)
[2018-04-10 21:59] VITALS: BP 141/81
--- NOTE | 2018-04-11 06:27 | NUR ---
Problems reprioritized. Patient report given, questions answered & plan of care reviewed with Luis Miguel CAZARES.
--- NOTE | 2018-04-11 06:35 | NUR ---
Patient in room [facility] 357. I have received report from Christina CAZARES and had the opportunity to ask questions and assume patient care.
[2018-04-11 07:00] VITALS: BP 107/63
[2018-04-11] MEDS: levetiracetam 250mg tablet PO SCH ×2 (07:18→20:08)
[2018-04-11] MEDS: quetiapine 100mg tablet PO SCH ×2 (07:19→20:07)
[2018-04-11] MEDS: baclofen 10mg tablet PO SCH ×2 (07:19→20:08)
[2018-04-11] MEDS: divalproex sodium 500mg tablet.DR PO SCH ×2 (07:19→20:08)
[2018-04-11] MEDS: clopidogrel 75mg tablet PO SCH (07:19)
[2018-04-11] MEDS: aspirin 81mg tablet.DR PO SCH (07:19)
[2018-04-11] MEDS: LIDOcaine 5% patch TP SCH (07:20)
[2018-04-11] MEDS: enoxaparin 40mg/0.4ml syringe SUBCUT SCH (07:20)
[2018-04-11] MEDS: mineral oil/petrolatum, white cream 113gm jar TP SCH ×2 (07:20→20:07)
[2018-04-11 12:00] VITALS: BP 118/65
--- NOTE | 2018-04-11 18:37 | NUR ---
Problems reprioritized. Patient report given, questions answered & plan of care reviewed with Jerica CAZARES.
--- NOTE | 2018-04-11 18:53 | NUR ---
Received report from Luis Miguel CAZARES pt is currently sleeping on RA in no apparent distrress
[2018-04-11 20:00] VITALS: BP 106/63
[2018-04-11] MEDS: mirtazapine 15mg tablet PO SCH (20:08)
--- NOTE | 2018-04-12 06:41 | NUR ---
gave report to Leilani CAZARES pt was awake requesting warm blanket, on RA, in no apparent distress
[2018-04-12 07:00] VITALS: BP 126/70
--- NOTE | 2018-04-12 07:07 | NUR ---
Patient in room [facility] 357. I have received report from Shira CAZARES and had the opportunity to ask questions and assume patient care.
[2018-04-12] MEDS: LIDOcaine 5% patch TP SCH (08:00)
[2018-04-12] MEDS: baclofen 10mg tablet PO SCH ×2 (08:36→20:20)
[2018-04-12] MEDS: clopidogrel 75mg tablet PO SCH (08:37)
[2018-04-12] MEDS: quetiapine 100mg tablet PO SCH ×2 (08:37→20:21)
[2018-04-12] MEDS: divalproex sodium 500mg tablet.DR PO SCH ×2 (08:37→20:20)
[2018-04-12] MEDS: levetiracetam 250mg tablet PO SCH ×2 (08:37→20:19)
[2018-04-12] MEDS: aspirin 81mg tablet.DR PO SCH (08:37)
[2018-04-12] MEDS: enoxaparin 40mg/0.4ml syringe SUBCUT SCH (08:38)
[2018-04-12] MEDS: mineral oil/petrolatum, white cream 113gm jar TP SCH ×2 (08:42→20:21)
[2018-04-12 13:14] LABS: MEAN CORPUSCULAR HEMOGLOBIN 29.9 PG (27.0-31.0); MONOCYTES # (AUTO) 0.7 X10'3 (0-0.9); NEUTROPHILS # (AUTO) 4.6 X10'3 (1.8-7.7); RED BLOOD COUNT 4.16 X10'6 (4.70-6.10)
[2018-04-12 13:16] LABS: BASOPHILS # (AUTO) 0.1 X10'3 (0-0.2); BASOPHILS % (AUTO) 0.5 % (0-1); EOSINOPHILS # (AUTO) 0.1 X10'3 (0-0.9); EOSINOPHILS % (AUTO) 0.3 % (0-6); HEMATOCRIT 38.5 % (42.0-52.0); HEMOGLOBIN 12.4 g/dl (14.0-17.9); LYMPHOCYTES # (AUTO) 12.1 X10'3 (1.1-4.8); LYMPHOCYTES % (AUTO) 69.4 % (21-51); MEAN CORPUSCULAR HGB CONC 32.3 g/dL (33.0-36.5); MEAN CORPUSCULAR VOLUME 92.4 FL (78-98); MEAN PLATELET VOLUME 7.6 FL (7.4-10.4); MONOCYTES % (AUTO) 3.8 % (2-12); PLATELET COUNT 259 X10'3 (140-440); WHITE BLOOD COUNT 17.5 X10'3 (4.5-11.0)
--- NOTE | 2018-04-12 13:45 | NUR ---
2 Nursing students were ambulating Patient with rehab walker and gait belt. I came around the corner and patient did not look very well was sitting in a folding chair. RAHEEL Montes was standing by and assisted with placing patient in Recliner. We moved patient back to his room where enroute he was noted to look a little lethargic and mottling to both extremities. We assisted patient back in to bed and he became more of his normal self. Coloring came back to patients extremities. Patient was given a Neuro test while in bed and he did well with right side left side still was weak which was his baseline. Patients vitals were taken and to be BP 99/65 HR 104 Spo2 94%. Patients blood glucose was 107. Called Dr Valero who requested we do Orthostatic vitals: 102/72 HR 108 supine, 118/73 HR 110 sitting, 126/[address] Valero aware and that patient is now at baseline. Per Dr Valero she will look at patients medications and make adjustments if needed.
[2018-04-12 14:02] VITALS: BP_SYST 102; BP_SYST 118; BP_SYST 126; BP_DIAS 72; BP_DIAS 73; BP_DIAS 75
[2018-04-12 15:50] LABS: ANISOCYTOSIS 1+; PLATELET ESTIMATE NORMAL; SMUDGE CELLS 2+; TOTAL CELLS COUNTED 100
[2018-04-12 15:51] LABS: ELLIPTOCYTES FEW; SCHISTOCYTES FEW
[2018-04-12 18:00] VITALS: BP 128/59
--- NOTE | 2018-04-12 18:10 | NUR ---
Patient in room [facility] 357. I have received report from SAGE Duke and had the opportunity to ask questions and assume patient care.
[2018-04-12] MEDS: docusate sod 100mg capsule PO SCH (20:20)
[2018-04-12] MEDS: mirtazapine 15mg tablet PO SCH (20:20)
[2018-04-13] MEDS: oxyCODONE/APAP 10/325mg tablet PO PRN (02:33)
--- NOTE | 2018-04-13 06:29 | NUR ---
Problems reprioritized. Patient report given, questions answered & plan of care reviewed with SAGE Edwards.
--- NOTE | 2018-04-13 06:39 | NUR ---
Patient in room [facility] 357. I have received report from Harman CAZARES and had the opportunity to ask questions and assume patient care.
[2018-04-13] MEDS: quetiapine 100mg tablet PO SCH ×2 (07:57→20:26)
[2018-04-13] MEDS: docusate sod 100mg capsule PO SCH ×2 (07:57→20:00)
[2018-04-13] MEDS: aspirin 81mg tablet.DR PO SCH (07:57)
[2018-04-13] MEDS: clopidogrel 75mg tablet PO SCH (07:58)
[2018-04-13] MEDS: divalproex sodium 500mg tablet.DR PO SCH ×2 (07:58→20:27)
[2018-04-13] MEDS: enoxaparin 40mg/0.4ml syringe SUBCUT SCH (07:59)
[2018-04-13 08:00] VITALS: BP 134/74
[2018-04-13] MEDS: LIDOcaine 5% patch TP SCH (08:00)
[2018-04-13] MEDS: mineral oil/petrolatum, white cream 113gm jar TP SCH ×2 (08:04→20:00)
[2018-04-13] MEDS: levetiracetam 250mg tablet PO SCH ×2 (08:04→20:27)
[2018-04-13] MEDS: baclofen 10mg tablet PO SCH ×2 (08:04→20:27)
[2018-04-13] MEDS: magnesium hydroxide 30ml (MOM) UD suspension PO PRN (11:37)
[2018-04-13 13:14] VITALS: BP 122/72
--- NOTE | 2018-04-13 17:50 | NUR ---
Student documentation: I have reviewed and agree with all interventions, assessments performed and documented by Reba VALLES from [facility]. Student Medication Administration: For this medication-pass time frame, all medication were reviewed, dispensed, administered and documented per hospital policy by Reba CAZARES from [facility].
[2018-04-13 18:00] VITALS: BP 119/70
--- NOTE | 2018-04-13 18:11 | NUR ---
Patient in room [facility] 359. I have received report from Grace CAZARES and Leo ERNANDEZ and had the opportunity to ask questions and assume patient care. Aide in room with pt
[2018-04-13] MEDS: mirtazapine 15mg tablet PO SCH (20:27)
--- NOTE | 2018-04-14 06:34 | NUR ---
Problems reprioritized. Patient report given, questions answered & plan of care reviewed with Eleanor CAZARES. Tabs unit is on
[2018-04-14 07:15] VITALS: BP 119/62
[2018-04-14] MEDS: LIDOcaine 5% patch TP SCH (08:00)
[2018-04-14] MEDS: divalproex sodium 500mg tablet.DR PO SCH ×2 (09:23→19:35)
[2018-04-14] MEDS: aspirin 81mg tablet.DR PO SCH (09:23)
[2018-04-14] MEDS: docusate sod 100mg capsule PO SCH ×2 (09:23→19:48)
[2018-04-14] MEDS: levetiracetam 250mg tablet PO SCH ×2 (09:23→19:42)
[2018-04-14] MEDS: quetiapine 100mg tablet PO SCH ×2 (09:24→19:34)
[2018-04-14] MEDS: baclofen 10mg tablet PO SCH ×2 (09:24→19:35)
[2018-04-14] MEDS: clopidogrel 75mg tablet PO SCH (09:24)
[2018-04-14] MEDS: enoxaparin 40mg/0.4ml syringe SUBCUT SCH (09:25)
[2018-04-14] MEDS: mineral oil/petrolatum, white cream 113gm jar TP SCH ×2 (09:27→19:36)
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
[2018-04-14 11:47] VITALS: BP 105/65
--- NOTE | 2018-04-14 18:20 | NUR ---
Problems reprioritized. Patient report given, questions answered & plan of care reviewed with SAGE ZIMMERMAN.
--- NOTE | 2018-04-14 18:30 | NUR ---
Patient in room TER[facility] 348. I have received report from JANUSZ CAZARES and had the opportunity to ask questions and assume patient care. Pt is in bed, tabs unit is on and audible
[2018-04-14 19:00] VITALS: BP 123/69
[2018-04-14] MEDS: mirtazapine 15mg tablet PO SCH (19:35)
--- NOTE | 2018-04-15 06:14 | NUR ---
Problems reprioritized. Patient report given, questions answered & plan of care reviewed with JANUSZ CAZARES. TABS UNIT ON
[2018-04-15 07:40] VITALS: BP 105/69
[2018-04-15] MEDS: LIDOcaine 5% patch TP SCH (08:00)
[2018-04-15] MEDS: docusate sod 100mg capsule PO SCH ×2 (09:15→20:53)
[2018-04-15] MEDS: baclofen 10mg tablet PO SCH ×2 (09:16→20:54)
[2018-04-15] MEDS: aspirin 81mg tablet.DR PO SCH (09:16)
[2018-04-15] MEDS: levetiracetam 250mg tablet PO SCH ×2 (09:17→20:53)
[2018-04-15] MEDS: divalproex sodium 500mg tablet.DR PO SCH ×2 (09:18→20:53)
[2018-04-15] MEDS: enoxaparin 40mg/0.4ml syringe SUBCUT SCH (09:18)
[2018-04-15] MEDS: clopidogrel 75mg tablet PO SCH (09:18)
[2018-04-15] MEDS: quetiapine 100mg tablet PO SCH ×2 (09:20→20:53)
[2018-04-15] MEDS: mineral oil/petrolatum, white cream 113gm jar TP SCH ×2 (09:21→20:54)
--- NOTE | 2018-04-15 13:22 | NUR ---
reassessment: Pt PO 50-75% avg meals still meeting needs w/ probable dementia. LBM 04/12. No longer receiving or needs high protein shakes w/ PO hx. No nutrition concerns at this time. Rec: 1. Continue regular diet 2. Encourage PO intake 3. Wt per rx Addendum: 04/15/18 at [address] Amended: Links added.
--- NOTE | 2018-04-15 18:28 | NUR ---
Problems reprioritized. Patient report given, questions answered & plan of care reviewed with SAGE Cai.
[2018-04-15] MEDS: mirtazapine 15mg tablet PO SCH (20:53)
[2018-04-15 23:10] VITALS: BP 104/68
--- NOTE | 2018-04-16 06:50 | NUR ---
Problems reprioritized. Patient report given, questions answered & plan of care reviewed with SAGE Edgar.
--- NOTE | 2018-04-16 06:51 | NUR ---
Patient was cooperative and pleasant all night. Toward the beginning of shift, patient had called several times requesting a walk. Once the patient walked and bedding was changed, the patient rested comfortably for the remainder of the night. Early in the AM, the patient did attempt to get out of bed by himself to void. This attempt was noticed prior to him being able to exit the bed.
[2018-04-16 07:00] VITALS: BP 106/63
[2018-04-16] MEDS: LIDOcaine 5% patch TP SCH (08:00)
[2018-04-16] MEDS: clopidogrel 75mg tablet PO SCH (09:02)
[2018-04-16] MEDS: levetiracetam 250mg tablet PO SCH ×2 (09:02→20:54)
[2018-04-16] MEDS: divalproex sodium 500mg tablet.DR PO SCH ×2 (09:03→20:54)
[2018-04-16] MEDS: quetiapine 100mg tablet PO SCH ×2 (09:03→20:54)
[2018-04-16] MEDS: aspirin 81mg tablet.DR PO SCH (09:03)
[2018-04-16] MEDS: docusate sod 100mg capsule PO SCH ×2 (09:03→20:54)
[2018-04-16] MEDS: baclofen 10mg tablet PO SCH ×2 (09:04→20:54)
[2018-04-16] MEDS: oxyCODONE/APAP 10/325mg tablet PO PRN (09:05)
[2018-04-16] MEDS: enoxaparin 40mg/0.4ml syringe SUBCUT SCH (09:05)
[2018-04-16] MEDS: mineral oil/petrolatum, white cream 113gm jar TP SCH ×2 (09:07→20:57)
[2018-04-16 11:00] VITALS: BP 106/56
--- NOTE | 2018-04-16 15:16 | NUR ---
PAGER ID: [phone] MESSAGE: [id number] KALA Barrios Can we please have an order for a FITTED RESTING HAND/WRIST SPLINT? THANK YOU, HONORIO CAZARES [phone]
--- NOTE | 2018-04-16 18:52 | NUR ---
Pt. is comfortable in bed, has just been repositioned. Tabs alarm on and working. Gave report to Maki Valentin RN
[2018-04-16 20:00] VITALS: BP 151/81
[2018-04-16] MEDS: mirtazapine 15mg tablet PO SCH (20:54)
--- NOTE | 2018-04-17 06:46 | NUR ---
Problems reprioritized. Patient report given, questions answered & plan of care reviewed with SAGE Dan.
--- NOTE | 2018-04-17 07:03 | NUR ---
Patient in room [facility] 357. I have received report from Ayala CAZARES and had the opportunity to ask questions and assume patient care.
[2018-04-17 07:24] LABS: CHOL/HDL RATIO 3.2 (0.00-4.99); CHOLESTEROL 152 MG/DL (0-200); HDL CHOLESTEROL 48 MG/DL (35-60); LDL CHOLESTEROL 96 MG/DL (50-100); TRIGLYCERIDES 42 MG/DL (20-135)
[2018-04-17 07:26] VITALS: BP 123/70
[2018-04-17 07:47] LABS: % IRON SATURATION 27 % (11-46); IRON 78 UG/DL (53-167); TOTAL IRON BINDING CAPACITY 293 UG/DL (259-388)
[2018-04-17] MEDS: LIDOcaine 5% patch TP SCH (08:00)
[2018-04-17] MEDS: baclofen 10mg tablet PO SCH ×2 (08:00→21:08)
[2018-04-17] MEDS: aspirin 81mg tablet.DR PO SCH (09:17)
[2018-04-17] MEDS: divalproex sodium 500mg tablet.DR PO SCH ×2 (09:17→21:08)
[2018-04-17] MEDS: clopidogrel 75mg tablet PO SCH (09:17)
[2018-04-17] MEDS: quetiapine 100mg tablet PO SCH ×2 (09:17→21:08)
[2018-04-17] MEDS: docusate sod 100mg capsule PO SCH ×2 (09:17→21:09)
[2018-04-17] MEDS: enoxaparin 40mg/0.4ml syringe SUBCUT SCH (09:18)
[2018-04-17] MEDS: levetiracetam 250mg tablet PO SCH ×2 (09:18→21:09)
[2018-04-17] MEDS: mineral oil/petrolatum, white cream 113gm jar TP SCH ×2 (09:19→21:09)
[2018-04-17] MEDS: oxyCODONE/APAP 10/325mg tablet PO PRN ×2 (10:58→21:08)
[2018-04-17 11:52] VITALS: BP 117/76
--- NOTE | 2018-04-17 18:08 | NUR ---
Problems reprioritized. Patient report given, questions answered & plan of care reviewed with Ayala CAZARES.
[2018-04-17 20:00] VITALS: BP 121/79
[2018-04-17] MEDS: mirtazapine 15mg tablet PO SCH (21:08)
--- NOTE | 2018-04-18 06:58 | NUR ---
Problems reprioritized. Patient report given, questions answered & plan of care reviewed with SAGE Olivo.
[2018-04-18 08:00] VITALS: BP 128/72
[2018-04-18] MEDS: LIDOcaine 5% patch TP SCH (08:00)
[2018-04-18] MEDS: baclofen 10mg tablet PO SCH ×2 (08:00→22:08)
[2018-04-18] MEDS: enoxaparin 40mg/0.4ml syringe SUBCUT SCH (09:11)
[2018-04-18] MEDS: levetiracetam 250mg tablet PO SCH ×2 (09:13→22:05)
[2018-04-18] MEDS: divalproex sodium 500mg tablet.DR PO SCH ×2 (09:13→22:06)
[2018-04-18] MEDS: quetiapine 100mg tablet PO SCH ×2 (09:14→22:07)
[2018-04-18] MEDS: docusate sod 100mg capsule PO SCH ×2 (09:14→22:07)
[2018-04-18] MEDS: aspirin 81mg tablet.DR PO SCH (09:14)
[2018-04-18] MEDS: clopidogrel 75mg tablet PO SCH (09:14)
[2018-04-18] MEDS: mineral oil/petrolatum, white cream 113gm jar TP SCH ×2 (09:16→22:13)
[2018-04-18 19:30] VITALS: BP 113/62
--- NOTE | 2018-04-18 19:30 | NUR ---
PCT unable to recall amount of dietary intake; pt states he ate everything Addendum: 04/19/18 at 0307 by Ly Tan RN Amended: Links added.
--- NOTE | 2018-04-18 19:40 | NUR ---
Problems reprioritized. Patient report given, questions answered & plan of care reviewed with PAT RN.
[2018-04-18] MEDS: mirtazapine 15mg tablet PO SCH (22:05)
[2018-04-19 05:17] LABS: MEAN PLATELET VOLUME 7.6 FL (7.4-10.4)
[2018-04-19 05:21] LABS: BASOPHILS # (AUTO) 0.1 X10'3 (0-0.2); BASOPHILS % (AUTO) 0.3 % (0-1); EOSINOPHILS # (AUTO) 0.1 X10'3 (0-0.9); EOSINOPHILS % (AUTO) 0.3 % (0-6); HEMATOCRIT 34.7 % (42.0-52.0); HEMOGLOBIN 11.7 g/dl (14.0-17.9); LYMPHOCYTES # (AUTO) 15.3 X10'3 (1.1-4.8); LYMPHOCYTES % (AUTO) 76.5 % (21-51); MEAN CORPUSCULAR HEMOGLOBIN 30.6 PG (27.0-31.0); MEAN CORPUSCULAR HGB CONC 33.6 g/dL (33.0-36.5); MONOCYTES # (AUTO) 0.8 X10'3 (0-0.9); NEUTROPHILS # (AUTO) 3.8 X10'3 (1.8-7.7); NEUTROPHILS % (AUTO) 18.9 % (42-75); PLATELET COUNT 219 X10'3 (140-440); RED BLOOD COUNT 3.82 X10'6 (4.70-6.10); RED CELL DISTRIBUTION WIDTH 17.5 % (11.5-14.5)
--- NOTE | 2018-04-19 06:48 | NUR ---
Patient in room [facility] 357. I have received report from SAGE Yoo and had the opportunity to ask questions and assume patient care.
[2018-04-19 08:00] VITALS: BP 136/78
[2018-04-19] MEDS: LIDOcaine 5% patch TP SCH (08:00)
[2018-04-19] MEDS: mineral oil/petrolatum, white cream 113gm jar TP SCH ×2 (08:00→20:26)
[2018-04-19 08:17] LABS: ANISOCYTOSIS 1+; PLATELET ESTIMATE NORMAL; TOTAL CELLS COUNTED 100
[2018-04-19 08:18] LABS: SMUDGE CELLS 3+
[2018-04-19 08:19] LABS: ELLIPTOCYTES FEW; SCHISTOCYTES FEW
[2018-04-19] MEDS: aspirin 81mg tablet.DR PO SCH (10:14)
[2018-04-19] MEDS: docusate sod 100mg capsule PO SCH ×2 (10:14→20:20)
[2018-04-19] MEDS: clopidogrel 75mg tablet PO SCH (10:14)
[2018-04-19] MEDS: levetiracetam 250mg tablet PO SCH ×2 (10:15→20:21)
[2018-04-19] MEDS: baclofen 10mg tablet PO SCH ×2 (10:15→20:21)
[2018-04-19] MEDS: divalproex sodium 500mg tablet.DR PO SCH ×2 (10:15→20:21)
[2018-04-19] MEDS: enoxaparin 40mg/0.4ml syringe SUBCUT SCH (10:16)
[2018-04-19] MEDS: quetiapine 100mg tablet PO SCH ×2 (10:20→20:21)
[2018-04-19 18:00] VITALS: BP 113/77
--- NOTE | 2018-04-19 18:43 | NUR ---
Problems reprioritized. Patient report given, questions answered & plan of care reviewed with SAGE Hammer.
--- NOTE | 2018-04-19 18:44 | NUR ---
Patient in room [facility] 357. I have received report from Yumiko Garcia and had the opportunity to ask questions and assume patient care.
[2018-04-19] MEDS: mirtazapine 15mg tablet PO SCH (20:20)
--- NOTE | 2018-04-20 06:30 | NUR ---
Problems reprioritized. Patient report given, questions answered & plan of care reviewed with SAGE Garcia.
--- NOTE | 2018-04-20 06:42 | NUR ---
Patient in room [facility] 357. I have received report from SAGE Hammer and had the opportunity to ask questions and assume patient care.
[2018-04-20] MEDS: LIDOcaine 5% patch TP SCH (08:00)
[2018-04-20] MEDS: clopidogrel 75mg tablet PO SCH (08:57)
[2018-04-20] MEDS: aspirin 81mg tablet.DR PO SCH (08:57)
[2018-04-20] MEDS: baclofen 10mg tablet PO SCH ×2 (08:57→20:16)
[2018-04-20] MEDS: quetiapine 100mg tablet PO SCH ×2 (08:57→20:17)
[2018-04-20] MEDS: divalproex sodium 500mg tablet.DR PO SCH ×2 (08:57→20:17)
[2018-04-20] MEDS: levetiracetam 250mg tablet PO SCH ×2 (08:57→20:16)
[2018-04-20] MEDS: enoxaparin 40mg/0.4ml syringe SUBCUT SCH (08:57)
[2018-04-20] MEDS: docusate sod 100mg capsule PO SCH ×2 (08:57→20:16)
[2018-04-20] MEDS: mineral oil/petrolatum, white cream 113gm jar TP SCH ×2 (08:58→20:17)
--- NOTE | 2018-04-20 10:29 | NUR ---
SS had t/c with Stella from [facility] Public Guardian's office, per t/c, PG recommends that SS again contact family to notify them that a second facility is willing to accept pt pending the designation of a Healthcare decision maker, and to file another APS report referencing PG's office co-filing. PG will collaborate w/APS to work w/family to get them to assume the responsibility of being pt's decision maker, if they refuse, PG will ask APS to open a case and possibly file charges of abandonment against family. PG ask that SS convey this to family when ss contact them to request that they designate a surrogate decision maker for pt. SS contacted pt's sons (Jaspal-unable to leave ), and Braden, left informing him that a second facility in [place] is expressing interest in providing placement for pt & the facility is requesting that a surrogate decision maker be identified. SS also informed Braden that the hospital has referred pt to the PG's office and PG's office will file an APS report in concert w/the hospital and APS will have to open an investigation and possibly file charges of abandonment in the event that family continues to refuse to assume decision making responsibility for pt to facilitate his discharge from the hospital & placement in a LTC. Shortly after leaving for Braden, SS receive t/c from other son (Jaspal), per t/c Jaspal will come in tonight to see pt and talk to him, SS informed Jaspal that pt wants to discharge from the hospital and has no real preference w/re to where he is placed, Jaspal again asked for placement locally, SS reiterated that no local facilities would accept nor do they have ltc beds available. SS also informed Jaspal that the ADR needs to be completed and asked that Jaspal do that tonight when he comes in. Jaspal did not agree to do so, wants to talk to pt to tell pt that this facility is too far. Plan: SS to complete APS report per recommendation from PG SS to continue to f/u w/PG & APS to facilitate pt's dcp Addendum: 04/20/18 at 1048 by Rosalind VELIZ Amended: Links added.
--- NOTE | 2018-04-20 11:12 | NUR ---
Family requests that hospital staff contact Saida (Jaspal's ) re pt's needs- [phone]. Info also entered on SBar Addendum: 04/20/18 at 1113 by Rosalind Austin SS Amended: Links added.
--- NOTE | 2018-04-20 11:16 | NUR ---
SS received t/c from dtr in-law, Saida she is willing to sign on as pt's decision maker but reports that family is unwilling to accept placement that's to far from home, family requesting placement locally or at least w/in 1.5 hrs from home. Saida also request records of all placement referrals made. JOSE ALFREDO informed Saida that she will need to go thru medical records to request access. Addendum: 04/20/18 at 1129 by Rosalind VELIZ Amended: Links added.
[2018-04-20 12:00] VITALS: BP 109/74
[2018-04-20 18:00] VITALS: BP 104/60
--- NOTE | 2018-04-20 18:34 | NUR ---
Problems reprioritized. Patient report given, questions answered & plan of care reviewed with SAGE Hammer.
--- NOTE | 2018-04-20 18:35 | NUR ---
Patient in room [facility] 357. I have received report from SAGE Garcia and had the opportunity to ask questions and assume patient care.
[2018-04-20] MEDS: mirtazapine 15mg tablet PO SCH (20:17)
--- NOTE | 2018-04-21 06:33 | NUR ---
Problems reprioritized. Patient report given, questions answered & plan of care reviewed with SAGE Garcia.
--- NOTE | 2018-04-21 06:34 | NUR ---
Patient in room [facility] 357. I have received report from SAGE Hammer and had the opportunity to ask questions and assume patient care.
[2018-04-21 08:00] VITALS: BP 129/71
[2018-04-21] MEDS: LIDOcaine 5% patch TP SCH (08:00)
[2018-04-21] MEDS: mineral oil/petrolatum, white cream 113gm jar TP SCH ×2 (08:00→21:02)
[2018-04-21] MEDS: baclofen 10mg tablet PO SCH ×2 (08:41→21:02)
[2018-04-21] MEDS: levetiracetam 250mg tablet PO SCH ×2 (08:41→21:03)
[2018-04-21] MEDS: quetiapine 100mg tablet PO SCH ×2 (08:42→21:02)
[2018-04-21] MEDS: docusate sod 100mg capsule PO SCH ×2 (08:42→21:02)
[2018-04-21] MEDS: aspirin 81mg tablet.DR PO SCH (08:42)
[2018-04-21] MEDS: divalproex sodium 500mg tablet.DR PO SCH ×2 (08:42→21:03)
[2018-04-21] MEDS: clopidogrel 75mg tablet PO SCH (08:42)
[2018-04-21] MEDS: enoxaparin 40mg/0.4ml syringe SUBCUT SCH (08:43)
[2018-04-21 18:00] VITALS: BP 141/52
--- NOTE | 2018-04-21 18:59 | NUR ---
Problems reprioritized. Patient report given, questions answered & plan of care reviewed with SAGE Hammer.
--- NOTE | 2018-04-21 19:00 | NUR ---
Patient in room [facility] 357. I have received report from Yumiko Garcia and had the opportunity to ask questions and assume patient care.
[2018-04-21] MEDS: mirtazapine 15mg tablet PO SCH (21:03)
--- NOTE | 2018-04-22 06:00 | NUR ---
Problems reprioritized. Patient report given, questions answered & plan of care reviewed with SAGE Hauser.
[2018-04-22 07:16] VITALS: BP 130/73
[2018-04-22] MEDS: aspirin 81mg tablet.DR PO SCH (08:41)
[2018-04-22] MEDS: divalproex sodium 500mg tablet.DR PO SCH ×2 (08:41→21:12)
[2018-04-22] MEDS: docusate sod 100mg capsule PO SCH ×2 (08:41→21:11)
[2018-04-22] MEDS: quetiapine 100mg tablet PO SCH ×2 (08:41→21:14)
[2018-04-22] MEDS: clopidogrel 75mg tablet PO SCH (08:41)
[2018-04-22] MEDS: levetiracetam 250mg tablet PO SCH ×2 (08:41→21:12)
[2018-04-22] MEDS: LIDOcaine 5% patch TP SCH (08:42)
[2018-04-22] MEDS: baclofen 10mg tablet PO SCH ×2 (08:42→21:14)
[2018-04-22] MEDS: enoxaparin 40mg/0.4ml syringe SUBCUT SCH (08:42)
[2018-04-22] MEDS: mineral oil/petrolatum, white cream 113gm jar TP SCH ×2 (08:49→21:15)
[2018-04-22 11:22] VITALS: BP 118/85
--- NOTE | 2018-04-22 13:42 | NUR ---
Reassessment: PO intake continues to fluctuate, previously 75-100%, now averaging 50-75% still likely meeting nutrient needs. LBM 04/19, pt continues with routine Colace and MoM PRN. Still awaiting placement and medically stable per MD progress notes. Will continue to follow. Rec: 1. Continue regular diet 2. Encourage PO intake 3. Wt per rx Addendum: 04/22/18 at [address] Amended: Links added.
--- NOTE | 2018-04-22 18:13 | NUR ---
Patient in room [facility] 357. I have received report from Analisa Santiago and had the opportunity to ask questions and assume patient care. Finishing dinner, will continue to monitor
[2018-04-22 19:00] VITALS: BP 129/74
[2018-04-22] MEDS: mirtazapine 15mg tablet PO SCH (21:13)
--- NOTE | 2018-04-23 06:35 | NUR ---
Problems reprioritized. Patient report given, questions answered & plan of care reviewed with Kristine CAZARES. Patient resting eyes closed respirations even.
[2018-04-23 08:00] VITALS: BP 106/66
[2018-04-23] MEDS: mineral oil/petrolatum, white cream 113gm jar TP SCH ×2 (08:00→21:26)
[2018-04-23] MEDS: clopidogrel 75mg tablet PO SCH (08:00)
[2018-04-23] MEDS: quetiapine 100mg tablet PO SCH ×2 (08:00→21:24)
[2018-04-23] MEDS: baclofen 10mg tablet PO SCH ×2 (08:00→21:23)
[2018-04-23] MEDS: enoxaparin 40mg/0.4ml syringe SUBCUT SCH (08:00)
[2018-04-23] MEDS: LIDOcaine 5% patch TP SCH (08:00)
[2018-04-23] MEDS: aspirin 81mg tablet.DR PO SCH (08:00)
[2018-04-23] MEDS: divalproex sodium 500mg tablet.DR PO SCH ×2 (08:00→21:23)
[2018-04-23] MEDS: docusate sod 100mg capsule PO SCH ×2 (08:00→21:22)
[2018-04-23] MEDS: levetiracetam 250mg tablet PO SCH ×2 (10:00→21:24)
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
--- NOTE | 2018-04-23 18:20 | NUR ---
GAVE REPORT TO ELLYN CAZARES
[2018-04-23 19:00] VITALS: BP 126/70
[2018-04-23] MEDS: mirtazapine 15mg tablet PO SCH (21:24)
--- NOTE | 2018-04-24 06:06 | NUR ---
Problems reprioritized. Patient report given, questions answered & plan of care reviewed with Kristine CAZARES.
--- NOTE | 2018-04-24 06:47 | NUR ---
Patient in room [facility] 357. I have received report from ELLYN CAZAERS and had the opportunity to ask questions and assume patient care.
[2018-04-24 07:00] VITALS: BP 111/70
[2018-04-24] MEDS: LIDOcaine 5% patch TP SCH (08:00)
[2018-04-24] MEDS: mineral oil/petrolatum, white cream 113gm jar TP SCH ×2 (08:00→21:10)
[2018-04-24] MEDS ORDERED: baclofen 10mg tablet PO SCH (09:00)
[2018-04-24] MEDS: divalproex sodium 500mg tablet.DR PO SCH ×2 (09:09→21:10)
[2018-04-24] MEDS: aspirin 81mg tablet.DR PO SCH (09:10)
[2018-04-24] MEDS: quetiapine 100mg tablet PO SCH ×2 (09:10→21:08)
[2018-04-24] MEDS: levetiracetam 250mg tablet PO SCH ×2 (09:10→21:08)
[2018-04-24] MEDS: clopidogrel 75mg tablet PO SCH (09:10)
[2018-04-24] MEDS: enoxaparin 40mg/0.4ml syringe SUBCUT SCH (09:10)
[2018-04-24] MEDS: docusate sod 100mg capsule PO SCH ×2 (09:10→21:10)
--- NOTE | 2018-04-24 18:17 | NUR ---
Problems reprioritized. Patient report given, questions answered & plan of care reviewed with ELLYN CAZARES.
--- NOTE | 2018-04-24 18:20 | NUR ---
Patient in room [facility] 357. I have received report from Kristine CAZARES and had the opportunity to ask questions and assume patient care. Patient resting, starting dinner. Will continue to monitor.
[2018-04-24 19:00] VITALS: BP 119/72
[2018-04-24] MEDS: mirtazapine 15mg tablet PO SCH (21:08)
[2018-04-24] MEDS: baclofen 10mg tablet PO SCH (21:09)
--- NOTE | 2018-04-25 06:45 | NUR ---
Problems reprioritized. Patient report given, questions answered & plan of care reviewed with Helena CAZARES. Patient resting
[2018-04-25 07:00] VITALS: BP 112/60
--- NOTE | 2018-04-25 07:07 | NUR ---
Patient in room [facility] 357. I have received report from ELLYN CAZARES and had the opportunity to ask questions and assume patient care.
[2018-04-25] MEDS: LIDOcaine 5% patch TP SCH (08:00)
[2018-04-25] MEDS: docusate sod 100mg capsule PO SCH ×2 (08:46→20:06)
[2018-04-25] MEDS: quetiapine 100mg tablet PO SCH ×2 (08:46→20:06)
[2018-04-25] MEDS: aspirin 81mg tablet.DR PO SCH (08:46)
[2018-04-25] MEDS: divalproex sodium 500mg tablet.DR PO SCH ×2 (08:47→20:06)
[2018-04-25] MEDS: clopidogrel 75mg tablet PO SCH (08:47)
[2018-04-25] MEDS: levetiracetam 250mg tablet PO SCH ×2 (08:47→20:06)
[2018-04-25] MEDS: enoxaparin 40mg/0.4ml syringe SUBCUT SCH (08:48)
[2018-04-25] MEDS: baclofen 10mg tablet PO SCH ×2 (08:49→20:06)
[2018-04-25] MEDS: mineral oil/petrolatum, white cream 113gm jar TP SCH ×2 (08:59→20:07)
--- NOTE | 2018-04-25 18:32 | NUR ---
Problems reprioritized. Patient report given, questions answered & plan of care reviewed with Lianne CAZARES.
[2018-04-25 20:00] VITALS: BP 97/57
[2018-04-25] MEDS: mirtazapine 15mg tablet PO SCH (20:06)
--- NOTE | 2018-04-26 06:58 | NUR ---
Patient in room [facility] 357. I have received report from kayla myers and had the opportunity to ask questions and assume patient care.
[2018-04-26 07:00] VITALS: BP 128/70
[2018-04-26] MEDS: LIDOcaine 5% patch TP SCH (08:00)
[2018-04-26] MEDS: mineral oil/petrolatum, white cream 113gm jar TP SCH ×2 (08:00→22:09)
[2018-04-26] MEDS: baclofen 10mg tablet PO SCH ×2 (08:00→08:38)
[2018-04-26] MEDS: docusate sod 100mg capsule PO SCH ×2 (08:00→22:07)
[2018-04-26] MEDS: divalproex sodium 500mg tablet.DR PO SCH ×2 (08:38→22:09)
[2018-04-26] MEDS: levetiracetam 250mg tablet PO SCH ×2 (08:38→22:07)
[2018-04-26] MEDS: clopidogrel 75mg tablet PO SCH (08:38)
[2018-04-26] MEDS: aspirin 81mg tablet.DR PO SCH (08:38)
[2018-04-26] MEDS: quetiapine 100mg tablet PO SCH ×2 (08:38→22:07)
[2018-04-26] MEDS: enoxaparin 40mg/0.4ml syringe SUBCUT SCH (08:39)
--- NOTE | 2018-04-26 17:29 | NUR ---
Patient was showered today and ambulated 300ft with Rehab walker. Appeared more restless and anxious about family and own house. Much time spent with patient . patient resting at time of report.
--- NOTE | 2018-04-26 17:31 | NUR ---
Problems reprioritized. Patient report given, questions answered & plan of care reviewed with Lianne CAZARES.
[2018-04-26 20:00] VITALS: BP 112/57
[2018-04-26] MEDS: mirtazapine 15mg tablet PO SCH (22:07)
--- NOTE | 2018-04-27 06:28 | NUR ---
Patient in room [facility] 357. I have received report from Lianne CAZARES and had the opportunity to ask questions and assume patient care.
[2018-04-27] MEDS: LIDOcaine 5% patch TP SCH (08:00)
[2018-04-27] MEDS: divalproex sodium 500mg tablet.DR PO SCH ×2 (08:28→21:30)
[2018-04-27] MEDS: docusate sod 100mg capsule PO SCH ×2 (08:28→19:40)
[2018-04-27] MEDS: baclofen 10mg tablet PO SCH ×2 (08:28→21:31)
[2018-04-27] MEDS: aspirin 81mg tablet.DR PO SCH (08:28)
[2018-04-27] MEDS: clopidogrel 75mg tablet PO SCH (08:28)
[2018-04-27] MEDS: quetiapine 100mg tablet PO SCH ×2 (08:28→19:40)
[2018-04-27] MEDS: enoxaparin 40mg/0.4ml syringe SUBCUT SCH (08:29)
[2018-04-27] MEDS: levetiracetam 250mg tablet PO SCH ×2 (08:29→19:40)
[2018-04-27] MEDS: mineral oil/petrolatum, white cream 113gm jar TP SCH ×2 (08:29→19:43)
[2018-04-27 10:00] VITALS: BP 114/67
[2018-04-27] MEDS: mirtazapine 15mg tablet PO SCH (21:30)
[2018-04-27 22:00] VITALS: BP 126/75
--- NOTE | 2018-04-28 | NUR ---
patient able to ambulate 600ft each time around unit. very proud of himself!!!
--- NOTE | 2018-04-28 00:19 | NUR ---
Problems reprioritized. Patient report given, questions answered & plan of care reviewed with shantal CAZARES .
[2018-04-28 08:00] VITALS: BP 120/69
[2018-04-28] MEDS: enoxaparin 40mg/0.4ml syringe SUBCUT SCH (08:00)
[2018-04-28] MEDS: aspirin 81mg tablet.DR PO SCH (09:25)
[2018-04-28] MEDS: baclofen 10mg tablet PO SCH ×2 (09:26→20:36)
[2018-04-28] MEDS: divalproex sodium 500mg tablet.DR PO SCH ×2 (09:26→20:39)
[2018-04-28] MEDS: docusate sod 100mg capsule PO SCH ×2 (09:26→20:00)
[2018-04-28] MEDS: quetiapine 100mg tablet PO SCH ×2 (09:26→20:35)
[2018-04-28] MEDS: levetiracetam 250mg tablet PO SCH ×2 (09:27→20:33)
[2018-04-28] MEDS: clopidogrel 75mg tablet PO SCH (09:28)
[2018-04-28] MEDS: mineral oil/petrolatum, white cream 113gm jar TP SCH ×2 (09:34→20:32)
[2018-04-28 12:00] VITALS: BP 111/63
--- NOTE | 2018-04-28 18:20 | NUR ---
Patient in room [facility] 357. I have received report from Pallavi Calderon and had the opportunity to ask questions and assume patient care. Addendum: 04/28/18 at 2219 by Nellie Sun RN Amended: Links added.
--- NOTE | 2018-04-28 18:30 | NUR ---
I have received report from Pallavi CAZARES and assumed care of patient in room 57 B
--- NOTE | 2018-04-28 18:52 | NUR ---
Problems reprioritized. Patient report given, questions answered & plan of care reviewed with VANDA CAZARES.
[2018-04-28] MEDS: oxyCODONE/APAP 10/325mg tablet PO PRN (20:33)
[2018-04-28] MEDS: mirtazapine 15mg tablet PO SCH (20:34)
--- NOTE | 2018-04-28 20:43 | NUR ---
medicated for pain with po percocet at this time6-08/15 hip pain and back.
[2018-04-28 21:47] VITALS: BP 94/67
--- NOTE | 2018-04-28 23:01 | NUR ---
pt snoring no s&s of distress at this time.
--- NOTE | 2018-04-29 00:50 | NUR ---
pt resting eyes closed no s&s of distress on his side.
--- NOTE | 2018-04-29 02:31 | NUR ---
resting eyes closed without changes.
--- NOTE | 2018-04-29 02:32 | NUR ---
resting eyes closed without changes.
--- NOTE | 2018-04-29 04:30 | NUR ---
pt awake wants to use bathroom to pee offered bedside commode or urinal refused. unstaedy gait can only use rehab walker 1 or 2 people safely and not enough room to do so in the bathroom.
--- NOTE | 2018-04-29 06:02 | NUR ---
awake no complaints.
--- NOTE | 2018-04-29 06:30 | NUR ---
Patient in room [facility] 357. I have received report from Nellie CAZARES and had the opportunity to ask questions and assume patient care.
--- NOTE | 2018-04-29 06:32 | NUR ---
Student documentation: I have reviewed and agree with all interventions, assessments performed and documented by Josie Lin [facility] Rn student.. Addendum: 04/29/18 at 0633 by Nellie Sun RN Amended: Links added.
--- NOTE | 2018-04-29 06:39 | NUR ---
Problems reprioritized. Patient report given, questions answered & plan of care reviewed with Onesimo Calderon. Addendum: 04/29/18 at 0643 by Nellie Sun RN Amended: Links added.
[2018-04-29 07:52] VITALS: BP 110/63
[2018-04-29] MEDS: docusate sod 100mg capsule PO SCH ×2 (08:22→20:00)
[2018-04-29] MEDS: aspirin 81mg tablet.DR PO SCH (08:22)
[2018-04-29] MEDS: quetiapine 100mg tablet PO SCH ×2 (08:22→20:43)
[2018-04-29] MEDS: baclofen 10mg tablet PO SCH ×2 (08:23→20:41)
[2018-04-29] MEDS: divalproex sodium 500mg tablet.DR PO SCH ×2 (08:23→20:43)
[2018-04-29] MEDS: clopidogrel 75mg tablet PO SCH (08:23)
[2018-04-29] MEDS: levetiracetam 250mg tablet PO SCH ×2 (08:23→20:43)
[2018-04-29] MEDS: enoxaparin 40mg/0.4ml syringe SUBCUT SCH (08:25)
[2018-04-29] MEDS: mineral oil/petrolatum, white cream 113gm jar TP SCH ×2 (08:26→20:55)
--- NOTE | 2018-04-29 18:52 | NUR ---
I have received report from Onesimo CAZARES and assumed care
--- NOTE | 2018-04-29 18:52 | NUR ---
Patient in room [facility] 357. I have received report from NASRIN CAZARES and had the opportunity to ask questions and assume patient care. Addendum: 04/29/18 at 1852 by Nellie Sun RN Amended: Links added.
--- NOTE | 2018-04-29 18:59 | NUR ---
Problems reprioritized. Patient report given, questions answered & plan of care reviewed with VANDA CAZARES.
[2018-04-29 20:00] VITALS: BP 140/76
[2018-04-29] MEDS: oxyCODONE/APAP 10/325mg tablet PO PRN (20:43)
[2018-04-29] MEDS: mirtazapine 15mg tablet PO SCH (20:43)
--- NOTE | 2018-04-29 20:53 | NUR ---
pt medicated for pain at this time and took his hs meds plans to walk after pain med for his hip has kicked in.
--- NOTE | 2018-04-29 22:01 | NUR ---
Patient ambulated 600 feet with a two a person assist and did really well, wanted to do more. going to check back in a couple hours and offer to walk again.
--- NOTE | 2018-04-30 00:05 | NUR ---
pt resting eyes closed without changes.
--- NOTE | 2018-04-30 02:15 | NUR ---
pt resting eyes closed without changes.
--- NOTE | 2018-04-30 04:13 | NUR ---
pt resting eyes closed without changes at this time.
--- NOTE | 2018-04-30 05:30 | NUR ---
pt resting eyes closed without changes.Student documentation: I have reviewed and agree with all interventions, assessments performed and documented by Josie Walden Rn student. Student Medication Administration: For this medication-pass time frame, all medication were reviewed, dispensed, administered and documented per hospital policy by Josie walden Rn student.
--- NOTE | 2018-04-30 06:05 | NUR ---
I have received report from Josie VALLES and Nellie CAZARES and had the opportunity to ask questions and assume patient care.
--- NOTE | 2018-04-30 06:15 | NUR ---
Patient in room [facility] 357. I have received report from Nellie CAZARES and had the opportunity to ask questions and assume patient care.
--- NOTE | 2018-04-30 06:26 | NUR ---
Problems reprioritized. Patient report given, questions answered & plan of care reviewed with Grace Calderon. Addendum: 04/30/18 at 0626 by Nellie Sun RN Amended: Links added.
[2018-04-30 06:52] VITALS: BP 131/69
[2018-04-30] MEDS: docusate sod 100mg capsule PO SCH ×2 (07:34→20:00)
[2018-04-30] MEDS: aspirin 81mg tablet.DR PO SCH (07:34)
[2018-04-30] MEDS: divalproex sodium 500mg tablet.DR PO SCH ×2 (07:36→19:26)
[2018-04-30] MEDS: baclofen 10mg tablet PO SCH ×2 (07:36→19:29)
[2018-04-30] MEDS: quetiapine 100mg tablet PO SCH ×2 (07:37→19:31)
[2018-04-30] MEDS: levetiracetam 250mg tablet PO SCH ×2 (07:37→19:30)
[2018-04-30] MEDS: clopidogrel 75mg tablet PO SCH (07:37)
[2018-04-30] MEDS: enoxaparin 40mg/0.4ml syringe SUBCUT SCH (07:38)
[2018-04-30] MEDS: mineral oil/petrolatum, white cream 113gm jar TP SCH ×2 (07:38→19:32)
--- NOTE | 2018-04-30 11:30 | NUR ---
Provided pt with bed bath, short of staff, patient ambulated 300 ft and is sitting in chair
--- NOTE | 2018-04-30 11:32 | NUR ---
reassessment: Pt PO 75% avg meals meeting needs. LBM 04/28. Will continue to monitor. Rec: 1. Continue regular diet 2. Encourage PO intake 3. Wt per rx Addendum: 04/30/18 at [address] Amended: Links added.
--- NOTE | 2018-04-30 17:11 | NUR ---
Student documentation: I have reviewed and agree with all interventions, assessments performed and documented by through out the shift today by Yessi VALLES from [facility]. Student Medication Administration: For all medication-pass' this shift, all medication were reviewed, dispensed, administered and documented per hospital policy by Yessi VALLES from [facility] .
--- NOTE | 2018-04-30 18:19 | NUR ---
Problems reprioritized. Patient report given, questions answered & plan of care reviewed with Nellie CAZARES.
--- NOTE | 2018-04-30 18:36 | NUR ---
Patient in room [facility] 357. I have received report from YENNIFER CAZARES and had the opportunity to ask questions and assume patient care. Addendum: 04/30/18 at 1836 by Nellie Sun RN Amended: Links added.
--- NOTE | 2018-04-30 19:05 | NUR ---
sitting up in bed eating dinner no s&s of distress.
--- NOTE | 2018-04-30 19:14 | NUR ---
Patient was placed on bedpan
--- NOTE | 2018-04-30 19:25 | NUR ---
with 2 people pt per request put on the bedside commode. no results and transferred back to bed.
[2018-04-30] MEDS: oxyCODONE/APAP 10/325mg tablet PO PRN (19:30)
[2018-04-30] MEDS: mirtazapine 15mg tablet PO SCH (19:31)
[2018-04-30 20:00] VITALS: BP 149/74
--- NOTE | 2018-04-30 21:00 | NUR ---
pt awake without complaints at this time. had ambulated earlier with 2 people and the rehab walker. tolerated well.
--- NOTE | 2018-04-30 23:00 | NUR ---
pt resting eyes closed no s&s of distress at this time.
--- NOTE | 2018-05-01 01:00 | NUR ---
resting eyes closed without changes at this time.
--- NOTE | 2018-05-01 03:00 | NUR ---
resting without changes
--- NOTE | 2018-05-01 05:48 | NUR ---
Student documentation: I have reviewed and agree with all interventions, assessments performed and documented by Josie Calderon Student.Student Medication Administration: For this medication-pass time frame, all medication were reviewed, dispensed, administered and documented per hospital policy by Josie Calderon student. Addendum: 05/01/18 at 0549 by Nellie Sun RN Amended: Links added.
--- NOTE | 2018-05-01 06:05 | NUR ---
I have received report from Nellie CAZARES and had the opportunity to ask questions and assume patient care.
--- NOTE | 2018-05-01 06:16 | NUR ---
Problems reprioritized. Patient report given, questions answered & plan of care reviewed with JUAN ANTONIO CAZARES. Addendum: 05/01/18 at 0616 by Nellie Sun RN Amended: Links added.
[2018-05-01 07:44] VITALS: BP 138/73
[2018-05-01] MEDS: docusate sod 100mg capsule PO SCH ×2 (07:53→21:52)
[2018-05-01] MEDS: quetiapine 100mg tablet PO SCH ×2 (07:53→21:53)
[2018-05-01] MEDS: aspirin 81mg tablet.DR PO SCH (07:53)
[2018-05-01] MEDS: divalproex sodium 500mg tablet.DR PO SCH ×2 (07:53→21:53)
[2018-05-01] MEDS: levetiracetam 250mg tablet PO SCH ×2 (07:53→21:53)
[2018-05-01] MEDS: clopidogrel 75mg tablet PO SCH (07:53)
[2018-05-01] MEDS: baclofen 10mg tablet PO SCH ×2 (07:53→21:53)
[2018-05-01] MEDS: enoxaparin 40mg/0.4ml syringe SUBCUT SCH (08:00)
[2018-05-01] MEDS: mineral oil/petrolatum, white cream 113gm jar TP SCH ×2 (08:02→21:56)
--- NOTE | 2018-05-01 09:01 | NUR ---
Held [facility], no current labs.
[2018-05-01] MEDS: oxyCODONE/APAP 10/325mg tablet PO PRN (15:43)
--- NOTE | 2018-05-01 18:27 | NUR ---
Problems reprioritized. Patient report given, questions answered & plan of care reviewed with Roshan CAZARES.
[2018-05-01 20:00] VITALS: BP 157/84
[2018-05-01] MEDS: mirtazapine 15mg tablet PO SCH (21:53)
[2018-05-02 06:16] LABS: BASOPHILS # (AUTO) 0.1 X10'3 (0-0.2); BASOPHILS % (AUTO) 0.3 % (0-1); EOSINOPHILS # (AUTO) 0.2 X10'3 (0-0.9); EOSINOPHILS % (AUTO) 0.9 % (0-6); HEMATOCRIT 38.9 % (42.0-52.0); HEMOGLOBIN 12.5 g/dl (14.0-17.9); LYMPHOCYTES # (AUTO) 15.5 X10'3 (1.1-4.8); LYMPHOCYTES % (AUTO) 78.2 % (21-51); MEAN CORPUSCULAR HGB CONC 32.2 g/dL (33.0-36.5); MEAN PLATELET VOLUME 7.8 FL (7.4-10.4); MONOCYTES # (AUTO) 0.7 X10'3 (0-0.9); MONOCYTES % (AUTO) 3.3 % (2-12); NEUTROPHILS # (AUTO) 3.4 X10'3 (1.8-7.7); NEUTROPHILS % (AUTO) 17.3 % (42-75); PLATELET COUNT 209 X10'3 (140-440); RED BLOOD COUNT 4.18 X10'6 (4.70-6.10); RED CELL DISTRIBUTION WIDTH 17.4 % (11.5-14.5); WHITE BLOOD COUNT 19.8 X10'3 (4.5-11.0)
[2018-05-02 06:22] LABS: ANION GAP 9 (8-16); BLOOD UREA NITROGEN 20 MG/DL (7-18); BUN/CREATININE RATIO 24.1 (5.4-32.0); CALCIUM 9.6 MG/DL (8.5-10.1); CHLORIDE 106 MMOL/L (99-107); CREATININE 0.83 MG/DL (0.60-1.10); GLUCOSE 78 MG/DL (70-104); SODIUM 142 MMOL/L (135-145); TOTAL CARBON DIOXIDE 27.2 MMOL/L (24-32); eGFR > 90 ML/MIN
--- NOTE | 2018-05-02 06:30 | NUR ---
Patient in room [facility] 357. I have received report from Lianne CAZARES and had the opportunity to ask questions and assume patient care.
[2018-05-02 07:26] VITALS: BP 134/97
[2018-05-02] MEDS: aspirin 81mg tablet.DR PO SCH (08:08)
[2018-05-02] MEDS: baclofen 10mg tablet PO SCH ×2 (08:08→22:40)
[2018-05-02] MEDS: docusate sod 100mg capsule PO SCH ×2 (08:09→22:40)
[2018-05-02] MEDS: clopidogrel 75mg tablet PO SCH (08:09)
[2018-05-02] MEDS: levetiracetam 250mg tablet PO SCH ×2 (08:09→22:40)
[2018-05-02] MEDS: divalproex sodium 500mg tablet.DR PO SCH ×2 (08:09→22:40)
[2018-05-02] MEDS: quetiapine 100mg tablet PO SCH ×2 (08:09→22:41)
[2018-05-02] MEDS: enoxaparin 40mg/0.4ml syringe SUBCUT SCH (08:11)
[2018-05-02] MEDS: mineral oil/petrolatum, white cream 113gm jar TP SCH ×2 (08:12→22:41)
--- NOTE | 2018-05-02 18:55 | NUR ---
Problems reprioritized. Patient report given, questions answered & plan of care reviewed with JULI CAZARES.
[2018-05-02 20:00] VITALS: BP 109/62
[2018-05-02] MEDS: mirtazapine 15mg tablet PO SCH (22:40)
--- NOTE | 2018-05-03 06:30 | NUR ---
Patient in room [facility] 357. I have received report from Lianne CAZARES and had the opportunity to ask questions and assume patient care.
--- NOTE | 2018-05-03 06:35 | NUR ---
Report given to Onesimo CAZARES.
[2018-05-03 07:37] VITALS: BP 135/79
[2018-05-03] MEDS: divalproex sodium 500mg tablet.DR PO SCH ×2 (08:20→20:20)
[2018-05-03] MEDS: docusate sod 100mg capsule PO SCH ×2 (08:20→20:19)
[2018-05-03] MEDS: aspirin 81mg tablet.DR PO SCH (08:20)
[2018-05-03] MEDS: levetiracetam 250mg tablet PO SCH ×2 (08:21→20:19)
[2018-05-03] MEDS: clopidogrel 75mg tablet PO SCH (08:22)
[2018-05-03] MEDS: baclofen 10mg tablet PO SCH ×2 (08:22→20:20)
[2018-05-03] MEDS: enoxaparin 40mg/0.4ml syringe SUBCUT SCH (08:22)
[2018-05-03] MEDS: quetiapine 100mg tablet PO SCH ×2 (08:22→20:20)
[2018-05-03] MEDS: mineral oil/petrolatum, white cream 113gm jar TP SCH ×2 (08:23→20:26)
--- NOTE | 2018-05-03 18:23 | NUR ---
Received report from Onesimo Rn pt is awake on RA, pt just received dinner tray, bed alarm on, call light and items of freq use within reacch.
[2018-05-03 19:15] VITALS: BP 104/66
[2018-05-03] MEDS: mirtazapine 15mg tablet PO SCH (20:20)
--- NOTE | 2018-05-03 22:30 | NUR ---
Patient in room [facility] 357. I have received report from SAGE COLINDRES and had the opportunity to ask questions and assume patient care. Addendum: 05/03/18 at 2319 by Patricia Schuster RN Amended: Links added.
--- NOTE | 2018-05-03 22:32 | NUR ---
Gave report to Margoth CAZARES pt is awake turning off tv getting ready for bed on RA in no apparent distress, call light and items of freq use within reach. Addendum: 05/03/18 at 2233 by Shira Ross RN pt bed alarm is on
--- NOTE | 2018-05-04 06:38 | NUR ---
Problems reprioritized. Patient report given, questions answered & plan of care reviewed with SGAE Dickson. Addendum: 05/04/18 at 0638 by Patricia Schuster RN Amended: Links added.
[2018-05-04 07:20] VITALS: BP 109/67
[2018-05-04] MEDS: enoxaparin 40mg/0.4ml syringe SUBCUT SCH (07:59)
[2018-05-04] MEDS: docusate sod 100mg capsule PO SCH ×2 (07:59→20:00)
[2018-05-04] MEDS: clopidogrel 75mg tablet PO SCH (07:59)
[2018-05-04] MEDS: divalproex sodium 500mg tablet.DR PO SCH ×2 (07:59→21:00)
[2018-05-04] MEDS: quetiapine 100mg tablet PO SCH ×2 (07:59→20:00)
[2018-05-04] MEDS: levetiracetam 250mg tablet PO SCH ×2 (07:59→20:00)
[2018-05-04] MEDS: aspirin 81mg tablet.DR PO SCH (08:00)
[2018-05-04] MEDS: baclofen 10mg tablet PO SCH ×2 (08:00→21:00)
[2018-05-04] MEDS: mineral oil/petrolatum, white cream 113gm jar TP SCH ×2 (08:02→20:00)
--- NOTE | 2018-05-04 16:14 | NUR ---
PATIENT REPEATEDLY REQUESTING TO DISCHARGE HOME. STATING HE CAN DO EVERYTHING HE NEEDS TO DO INDEPENDENTLY AT HOME. MD ORDERED A HOME SAFETY EVALUATION TO EVALUATE PATIENT.
--- NOTE | 2018-05-04 18:18 | NUR ---
Received report from Eleanor CAZARES pt is awake requesting the urinal in no apparent distress, call light and items of freq use within reach.
--- NOTE | 2018-05-04 18:23 | NUR ---
Problems reprioritized. Patient report given, questions answered & plan of care reviewed with SAGE MIRZA.
[2018-05-04 20:00] VITALS: BP 114/70
[2018-05-04] MEDS: mirtazapine 15mg tablet PO SCH (21:00)
--- NOTE | 2018-05-05 06:31 | NUR ---
Problems reprioritized. Patient report given, questions answered & plan of care reviewed with Eleanor CAZARES.
[2018-05-05 07:30] VITALS: BP 127/89
[2018-05-05] MEDS: aspirin 81mg tablet.DR PO SCH (08:39)
[2018-05-05] MEDS: clopidogrel 75mg tablet PO SCH (08:39)
[2018-05-05] MEDS: baclofen 10mg tablet PO SCH ×2 (08:40→20:31)
[2018-05-05] MEDS: divalproex sodium 500mg tablet.DR PO SCH ×2 (08:40→20:32)
[2018-05-05] MEDS: quetiapine 100mg tablet PO SCH ×2 (08:40→20:31)
[2018-05-05] MEDS: levetiracetam 250mg tablet PO SCH ×2 (08:40→20:32)
[2018-05-05] MEDS: docusate sod 100mg capsule PO SCH ×2 (08:40→20:32)
[2018-05-05] MEDS: mineral oil/petrolatum, white cream 113gm jar TP SCH ×2 (08:41→20:32)
[2018-05-05] MEDS: enoxaparin 40mg/0.4ml syringe SUBCUT SCH (08:41)
--- NOTE | 2018-05-05 18:07 | NUR ---
Received report from Eleanor CAZARES pt is awake sitting in bedside chair with a tabs alarm on eating dinner, on RA, in no apparent distress,
--- NOTE | 2018-05-05 18:16 | NUR ---
Problems reprioritized. Patient report given, questions answered & plan of care reviewed with SAGE Silva.
[2018-05-05 19:00] VITALS: BP 118/73
[2018-05-05] MEDS: mirtazapine 15mg tablet PO SCH (20:32)
[2018-05-06 00:15] VITALS: BP 139/79
--- NOTE | 2018-05-06 06:20 | NUR ---
Problems reprioritized. Patient report given, questions answered & plan of care reviewed with Grace CAZARES.
--- NOTE | 2018-05-06 06:33 | NUR ---
I have received report from Shira CAZARES and had the opportunity to ask questions and assume patient care.
[2018-05-06 08:00] VITALS: BP 111/69
[2018-05-06] MEDS: quetiapine 100mg tablet PO SCH ×2 (09:03→21:26)
[2018-05-06] MEDS: clopidogrel 75mg tablet PO SCH (09:03)
[2018-05-06] MEDS: levetiracetam 250mg tablet PO SCH ×2 (09:03→21:27)
[2018-05-06] MEDS: aspirin 81mg tablet.DR PO SCH (09:03)
[2018-05-06] MEDS: docusate sod 100mg capsule PO SCH ×2 (09:03→21:26)
[2018-05-06] MEDS: divalproex sodium 500mg tablet.DR PO SCH ×2 (09:03→21:26)
[2018-05-06] MEDS: enoxaparin 40mg/0.4ml syringe SUBCUT SCH (09:04)
[2018-05-06] MEDS: mineral oil/petrolatum, white cream 113gm jar TP SCH ×2 (09:06→21:30)
[2018-05-06] MEDS: baclofen 10mg tablet PO SCH ×2 (09:07→21:26)
--- NOTE | 2018-05-06 10:05 | NUR ---
Notified Unit Techs that today is shower day. Will encourage patient this afternoon after lunch to get into the shower.
--- NOTE | 2018-05-06 10:07 | NUR ---
Patient fell asleep during breakfast, states that he was tired when he started to eat this morning. Addendum: 05/06/18 at 1008 by Grace Curry RN Amended: Links added.
--- NOTE | 2018-05-06 11:48 | NUR ---
Patient resting comfortably, tried to get patient to get up and walk, he states he wants to sleep. Unit tech states that he hasn't slept much in the past few days. Patient usually walks 3 times a day, will let him rest.
--- NOTE | 2018-05-06 18:14 | NUR ---
Problems reprioritized. Patient report given, questions answered & plan of care reviewed with Lianne CAZARES.
[2018-05-06] MEDS: mirtazapine 15mg tablet PO SCH (21:27)
--- NOTE | 2018-05-06 21:32 | NUR ---
Patient easily to arousal. Patient showered tonight. Patient took all night medications. Will continue with care.
[2018-05-06 22:00] VITALS: BP 116/66
--- NOTE | 2018-05-07 06:23 | NUR ---
Problems reprioritized. Patient report given, questions answered & plan of care reviewed with Grace RN and student nurse RN.
--- NOTE | 2018-05-07 06:25 | NUR ---
Patient in room [facility] 357. I have received report from Lianne CAZARES and had the opportunity to ask questions and assume patient care.
--- NOTE | 2018-05-07 06:44 | NUR ---
I have received report from Lianne CAZARES and had the opportunity to ask questions and assume patient care.
[2018-05-07] MEDS: quetiapine 100mg tablet PO SCH ×2 (07:56→23:51)
[2018-05-07] MEDS: divalproex sodium 500mg tablet.DR PO SCH ×2 (07:56→23:56)
[2018-05-07] MEDS: aspirin 81mg tablet.DR PO SCH (07:57)
[2018-05-07] MEDS: docusate sod 100mg capsule PO SCH ×2 (07:57→23:51)
[2018-05-07] MEDS: levetiracetam 250mg tablet PO SCH ×2 (07:57→23:51)
[2018-05-07] MEDS: clopidogrel 75mg tablet PO SCH (07:57)
[2018-05-07] MEDS: baclofen 10mg tablet PO SCH ×2 (07:58→23:51)
[2018-05-07] MEDS: enoxaparin 40mg/0.4ml syringe SUBCUT SCH (07:58)
[2018-05-07 08:00] VITALS: BP 104/62
[2018-05-07] MEDS: mineral oil/petrolatum, white cream 113gm jar TP SCH ×2 (08:00→23:58)
[2018-05-07 20:00] VITALS: BP 116/69
[2018-05-07] MEDS: mirtazapine 15mg tablet PO SCH (23:51)
--- NOTE | 2018-05-08 06:15 | NUR ---
Patient in room [facility] 357. I have received report from Lianne CAZARES and had the opportunity to ask questions and assume patient care.
[2018-05-08 07:41] VITALS: BP 117/66
[2018-05-08] MEDS: levetiracetam 250mg tablet PO SCH ×2 (08:28→19:58)
[2018-05-08] MEDS: clopidogrel 75mg tablet PO SCH (08:28)
[2018-05-08] MEDS: baclofen 10mg tablet PO SCH ×2 (08:28→21:08)
[2018-05-08] MEDS: docusate sod 100mg capsule PO SCH ×2 (08:28→19:58)
[2018-05-08] MEDS: divalproex sodium 500mg tablet.DR PO SCH ×2 (08:29→21:07)
[2018-05-08] MEDS: enoxaparin 40mg/0.4ml syringe SUBCUT SCH (08:29)
[2018-05-08] MEDS: quetiapine 100mg tablet PO SCH ×2 (08:29→19:58)
[2018-05-08] MEDS: aspirin 81mg tablet.DR PO SCH (08:29)
[2018-05-08] MEDS: mineral oil/petrolatum, white cream 113gm jar TP SCH ×2 (08:36→19:58)
[2018-05-08 11:39] LABS: ALBUMIN 2.7 G/DL (3.4-5.0); ANION GAP 10 (8-16); BLOOD UREA NITROGEN 29 MG/DL (7-18); CHLORIDE 108 MMOL/L (99-107); CREATININE 0.88 MG/DL (0.60-1.10); GLUCOSE 121 MG/DL (70-104); POTASSIUM 3.6 MMOL/L (3.5-5.1); SODIUM 142 MMOL/L (135-145); TOTAL CARBON DIOXIDE 24.1 MMOL/L (24-32); eGFR 86 ML/MIN
[2018-05-08 11:43] LABS: EOSINOPHILS # (AUTO) 0.1 X10'3 (0-0.9); EOSINOPHILS % (AUTO) 0.4 % (0-6); MONOCYTES # (AUTO) 0.5 X10'3 (0-0.9); PLATELET COUNT 176 X10'3 (140-440)
[2018-05-08 11:44] LABS: BASOPHILS % (AUTO) 0.2 % (0-1); HEMATOCRIT 39.9 % (42.0-52.0); LYMPHOCYTES # (AUTO) 13.6 X10'3 (1.1-4.8); LYMPHOCYTES % (AUTO) 67.8 % (21-51); MEAN CORPUSCULAR HGB CONC 32.5 g/dL (33.0-36.5); MEAN CORPUSCULAR VOLUME 92.5 FL (78-98); MEAN PLATELET VOLUME 7.7 FL (7.4-10.4); MONOCYTES % (AUTO) 2.3 % (2-12); NEUTROPHILS # (AUTO) 5.9 X10'3 (1.8-7.7); NEUTROPHILS % (AUTO) 29.3 % (42-75); RED BLOOD COUNT 4.32 X10'6 (4.70-6.10); RED CELL DISTRIBUTION WIDTH 17.6 % (11.5-14.5); WHITE BLOOD COUNT 20.1 X10'3 (4.5-11.0)
--- NOTE | 2018-05-08 12:17 | NUR ---
reassessment: Pt PO fluctuating decreased to 25-100% avg meals likely still meeting needs given wt. LBM 05/07. Will continue to monitor. Rec: 1. Continue regular diet 2. Encourage PO intake 3. Wt per rx Addendum: 05/08/18 at [address] Amended: Links added.
[2018-05-08 12:21] LABS: PLATELET ESTIMATE NORMAL; SMUDGE CELLS 3+; TOTAL CELLS COUNTED 100
[2018-05-08 12:27] LABS: ANISOCYTOSIS 1+; ELLIPTOCYTES FEW
[2018-05-08 12:28] LABS: POIKILOCYTOSIS FEW
--- NOTE | 2018-05-08 18:15 | NUR ---
Problems reprioritized. Patient report given, questions answered & plan of care reviewed with Ayala Martin RN.
--- NOTE | 2018-05-08 18:33 | NUR ---
Patient in room [facility]. I have received report from SAGE ROMANO and had the opportunity to ask questions and assume patient care. Addendum: 05/08/18 at 1834 by Chica Brooks RN Amended: Links added.
[2018-05-08] MEDS: mirtazapine 15mg tablet PO SCH (21:07)
[2018-05-09] MEDS: acetaminophen 325mg tablet PO PRN (05:11)
--- NOTE | 2018-05-09 06:35 | NUR ---
Patient in room [facility]. I have received report from Ayala Martin RN and had the opportunity to ask questions and assume patient care.
--- NOTE | 2018-05-09 06:59 | NUR ---
Problems reprioritized. Patient report given, questions answered & plan of care reviewed with louis diop. Addendum: 05/09/18 at 0659 by Chica Brooks RN Amended: Links added.
[2018-05-09 07:30] VITALS: BP 124/80
[2018-05-09] MEDS: baclofen 10mg tablet PO SCH ×2 (08:00→21:32)
[2018-05-09] MEDS: enoxaparin 40mg/0.4ml syringe SUBCUT SCH (08:00)
[2018-05-09] MEDS: levetiracetam 250mg tablet PO SCH ×2 (08:00→21:32)
[2018-05-09] MEDS: docusate sod 100mg capsule PO SCH ×2 (08:00→21:32)
[2018-05-09] MEDS: mineral oil/petrolatum, white cream 113gm jar TP SCH ×2 (08:00→21:32)
[2018-05-09] MEDS: aspirin 81mg tablet.DR PO SCH (08:00)
[2018-05-09] MEDS: clopidogrel 75mg tablet PO SCH (08:00)
[2018-05-09] MEDS: quetiapine 100mg tablet PO SCH ×2 (08:00→21:30)
[2018-05-09] MEDS: divalproex sodium 500mg tablet.DR PO SCH ×2 (08:00→21:33)
--- NOTE | 2018-05-09 18:30 | NUR ---
Patient in room [facility]. I have received report from Radha CAZARES and had the opportunity to ask questions and assume patient care. Patient in bed, finished dinner, will continue to monitor.
--- NOTE | 2018-05-09 18:40 | NUR ---
Problems reprioritized. Patient report given, questions answered & plan of care reviewed with SAGE Urrutia.
[2018-05-09 20:00] VITALS: BP 134/69
[2018-05-09] MEDS: mirtazapine 15mg tablet PO SCH (21:30)
[2018-05-09] MEDS: oxyCODONE/APAP 10/325mg tablet PO PRN (23:02)
--- NOTE | 2018-05-10 06:20 | NUR ---
Patient in room [facility]. I have received report from Ian and had the opportunity to ask questions and assume patient care. Addendum: 05/10/18 at 0702 by Lorena Ashton RN SAGE Urrutia
--- NOTE | 2018-05-10 06:30 | NUR ---
Problems reprioritized. Patient report given, questions answered & plan of care reviewed with Lorena CAZARES.
[2018-05-10 07:15] VITALS: BP 108/67
[2018-05-10] MEDS: docusate sod 100mg capsule PO SCH ×2 (08:00→20:00)
[2018-05-10] MEDS: baclofen 10mg tablet PO SCH ×2 (08:00→20:11)
[2018-05-10] MEDS: aspirin 81mg tablet.DR PO SCH (09:41)
[2018-05-10] MEDS: divalproex sodium 500mg tablet.DR PO SCH ×2 (09:41→20:10)
[2018-05-10] MEDS: levetiracetam 250mg tablet PO SCH ×2 (09:42→20:10)
[2018-05-10] MEDS: quetiapine 100mg tablet PO SCH ×2 (09:43→20:10)
[2018-05-10] MEDS: clopidogrel 75mg tablet PO SCH (09:43)
[2018-05-10] MEDS: enoxaparin 40mg/0.4ml syringe SUBCUT SCH (09:44)
[2018-05-10] MEDS: mineral oil/petrolatum, white cream 113gm jar TP SCH ×2 (09:44→20:12)
[2018-05-10 18:00] VITALS: BP 117/72
--- NOTE | 2018-05-10 18:30 | NUR ---
aProblems reprioritized. Patient report given, questions answered & plan of care reviewed with SAGE Caicedo.
[2018-05-10] MEDS: mirtazapine 15mg tablet PO SCH (20:11)
--- NOTE | 2018-05-11 06:03 | NUR ---
Problems reprioritized. Patient report given, questions answered & plan of care reviewed with Lorena CAZARES. Addendum: 05/11/18 at 0603 by Marifer Cates RN Amended: Links added.
--- NOTE | 2018-05-11 06:25 | NUR ---
Patient in room [facility]. I have received report from SAGE Caicedo and had the opportunity to ask questions and assume patient care.
[2018-05-11 07:30] VITALS: BP 117/59
[2018-05-11] MEDS: docusate sod 100mg capsule PO SCH ×2 (08:00→20:00)
[2018-05-11] MEDS: baclofen 10mg tablet PO SCH ×2 (08:00→20:43)
[2018-05-11] MEDS: divalproex sodium 500mg tablet.DR PO SCH ×2 (09:13→20:42)
[2018-05-11] MEDS: levetiracetam 250mg tablet PO SCH ×2 (09:13→20:42)
[2018-05-11] MEDS: aspirin 81mg tablet.DR PO SCH (09:13)
[2018-05-11] MEDS: quetiapine 100mg tablet PO SCH ×2 (09:14→20:42)
[2018-05-11] MEDS: clopidogrel 75mg tablet PO SCH (09:14)
[2018-05-11] MEDS: enoxaparin 40mg/0.4ml syringe SUBCUT SCH (09:15)
[2018-05-11] MEDS: mineral oil/petrolatum, white cream 113gm jar TP SCH ×2 (09:16→20:44)
--- NOTE | 2018-05-11 18:25 | NUR ---
Problems reprioritized. Patient report given, questions answered & plan of care reviewed with SAGE Caicedo.
[2018-05-11 19:00] VITALS: BP 120/60
[2018-05-11] MEDS: mirtazapine 15mg tablet PO SCH (20:43)
[2018-05-11] MEDS: oxyCODONE/APAP 10/325mg tablet PO PRN (20:44)
--- NOTE | 2018-05-12 06:00 | NUR ---
Problems reprioritized. Patient report given, questions answered & plan of care reviewed with Pallavi Calderon. Addendum: 05/12/18 at 0656 by Marifer Cates RN Amended: Links added.
[2018-05-12 08:00] VITALS: BP 137/80
[2018-05-12] MEDS: docusate sod 100mg capsule PO SCH ×2 (08:00→20:00)
[2018-05-12] MEDS: baclofen 10mg tablet PO SCH ×4 (08:00→20:51)
[2018-05-12] MEDS: mineral oil/petrolatum, white cream 113gm jar TP SCH ×2 (10:13→20:51)
[2018-05-12] MEDS: quetiapine 100mg tablet PO SCH ×2 (10:14→20:00)
[2018-05-12] MEDS: divalproex sodium 500mg tablet.DR PO SCH ×2 (10:14→20:51)
[2018-05-12] MEDS: aspirin 81mg tablet.DR PO SCH (10:14)
[2018-05-12] MEDS: levetiracetam 250mg tablet PO SCH ×2 (10:14→20:00)
[2018-05-12] MEDS: clopidogrel 75mg tablet PO SCH (10:15)
[2018-05-12] MEDS: enoxaparin 40mg/0.4ml syringe SUBCUT SCH (10:16)
[2018-05-12 11:51] LABS: BASOPHILS % (AUTO) 0.3 % (0-1); EOSINOPHILS # (AUTO) 0.3 X10'3 (0-0.9); EOSINOPHILS % (AUTO) 1.9 % (0-6); HEMATOCRIT 39.4 % (42.0-52.0); HEMOGLOBIN 12.6 g/dl (14.0-17.9); LYMPHOCYTES # (AUTO) 12.4 X10'3 (1.1-4.8); LYMPHOCYTES % (AUTO) 68.2 % (21-51); MEAN CORPUSCULAR HEMOGLOBIN 29.2 PG (27.0-31.0); MEAN CORPUSCULAR HGB CONC 31.9 g/dL (33.0-36.5); MEAN CORPUSCULAR VOLUME 91.3 FL (78-98); MEAN PLATELET VOLUME 7.5 FL (7.4-10.4); MONOCYTES # (AUTO) 0.5 X10'3 (0-0.9); MONOCYTES % (AUTO) 2.7 % (2-12); NEUTROPHILS # (AUTO) 4.9 X10'3 (1.8-7.7); NEUTROPHILS % (AUTO) 26.9 % (42-75); PLATELET COUNT 252 X10'3 (140-440); RED BLOOD COUNT 4.32 X10'6 (4.70-6.10); RED CELL DISTRIBUTION WIDTH 17.7 % (11.5-14.5); WHITE BLOOD COUNT 18.2 X10'3 (4.5-11.0)
[2018-05-12 12:01] LABS: ALBUMIN 2.8 G/DL (3.4-5.0); ANION GAP 8 (8-16); BLOOD UREA NITROGEN 21 MG/DL (7-18); BUN/CREATININE RATIO 25.3 (5.4-32.0); CALCIUM 9.3 MG/DL (8.5-10.1); CHLORIDE 108 MMOL/L (99-107); CREATININE 0.83 MG/DL (0.60-1.10); GLUCOSE 89 MG/DL (70-104); POTASSIUM 3.9 MMOL/L (3.5-5.1); SODIUM 143 MMOL/L (135-145); TOTAL CARBON DIOXIDE 27.5 MMOL/L (24-32); eGFR > 90 ML/MIN
[2018-05-12 12:30] LABS: ANISOCYTOSIS 1+; ELLIPTOCYTES FEW; PLATELET ESTIMATE NORMAL; SMUDGE CELLS 2+; TOTAL CELLS COUNTED 100
--- NOTE | 2018-05-12 18:30 | NUR ---
Received report from Pallavi CAZARES pt is awake eating dinner on RA in no apparent distress
[2018-05-12 19:15] VITALS: BP 119/70
[2018-05-12] MEDS: mirtazapine 15mg tablet PO SCH (20:51)
--- NOTE | 2018-05-13 06:15 | NUR ---
Gave report to Pallavi CAZARES pt is resting on RA bed alarm on in no apparent distress
[2018-05-13 08:00] VITALS: BP 127/76
[2018-05-13] MEDS: docusate sod 100mg capsule PO SCH ×3 (08:00→21:52)
[2018-05-13] MEDS: baclofen 10mg tablet PO SCH ×2 (08:00→09:39)
[2018-05-13] MEDS: enoxaparin 40mg/0.4ml syringe SUBCUT SCH (09:38)
[2018-05-13] MEDS: clopidogrel 75mg tablet PO SCH (09:39)
[2018-05-13] MEDS: aspirin 81mg tablet.DR PO SCH (09:39)
[2018-05-13] MEDS: divalproex sodium 500mg tablet.DR PO SCH ×3 (09:39→21:52)
[2018-05-13] MEDS: levetiracetam 250mg tablet PO SCH ×3 (09:40→21:52)
[2018-05-13] MEDS: quetiapine 100mg tablet PO SCH ×3 (09:40→21:52)
[2018-05-13] MEDS: magnesium hydroxide 30ml (MOM) UD suspension PO PRN (09:40)
[2018-05-13] MEDS: mineral oil/petrolatum, white cream 113gm jar TP SCH ×2 (09:44→20:00)
[2018-05-13 12:00] VITALS: BP 110/66
--- NOTE | 2018-05-13 12:10 | NUR ---
Reassessment: PO intake continues to fluctuate with 25-50% and recent intake averaging 75%, pt likely still meeting nutrient needs. [facility] 05/13. Pt continues awaiting placement. Will continue to follow. Rec: 1. Continue regular diet 2. Encourage PO intake 3. Wt per rx Addendum: 05/13/18 at [address] Amended: Links added.
[2018-05-13] MEDS ORDERED: LORazepam 2 mg/ml vial IV PRN (15:35)
--- NOTE | 2018-05-13 15:54 | NUR ---
Pt became verbally abusive/verbally combative toward all staff present when getting back in bed from commode,this lasted for about 20 minutes. He wanted to "walk out of here" and "go home" Patient is a very high fall risk and not safe for discharge. It was explained to him that we are trying to get him home, out of the hospital but it is not safe at this time. Pt appears somewhat confused as well. Security called and states patient says he was hallucinating that security was there in room but they are not really there. Dr Torres was notified, patient not calming down. Dr Torres ordered 0.5 ativan IM q6 prn and in PO form as well. Patient ended up getting back in bed, we did not have to use ativan at this time. Will continue to monitor.
--- NOTE | 2018-05-13 17:21 | NUR ---
Patient has been quiet in room since last incident but now is more agitated, says he needs to get up to the toilet. We are unable to get him up at this time do to aggression and difficulty moving patient. Patient offered bed rogers which he uses often and told student nurse he would throw the poop at him and won't use a bed rogers. I went to check on situation, offered patient bed rogers again and patient says, "Get the FK away, I ain't using a bed rogers. I'm going to ST in your mouth".
--- NOTE | 2018-05-13 17:41 | NUR ---
Security brought to floor to assist with calming patient so I could give dose of IM ativan as ordered. Leilani Charge nurse was able to communicate well with patient and patient calmed down enough so I could give medication. Will continue to monitor.
--- NOTE | 2018-05-13 17:49 | NUR ---
I agree with Dalia, student nurse phys assessments on 05/12 and 05/13.
--- NOTE | 2018-05-13 19:18 | NUR ---
Patient sleeping comfortably, Report given to Bisi CAZARES. She will take over care.
[2018-05-13] MEDS: mirtazapine 15mg tablet PO SCH ×2 (21:00→21:51)
[2018-05-13] MEDS: oxyCODONE/APAP 10/325mg tablet PO PRN (21:51)
--- NOTE | 2018-05-13 23:07 | NUR ---
Patient in room [facility]. I have received report from SAGE Olivo and had the opportunity to ask questions and assume patient care. Addendum: 05/13/18 at 2308 by Bisi Hadley RN Amended: Links added.
[2018-05-14 00:13] VITALS: BP 143/86
--- NOTE | 2018-05-14 06:17 | NUR ---
Patient in room [facility]. I have received report from SAGE PARKER and had the opportunity to ask questions and assume patient care.
--- NOTE | 2018-05-14 06:18 | NUR ---
Problems reprioritized. Patient report given, questions answered & plan of care reviewed with SAGE Anaya. Addendum: 05/14/18 at 0618 by Bisi Hadley RN Amended: Links added.
[2018-05-14 06:59] VITALS: BP 121/63
[2018-05-14] MEDS: aspirin 81mg tablet.DR PO SCH (07:48)
[2018-05-14] MEDS: quetiapine 100mg tablet PO SCH ×2 (07:49→20:04)
[2018-05-14] MEDS: docusate sod 100mg capsule PO SCH ×2 (07:49→20:04)
[2018-05-14] MEDS: levetiracetam 250mg tablet PO SCH ×2 (07:49→20:04)
[2018-05-14] MEDS: baclofen 10mg tablet PO SCH ×2 (07:49→20:04)
[2018-05-14] MEDS: clopidogrel 75mg tablet PO SCH (07:49)
[2018-05-14] MEDS: enoxaparin 40mg/0.4ml syringe SUBCUT SCH (07:49)
[2018-05-14] MEDS: divalproex sodium 500mg tablet.DR PO SCH ×2 (07:49→20:05)
[2018-05-14] MEDS: mineral oil/petrolatum, white cream 113gm jar TP SCH ×2 (07:50→20:28)
[2018-05-14 11:39] VITALS: BP 109/87
--- NOTE | 2018-05-14 18:19 | NUR ---
Problems reprioritized. Patient report given, questions answered & plan of care reviewed with SAGE Mathews.
[2018-05-14 20:00] VITALS: BP 126/57
[2018-05-14] MEDS: mirtazapine 15mg tablet PO SCH (20:05)
--- NOTE | 2018-05-15 00:13 | NUR ---
Patient in room [facility]. I have received report from SAGE Anaya and had the opportunity to ask questions and assume patient care. Addendum: 05/15/18 at 0014 by Bisi Hadley RN Amended: Links added.
--- NOTE | 2018-05-15 05:58 | NUR ---
Problems reprioritized. Patient report given, questions answered & plan of care reviewed with SAGE Anaya. Addendum: 05/15/18 at 0558 by Bisi Hadley RN Amended: Links added.
--- NOTE | 2018-05-15 06:20 | NUR ---
Patient in room [facility]. I have received report from SAGE PARKER and had the opportunity to ask questions and assume patient care.
[2018-05-15] MEDS: enoxaparin 40mg/0.4ml syringe SUBCUT SCH (08:00)
[2018-05-15] MEDS: docusate sod 100mg capsule PO SCH ×2 (08:23→19:48)
[2018-05-15] MEDS: aspirin 81mg tablet.DR PO SCH (08:23)
[2018-05-15] MEDS: quetiapine 100mg tablet PO SCH ×2 (08:23→19:48)
[2018-05-15] MEDS: levetiracetam 250mg tablet PO SCH ×2 (08:24→19:48)
[2018-05-15] MEDS: divalproex sodium 500mg tablet.DR PO SCH ×2 (08:24→19:49)
[2018-05-15] MEDS: baclofen 10mg tablet PO SCH ×2 (08:26→19:49)
[2018-05-15] MEDS: clopidogrel 75mg tablet PO SCH (08:26)
[2018-05-15] MEDS: mineral oil/petrolatum, white cream 113gm jar TP SCH ×2 (08:32→20:00)
[2018-05-15 08:46] VITALS: BP 125/71
[2018-05-15 09:24] LABS: EOSINOPHILS # (AUTO) 0.1 X10'3 (0-0.9); MONOCYTES # (AUTO) 0.5 X10'3 (0-0.9)
[2018-05-15 09:26] LABS: BASOPHILS % (AUTO) 0.2 % (0-1); EOSINOPHILS % (AUTO) 0.7 % (0-6); HEMATOCRIT 41.1 % (42.0-52.0); HEMOGLOBIN 13.6 g/dl (14.0-17.9); LYMPHOCYTES # (AUTO) 14.7 X10'3 (1.1-4.8); LYMPHOCYTES % (AUTO) 79.4 % (21-51); MEAN CORPUSCULAR HEMOGLOBIN 30.2 PG (27.0-31.0); MEAN CORPUSCULAR HGB CONC 33.2 g/dL (33.0-36.5); MEAN CORPUSCULAR VOLUME 90.9 FL (78-98); MEAN PLATELET VOLUME 6.9 FL (7.4-10.4); MONOCYTES % (AUTO) 2.9 % (2-12); NEUTROPHILS # (AUTO) 3.1 X10'3 (1.8-7.7); NEUTROPHILS % (AUTO) 16.8 % (42-75); PLATELET COUNT 212 X10'3 (140-440); RED BLOOD COUNT 4.52 X10'6 (4.70-6.10); RED CELL DISTRIBUTION WIDTH 17.7 % (11.5-14.5); WHITE BLOOD COUNT 18.5 X10'3 (4.5-11.0)
[2018-05-15 09:36] LABS: ALBUMIN 2.9 G/DL (3.4-5.0); ANION GAP 9 (8-16); BLOOD UREA NITROGEN 24 MG/DL (7-18); BUN/CREATININE RATIO 27.9 (5.4-32.0); CHLORIDE 107 MMOL/L (99-107); CREATININE 0.86 MG/DL (0.60-1.10); GLUCOSE 102 MG/DL (70-104); POTASSIUM 4.1 MMOL/L (3.5-5.1); SODIUM 139 MMOL/L (135-145); TOTAL CARBON DIOXIDE 23.3 MMOL/L (24-32); eGFR 88 ML/MIN
--- NOTE | 2018-05-15 18:27 | NUR ---
Problems reprioritized. Patient report given, questions answered & plan of care reviewed with SAGE Mathews.
[2018-05-15 19:00] VITALS: BP 107/66
[2018-05-15] MEDS: mirtazapine 15mg tablet PO SCH (19:48)
--- NOTE | 2018-05-15 23:35 | NUR ---
Patient in room [facility]. I have received report from SAGE Anaya and had the opportunity to ask questions and assume patient care. Addendum: 05/15/18 at 2336 by Bisi Hadley RN Amended: Links added.
--- NOTE | 2018-05-16 06:22 | NUR ---
Problems reprioritized. Patient report given, questions answered & plan of care reviewed with SAGE Morrison. Addendum: 05/16/18 at 0622 by Bisi Hadley RN Amended: Links added.
[2018-05-16 07:00] VITALS: BP 125/63
--- NOTE | 2018-05-16 07:00 | NUR ---
Patient in room [facility]. I have received report from Bisi and had the opportunity to ask questions and assume patient care. Addendum: 05/16/18 at 1308 by Tamiko Mullins RN Amended: Links added.
[2018-05-16] MEDS: divalproex sodium 500mg tablet.DR PO SCH (07:57)
[2018-05-16] MEDS: enoxaparin 40mg/0.4ml syringe SUBCUT SCH (07:58)
[2018-05-16] MEDS: levetiracetam 250mg tablet PO SCH (07:59)
[2018-05-16] MEDS: baclofen 10mg tablet PO SCH (07:59)
[2018-05-16] MEDS: clopidogrel 75mg tablet PO SCH (07:59)
[2018-05-16] MEDS: quetiapine 100mg tablet PO SCH (07:59)
[2018-05-16] MEDS: aspirin 81mg tablet.DR PO SCH (07:59)
[2018-05-16] MEDS: mineral oil/petrolatum, white cream 113gm jar TP SCH (08:00)
[2018-05-16] MEDS: docusate sod 100mg capsule PO SCH (08:00)
[2018-05-16] MEDS: LORazepam 0.5 MG tablet PO PRN (10:19)
[2018-05-16] MEDS: LORazepam 2 mg/ml vial IM PRN (14:58)
--- NOTE | 2018-05-16 15:12 | NUR ---
Pt is very angry, cussing. IM Ativan given and security called to help calm patient.
--- NOTE | 2018-05-16 18:30 | NUR ---
Report to SAGE Abdalla
[2018-05-16 20:00] VITALS: BP 128/63
[2018-05-17] MEDS: baclofen 10mg tablet PO SCH ×3 (00:17→19:42)
[2018-05-17] MEDS: divalproex sodium 500mg tablet.DR PO SCH ×3 (00:17→19:39)
[2018-05-17] MEDS: docusate sod 100mg capsule PO SCH ×3 (00:17→20:00)
[2018-05-17] MEDS: levetiracetam 250mg tablet PO SCH ×3 (00:17→19:39)
[2018-05-17] MEDS: quetiapine 100mg tablet PO SCH ×3 (00:17→19:39)
[2018-05-17] MEDS: mineral oil/petrolatum, white cream 113gm jar TP SCH ×3 (00:20→19:43)
[2018-05-17] MEDS: mirtazapine 15mg tablet PO SCH ×2 (00:20→19:39)
--- NOTE | 2018-05-17 06:30 | NUR ---
Patient in room [facility]. I have received report from SAGE Abdalla and had the opportunity to ask questions and assume patient care.
[2018-05-17 08:00] VITALS: BP 130/68
[2018-05-17] MEDS: clopidogrel 75mg tablet PO SCH (08:00)
[2018-05-17] MEDS: aspirin 81mg tablet.DR PO SCH (08:00)
[2018-05-17] MEDS: enoxaparin 40mg/0.4ml syringe SUBCUT SCH (08:00)
[2018-05-17] MEDS: LORazepam 0.5 MG tablet PO PRN (14:28)
--- NOTE | 2018-05-17 18:45 | NUR ---
Problems reprioritized. Patient report given, questions answered & plan of care reviewed with SAGE Randall.
--- NOTE | 2018-05-17 18:45 | NUR ---
Patient in room [facility]. I have received report from Miri CAZARES and had the opportunity to ask questions and assume patient care.
--- NOTE | 2018-05-17 19:00 | NUR ---
NA stated that at one point (unsure of date or time) pt had "attempted to kick" at her. RN noted that pt has had a history of physical aggression towards staff and has a green blanket on his bed. At this time, pt is calm, although he was showing signs of verbal aggression during the day time per day staff.
--- NOTE | 2018-05-17 22:35 | NUR ---
Patient has refused 1800 vital signs
--- NOTE | 2018-05-18 00:36 | NUR ---
Patient has refused 0000 vital signs
--- NOTE | 2018-05-18 06:30 | NUR ---
Problems reprioritized. Patient report given, questions answered & plan of care reviewed with Miri RN.
--- NOTE | 2018-05-18 06:35 | NUR ---
Patient in room [facility]. I have received report from SAGE Randall and had the opportunity to ask questions and assume patient care.
[2018-05-18 08:00] VITALS: BP 112/70
[2018-05-18] MEDS: levetiracetam 250mg tablet PO SCH ×2 (08:00→20:00)
[2018-05-18] MEDS: quetiapine 100mg tablet PO SCH ×2 (08:00→23:00)
[2018-05-18] MEDS: aspirin 81mg tablet.DR PO SCH (08:00)
[2018-05-18] MEDS: enoxaparin 40mg/0.4ml syringe SUBCUT SCH (08:00)
[2018-05-18] MEDS: baclofen 10mg tablet PO SCH ×2 (08:00→21:00)
[2018-05-18] MEDS: clopidogrel 75mg tablet PO SCH (08:00)
[2018-05-18] MEDS: docusate sod 100mg capsule PO SCH ×2 (08:00→20:00)
[2018-05-18] MEDS: divalproex sodium 500mg tablet.DR PO SCH ×2 (08:46→23:00)
[2018-05-18] MEDS: mineral oil/petrolatum, white cream 113gm jar TP SCH ×2 (08:49→21:13)
[2018-05-18] MEDS: LORazepam 2 mg/ml vial IM PRN ×2 (11:22→18:43)
[2018-05-18 18:00] VITALS: BP 128/70
--- NOTE | 2018-05-18 18:29 | NUR ---
7Patient in room [facility]. I have received report from Miri CAZARES and had the opportunity to ask questions and assume patient care.
--- NOTE | 2018-05-18 18:29 | NUR ---
Problems reprioritized. Patient report given, questions answered & plan of care reviewed with SAGE Randall.
[2018-05-18] MEDS: mirtazapine 15mg tablet PO SCH (21:00)
[2018-05-18] MEDS: oxyCODONE/APAP 10/325mg tablet PO PRN (21:54)
--- NOTE | 2018-05-18 22:00 | NUR ---
Patient remains comfortable in bed. Patient lying and watching TV. No signs or symptoms of distress.
--- NOTE | 2018-05-18 22:28 | NUR ---
At start of shift (1829), pt was trying repeatedly to climb out of bed, only able to put his left leg over the side of the bed and struggle with his whole body. Bed alarm was on, but pt was not up enough to set it off. Two NA intervened non-physically at either bedside to ensure his safety in bed as he is physically unable to walk on his own without assistance. Pt shouted "Let me go walk home. I can walk home. Pt began to kick the air and appeared to this RN to be moving his arms in an aggressive manner towards the aides. Both aides held the forearms of the pt to ensure that he was safe and that he was unable to hit them. Pt continued to struggle, making at least one forceful move with his arm towards an aide that this RN had to step forward to intervene. As aides held pt, RN telephoned security and got IM ativan ready and administered to pt. Pt immediately began to calm after the ativan, and one female aide left for home. As soon as pt did not have his arms held, he began again to swing his legs over the bed and get up to go home. However, pt did not appear to be physically aggressive towards staff any longer. Patient was however verbally abusive towards staff at times. Three [facility] security officers arrived and monitored pt for a short time, who did not make any more aggressive moves towards staff, but was continuing to behave unsafely by trying to get out of bed without assistance. RN advised remaining male aide to stay in room with pt to ensure his safety. Eventually, pt calmed and watched TV without incident.
--- NOTE | 2018-05-19 06:33 | NUR ---
Problems reprioritized. Patient report given, questions answered & plan of care reviewed with Grace CAZARES.
--- NOTE | 2018-05-19 06:44 | NUR ---
Patient in room [facility]. I have received report from Prakash CAZARES and had the opportunity to ask questions and assume patient care.
[2018-05-19 08:00] VITALS: BP 171/74
[2018-05-19] MEDS: divalproex sodium 500mg tablet.DR PO SCH ×2 (08:50→19:34)
[2018-05-19] MEDS: baclofen 10mg tablet PO SCH ×2 (08:50→19:34)
[2018-05-19] MEDS: clopidogrel 75mg tablet PO SCH (08:50)
[2018-05-19] MEDS: levetiracetam 250mg tablet PO SCH ×2 (08:51→19:34)
[2018-05-19] MEDS: quetiapine 100mg tablet PO SCH ×2 (08:51→19:35)
[2018-05-19] MEDS: aspirin 81mg tablet.DR PO SCH (08:51)
[2018-05-19] MEDS: docusate sod 100mg capsule PO SCH ×2 (08:51→20:00)
[2018-05-19] MEDS: enoxaparin 40mg/0.4ml syringe SUBCUT SCH (08:54)
[2018-05-19] MEDS: mineral oil/petrolatum, white cream 113gm jar TP SCH ×2 (08:55→20:00)
[2018-05-19] MEDS ORDERED: mag hydrox/Alum hydrox/simeth 30ml oral suspension PO PRN (16:30)
--- NOTE | 2018-05-19 17:17 | NUR ---
Student documentation: I have reviewed and agree with all interventions, assessments performed and documented by Anette VALLES for [facility]. Student Medication Administration: For all medication-pass' during this shift time frame, all medication were reviewed, dispensed, administered and documented per hospital policy by Anette VALLES of [facility].
--- NOTE | 2018-05-19 17:59 | NUR ---
Problems reprioritized. Patient report given, questions answered & plan of care reviewed with Prakash CAZARES.
--- NOTE | 2018-05-19 19:00 | NUR ---
Patient has refused 1800 vital signs
--- NOTE | 2018-05-19 19:25 | NUR ---
Reassessment: PO intake continues to fluctuate still averaging ~75%, meeting nutrient needs. [facility] 05/18. Pt continues awaiting placement. No nutrition concerns at this time. Rec: 1. Continue regular diet 2. Encourage PO intake 3. Wt per rx Addendum: 05/19/18 at [address] Amended: Links added.
[2018-05-19] MEDS: mirtazapine 15mg tablet PO SCH (19:35)
--- NOTE | 2018-05-19 23:12 | NUR ---
Patient in room [facility]. I have received report from Grace CAZARES and had the opportunity to ask questions and assume patient care. Patient bed alarm is on. Addendum: 05/19/18 at 2313 by Neel Cano RN Incorrect time. correct time is 1830
--- NOTE | 2018-05-20 06:13 | NUR ---
Problems reprioritized. Patient report given, questions answered & plan of care reviewed with Grace CAZARES.
--- NOTE | 2018-05-20 06:34 | NUR ---
Patient in room [facility]. I have received report from Prakash CAZARES and had the opportunity to ask questions and assume patient care.
[2018-05-20 08:00] VITALS: BP 127/77
[2018-05-20] MEDS: enoxaparin 40mg/0.4ml syringe SUBCUT SCH (08:00)
[2018-05-20] MEDS: docusate sod 100mg capsule PO SCH ×2 (08:00→20:00)
[2018-05-20] MEDS: levetiracetam 250mg tablet PO SCH ×2 (08:14→20:00)
[2018-05-20] MEDS: baclofen 10mg tablet PO SCH ×2 (08:14→21:00)
[2018-05-20] MEDS: quetiapine 100mg tablet PO SCH ×2 (08:15→20:00)
[2018-05-20] MEDS: divalproex sodium 500mg tablet.DR PO SCH ×2 (08:15→21:00)
[2018-05-20] MEDS: clopidogrel 75mg tablet PO SCH (08:15)
[2018-05-20] MEDS: aspirin 81mg tablet.DR PO SCH (08:15)
[2018-05-20] MEDS: mineral oil/petrolatum, white cream 113gm jar TP SCH ×2 (08:16→21:47)
--- NOTE | 2018-05-20 15:20 | NUR ---
Patient called son and [id number]. Pt is requesting family to come and pick him up and take him home, patient states that he doesn't need anyone to take care of him. He is requesting staff to talk to his son and tell him to come pick him up. Patient is telling son that he doesn't need 24 hour care, he can take care of himself. He keeps telling his son he doesn't want to be in the hospital anymore. Patient states he didn't even want to come to the hospital in the first place. He states to his son "you just want me to in here" and states "Im not trying to put him in any position, I don't need 24 hour care, I want my cat and dogs. You stuck me in here and your leaving me here." Patient requested that I talk to his son, Jaspal states that he needs to be placed and he needs 24 hour care that he isn't able to provide for him since he works and would not be there to provide the care he needs. When I stated that his dad seems to just want someone to come visit him he states that every time he does it makes it hard on him and the staff since he gets so upset after he leaves, throws things at the staff, calls them names and then security has to be called on him. Denis states out loud while on the phone to his son Sam, "I love you, come visit me. Oh, I make it too difficult for you to come see me. I tried hemalatha Vargas. [place]. Thanks a lot. "
--- NOTE | 2018-05-20 17:45 | NUR ---
Patient had call light on I went in and patient stated he wanted to go for a walk, I advised patient that we are coming up on shift change and asked if he could wait until 7pm after we do shift change patient said he could and was very pleasant. Then patient stated he doesn't want to be here anymore. Patient stated " I just want to ." I told Denis that would make me very sad. Denis said "I am very tired of being here and just wants to go home. " Denis stated I will just kill myself then. I told him again I would be very sad. Denis smiled at me and stated he will go for a walk at 7pm and I advised we would get him a new room with a different view and he was happy with that. I advised Grace CAZARES patients nurse of the above comments and she ordered him a caution tray.
--- NOTE | 2018-05-20 18:15 | NUR ---
Patient in room [facility]. I have received report from Terrance myers and had the opportunity to ask questions and assume patient care.
--- NOTE | 2018-05-20 18:19 | NUR ---
Problems reprioritized. Patient report given, questions answered & plan of care reviewed with Svetlana CAZARES.
--- NOTE | 2018-05-20 18:20 | NUR ---
Patient currently laying in bed on his right side watchting TV. In no distress at this time.
--- NOTE | 2018-05-20 18:38 | NUR ---
Crisis Mental Health Therapist had gone in to room to answer call light for the second time. This time she found the call light around his neck and she called out for help. Immediately went in, removed call light and asked patient what was going on. PATIENT STATED " I'm going to kill myself, I just want to go home and .". Crisis Mental Health Therapist stayed with patient talking and trying to calm him. Order obtained for sitter -suicide precautions. At this time there is an aid in room with patient and all potential lethal objects removed.Prior to this around 183, the call light system had showed that the call light had been pulled out of wall. pocket secretary assembler had just gone in to answer the call light and found it under his right shoulder under his head. Patient did not demonstrate that he was planning on wrapping cord around neck, and pocket secretary assembler placed the call light on the left bed rail within reach. Patient was frustrated but not displaying any s/s of threatening to kill himself at this time. Bed low/locked, bed alarm on.
[2018-05-20 19:00] VITALS: BP 113/58
[2018-05-20] MEDS: mirtazapine 15mg tablet PO SCH (21:00)
--- NOTE | 2018-05-21 05:53 | NUR ---
Patient tried to wrap the dividing curtain, his sheet and his gown around his neck last night. Patient is angry and upset about being in this hospital for so long with statements of " I just want to go home, why can't I go home, I'll just go home and , this hospital is keeping me here against my will". Unable to reason with patient, it just started to make him more frustrated. Sitter in room all shift, and talking to patient on/off. Patient refused all medications, and stated that he did not want anything from this hospital. Patient remains safe with sitter at bedside, bed low/locked,railsx2 up, bed alarm on.
--- NOTE | 2018-05-21 06:59 | NUR ---
Problems reprioritized. Patient report given, questions answered & plan of care reviewed with Tala CAZARES.
[2018-05-21 07:00] VITALS: BP 127/73
[2018-05-21] MEDS: mineral oil/petrolatum, white cream 113gm jar TP SCH ×2 (08:00→21:19)
[2018-05-21] MEDS: docusate sod 100mg capsule PO SCH ×2 (08:00→21:10)
[2018-05-21] MEDS: divalproex sodium 500mg tablet.DR PO SCH ×2 (08:00→21:09)
[2018-05-21] MEDS: clopidogrel 75mg tablet PO SCH (08:00)
[2018-05-21] MEDS: baclofen 10mg tablet PO SCH ×2 (08:00→21:10)
[2018-05-21] MEDS: aspirin 81mg tablet.DR PO SCH (08:00)
[2018-05-21] MEDS: enoxaparin 40mg/0.4ml syringe SUBCUT SCH (08:00)
[2018-05-21] MEDS: quetiapine 100mg tablet PO SCH ×2 (08:00→21:09)
[2018-05-21] MEDS: levetiracetam 250mg tablet PO SCH ×2 (08:00→21:09)
--- NOTE | 2018-05-21 09:52 | NUR ---
Pt. refused all medications this AM. Re-approach method was not effective. Sitter at bedside. Besides refusing medications, pt. has been pleasant and cooperative this AM.
--- NOTE | 2018-05-21 10:16 | NUR ---
PAGER ID: [phone] MESSAGE: [id number] Denis Krishnan, pt refused all medications this AM besides his eucerin cream. Re approached and it was ineffective. Tala vines [id number] Will cont. to monitor for any ASE from missed medications on my shift.
--- NOTE | 2018-05-21 18:30 | NUR ---
Patient in room [facility]. I have received report from HONORIO CAZARES and had the opportunity to ask questions and assume patient care.
[2018-05-21 20:00] VITALS: BP 138/78
[2018-05-21] MEDS: mirtazapine 15mg tablet PO SCH (21:09)
--- NOTE | 2018-05-22 06:30 | NUR ---
Problems reprioritized. Patient report given, questions answered & plan of care reviewed with HONORIO CAZARES.
[2018-05-22 07:00] VITALS: BP 119/76
[2018-05-22] MEDS: levetiracetam 250mg tablet PO SCH ×2 (07:34→22:18)
[2018-05-22] MEDS: clopidogrel 75mg tablet PO SCH (07:34)
[2018-05-22] MEDS: divalproex sodium 500mg tablet.DR PO SCH ×2 (07:35→22:17)
[2018-05-22] MEDS: baclofen 10mg tablet PO SCH ×2 (07:36→22:18)
[2018-05-22] MEDS: docusate sod 100mg capsule PO SCH ×2 (07:36→22:19)
[2018-05-22] MEDS: oxyCODONE/APAP 10/325mg tablet PO PRN (07:37)
[2018-05-22] MEDS: aspirin 81mg tablet.DR PO SCH (07:37)
[2018-05-22] MEDS: enoxaparin 40mg/0.4ml syringe SUBCUT SCH (07:38)
[2018-05-22] MEDS: quetiapine 100mg tablet PO SCH ×2 (07:38→22:18)
[2018-05-22] MEDS: mineral oil/petrolatum, white cream 113gm jar TP SCH ×2 (07:39→22:19)
--- NOTE | 2018-05-22 18:45 | NUR ---
Pt. comfortable, reclined in bed with no needs at this time. Gave report to Lianne CAZARES.
[2018-05-22 20:00] VITALS: BP 117/67
[2018-05-22] MEDS: mirtazapine 15mg tablet PO SCH (22:18)
[2018-05-23 07:37] VITALS: BP 115/62
--- NOTE | 2018-05-23 07:38 | NUR ---
Patient in room [facility]. I have received report from SAGE Abdalla and had the opportunity to ask questions and assume patient care.
[2018-05-23] MEDS: enoxaparin 40mg/0.4ml syringe SUBCUT SCH (10:30)
[2018-05-23] MEDS: divalproex sodium 500mg tablet.DR PO SCH ×2 (10:30→22:58)
[2018-05-23] MEDS: clopidogrel 75mg tablet PO SCH (10:31)
[2018-05-23] MEDS: baclofen 10mg tablet PO SCH ×2 (10:31→22:57)
[2018-05-23] MEDS: levetiracetam 250mg tablet PO SCH ×2 (10:32→22:56)
[2018-05-23] MEDS: aspirin 81mg tablet.DR PO SCH (10:32)
[2018-05-23] MEDS: quetiapine 100mg tablet PO SCH ×2 (10:33→22:58)
[2018-05-23] MEDS: docusate sod 100mg capsule PO SCH ×2 (10:33→22:57)
--- NOTE | 2018-05-23 11:15 | NUR ---
Patient report given, questions answered & care reviewed with SAGE Joseph .
--- NOTE | 2018-05-23 11:15 | NUR ---
Patient in room [facility]. I have received report from SAGE Hernandez and had the opportunity to ask questions and assume patient care.
[2018-05-23] MEDS: mineral oil/petrolatum, white cream 113gm jar TP SCH ×2 (15:58→22:00)
--- NOTE | 2018-05-23 18:30 | NUR ---
Patient in room [facility]. I have received report from SAGE Joseph and had the opportunity to ask questions and assume patient care. Addendum: 05/24/18 at 0039 by Patricia Schuster RN Amended: Links added.
--- NOTE | 2018-05-23 18:45 | NUR ---
Problems reprioritized. Patient report given, questions answered & plan of care reviewed with SAGE Goodson.
[2018-05-23 19:00] VITALS: BP 112/62
[2018-05-23] MEDS: mirtazapine 15mg tablet PO SCH (22:59)
--- NOTE | 2018-05-24 06:23 | NUR ---
Problems reprioritized. Patient report given, questions answered & plan of care reviewed with SAGE Garcia. Addendum: 05/24/18 at 0623 by Patricia Schuster RN Amended: Links added.
--- NOTE | 2018-05-24 06:23 | NUR ---
Patient in room [facility]. I have received report from SAGE Justin and had the opportunity to ask questions and assume patient care.
[2018-05-24 07:00] VITALS: BP 150/86
[2018-05-24] MEDS: docusate sod 100mg capsule PO SCH ×3 (08:00→21:05)
[2018-05-24] MEDS: aspirin 81mg tablet.DR PO SCH (08:11)
[2018-05-24] MEDS: divalproex sodium 500mg tablet.DR PO SCH ×2 (08:11→21:02)
[2018-05-24] MEDS: quetiapine 100mg tablet PO SCH ×2 (08:11→21:04)
[2018-05-24] MEDS: clopidogrel 75mg tablet PO SCH (08:11)
[2018-05-24] MEDS: levetiracetam 250mg tablet PO SCH ×2 (08:11→21:03)
[2018-05-24] MEDS: baclofen 10mg tablet PO SCH ×2 (08:11→21:04)
[2018-05-24] MEDS: enoxaparin 40mg/0.4ml syringe SUBCUT SCH (08:12)
[2018-05-24] MEDS: mineral oil/petrolatum, white cream 113gm jar TP SCH ×2 (08:13→21:10)
[2018-05-24 11:00] VITALS: BP 113/59
--- NOTE | 2018-05-24 18:00 | NUR ---
Received report from Radha CAZARES with Lashonda CAZARES pt is awake eating dinner in bed, in no apparent distress, call light and items of freq use within reach.
--- NOTE | 2018-05-24 18:30 | NUR ---
Patient in room [facility] 348. I have received report from Radha CAZARES and had the opportunity to ask questions and assume patient care.
--- NOTE | 2018-05-24 18:34 | NUR ---
Problems reprioritized. Patient report given, questions answered & plan of care reviewed with SAGE Silva and anthony Gallego RN.
[2018-05-24 19:00] VITALS: BP 144/69
[2018-05-24] MEDS: mirtazapine 15mg tablet PO SCH (21:03)
--- NOTE | 2018-05-25 06:15 | NUR ---
Gave report to Radha myers pt is resting on RA, bed alarm on, call light and items of freq use within reach.
--- NOTE | 2018-05-25 06:21 | NUR ---
Problems reprioritized. Patient report given to SAGE Garcia and questions answered & plan of care reviewed with SAGE Silva .
--- NOTE | 2018-05-25 06:33 | NUR ---
Patient in room [facility]. I have received report from SAGE Silva and anthony Gallego RN and had the opportunity to ask questions and assume patient care.
[2018-05-25 07:30] VITALS: BP 131/68
[2018-05-25] MEDS: divalproex sodium 500mg tablet.DR PO SCH ×2 (08:12→20:45)
[2018-05-25] MEDS: baclofen 10mg tablet PO SCH ×2 (08:12→20:45)
[2018-05-25] MEDS: enoxaparin 40mg/0.4ml syringe SUBCUT SCH (08:12)
[2018-05-25] MEDS: quetiapine 100mg tablet PO SCH ×2 (08:12→20:44)
[2018-05-25] MEDS: clopidogrel 75mg tablet PO SCH (08:12)
[2018-05-25] MEDS: aspirin 81mg tablet.DR PO SCH (08:12)
[2018-05-25] MEDS: levetiracetam 250mg tablet PO SCH ×2 (08:12→20:43)
[2018-05-25] MEDS: docusate sod 100mg capsule PO SCH ×2 (08:12→20:00)
[2018-05-25] MEDS: mineral oil/petrolatum, white cream 113gm jar TP SCH ×2 (08:23→20:00)
[2018-05-25 12:00] VITALS: BP 104/61
--- NOTE | 2018-05-25 12:19 | NUR ---
Reassessment: PO intake 75-100% on regular diet meeting nutrient needs. Pt now with caution carmen and SW following d/t pt expressing SI. CM continues to work on placement and legal team is involved to get patient conserved per MD notes. [facility] 05/24. Will continue to follow. Rec: 1. Continue regular diet 2. Encourage PO intake 3. Wt per rx Addendum: 05/25/18 at [address] Amended: Links added.
[2018-05-25] MEDS: magnesium hydroxide 30ml (MOM) UD suspension PO PRN (16:26)
--- NOTE | 2018-05-25 18:36 | NUR ---
Problems reprioritized. Patient report given, questions answered & plan of care reviewed with SAGE Silva and anthony Gallego RN.
--- NOTE | 2018-05-25 18:39 | NUR ---
Received report from Radha CAZARES pt is awake on RA, just finished up with dinner, in no apparent distress
--- NOTE | 2018-05-25 18:41 | NUR ---
Recieved report from SAGE Lobo with SAGE Silva. Patient resting in bed and does not appear to be in distress.
[2018-05-25 19:00] VITALS: BP 137/78
[2018-05-25] MEDS: mirtazapine 15mg tablet PO SCH (20:43)
--- NOTE | 2018-05-26 06:24 | NUR ---
Report given to Tala CAZARES with Shira CAZARES. Patient is still asleep and reports no signs of distress.
--- NOTE | 2018-05-26 06:25 | NUR ---
Problems reprioritized. Patient report given, questions answered & plan of care reviewed with Tala CAZARES with Lashonda RN.
[2018-05-26] MEDS: levetiracetam 250mg tablet PO SCH ×2 (06:53→20:36)
[2018-05-26] MEDS: clopidogrel 75mg tablet PO SCH (06:53)
[2018-05-26] MEDS: baclofen 10mg tablet PO SCH ×2 (06:54→20:49)
[2018-05-26] MEDS: aspirin 81mg tablet.DR PO SCH (06:54)
[2018-05-26] MEDS: divalproex sodium 500mg tablet.DR PO SCH ×2 (06:54→20:37)
[2018-05-26] MEDS: quetiapine 100mg tablet PO SCH ×2 (06:54→20:36)
[2018-05-26] MEDS: docusate sod 100mg capsule PO SCH ×2 (06:54→20:00)
[2018-05-26] MEDS: oxyCODONE/APAP 10/325mg tablet PO PRN (06:55)
[2018-05-26] MEDS: mineral oil/petrolatum, white cream 113gm jar TP SCH ×2 (06:56→20:00)
[2018-05-26] MEDS: enoxaparin 40mg/0.4ml syringe SUBCUT SCH (06:56)
[2018-05-26 07:00] VITALS: BP 139/86
--- NOTE | 2018-05-26 18:34 | NUR ---
PT. COMFORTABLE IN BED SITTING UP AWAKE ALERT EATING DINNER IN BED. PLEASANT AND DOES NOT REPORT PAIN. NO NEEDS AT THIS TIME. GAVE REPORT TO ROGER CAZARES.
--- NOTE | 2018-05-26 18:37 | NUR ---
Received report from Tala CAZARES with Lashonda RN pt is awake eating dinner in bed, in no apparent distress, pt expresses desire to walk later tonight, call light and items of freq use within reach.
--- NOTE | 2018-05-26 18:43 | NUR ---
Patient in room [facility]. I have received report from Tala CAZARES with Shira CAZARES and had the opportunity to ask questions and assume patient care.
[2018-05-26 19:00] VITALS: BP 100/69
[2018-05-26] MEDS: mirtazapine 15mg tablet PO SCH (20:38)
--- NOTE | 2018-05-27 06:09 | NUR ---
Problems reprioritized. Patient report given, questions answered & plan of care reviewed with Tala CAZARES with Prudence RN pt is resting on RA in no apparent distress.
--- NOTE | 2018-05-27 06:13 | NUR ---
Problems reprioritized. Patient report given to Tala CAZARES, questions answered & plan of care reviewed with Shira CAZARES and patient is still sleeping.
[2018-05-27 07:00] VITALS: BP 153/67
[2018-05-27] MEDS: aspirin 81mg tablet.DR PO SCH (07:30)
[2018-05-27] MEDS: quetiapine 100mg tablet PO SCH ×2 (07:30→22:32)
[2018-05-27] MEDS: clopidogrel 75mg tablet PO SCH (07:30)
[2018-05-27] MEDS: levetiracetam 250mg tablet PO SCH ×2 (07:30→22:26)
[2018-05-27] MEDS: baclofen 10mg tablet PO SCH ×2 (07:31→22:30)
[2018-05-27] MEDS: divalproex sodium 500mg tablet.DR PO SCH ×2 (07:32→22:29)
[2018-05-27] MEDS: oxyCODONE/APAP 10/325mg tablet PO PRN (07:32)
[2018-05-27] MEDS: docusate sod 100mg capsule PO SCH ×2 (07:32→20:00)
[2018-05-27] MEDS: enoxaparin 40mg/0.4ml syringe SUBCUT SCH (07:33)
[2018-05-27] MEDS: mineral oil/petrolatum, white cream 113gm jar TP SCH ×2 (07:33→22:32)
--- NOTE | 2018-05-27 17:31 | NUR ---
Pt. sitting up in bed, recently repositioned, no complaints or needs at this time.
--- NOTE | 2018-05-27 18:25 | NUR ---
Patient in room [facility]. I have received report from Tala CAZARES and had the opportunity to ask questions and assume patient care.
[2018-05-27 19:00] VITALS: BP 122/52
[2018-05-27] MEDS: mirtazapine 15mg tablet PO SCH (22:30)
--- NOTE | 2018-05-28 06:07 | NUR ---
Problems reprioritized. Patient report given, questions answered & plan of care reviewed with Jackeline CAZARES.
[2018-05-28 08:00] VITALS: BP 105/64
[2018-05-28] MEDS: mineral oil/petrolatum, white cream 113gm jar TP SCH ×2 (08:00→21:14)
[2018-05-28] MEDS: enoxaparin 40mg/0.4ml syringe SUBCUT SCH (09:00)
[2018-05-28] MEDS: divalproex sodium 500mg tablet.DR PO SCH ×2 (09:00→21:14)
[2018-05-28] MEDS: clopidogrel 75mg tablet PO SCH (09:00)
[2018-05-28] MEDS: quetiapine 100mg tablet PO SCH ×2 (09:00→21:13)
[2018-05-28] MEDS: baclofen 10mg tablet PO SCH ×2 (09:00→21:18)
[2018-05-28] MEDS: aspirin 81mg tablet.DR PO SCH (09:00)
[2018-05-28] MEDS: docusate sod 100mg capsule PO SCH ×2 (09:00→20:00)
[2018-05-28] MEDS: levetiracetam 250mg tablet PO SCH ×2 (09:00→21:13)
--- NOTE | 2018-05-28 18:33 | NUR ---
Patient in room [facility] 348. I have received report from Jackeline CAZARES and had the opportunity to ask questions and assume patient care.
[2018-05-28 19:00] VITALS: BP 112/73
[2018-05-28] MEDS: mirtazapine 15mg tablet PO SCH (21:14)
--- NOTE | 2018-05-29 06:25 | NUR ---
Problems reprioritized. Patient report given, questions answered & plan of care reviewed with Luis Miguel CAZARES.
[2018-05-29 07:00] VITALS: BP 137/75
--- NOTE | 2018-05-29 07:06 | NUR ---
Patient in room [facility] 348. I have received report from Svetlana CAZARES and had the opportunity to ask questions and assume patient care.
[2018-05-29] MEDS: docusate sod 100mg capsule PO SCH ×2 (08:00→19:28)
[2018-05-29] MEDS: levetiracetam 250mg tablet PO SCH ×2 (09:07→19:29)
[2018-05-29] MEDS: clopidogrel 75mg tablet PO SCH (09:08)
[2018-05-29] MEDS: baclofen 10mg tablet PO SCH ×2 (09:08→19:30)
[2018-05-29] MEDS: divalproex sodium 500mg tablet.DR PO SCH ×2 (09:08→19:30)
[2018-05-29] MEDS: quetiapine 100mg tablet PO SCH ×2 (09:08→19:29)
[2018-05-29] MEDS: aspirin 81mg tablet.DR PO SCH (09:08)
[2018-05-29] MEDS: enoxaparin 40mg/0.4ml syringe SUBCUT SCH (09:09)
[2018-05-29] MEDS: mineral oil/petrolatum, white cream 113gm jar TP SCH ×2 (09:10→19:29)
--- NOTE | 2018-05-29 18:30 | NUR ---
Problems reprioritized. Patient report given, questions answered & plan of care reviewed with Svetlana CAZARES.
--- NOTE | 2018-05-29 18:47 | NUR ---
Patient in room [facility]. I have received report from Luis Miguel CAZARES and had the opportunity to ask questions and assume patient care.
[2018-05-29 19:00] VITALS: BP 115/73
[2018-05-29] MEDS: LORazepam 0.5 MG tablet PO PRN (19:31)
[2018-05-29] MEDS: mirtazapine 15mg tablet PO SCH (19:31)
[2018-05-29] MEDS: oxyCODONE/APAP 10/325mg tablet PO PRN (22:07)
--- NOTE | 2018-05-30 06:42 | NUR ---
Problems reprioritized. Patient report given, questions answered & plan of care reviewed with Luis Miguel CAZARES.
--- NOTE | 2018-05-30 06:46 | NUR ---
Patient in room [facility] 348. I have received report from Svetlana CAZARES and had the opportunity to ask questions and assume patient care.
[2018-05-30 07:00] VITALS: BP 138/65
[2018-05-30] MEDS: levetiracetam 250mg tablet PO SCH ×2 (07:11→20:56)
[2018-05-30] MEDS: divalproex sodium 500mg tablet.DR PO SCH ×2 (07:11→20:56)
[2018-05-30] MEDS: docusate sod 100mg capsule PO SCH ×2 (07:11→20:56)
[2018-05-30] MEDS: aspirin 81mg tablet.DR PO SCH (07:11)
[2018-05-30] MEDS: quetiapine 100mg tablet PO SCH ×2 (07:11→20:56)
[2018-05-30] MEDS: clopidogrel 75mg tablet PO SCH (07:12)
[2018-05-30] MEDS: baclofen 10mg tablet PO SCH ×2 (07:13→20:56)
[2018-05-30] MEDS: enoxaparin 40mg/0.4ml syringe SUBCUT SCH (07:14)
[2018-05-30] MEDS: mineral oil/petrolatum, white cream 113gm jar TP SCH ×2 (07:21→20:59)
--- NOTE | 2018-05-30 11:09 | NUR ---
Patient sleeping comfortably after having shower today
[2018-05-30] MEDS: LORazepam 0.5 MG tablet PO PRN ×2 (13:26→20:56)
--- NOTE | 2018-05-30 15:27 | NUR ---
Student documentation: I have reviewed all interventions, assessments performed and documented by Barbie Skelton and Barbie RAVI.
--- NOTE | 2018-05-30 18:10 | NUR ---
Problems reprioritized. Patient report given, questions answered & plan of care reviewed with Ayala Helton RN.
--- NOTE | 2018-05-30 18:22 | NUR ---
Patient in room [facility]. I have received report from SAGE Phipps and had the opportunity to ask questions and assume patient care. Addendum: 05/30/18 at 1822 by Chica Brooks RN Amended: Links added.
[2018-05-30 20:00] VITALS: BP 124/76
[2018-05-30] MEDS: mirtazapine 15mg tablet PO SCH (20:56)
--- NOTE | 2018-05-31 06:27 | NUR ---
Problems reprioritized. Patient report given, questions answered & plan of care reviewed with SAGE Chery. Addendum: 05/31/18 at 0628 by Chica Brooks RN Amended: Links added.
--- NOTE | 2018-05-31 06:30 | NUR ---
Patient in room [facility]. I have received report from Ayala Helton RN and had the opportunity to ask questions and assume patient care.
[2018-05-31 07:00] VITALS: BP 110/61
--- NOTE | 2018-05-31 07:00 | NUR ---
Patient in room [facility]. I have received report from Miri Sagastume RN and had the opportunity to ask questions and assume patient care.
[2018-05-31] MEDS: divalproex sodium 500mg tablet.DR PO SCH ×2 (08:14→22:36)
[2018-05-31] MEDS: clopidogrel 75mg tablet PO SCH (08:15)
[2018-05-31] MEDS: levetiracetam 250mg tablet PO SCH ×2 (08:15→22:35)
[2018-05-31] MEDS: docusate sod 100mg capsule PO SCH ×2 (08:15→22:34)
[2018-05-31] MEDS: aspirin 81mg tablet.DR PO SCH (08:15)
[2018-05-31] MEDS: baclofen 10mg tablet PO SCH ×2 (08:15→22:35)
[2018-05-31] MEDS: enoxaparin 40mg/0.4ml syringe SUBCUT SCH (08:16)
[2018-05-31] MEDS: quetiapine 100mg tablet PO SCH ×2 (08:16→22:35)
[2018-05-31] MEDS: mineral oil/petrolatum, white cream 113gm jar TP SCH ×2 (08:25→22:36)
--- NOTE | 2018-05-31 11:29 | NUR ---
Student documentation: I have reviewed interventions, assessments performed and documented by BREONNA Canales [facility].
--- NOTE | 2018-05-31 11:34 | NUR ---
Reassessment: PO continues to fluctuate with recent 50-75% intake. Normal for pt to have fluctuations in PO intake d/t agitation and mental status. LBM 05/31. Pt continues awaiting placement. No N/V per MD notes. Will continue to follow. Rec: 1. Continue regular diet 2. Encourage PO intake 3. Wt per rx Addendum: 05/31/18 at [address] Amended: Links added.
--- NOTE | 2018-05-31 18:05 | NUR ---
Problems reprioritized. Patient report given, questions answered & plan of care reviewed with Ayala Helton RN.
--- NOTE | 2018-05-31 18:11 | NUR ---
Patient in room [facility]. I have received report from SAGE Chery and had the opportunity to ask questions and assume patient care. Addendum: 05/31/18 at 1814 by Chica Brooks RN Amended: Links added.
[2018-05-31 20:00] VITALS: BP 116/79
[2018-05-31] MEDS: mirtazapine 15mg tablet PO SCH (22:35)
[2018-06-01 07:18] VITALS: BP 133/86
[2018-06-01] MEDS: clopidogrel 75mg tablet PO SCH (07:47)
[2018-06-01] MEDS: aspirin 81mg tablet.DR PO SCH (07:47)
[2018-06-01] MEDS: baclofen 10mg tablet PO SCH ×2 (07:47→20:02)
[2018-06-01] MEDS: divalproex sodium 500mg tablet.DR PO SCH ×2 (07:47→20:03)
[2018-06-01] MEDS: levetiracetam 250mg tablet PO SCH ×2 (07:47→20:03)
[2018-06-01] MEDS: docusate sod 100mg capsule PO SCH ×2 (07:47→20:02)
[2018-06-01] MEDS: quetiapine 100mg tablet PO SCH ×2 (07:47→20:02)
[2018-06-01] MEDS: enoxaparin 40mg/0.4ml syringe SUBCUT SCH (07:48)
[2018-06-01] MEDS: mineral oil/petrolatum, white cream 113gm jar TP SCH ×2 (07:48→20:04)
[2018-06-01] MEDS: oxyCODONE/APAP 10/325mg tablet PO PRN (07:49)
--- NOTE | 2018-06-01 18:21 | NUR ---
Patient in room [facility]. I have received report from SAGE Vick and had the opportunity to ask questions and assume patient care. Addendum: 06/01/18 at 1822 by Chica Brooks RN Amended: Links added.
--- NOTE | 2018-06-01 18:25 | NUR ---
Pt. comfortable in bed, needs a new urinal- will provide. No c/o pain or any other needs at this time. Gave report to Ayala CAZARES.
[2018-06-01 20:00] VITALS: BP 111/64
[2018-06-01] MEDS: mirtazapine 15mg tablet PO SCH (20:02)
[2018-06-01] MEDS: LORazepam 0.5 MG tablet PO PRN (20:02)
--- NOTE | 2018-06-01 20:27 | NUR ---
patient started to get upset and wanted to go home and cursing out in the hallway while ambulting with 2 person assist. Pt took back to his room and ativan was given, now resting in bed and will continue to monitor
--- NOTE | 2018-06-02 06:34 | NUR ---
Problems reprioritized. Patient report given, questions answered & plan of care reviewed with SAGE Malik.
--- NOTE | 2018-06-02 06:38 | NUR ---
Patient in room [facility]. I have received report from rashad myers and had the opportunity to ask questions and assume patient care.
[2018-06-02 07:00] VITALS: BP 130/81
[2018-06-02] MEDS: mineral oil/petrolatum, white cream 113gm jar TP SCH ×2 (08:00→21:14)
[2018-06-02] MEDS: docusate sod 100mg capsule PO SCH ×2 (08:58→21:11)
[2018-06-02] MEDS: clopidogrel 75mg tablet PO SCH (08:59)
[2018-06-02] MEDS: baclofen 10mg tablet PO SCH ×2 (08:59→21:14)
[2018-06-02] MEDS: divalproex sodium 500mg tablet.DR PO SCH ×2 (09:00→21:14)
[2018-06-02] MEDS: levetiracetam 250mg tablet PO SCH ×2 (09:00→21:12)
[2018-06-02] MEDS: aspirin 81mg tablet.DR PO SCH (09:00)
[2018-06-02] MEDS: oxyCODONE/APAP 10/325mg tablet PO PRN (09:01)
[2018-06-02] MEDS: enoxaparin 40mg/0.4ml syringe SUBCUT SCH (09:01)
[2018-06-02] MEDS: quetiapine 100mg tablet PO SCH ×2 (09:01→21:13)
[2018-06-02 18:00] VITALS: BP 105/63
--- NOTE | 2018-06-02 18:38 | NUR ---
Problems reprioritized. Patient report given, questions answered & plan of care reviewed with Ghada CAZARES.
[2018-06-02] MEDS: mirtazapine 15mg tablet PO SCH (21:12)
--- NOTE | 2018-06-03 06:35 | NUR ---
Problems reprioritized. Patient report given, questions answered & plan of care reviewed with Helena CAZARES. Patient's urinal emptied.
--- NOTE | 2018-06-03 06:58 | NUR ---
Patient in room [facility]. I have received report from Ghada CAZARES and had the opportunity to ask questions and assume patient care.
[2018-06-03 07:00] VITALS: BP 133/69
[2018-06-03] MEDS: clopidogrel 75mg tablet PO SCH (07:56)
[2018-06-03] MEDS: levetiracetam 250mg tablet PO SCH ×2 (07:56→20:08)
[2018-06-03] MEDS: LORazepam 0.5 MG tablet PO PRN (07:56)
[2018-06-03] MEDS: divalproex sodium 500mg tablet.DR PO SCH ×2 (07:56→20:08)
[2018-06-03] MEDS: baclofen 10mg tablet PO SCH ×2 (07:56→20:08)
[2018-06-03] MEDS: aspirin 81mg tablet.DR PO SCH (07:56)
[2018-06-03] MEDS: quetiapine 100mg tablet PO SCH ×2 (07:56→20:08)
[2018-06-03] MEDS: docusate sod 100mg capsule PO SCH ×2 (07:56→20:08)
[2018-06-03] MEDS: mineral oil/petrolatum, white cream 113gm jar TP SCH ×2 (08:01→20:00)
[2018-06-03] MEDS: enoxaparin 40mg/0.4ml syringe SUBCUT SCH (08:01)
[2018-06-03 12:53] VITALS: BP 114/64
--- NOTE | 2018-06-03 18:14 | NUR ---
Problems reprioritized. Patient report given, questions answered & plan of care reviewed with Ayala CAZARES.
[2018-06-03 20:00] VITALS: BP 105/68
[2018-06-03] MEDS: mirtazapine 15mg tablet PO SCH (20:08)
[2018-06-03] MEDS: magnesium hydroxide 30ml (MOM) UD suspension PO PRN (20:08)
[2018-06-03] MEDS: oxyCODONE/APAP 10/325mg tablet PO PRN (20:16)
--- NOTE | 2018-06-03 20:23 | NUR ---
Patient refused Milk of Mag. States that if he takes the colace, milk of mag will be too much.
--- NOTE | 2018-06-04 06:30 | NUR ---
0630 Addendum: 06/04/18 at 1946 by Nicolas Garcia RN Patient in room [facility]. I have received report from Maki CAZARES and had the opportunity to ask questions and assume patient care.
--- NOTE | 2018-06-04 06:36 | NUR ---
Problems reprioritized. Patient report given, questions answered & plan of care reviewed with SAGE Echols.
[2018-06-04 07:00] VITALS: BP 123/67
[2018-06-04] MEDS: docusate sod 100mg capsule PO SCH ×2 (08:00→21:13)
[2018-06-04] MEDS: levetiracetam 250mg tablet PO SCH ×2 (09:47→21:11)
[2018-06-04] MEDS: divalproex sodium 500mg tablet.DR PO SCH ×2 (09:48→21:12)
[2018-06-04] MEDS: aspirin 81mg tablet.DR PO SCH (09:48)
[2018-06-04] MEDS: quetiapine 100mg tablet PO SCH ×2 (09:48→21:12)
[2018-06-04] MEDS: clopidogrel 75mg tablet PO SCH (09:49)
[2018-06-04] MEDS: baclofen 10mg tablet PO SCH ×2 (09:50→21:12)
[2018-06-04] MEDS: mineral oil/petrolatum, white cream 113gm jar TP SCH ×2 (09:50→21:21)
[2018-06-04] MEDS: enoxaparin 40mg/0.4ml syringe SUBCUT SCH (10:06)
--- NOTE | 2018-06-04 10:07 | NUR ---
Patient refused colace but stated he would take the MOM later tonight.
--- NOTE | 2018-06-04 18:30 | NUR ---
Problems reprioritized. Patient report given, questions answered & plan of care reviewed with Silver CAZARES.
--- NOTE | 2018-06-04 18:35 | NUR ---
Patient in room [facility]. I have received report from NASRIN CAZARES and had the opportunity to ask questions and assume patient care.
[2018-06-04] MEDS: mirtazapine 15mg tablet PO SCH (21:13)
--- NOTE | 2018-06-05 06:39 | NUR ---
Patient in room [facility]. I have received report from SAGE BARRETO and had the opportunity to ask questions and assume patient care.
[2018-06-05 06:53] VITALS: BP 128/77
[2018-06-05] MEDS: clopidogrel 75mg tablet PO SCH (07:47)
[2018-06-05] MEDS: aspirin 81mg tablet.DR PO SCH (07:47)
[2018-06-05] MEDS: divalproex sodium 500mg tablet.DR PO SCH ×2 (07:47→21:11)
[2018-06-05] MEDS: docusate sod 100mg capsule PO SCH ×2 (07:47→21:10)
[2018-06-05] MEDS: quetiapine 100mg tablet PO SCH ×2 (07:47→21:11)
[2018-06-05] MEDS: levetiracetam 250mg tablet PO SCH ×2 (07:47→21:10)
[2018-06-05] MEDS: enoxaparin 40mg/0.4ml syringe SUBCUT SCH (07:48)
[2018-06-05] MEDS: mineral oil/petrolatum, white cream 113gm jar TP SCH ×2 (07:48→21:16)
[2018-06-05] MEDS: baclofen 10mg tablet PO SCH ×2 (08:00→21:11)
[2018-06-05] MEDS: LORazepam 0.5 MG tablet PO PRN (08:24)
--- NOTE | 2018-06-05 08:35 | NUR ---
Denis became very aggitated this morning wanting to go home. Patient was voicing concerns that he wants to go home and see his dog I contacted Saida the patients family and she will try and call Imelda to see if she can bring by Audi patients dog. I spoke to patient and he will go for a walk at 0900 and when I hear back from his family and can set up a time for them to bring patients dog by we will take him to the patio and let him visit with his dog patient still very set on going home but was agreeable to the plan at this time.
--- NOTE | 2018-06-05 09:03 | NUR ---
PATIENT CALM AND COOPERATIVE THIS MORNING FOR BREAKFAST BUT IS NOW AGITATED AND CURSING AT STAFF AND ATTEMPTING TO CLIMB OUT OF BED. HE IS YELLING OUT WANTING TO GO HOME AND WANTING TO SEE HIS DOG, BUGS. SOLAR MECHANICAL ENGINEER AND DIRECTOR IN TO TALK TO PATIENT AND PATIENT AGREED TO AMBULATE WITH STAFF WHILE HE WAITS FOR HIS DOG TO COME VISIT. PO ATIVAN ADMINISTERED ORDERED. WHILE PATIENT WAS AMBULATING WITH STAFF USING THE REHAB WALKER PATIENT BECAME AGITATED AGAIN AND STATED, " I AM NOT MOVING ANYMORE. I AM GETTING THE FUCK OUT OF HERE." SOLAR MECHANICAL ENGINEER SPOKE TO PATIENT AND PATIENT IS NOW SITTING IN WHEELCHAIR AT NURSE'S STATION, CALM AND NOT YELLING OUT.
[2018-06-05] MEDS: LORazepam 2 mg/ml vial IM PRN (14:14)
--- NOTE | 2018-06-05 18:40 | NUR ---
Problems reprioritized. Patient report given, questions answered & plan of care reviewed with SAGE BARRETO.
--- NOTE | 2018-06-05 18:45 | NUR ---
Patient in room [facility]. I have received report from KARLA CAZARES and had the opportunity to ask questions and assume patient care.
[2018-06-05 20:00] VITALS: BP 120/73
[2018-06-05] MEDS: mirtazapine 15mg tablet PO SCH (21:11)
--- NOTE | 2018-06-06 06:26 | NUR ---
Problems reprioritized. Patient report given, questions answered & plan of care reviewed with KARLA CAZARES.
--- NOTE | 2018-06-06 06:29 | NUR ---
Patient in room [facility]. I have received report from SAGE BARRETO and had the opportunity to ask questions and assume patient care.
[2018-06-06 07:24] VITALS: BP 121/75
[2018-06-06] MEDS: enoxaparin 40mg/0.4ml syringe SUBCUT SCH (07:54)
[2018-06-06] MEDS: mineral oil/petrolatum, white cream 113gm jar TP SCH ×2 (07:56→21:16)
[2018-06-06] MEDS: levetiracetam 250mg tablet PO SCH ×2 (08:00→21:15)
[2018-06-06] MEDS: aspirin 81mg tablet.DR PO SCH (08:00)
[2018-06-06] MEDS: divalproex sodium 500mg tablet.DR PO SCH ×2 (08:00→21:16)
[2018-06-06] MEDS: docusate sod 100mg capsule PO SCH ×2 (08:00→20:00)
[2018-06-06] MEDS: clopidogrel 75mg tablet PO SCH (08:00)
[2018-06-06] MEDS: baclofen 10mg tablet PO SCH ×2 (08:00→21:16)
[2018-06-06] MEDS: quetiapine 100mg tablet PO SCH ×3 (08:00→21:15)
[2018-06-06] MEDS ORDERED: haloperidol lactate 5mg/ml inj IM ONE (12:10)
--- NOTE | 2018-06-06 18:41 | NUR ---
Problems reprioritized. Patient report given, questions answered & plan of care reviewed with SAGE Urrutia.
--- NOTE | 2018-06-06 18:49 | NUR ---
Patient in room [facility]. I have received report from Jaclyn CAZARES and had the opportunity to ask questions and assume patient care. Patient stating in aggressive tone that he is unable to get out and he wants to get out of this hospital. Patient punching at screen and hitting bed. Will continue to monitor.
[2018-06-06 20:00] VITALS: BP 114/70
[2018-06-06] MEDS: mirtazapine 15mg tablet PO SCH (21:16)
--- NOTE | 2018-06-07 06:00 | NUR ---
Patient in room [facility]. I have received report from SAGE Urrutia and had the opportunity to ask questions and assume patient care.
--- NOTE | 2018-06-07 06:36 | NUR ---
Problems reprioritized. Patient report given, questions answered & plan of care reviewed with Lorena CAZARES. Patient resting eyes closed respirations even.
[2018-06-07 07:27] VITALS: BP 128/83
[2018-06-07] MEDS: enoxaparin 40mg/0.4ml syringe SUBCUT SCH (08:00)
[2018-06-07] MEDS: baclofen 10mg tablet PO SCH ×2 (08:00→22:33)
[2018-06-07] MEDS: aspirin 81mg tablet.DR PO SCH (08:22)
[2018-06-07] MEDS: docusate sod 100mg capsule PO SCH ×2 (08:22→19:34)
[2018-06-07] MEDS: divalproex sodium 500mg tablet.DR PO SCH ×2 (08:22→22:29)
[2018-06-07] MEDS: levetiracetam 250mg tablet PO SCH ×2 (08:23→19:35)
[2018-06-07] MEDS: clopidogrel 75mg tablet PO SCH (08:23)
[2018-06-07] MEDS: quetiapine 100mg tablet PO SCH ×2 (08:24→19:34)
--- NOTE | 2018-06-07 09:35 | NUR ---
Reassessment: PO intake fluctuates with 25-50% and recent 75-100% likely meeting nutrient needs. Per dietary staff pt working with dietitian chief for food preferences to optimize PO intake. LBM 06/03, noted that pt refused Colace 06/06. Pt continues awaiting placement. Will continue to follow. Rec: 1. Continue regular diet 2. Encourage PO intake 3. Monitor need for additional bowel care 4. Wt per rx Addendum: 06/07/18 at [address] Amended: Links added.
--- NOTE | 2018-06-07 10:00 | NUR ---
Spoke to Dr. Cabral regarding his lack of labs since 05/15 because we are still giving him Lovenox shots without a PLT count. He said that we could get a Hemogram. The patient refused the lab draw and Dr. Cabral wanted me to give it to him anyway, but then the patient refused. Dr. Cabral ordered a Hemogram for tomorrow.
[2018-06-07] MEDS: mineral oil/petrolatum, white cream 113gm jar TP SCH ×2 (12:28→19:37)
--- NOTE | 2018-06-07 15:00 | NUR ---
Patient is verbalizing that he just wants to and why doesn't someone just kill him. He is saying that the hospital wants to kill him and that we won't let him go home. Dr. Cabral ordered a sitter and a put him on a 1798. Delores (director of community life) came by while I was at lunch and took the sitter off without telling me or the charge nurse, Mary. The patient might just be verbalizing it because he really wants to leave the hospital and has been here since December; but I'm unsure if he will actually act on it or not. He has stated that he is not going to eat or drink anymore. The patient thinks that he is able to get up and walk, but he definitely cannot ambulate without the rehab walker and a gait belt.
--- NOTE | 2018-06-07 18:20 | NUR ---
Patient in room [facility]. I have received report from Lorena CAZARES and had the opportunity to ask questions and assume patient care. Patient has bed alarm and tabs.
--- NOTE | 2018-06-07 18:20 | NUR ---
Problems reprioritized. Patient report given, questions answered & plan of care reviewed with SAGE Urrutia.
[2018-06-07] MEDS: oxyCODONE/APAP 10/325mg tablet PO PRN (19:36)
[2018-06-07 20:00] VITALS: BP 109/63
[2018-06-07] MEDS: mirtazapine 15mg tablet PO SCH (22:33)
[2018-06-08 05:20] LABS: HEMATOCRIT 43.9 % (42.0-52.0); HEMOGLOBIN 14.6 g/dl (14.0-17.9); MEAN CORPUSCULAR HEMOGLOBIN 30.5 PG (27.0-31.0); MEAN CORPUSCULAR HGB CONC 33.3 g/dL (33.0-36.5); MEAN CORPUSCULAR VOLUME 91.5 FL (78-98); MEAN PLATELET VOLUME 7.9 FL (7.4-10.4); PLATELET COUNT 178 X10'3 (140-440); RED BLOOD COUNT 4.79 X10'6 (4.70-6.10); RED CELL DISTRIBUTION WIDTH 18.5 % (11.5-14.5); WHITE BLOOD COUNT 19.4 X10'3 (4.5-11.0)
--- NOTE | 2018-06-08 06:41 | NUR ---
Problems reprioritized. Patient report given, questions answered & plan of care reviewed with Leilani CAZARES. Patient resting eyes closed respirations even.
--- NOTE | 2018-06-08 07:09 | NUR ---
Patient in room [facility]. I have received report from Ghada CAZARES and had the opportunity to ask questions and assume patient care.
[2018-06-08 08:00] VITALS: BP 140/75
[2018-06-08] MEDS: baclofen 10mg tablet PO SCH ×2 (08:00→20:40)
[2018-06-08] MEDS: quetiapine 100mg tablet PO SCH ×2 (09:22→20:38)
[2018-06-08] MEDS: clopidogrel 75mg tablet PO SCH (09:22)
[2018-06-08] MEDS: aspirin 81mg tablet.DR PO SCH (09:23)
[2018-06-08] MEDS: divalproex sodium 500mg tablet.DR PO SCH ×2 (09:23→20:37)
[2018-06-08] MEDS: docusate sod 100mg capsule PO SCH ×2 (09:23→20:00)
[2018-06-08] MEDS: levetiracetam 250mg tablet PO SCH ×2 (09:23→20:36)
[2018-06-08] MEDS: enoxaparin 40mg/0.4ml syringe SUBCUT SCH (09:25)
[2018-06-08] MEDS: mineral oil/petrolatum, white cream 113gm jar TP SCH ×2 (09:28→20:42)
--- NOTE | 2018-06-08 18:42 | NUR ---
Problems reprioritized. Patient report given, questions answered & plan of care reviewed with prasanna CAZARES.
--- NOTE | 2018-06-08 18:45 | NUR ---
Patient in room [facility]. I have received report from Leilani CAZARES and had the opportunity to ask questions and assume patient care. Patient resting with sitter at bedside, finishing dinner, will continue to monitor.
[2018-06-08 20:00] VITALS: BP 115/56
[2018-06-08] MEDS: magnesium hydroxide 30ml (MOM) UD suspension PO PRN (20:36)
[2018-06-08] MEDS: mirtazapine 15mg tablet PO SCH (20:37)
--- NOTE | 2018-06-09 06:43 | NUR ---
Problems reprioritized. Patient report given, questions answered & plan of care reviewed with Uyen CAZARES. Resting in bed,eyes closed respirations even aide at bedside
[2018-06-09] MEDS: enoxaparin 40mg/0.4ml syringe SUBCUT SCH (08:00)
[2018-06-09] MEDS: aspirin 81mg tablet.DR PO SCH (08:01)
[2018-06-09] MEDS: levetiracetam 250mg tablet PO SCH ×2 (08:01→20:58)
[2018-06-09] MEDS: quetiapine 100mg tablet PO SCH ×2 (08:01→20:58)
[2018-06-09] MEDS: clopidogrel 75mg tablet PO SCH (08:01)
[2018-06-09] MEDS: docusate sod 100mg capsule PO SCH ×2 (08:01→20:00)
[2018-06-09] MEDS: baclofen 10mg tablet PO SCH ×2 (08:01→20:59)
[2018-06-09] MEDS: divalproex sodium 500mg tablet.DR PO SCH ×2 (08:01→20:58)
[2018-06-09] MEDS: mineral oil/petrolatum, white cream 113gm jar TP SCH ×2 (08:09→21:09)
[2018-06-09 09:39] VITALS: BP 134/74
[2018-06-09] MEDS: magnesium hydroxide 30ml (MOM) UD suspension PO PRN (10:04)
--- NOTE | 2018-06-09 18:25 | NUR ---
Problems reprioritized. Patient report given, questions answered & plan of care reviewed with EDGARD CAZARES.
[2018-06-09 19:00] VITALS: BP 129/75
[2018-06-09] MEDS: mirtazapine 15mg tablet PO SCH (21:01)
--- NOTE | 2018-06-09 22:00 | NUR ---
Pt has been exhausted, sleeping, needing to be woken up to eat and take medications. Sitter continues to be at bedside. Was told pt had walked several times day shift. Addendum: 06/10/18 at 0557 by Marifer Cates RN Amended: Links added.
--- NOTE | 2018-06-10 06:05 | NUR ---
Problems reprioritized. Patient report given, questions answered & plan of care reviewed with Grace CAZARES. Addendum: 06/10/18 at 0606 by Marifer Cates RN Amended: Links added.
--- NOTE | 2018-06-10 06:16 | NUR ---
Patient in room [facility]. I have received report from Marifer CAZARES and had the opportunity to ask questions and assume patient care.
[2018-06-10 08:00] VITALS: BP 121/63
[2018-06-10] MEDS: docusate sod 100mg capsule PO SCH ×2 (08:00→20:00)
[2018-06-10] MEDS: divalproex sodium 500mg tablet.DR PO SCH ×3 (08:52→21:26)
[2018-06-10] MEDS: levetiracetam 250mg tablet PO SCH ×2 (08:52→20:12)
[2018-06-10] MEDS: aspirin 81mg tablet.DR PO SCH (08:53)
[2018-06-10] MEDS: quetiapine 100mg tablet PO SCH ×2 (08:53→20:12)
[2018-06-10] MEDS: baclofen 10mg tablet PO SCH ×3 (08:53→21:26)
[2018-06-10] MEDS: clopidogrel 75mg tablet PO SCH (08:53)
[2018-06-10] MEDS: mineral oil/petrolatum, white cream 113gm jar TP SCH ×2 (08:54→20:00)
[2018-06-10] MEDS: enoxaparin 40mg/0.4ml syringe SUBCUT SCH (08:54)
--- NOTE | 2018-06-10 18:11 | NUR ---
Problems reprioritized. Patient report given, questions answered & plan of care reviewed with Williams CAZARES.
[2018-06-10 19:20] VITALS: BP 113/55
[2018-06-10] MEDS: mirtazapine 15mg tablet PO SCH ×2 (21:23→21:27)
--- NOTE | 2018-06-11 06:13 | NUR ---
I have received report from Williams CAZARES and had the opportunity to ask questions and assume patient care.
--- NOTE | 2018-06-11 06:38 | NUR ---
Problems reprioritized. Patient report given, questions answered & plan of care reviewed with JUAN ANTONIO. Addendum: 06/11/18 at 0639 by Hector Nieto RN Amended: Links added.
[2018-06-11 07:30] VITALS: BP 157/73
[2018-06-11] MEDS: enoxaparin 40mg/0.4ml syringe SUBCUT SCH (08:00)
[2018-06-11] MEDS: docusate sod 100mg capsule PO SCH ×2 (08:00→19:55)
[2018-06-11] MEDS: divalproex sodium 500mg tablet.DR PO SCH (08:14)
[2018-06-11] MEDS: aspirin 81mg tablet.DR PO SCH (08:15)
[2018-06-11] MEDS: levetiracetam 250mg tablet PO SCH ×2 (08:15→19:56)
[2018-06-11] MEDS: clopidogrel 75mg tablet PO SCH (08:16)
[2018-06-11] MEDS: quetiapine 100mg tablet PO SCH ×2 (08:16→19:55)
[2018-06-11] MEDS: baclofen 10mg tablet PO SCH (08:16)
[2018-06-11] MEDS: mineral oil/petrolatum, white cream 113gm jar TP SCH ×2 (08:26→19:56)
--- NOTE | 2018-06-11 16:05 | NUR ---
Student documentation: I have reviewed and agree with all interventions, assessments performed and documented by Mala VALLES from [facility]. Student Medication Administration: For medication-pass' this shift, all medication were reviewed, dispensed, administered and documented per hospital policy by Mala VALLES from [facility].
--- NOTE | 2018-06-11 18:02 | NUR ---
Did not need to straight cath patient. 350 output after bladder scan of 450. Patient was able to use urinal in the bed.
--- NOTE | 2018-06-11 18:08 | NUR ---
Patient in room [facility]. I have received report from Grace CAZARES and had the opportunity to ask questions and assume patient care.
--- NOTE | 2018-06-11 18:20 | NUR ---
Problems reprioritized. Patient report given, questions answered & plan of care reviewed with Svetlana CAZARES.
[2018-06-11 19:00] VITALS: BP 121/71
[2018-06-12] MEDS: oxyCODONE/APAP 10/325mg tablet PO PRN (02:09)
--- NOTE | 2018-06-12 06:05 | NUR ---
Patient in room [facility] 348. I have received report from Svetlana CAZARES and had the opportunity to ask questions and assume patient care.
--- NOTE | 2018-06-12 06:08 | NUR ---
Problems reprioritized. Patient report given, questions answered & plan of care reviewed with Grace RN. Patient laying in bed resting. Bed low/locked,rails x3 up,bed alarm on.
[2018-06-12 08:00] VITALS: BP 129/72
[2018-06-12] MEDS: docusate sod 100mg capsule PO SCH ×2 (08:00→21:21)
[2018-06-12] MEDS: enoxaparin 40mg/0.4ml syringe SUBCUT SCH (08:00)
[2018-06-12] MEDS: divalproex sodium 500mg tablet.DR PO SCH ×2 (08:09→21:22)
[2018-06-12] MEDS: quetiapine 100mg tablet PO SCH ×2 (08:10→21:21)
[2018-06-12] MEDS: baclofen 10mg tablet PO SCH ×2 (08:10→21:21)
[2018-06-12] MEDS: levetiracetam 250mg tablet PO SCH ×2 (08:11→21:23)
[2018-06-12] MEDS: aspirin 81mg tablet.DR PO SCH (08:11)
[2018-06-12] MEDS: clopidogrel 75mg tablet PO SCH (08:11)
[2018-06-12] MEDS: mineral oil/petrolatum, white cream 113gm jar TP SCH ×2 (08:12→21:25)
--- NOTE | 2018-06-12 18:20 | NUR ---
Patient in room [facility]. I have received report from Grace CAZARES and had the opportunity to ask questions and assume patient care.
--- NOTE | 2018-06-12 18:31 | NUR ---
Problems reprioritized. Patient report given, questions answered & plan of care reviewed with Svetlana CAZARES.
[2018-06-12 19:00] VITALS: BP 128/66
[2018-06-12] MEDS: mirtazapine 15mg tablet PO SCH (21:22)
--- NOTE | 2018-06-13 06:30 | NUR ---
Patient in room [facility]. I have received report from SAGE Mota and had the opportunity to ask questions and assume patient care.
--- NOTE | 2018-06-13 06:56 | NUR ---
Problems reprioritized. Patient report given, questions answered & plan of care reviewed with Conchita CAZARES.
[2018-06-13 07:00] VITALS: BP 102/69
[2018-06-13] MEDS: enoxaparin 40mg/0.4ml syringe SUBCUT SCH (08:00)
[2018-06-13] MEDS: docusate sod 100mg capsule PO SCH ×2 (08:00→22:04)
[2018-06-13] MEDS: quetiapine 100mg tablet PO SCH ×2 (08:17→22:03)
[2018-06-13] MEDS: levetiracetam 250mg tablet PO SCH ×2 (08:17→22:04)
[2018-06-13] MEDS: divalproex sodium 500mg tablet.DR PO SCH ×2 (08:18→22:04)
[2018-06-13] MEDS: clopidogrel 75mg tablet PO SCH (08:18)
[2018-06-13] MEDS: aspirin 81mg tablet.DR PO SCH (08:19)
[2018-06-13] MEDS: baclofen 10mg tablet PO SCH ×2 (08:19→22:03)
[2018-06-13] MEDS: mineral oil/petrolatum, white cream 113gm jar TP SCH ×2 (08:30→22:04)
--- NOTE | 2018-06-13 09:59 | NUR ---
Reassessment: No significant changes in PO intake since last RD assessment. Pt continues with fluctuations with recent average 75-100% meeting nutrient needs. [facility] 06/11, pt continues to refuse Colace at times per med list. Will continue to follow. Rec: 1. Continue regular diet 2. Encourage PO intake 3. Monitor need for additional bowel care 4. Wt per rx Addendum: 06/13/18 at [address] Amended: Links added.
--- NOTE | 2018-06-13 11:50 | NUR ---
Problems reprioritized. Patient report given, questions answered & plan of care reviewed with Ni Ngo RN and Thuan Fermin RN.
--- NOTE | 2018-06-13 12:11 | NUR ---
Patient in room [facility]. I have received report from TAYLOR CAZARES and had the opportunity to ask questions and assume patient care.
--- NOTE | 2018-06-13 12:13 | NUR ---
I received bedside report from student Nurse Caro.
--- NOTE | 2018-06-13 18:30 | NUR ---
Patient in room [facility]. I have received report from Ni CAZARES and had the opportunity to ask questions and assume patient care With Lianne CAZARES. Patient is in bed and shows no sing of distress.
--- NOTE | 2018-06-13 18:33 | NUR ---
Problems reprioritized. Patient report given, questions answered & plan of care reviewed with Lianne CAZARES and Lashonda CAZARES.
[2018-06-13 19:00] VITALS: BP 126/62
[2018-06-13] MEDS: mirtazapine 15mg tablet PO SCH (22:03)
[2018-06-14 06:41] VITALS: BP 122/87
[2018-06-14] MEDS: enoxaparin 40mg/0.4ml syringe SUBCUT SCH (08:20)
[2018-06-14] MEDS: levetiracetam 250mg tablet PO SCH ×2 (08:20→20:55)
[2018-06-14] MEDS: clopidogrel 75mg tablet PO SCH (08:21)
[2018-06-14] MEDS: aspirin 81mg tablet.DR PO SCH (08:21)
[2018-06-14] MEDS: baclofen 10mg tablet PO SCH ×2 (08:21→20:55)
[2018-06-14] MEDS: quetiapine 100mg tablet PO SCH ×2 (08:21→20:53)
[2018-06-14] MEDS: docusate sod 100mg capsule PO SCH ×2 (08:21→20:53)
[2018-06-14] MEDS: divalproex sodium 500mg tablet.DR PO SCH ×2 (08:21→20:54)
[2018-06-14] MEDS: mineral oil/petrolatum, white cream 113gm jar TP SCH ×2 (08:24→20:59)
--- NOTE | 2018-06-14 15:21 | NUR ---
Per Shaye and Analisa in Behavioral health, Behavioral health 's are now intervening for tele psyc consults and Dr Silver from behavioral health will be up to floor around 1600 to eval patient for decision making capacity.
--- NOTE | 2018-06-14 18:39 | NUR ---
Problems reprioritized. Patient report given, questions answered & plan of care reviewed with Jerica and Lashonda RN's. Pt awake in bed, watching tv, no distress
--- NOTE | 2018-06-14 18:41 | NUR ---
Received report from Pallavi CAZARES pt is awake and alert on RA, in no apparent distress, call light and items of freq use within reach.
[2018-06-14 19:00] VITALS: BP 102/66
--- NOTE | 2018-06-14 19:00 | NUR ---
Patient in room [facility]. I have received report from Pallavi CAZARES and had the opportunity to ask questions and assume patient care with Anthony CAZARES.
[2018-06-14] MEDS: mirtazapine 15mg tablet PO SCH (20:54)
--- NOTE | 2018-06-15 05:38 | NUR ---
reviewed Prudence RN charting and observed care, agreed with assessments and interventions.
--- NOTE | 2018-06-15 06:30 | NUR ---
Gave report to Jackeline CAZARES with Prudence RN pt is awake on RA, in no apparent distress, call light and items of freq use within reach, bed alarm on.
[2018-06-15 07:00] VITALS: BP 141/81
[2018-06-15] MEDS: baclofen 10mg tablet PO SCH ×2 (08:21→20:38)
[2018-06-15] MEDS: levetiracetam 250mg tablet PO SCH ×2 (08:21→20:38)
[2018-06-15] MEDS: clopidogrel 75mg tablet PO SCH (08:22)
[2018-06-15] MEDS: aspirin 81mg tablet.DR PO SCH (08:22)
[2018-06-15] MEDS: divalproex sodium 500mg tablet.DR PO SCH ×2 (08:22→20:38)
[2018-06-15] MEDS: docusate sod 100mg capsule PO SCH ×3 (08:22→20:37)
[2018-06-15] MEDS: quetiapine 100mg tablet PO SCH ×2 (08:22→20:38)
[2018-06-15] MEDS: oxyCODONE/APAP 10/325mg tablet PO PRN (08:22)
[2018-06-15] MEDS: enoxaparin 40mg/0.4ml syringe SUBCUT SCH (08:23)
[2018-06-15] MEDS: mineral oil/petrolatum, white cream 113gm jar TP SCH ×2 (08:23→20:38)
[2018-06-15 18:00] VITALS: BP 134/72
--- NOTE | 2018-06-15 18:15 | NUR ---
Patient in room [facility] 348. I have received report from Jackeline CAZARES and had the opportunity to ask questions and assume patient care.
[2018-06-15] MEDS: mirtazapine 15mg tablet PO SCH (20:38)
--- NOTE | 2018-06-16 06:30 | NUR ---
Problems reprioritized. Patient report given, questions answered & plan of care reviewed with ODELL myers.
[2018-06-16 07:00] VITALS: BP 123/71
[2018-06-16] MEDS: mineral oil/petrolatum, white cream 113gm jar TP SCH ×2 (08:00→20:41)
[2018-06-16] MEDS: levetiracetam 250mg tablet PO SCH ×2 (09:33→20:41)
[2018-06-16] MEDS: docusate sod 100mg capsule PO SCH ×2 (09:34→20:00)
[2018-06-16] MEDS: aspirin 81mg tablet.DR PO SCH (09:34)
[2018-06-16] MEDS: clopidogrel 75mg tablet PO SCH (09:34)
[2018-06-16] MEDS: baclofen 10mg tablet PO SCH ×2 (09:34→20:40)
[2018-06-16] MEDS: divalproex sodium 500mg tablet.DR PO SCH ×2 (09:34→20:41)
[2018-06-16] MEDS: enoxaparin 40mg/0.4ml syringe SUBCUT SCH (09:34)
[2018-06-16] MEDS: quetiapine 100mg tablet PO SCH ×2 (09:34→20:41)
[2018-06-16 18:00] VITALS: BP 107/66
--- NOTE | 2018-06-16 18:13 | NUR ---
Problems reprioritized. Patient report given, questions answered & plan of care reviewed with CHASE CAZARES.
--- NOTE | 2018-06-16 18:13 | NUR ---
Patient in room [facility]. I have received report from Uyen CAZARES and had the opportunity to ask questions and assume patient care.
[2018-06-16] MEDS: mirtazapine 15mg tablet PO SCH (20:41)
--- NOTE | 2018-06-16 21:00 | NUR ---
pt stated that he will walk "when and if he wants to." pt does not want to ambulate at this time.
--- NOTE | 2018-06-17 06:15 | NUR ---
I have received report from Kirsty CAZARES and had the opportunity to ask questions and assume patient care.
--- NOTE | 2018-06-17 06:37 | NUR ---
Problems reprioritized. Patient report given, questions answered & plan of care reviewed with Grace CAZARES. Pt resting. even, unlabored breathing
[2018-06-17 08:00] VITALS: BP 113/70
[2018-06-17] MEDS: enoxaparin 40mg/0.4ml syringe SUBCUT SCH (08:00)
[2018-06-17] MEDS: docusate sod 100mg capsule PO SCH ×2 (08:00→19:53)
[2018-06-17] MEDS: divalproex sodium 500mg tablet.DR PO SCH ×2 (08:23→19:53)
[2018-06-17] MEDS: quetiapine 100mg tablet PO SCH ×2 (08:24→19:52)
[2018-06-17] MEDS: levetiracetam 250mg tablet PO SCH ×2 (08:24→19:56)
[2018-06-17] MEDS: clopidogrel 75mg tablet PO SCH (08:24)
[2018-06-17] MEDS: aspirin 81mg tablet.DR PO SCH (08:24)
[2018-06-17] MEDS: baclofen 10mg tablet PO SCH ×2 (08:24→19:51)
[2018-06-17] MEDS: mineral oil/petrolatum, white cream 113gm jar TP SCH ×2 (08:25→20:03)
--- NOTE | 2018-06-17 18:18 | NUR ---
Problems reprioritized. Patient report given, questions answered & plan of care reviewed with Svetlana CAZARES.
--- NOTE | 2018-06-17 18:30 | NUR ---
Patient in room [facility]. I have received report from Grace CAZARES and had the opportunity to ask questions and assume patient care.
[2018-06-17 19:00] VITALS: BP 111/65
[2018-06-17] MEDS: mirtazapine 15mg tablet PO SCH (19:55)
[2018-06-17] MEDS: LORazepam 0.5 MG tablet PO PRN (20:03)
[2018-06-18] MEDS: oxyCODONE/APAP 10/325mg tablet PO PRN (00:43)
--- NOTE | 2018-06-18 06:18 | NUR ---
Patient in room [facility] 348. I have received report from Svetlana CAZARES and had the opportunity to ask questions and assume patient care.
--- NOTE | 2018-06-18 06:40 | NUR ---
Problems reprioritized. Patient report given, questions answered & plan of care reviewed with Grace Calderon.
[2018-06-18] MEDS: docusate sod 100mg capsule PO SCH ×2 (08:00→22:04)
[2018-06-18] MEDS: enoxaparin 40mg/0.4ml syringe SUBCUT SCH (08:00)
[2018-06-18 08:25] VITALS: BP 126/71
[2018-06-18] MEDS: quetiapine 100mg tablet PO SCH ×2 (08:32→22:05)
[2018-06-18] MEDS: divalproex sodium 500mg tablet.DR PO SCH ×2 (08:32→22:08)
[2018-06-18] MEDS: levetiracetam 250mg tablet PO SCH ×2 (08:33→22:07)
[2018-06-18] MEDS: aspirin 81mg tablet.DR PO SCH (08:33)
[2018-06-18] MEDS: baclofen 10mg tablet PO SCH ×2 (08:33→22:04)
[2018-06-18] MEDS: clopidogrel 75mg tablet PO SCH (08:33)
[2018-06-18] MEDS: mineral oil/petrolatum, white cream 113gm jar TP SCH ×2 (08:46→22:11)
--- NOTE | 2018-06-18 12:40 | NUR ---
Patient in room [facility]. I have received report from Grace and had the opportunity to ask questions and assume patient care.
[2018-06-18] MEDS: magnesium hydroxide 30ml (MOM) UD suspension PO PRN (13:01)
--- NOTE | 2018-06-18 17:28 | NUR ---
Problems reprioritized. Patient report given, questions answered & plan of care reviewed with Grace.
--- NOTE | 2018-06-18 17:57 | NUR ---
Son in to visit patient with ke.
--- NOTE | 2018-06-18 18:05 | NUR ---
Patient in room [facility]. I have received report from Grace CAZARES and had the opportunity to ask questions and assume patient care.
--- NOTE | 2018-06-18 18:17 | NUR ---
Problems reprioritized. Patient report given, questions answered & plan of care reviewed with Svetlana CAZARES.
[2018-06-18 19:00] VITALS: BP 109/70
[2018-06-18] MEDS: mirtazapine 15mg tablet PO SCH (22:05)
--- NOTE | 2018-06-19 06:11 | NUR ---
Patient in room [facility] 348. I have received report from Svetlana CAZARES and had the opportunity to ask questions and assume patient care.
--- NOTE | 2018-06-19 06:30 | NUR ---
Problems reprioritized. Patient report given, questions answered & plan of care reviewed with Grace CAZARES.
[2018-06-19] MEDS: quetiapine 100mg tablet PO SCH ×2 (07:57→20:50)
[2018-06-19] MEDS: aspirin 81mg tablet.DR PO SCH (07:57)
[2018-06-19] MEDS: baclofen 10mg tablet PO SCH ×2 (07:57→20:50)
[2018-06-19] MEDS: divalproex sodium 500mg tablet.DR PO SCH ×2 (07:58→20:50)
[2018-06-19] MEDS: levetiracetam 250mg tablet PO SCH ×2 (07:58→20:50)
[2018-06-19] MEDS: clopidogrel 75mg tablet PO SCH (07:58)
[2018-06-19] MEDS: docusate sod 100mg capsule PO SCH ×2 (07:58→20:50)
[2018-06-19] MEDS: enoxaparin 40mg/0.4ml syringe SUBCUT SCH (07:58)
[2018-06-19] MEDS: mineral oil/petrolatum, white cream 113gm jar TP SCH ×2 (07:59→20:51)
[2018-06-19 11:22] VITALS: BP 130/71
--- NOTE | 2018-06-19 14:15 | NUR ---
Daughter n law and grandson in to see patient with puppy, "Dl". No issues, patient states that he misses his family and puppy.
--- NOTE | 2018-06-19 18:15 | NUR ---
Problems reprioritized. Patient report given, questions answered & plan of care reviewed with Lianne CAZARES.
[2018-06-19 19:47] VITALS: BP 124/68
[2018-06-19 19:49] VITALS: BP 111/57
[2018-06-19] MEDS: mirtazapine 15mg tablet PO SCH (20:50)
[2018-06-20] VITALS: BP 104/77
[2018-06-20 07:25] VITALS: BP 102/68
[2018-06-20] MEDS: divalproex sodium 500mg tablet.DR PO SCH ×2 (09:01→21:37)
[2018-06-20] MEDS: levetiracetam 250mg tablet PO SCH ×2 (09:01→21:38)
[2018-06-20] MEDS: quetiapine 100mg tablet PO SCH ×2 (09:01→21:37)
[2018-06-20] MEDS: clopidogrel 75mg tablet PO SCH (09:01)
[2018-06-20] MEDS: aspirin 81mg tablet.DR PO SCH (09:02)
[2018-06-20] MEDS: baclofen 10mg tablet PO SCH ×2 (09:02→21:38)
[2018-06-20] MEDS: docusate sod 100mg capsule PO SCH ×3 (09:02→21:42)
[2018-06-20] MEDS: enoxaparin 40mg/0.4ml syringe SUBCUT SCH (09:03)
[2018-06-20] MEDS: mineral oil/petrolatum, white cream 113gm jar TP SCH ×2 (09:03→21:43)
[2018-06-20 20:00] VITALS: BP 113/54
[2018-06-20] MEDS: mirtazapine 15mg tablet PO SCH (21:38)
[2018-06-21 07:00] VITALS: BP 102/67
--- NOTE | 2018-06-21 07:00 | NUR ---
Patient in room [facility]. I have received report from Lianne and had the opportunity to ask questions and assume patient care. Addendum: 06/21/18 at 1046 by Tamiko Mullins RN Amended: Links added.
[2018-06-21] MEDS: docusate sod 100mg capsule PO SCH ×2 (08:00→20:00)
[2018-06-21] MEDS: baclofen 10mg tablet PO SCH ×2 (08:00→20:19)
[2018-06-21] MEDS: clopidogrel 75mg tablet PO SCH (08:00)
[2018-06-21] MEDS: levetiracetam 250mg tablet PO SCH ×2 (08:00→20:19)
[2018-06-21] MEDS: enoxaparin 40mg/0.4ml syringe SUBCUT SCH (08:00)
[2018-06-21] MEDS: aspirin 81mg tablet.DR PO SCH (08:25)
[2018-06-21] MEDS: divalproex sodium 500mg tablet.DR PO SCH ×2 (08:25→20:19)
[2018-06-21] MEDS: quetiapine 100mg tablet PO SCH ×2 (08:25→20:18)
[2018-06-21] MEDS: mineral oil/petrolatum, white cream 113gm jar TP SCH ×2 (08:26→20:20)
--- NOTE | 2018-06-21 10:50 | NUR ---
Patient is calm, cooperative and agreeable to POC .
--- NOTE | 2018-06-21 12:27 | NUR ---
Reassessment: Pt continues with 75-100% PO, eating well and meeting nutrient needs. Per unlisted MD diet order patient may have beer with dinners as wanted. [facility] 06/21. Pending placement. Will continue to follow. Rec: 1. Continue regular diet 2. Encourage PO intake 3. Monitor need for additional bowel care 4. Wt per rx Addendum: 06/21/18 at [address] Amended: Links added.
--- NOTE | 2018-06-21 16:49 | NUR ---
Patient was ambulating and stubbed his left toe. Photo taken and dressing applied.
[2018-06-21 18:00] VITALS: BP 120/70
--- NOTE | 2018-06-21 18:34 | NUR ---
Problems reprioritized. Patient report given, questions answered & plan of care reviewed with Harman. Addendum: 06/21/18 at 1835 by Tamiko Mullins RN Amended: Links added.
--- NOTE | 2018-06-21 18:35 | NUR ---
Patient in room [facility]. I have received report from SAGE Morrison and had the opportunity to ask questions and assume patient care.
[2018-06-21] MEDS: mirtazapine 15mg tablet PO SCH (20:18)
--- NOTE | 2018-06-22 06:32 | NUR ---
Problems reprioritized. Patient report given, questions answered & plan of care reviewed with SAGE Dan.
--- NOTE | 2018-06-22 06:36 | NUR ---
Patient in room [facility]. I have received report from Harman CAZARES and had the opportunity to ask questions and assume patient care.
[2018-06-22 07:13] VITALS: BP 112/68
[2018-06-22] MEDS: enoxaparin 40mg/0.4ml syringe SUBCUT SCH (08:00)
[2018-06-22] MEDS: aspirin 81mg tablet.DR PO SCH (08:00)
[2018-06-22] MEDS: baclofen 10mg tablet PO SCH ×2 (08:00→20:44)
[2018-06-22] MEDS: docusate sod 100mg capsule PO SCH ×2 (08:00→20:00)
[2018-06-22] MEDS: mineral oil/petrolatum, white cream 113gm jar TP SCH ×2 (08:41→20:44)
[2018-06-22] MEDS: levetiracetam 250mg tablet PO SCH ×2 (08:50→20:44)
[2018-06-22] MEDS: clopidogrel 75mg tablet PO SCH (08:51)
[2018-06-22] MEDS: quetiapine 100mg tablet PO SCH ×2 (08:51→20:44)
[2018-06-22] MEDS: divalproex sodium 500mg tablet.DR PO SCH ×2 (08:51→20:43)
[2018-06-22 18:00] VITALS: BP 97/53
--- NOTE | 2018-06-22 18:28 | NUR ---
Problems reprioritized. Patient report given, questions answered & plan of care reviewed with Harman CAZARES.
--- NOTE | 2018-06-22 18:29 | NUR ---
Patient in room [facility]. I have received report from SAGE Dan and had the opportunity to ask questions and assume patient care.
[2018-06-22] MEDS: mirtazapine 15mg tablet PO SCH (20:44)
--- NOTE | 2018-06-23 06:17 | NUR ---
Problems reprioritized. Patient report given, questions answered & plan of care reviewed with SAGE Anaya.
--- NOTE | 2018-06-23 06:42 | NUR ---
Patient in room [facility]. I have received report from SAGE MONTGOMERY and had the opportunity to ask questions and assume patient care.
[2018-06-23 07:00] VITALS: BP 109/68
[2018-06-23] MEDS: levetiracetam 250mg tablet PO SCH ×2 (08:00→20:09)
[2018-06-23] MEDS: clopidogrel 75mg tablet PO SCH (08:00)
[2018-06-23] MEDS: baclofen 10mg tablet PO SCH ×2 (08:00→20:08)
[2018-06-23] MEDS: aspirin 81mg tablet.DR PO SCH (08:00)
[2018-06-23] MEDS: docusate sod 100mg capsule PO SCH ×2 (08:00→20:00)
[2018-06-23] MEDS: quetiapine 100mg tablet PO SCH ×2 (08:00→20:10)
[2018-06-23] MEDS: mineral oil/petrolatum, white cream 113gm jar TP SCH ×2 (08:00→20:10)
[2018-06-23] MEDS: enoxaparin 40mg/0.4ml syringe SUBCUT SCH (08:00)
[2018-06-23] MEDS: divalproex sodium 500mg tablet.DR PO SCH ×2 (09:46→20:09)
[2018-06-23 18:00] VITALS: BP 116/64
--- NOTE | 2018-06-23 18:50 | NUR ---
Problems reprioritized. Patient report given, questions answered & plan of care reviewed with SAGE Hammer.
--- NOTE | 2018-06-23 18:51 | NUR ---
Patient in room [facility]. I have received report from SAGE Anaya and had the opportunity to ask questions and assume patient care.
[2018-06-23] MEDS: acetaminophen 325mg tablet PO PRN (20:09)
[2018-06-23] MEDS: magnesium hydroxide 30ml (MOM) UD suspension PO PRN (20:10)
[2018-06-23] MEDS: mirtazapine 15mg tablet PO SCH (20:10)
[2018-06-24] MEDS: oxyCODONE/APAP 10/325mg tablet PO PRN (01:09)
--- NOTE | 2018-06-24 06:09 | NUR ---
Problems reprioritized. Patient report given, questions answered & plan of care reviewed with SAGE Viveros.
[2018-06-24 07:00] VITALS: BP 118/69
[2018-06-24] MEDS: mineral oil/petrolatum, white cream 113gm jar TP SCH ×2 (08:00→20:00)
[2018-06-24] MEDS: quetiapine 100mg tablet PO SCH ×3 (10:13→20:58)
[2018-06-24] MEDS: levetiracetam 250mg tablet PO SCH ×3 (10:13→20:57)
[2018-06-24] MEDS: docusate sod 100mg capsule PO SCH ×3 (10:13→20:57)
[2018-06-24] MEDS: aspirin 81mg tablet.DR PO SCH (10:14)
[2018-06-24] MEDS: divalproex sodium 500mg tablet.DR PO SCH ×2 (10:14→20:57)
[2018-06-24] MEDS: baclofen 10mg tablet PO SCH ×2 (10:14→20:58)
[2018-06-24] MEDS: clopidogrel 75mg tablet PO SCH (10:14)
[2018-06-24] MEDS: enoxaparin 40mg/0.4ml syringe SUBCUT SCH (10:16)
[2018-06-24] MEDS: acetaminophen 325mg tablet PO PRN (10:21)
[2018-06-24 18:50] VITALS: BP 123/64
[2018-06-24] MEDS: mirtazapine 15mg tablet PO SCH (20:58)
--- NOTE | 2018-06-25 06:43 | NUR ---
Problems reprioritized. Patient report given, questions answered & plan of care reviewed with HUANG. Addendum: 06/25/18 at 0644 by Hector Nieto RN Amended: Links added.
[2018-06-25 07:00] VITALS: BP 121/66
[2018-06-25] MEDS: aspirin 81mg tablet.DR PO SCH ×2 (08:00→09:00)
[2018-06-25] MEDS: mineral oil/petrolatum, white cream 113gm jar TP SCH ×2 (08:00→20:00)
[2018-06-25] MEDS: docusate sod 100mg capsule PO SCH ×3 (08:00→21:55)
[2018-06-25] MEDS: levetiracetam 250mg tablet PO SCH ×3 (08:00→21:52)
[2018-06-25] MEDS: quetiapine 100mg tablet PO SCH ×2 (09:00→21:52)
[2018-06-25] MEDS: baclofen 10mg tablet PO SCH ×2 (09:00→21:52)
[2018-06-25] MEDS: clopidogrel 75mg tablet PO SCH (09:00)
[2018-06-25] MEDS: enoxaparin 40mg/0.4ml syringe SUBCUT SCH (09:00)
[2018-06-25] MEDS: divalproex sodium 500mg tablet.DR PO SCH ×2 (09:00→21:52)
[2018-06-25 20:00] VITALS: BP 111/68
[2018-06-25] MEDS: mirtazapine 15mg tablet PO SCH (21:51)
--- NOTE | 2018-06-26 06:38 | NUR ---
Patient in room [facility]. I have received report from SAGE BUSTOS and had the opportunity to ask questions and assume patient care.
[2018-06-26 06:58] VITALS: BP 129/76
[2018-06-26] MEDS: docusate sod 100mg capsule PO SCH ×2 (08:00→20:00)
[2018-06-26] MEDS: baclofen 10mg tablet PO SCH ×2 (08:19→20:10)
[2018-06-26] MEDS: aspirin 81mg tablet.DR PO SCH (08:21)
[2018-06-26] MEDS: divalproex sodium 500mg tablet.DR PO SCH ×2 (08:21→20:08)
[2018-06-26] MEDS: clopidogrel 75mg tablet PO SCH (08:21)
[2018-06-26] MEDS: quetiapine 100mg tablet PO SCH ×2 (08:22→20:12)
[2018-06-26] MEDS: levetiracetam 250mg tablet PO SCH ×2 (08:23→20:07)
[2018-06-26] MEDS: enoxaparin 40mg/0.4ml syringe SUBCUT SCH (08:23)
[2018-06-26] MEDS: mineral oil/petrolatum, white cream 113gm jar TP SCH ×2 (08:32→20:14)
[2018-06-26 10:51] VITALS: BP 110/59
--- NOTE | 2018-06-26 18:30 | NUR ---
Patient in room [facility]. I have received report from Jaclyn CAZARES and had the opportunity to ask questions and assume patient care.
--- NOTE | 2018-06-26 18:30 | NUR ---
Patient in room [facility]. I have received report from SAGE Mccormick and had the opportunity to ask questions and assume patient care SAGE Hsu Addendum: 06/26/18 at 1859 by Patricia Schuster RN Amended: Links added.
--- NOTE | 2018-06-26 18:50 | NUR ---
Problems reprioritized. Patient report given, questions answered & plan of care reviewed with Yumiko Justin and YUMIKO Hsu.
--- NOTE | 2018-06-26 18:50 | NUR ---
Patient yelling from room and cussing at staff today. Patient also throwing items from bedside table such as water, cups and soda bottle to ground. Bedside table removed from within patient's reach for safety. Patient did calm down and is now pleasant and cooperative. Patient ate dinner and has bedside table and is not throwing items at this time.
[2018-06-26 20:00] VITALS: BP 134/74
[2018-06-26] MEDS: mirtazapine 15mg tablet PO SCH (20:11)
--- NOTE | 2018-06-27 01:21 | NUR ---
Agree with nursing assessment done by SAGE Hsu Addendum: 06/27/18 at 0122 by Patricia Schuster RN Amended: Links added.
--- NOTE | 2018-06-27 06:24 | NUR ---
Patient in room [facility]. I have received report from Margoth RN and Shadi RN and had the opportunity to ask questions and assume patient care.
--- NOTE | 2018-06-27 06:34 | NUR ---
Problems reprioritized. Patient report given, questions answered & plan of care reviewed with Miri RN.
[2018-06-27 07:02] VITALS: BP 118/70
[2018-06-27] MEDS: docusate sod 100mg capsule PO SCH ×2 (08:00→19:26)
[2018-06-27] MEDS: clopidogrel 75mg tablet PO SCH (08:15)
[2018-06-27] MEDS: aspirin 81mg tablet.DR PO SCH (08:15)
[2018-06-27] MEDS: baclofen 10mg tablet PO SCH ×2 (08:15→19:28)
[2018-06-27] MEDS: levetiracetam 250mg tablet PO SCH ×2 (08:15→19:29)
[2018-06-27] MEDS: divalproex sodium 500mg tablet.DR PO SCH ×2 (08:16→19:31)
[2018-06-27] MEDS: quetiapine 100mg tablet PO SCH ×2 (08:16→19:26)
[2018-06-27] MEDS: mineral oil/petrolatum, white cream 113gm jar TP SCH ×2 (08:22→19:32)
[2018-06-27] MEDS: enoxaparin 40mg/0.4ml syringe SUBCUT SCH (08:23)
--- NOTE | 2018-06-27 18:26 | NUR ---
Problems reprioritized. Patient report given, questions answered & plan of care reviewed with SAGE Acevedo and SAGE Mathews.
--- NOTE | 2018-06-27 18:31 | NUR ---
Patient in room [facility]. I have received report from Miri CAZARES and had the opportunity to ask questions and assume patient care.
[2018-06-27] MEDS: mirtazapine 15mg tablet PO SCH (19:28)
[2018-06-27 20:00] VITALS: BP 139/72
--- NOTE | 2018-06-27 23:51 | NUR ---
Agree with SAGE Saeztimber bucker. Addendum: 06/27/18 at 2352 by Bisi Hadley RN Amended: Links added.
--- NOTE | 2018-06-28 06:20 | NUR ---
Patient in room [facility]. I have received report from SAGE Luo and had the opportunity to ask questions and assume patient care. Patient resting comfortably at this time. Call light and items of frequent use in reach of patient.
--- NOTE | 2018-06-28 06:27 | NUR ---
Problems reprioritized. Patient report given, questions answered & plan of care reviewed with Opal CAZARES.
[2018-06-28 07:00] VITALS: BP 100/69
[2018-06-28] MEDS: docusate sod 100mg capsule PO SCH ×2 (07:00→20:30)
[2018-06-28] MEDS: aspirin 81mg tablet.DR PO SCH (07:00)
[2018-06-28] MEDS: divalproex sodium 500mg tablet.DR PO SCH ×2 (07:00→20:32)
[2018-06-28] MEDS: levetiracetam 250mg tablet PO SCH ×2 (07:01→20:30)
[2018-06-28] MEDS: quetiapine 100mg tablet PO SCH ×2 (07:02→20:31)
[2018-06-28] MEDS: baclofen 10mg tablet PO SCH ×2 (07:02→20:31)
[2018-06-28] MEDS: enoxaparin 40mg/0.4ml syringe SUBCUT SCH (07:02)
[2018-06-28] MEDS: clopidogrel 75mg tablet PO SCH (07:02)
[2018-06-28] MEDS: oxyCODONE/APAP 10/325mg tablet PO PRN ×2 (07:03→20:32)
[2018-06-28] MEDS: mineral oil/petrolatum, white cream 113gm jar TP SCH ×2 (07:06→20:37)
--- NOTE | 2018-06-28 15:35 | NUR ---
Reassessment: Pt continues with 75-100% PO, eating well and meeting nutrient needs. Per unlisted MD diet order patient may have beer with dinners as wanted. [facility] 06/25. Pending placement. Will continue to follow. Rec: 1. Continue regular diet 2. Encourage PO intake 3. Monitor need for additional bowel care 4. Wt per rx Addendum: 06/28/18 at [address] Amended: Links added.
--- NOTE | 2018-06-28 18:29 | NUR ---
Problems reprioritized. Patient report given, questions answered & plan of care reviewed with SAGE Silva and SAGE Gallego. patient eating dinner at this time. Call light and items of frequent use in reach of patient.
--- NOTE | 2018-06-28 18:33 | NUR ---
Received report from Opal CAZARES pt is awake and alert eating dinner, in no apparent distress, call light and items of freq use within reach.
--- NOTE | 2018-06-28 18:34 | NUR ---
Patient in room [facility]. I have received report from Opal CAZARES and had the opportunity to ask questions and assume patient care with Shira CAZARES.
[2018-06-28 19:00] VITALS: BP 136/73
[2018-06-28] MEDS: mirtazapine 15mg tablet PO SCH (20:30)
--- NOTE | 2018-06-29 06:04 | NUR ---
Patient in room [facility]. I have received report from SAGE Silva and SAGE Gallego and had the opportunity to ask questions and assume patient care. Patient resting comfortably at this time. Call light and items of frequent use in reach of patient.
--- NOTE | 2018-06-29 06:10 | NUR ---
Gave report to Opal CAZARES with Prudence RN pt is resting on RA, in no apparent distress, call light and items of freq use within reach.
--- NOTE | 2018-06-29 06:10 | NUR ---
Reviewed and Agree with Prudence RN charting.
--- NOTE | 2018-06-29 06:12 | NUR ---
Problems reprioritized. Patient report given with, questions answered & plan of care reviewed with Opal CAZARES . Patient is resting and shows no sign of distress.
[2018-06-29 07:11] VITALS: BP 151/80
[2018-06-29] MEDS: enoxaparin 40mg/0.4ml syringe SUBCUT SCH (08:00)
[2018-06-29] MEDS: divalproex sodium 500mg tablet.DR PO SCH ×2 (08:11→20:30)
[2018-06-29] MEDS: aspirin 81mg tablet.DR PO SCH (08:11)
[2018-06-29] MEDS: levetiracetam 250mg tablet PO SCH ×2 (08:12→20:31)
[2018-06-29] MEDS: clopidogrel 75mg tablet PO SCH (08:16)
[2018-06-29] MEDS: quetiapine 100mg tablet PO SCH ×2 (08:16→20:31)
[2018-06-29] MEDS: docusate sod 100mg capsule PO SCH ×2 (08:16→20:32)
[2018-06-29] MEDS: baclofen 10mg tablet PO SCH ×2 (08:17→20:30)
[2018-06-29] MEDS: mineral oil/petrolatum, white cream 113gm jar TP SCH ×2 (08:18→20:31)
--- NOTE | 2018-06-29 18:10 | NUR ---
Problems reprioritized. Patient report given, questions answered & plan of care reviewed with SAGE Gallego and SAGE Silva. Patient is sitting up in bed eating dinner.
--- NOTE | 2018-06-29 18:11 | NUR ---
Received report from Opal CAZARES pt is awake sitting in bed in no apparent distress, call light and items of freq use within reach.
--- NOTE | 2018-06-29 18:24 | NUR ---
Patient in room [facility]. I have received report from Opal CAZARES and had the opportunity to ask questions and assume patient care. Patient is eating dinner.
[2018-06-29 19:00] VITALS: BP 123/65
[2018-06-29] MEDS: mirtazapine 15mg tablet PO SCH (20:29)
[2018-06-29] MEDS: magnesium hydroxide 30ml (MOM) UD suspension PO PRN (22:12)
--- NOTE | 2018-06-30 06:15 | NUR ---
I have reviewed and agree with Prudence RN charting
--- NOTE | 2018-06-30 06:16 | NUR ---
Problems reprioritized. Patient report given, questions answered & plan of care reviewed with Leilani CAZARES and Lashonda CAZARES.
--- NOTE | 2018-06-30 06:25 | NUR ---
Problems reprioritized. Patient report given, questions answered & plan of care reviewed with Leilani CAZARES.
--- NOTE | 2018-06-30 06:36 | NUR ---
Patient in room [facility]. I have received report from Lashonda CAZARES and had the opportunity to ask questions and assume patient care.
[2018-06-30 07:09] VITALS: BP 106/65
[2018-06-30] MEDS: baclofen 10mg tablet PO SCH ×2 (08:00→20:26)
[2018-06-30] MEDS: docusate sod 100mg capsule PO SCH ×2 (08:15→20:25)
[2018-06-30] MEDS: levetiracetam 250mg tablet PO SCH ×2 (08:15→20:25)
[2018-06-30] MEDS: quetiapine 100mg tablet PO SCH ×2 (08:15→20:25)
[2018-06-30] MEDS: clopidogrel 75mg tablet PO SCH (08:15)
[2018-06-30] MEDS: divalproex sodium 500mg tablet.DR PO SCH ×2 (08:15→20:26)
[2018-06-30] MEDS: aspirin 81mg tablet.DR PO SCH (08:16)
[2018-06-30] MEDS: enoxaparin 40mg/0.4ml syringe SUBCUT SCH (08:17)
[2018-06-30] MEDS: mineral oil/petrolatum, white cream 113gm jar TP SCH ×2 (08:17→20:32)
--- NOTE | 2018-06-30 18:21 | NUR ---
Problems reprioritized. Patient report given, questions answered & plan of care reviewed with Prudence and Marifer RN's .
--- NOTE | 2018-06-30 18:27 | NUR ---
Patient in room [facility]. I have received report from Leilani CAZARES and had the opportunity to ask questions and assume patient care. Patient is a looks well and eating his dinner. He shows no sign of distress.
[2018-06-30 19:00] VITALS: BP 113/59
[2018-06-30] MEDS: mirtazapine 15mg tablet PO SCH (20:25)
--- NOTE | 2018-07-01 06:30 | NUR ---
Patient in room [facility]. I have received report from Lashonda CAZARES and had the opportunity to ask questions and assume patient care.
--- NOTE | 2018-07-01 06:32 | NUR ---
Problems reprioritized. Patient report given, questions answered & plan of care reviewed with Isaias CAZARES.
[2018-07-01 07:15] VITALS: BP 119/78
[2018-07-01] MEDS: enoxaparin 40mg/0.4ml syringe SUBCUT SCH (08:00)
[2018-07-01] MEDS: docusate sod 100mg capsule PO SCH ×2 (08:00→20:14)
[2018-07-01] MEDS: divalproex sodium 500mg tablet.DR PO SCH ×2 (08:03→20:14)
[2018-07-01] MEDS: clopidogrel 75mg tablet PO SCH (08:03)
[2018-07-01] MEDS: aspirin 81mg tablet.DR PO SCH (08:03)
[2018-07-01] MEDS: baclofen 10mg tablet PO SCH ×2 (08:03→20:15)
[2018-07-01] MEDS: levetiracetam 250mg tablet PO SCH ×2 (08:03→20:15)
[2018-07-01] MEDS: quetiapine 100mg tablet PO SCH ×2 (08:04→20:14)
[2018-07-01] MEDS: mineral oil/petrolatum, white cream 113gm jar TP SCH ×2 (08:04→20:21)
--- NOTE | 2018-07-01 18:29 | NUR ---
Problems reprioritized. Patient report given, questions answered & plan of care reviewed with NOAH/TODD RN.
[2018-07-01 19:52] VITALS: BP 134/79
[2018-07-01] MEDS: mirtazapine 15mg tablet PO SCH (20:14)
--- NOTE | 2018-07-02 06:24 | NUR ---
Problems reprioritized. Patient report given, questions answered & plan of care reviewed with SAGE Edwards.
--- NOTE | 2018-07-02 06:33 | NUR ---
Patient in room [facility]. I have received report from Ayala and had the opportunity to ask questions and assume patient care.
[2018-07-02 08:00] VITALS: BP 102/71
[2018-07-02] MEDS: enoxaparin 40mg/0.4ml syringe SUBCUT SCH (08:00)
[2018-07-02] MEDS: docusate sod 100mg capsule PO SCH ×2 (08:00→20:24)
[2018-07-02] MEDS: baclofen 10mg tablet PO SCH ×2 (08:37→20:24)
[2018-07-02] MEDS: aspirin 81mg tablet.DR PO SCH (08:37)
[2018-07-02] MEDS: divalproex sodium 500mg tablet.DR PO SCH ×2 (08:37→20:23)
[2018-07-02] MEDS: levetiracetam 250mg tablet PO SCH ×2 (08:37→20:24)
[2018-07-02] MEDS: clopidogrel 75mg tablet PO SCH (08:37)
[2018-07-02] MEDS: quetiapine 100mg tablet PO SCH ×2 (08:37→20:24)
[2018-07-02] MEDS: mineral oil/petrolatum, white cream 113gm jar TP SCH ×2 (08:43→20:25)
--- NOTE | 2018-07-02 10:10 | NUR ---
Patient is sad today because he wants to save his home and be able to live there again, states that he will miss all of us but he really would like to go home and be cared for. Patient cleaned up and adjusted in bed.
--- NOTE | 2018-07-02 14:04 | NUR ---
Patient states " I will go anywhere to a rehab to be able to get to where I can take care of myself, even if I have to go out of town. My kids should not be able to say where I can go or not." Patient states that he wants to rehab and get better. Patient walked today with minimal assist with PT stand walker with gait belt.
[2018-07-02 20:00] VITALS: BP 133/80
[2018-07-02] MEDS: mirtazapine 15mg tablet PO SCH (20:24)
--- NOTE | 2018-07-03 06:30 | NUR ---
Problems reprioritized. Patient report given, questions answered & plan of care reviewed with SAGE Edwards.
--- NOTE | 2018-07-03 06:33 | NUR ---
Patient in room [facility]. I have received report from Ayala CAZARES and had the opportunity to ask questions and assume patient care.
[2018-07-03 06:59] VITALS: BP 112/61
[2018-07-03] MEDS: docusate sod 100mg capsule PO SCH ×2 (08:00→21:06)
[2018-07-03] MEDS: enoxaparin 40mg/0.4ml syringe SUBCUT SCH (08:00)
[2018-07-03] MEDS: levetiracetam 250mg tablet PO SCH ×2 (08:19→21:08)
[2018-07-03] MEDS: clopidogrel 75mg tablet PO SCH (08:19)
[2018-07-03] MEDS: baclofen 10mg tablet PO SCH ×2 (08:20→21:06)
[2018-07-03] MEDS: divalproex sodium 500mg tablet.DR PO SCH ×2 (08:20→21:08)
[2018-07-03] MEDS: mineral oil/petrolatum, white cream 113gm jar TP SCH ×2 (08:20→21:08)
[2018-07-03] MEDS: aspirin 81mg tablet.DR PO SCH (08:20)
[2018-07-03] MEDS: quetiapine 100mg tablet PO SCH ×2 (08:20→21:07)
--- NOTE | 2018-07-03 18:24 | NUR ---
Patient in room [facility]. I have received report from Grace CAZARES and had the opportunity to ask questions and assume patient care.
[2018-07-03 20:00] VITALS: BP 110/71
[2018-07-03] MEDS: mirtazapine 15mg tablet PO SCH (21:07)
--- NOTE | 2018-07-04 05:49 | NUR ---
Student documentation: I have reviewed and agree with all interventions, assessments performed and documented by Thuan CAZARES. Addendum: 07/04/18 at 0549 by Christina Jacobs RN Amended: Links added.
--- NOTE | 2018-07-04 06:26 | NUR ---
Problems reprioritized. Patient report given, questions answered & plan of care reviewed with Miri RN.
--- NOTE | 2018-07-04 06:30 | NUR ---
Patient in room [facility] 348. I have received report from Christina CAZARES and had the opportunity to ask questions and assume patient care.
--- NOTE | 2018-07-04 06:32 | NUR ---
Problems reprioritized. Patient report given, questions answered & plan of care reviewed with SAGE Arango.
[2018-07-04 07:00] VITALS: BP 121/74
[2018-07-04] MEDS: enoxaparin 40mg/0.4ml syringe SUBCUT SCH (08:00)
[2018-07-04] MEDS: docusate sod 100mg capsule PO SCH ×2 (08:00→21:24)
[2018-07-04] MEDS: clopidogrel 75mg tablet PO SCH (08:41)
[2018-07-04] MEDS: levetiracetam 250mg tablet PO SCH ×2 (08:41→21:23)
[2018-07-04] MEDS: aspirin 81mg tablet.DR PO SCH (08:41)
[2018-07-04] MEDS: quetiapine 100mg tablet PO SCH ×2 (08:41→21:26)
[2018-07-04] MEDS: divalproex sodium 500mg tablet.DR PO SCH ×2 (08:42→21:24)
[2018-07-04] MEDS: baclofen 10mg tablet PO SCH ×2 (08:42→21:00)
[2018-07-04] MEDS: mineral oil/petrolatum, white cream 113gm jar TP SCH ×2 (08:50→21:31)
--- NOTE | 2018-07-04 18:20 | NUR ---
Patient in room [facility]. I have received report from Luis Miguel CAZARES and had the opportunity to ask questions and assume patient care.
--- NOTE | 2018-07-04 18:35 | NUR ---
Problems reprioritized. Patient report given, questions answered & plan of care reviewed with SAGE Urrutia.
[2018-07-04 20:00] VITALS: BP 121/69
[2018-07-04] MEDS: mirtazapine 15mg tablet PO SCH (21:24)
--- NOTE | 2018-07-05 06:26 | NUR ---
Patient in room [facility]. I have received report from SAGE Urrutia and SAGE Wilcox and had the opportunity to ask questions and assume patient care.
--- NOTE | 2018-07-05 06:36 | NUR ---
Problems reprioritized. Patient report given, questions answered & plan of care reviewed with Miri RN.
--- NOTE | 2018-07-05 06:38 | NUR ---
Observed and reviewed charting of Brenden CAZARES, agreed with care.
[2018-07-05 08:00] VITALS: BP 127/64
[2018-07-05] MEDS: docusate sod 100mg capsule PO SCH ×2 (08:00→20:05)
[2018-07-05] MEDS: enoxaparin 40mg/0.4ml syringe SUBCUT SCH (08:00)
[2018-07-05] MEDS: baclofen 10mg tablet PO SCH ×2 (08:53→20:06)
[2018-07-05] MEDS: aspirin 81mg tablet.DR PO SCH (08:53)
[2018-07-05] MEDS: divalproex sodium 500mg tablet.DR PO SCH ×2 (08:53→20:05)
[2018-07-05] MEDS: quetiapine 100mg tablet PO SCH ×2 (08:53→20:05)
[2018-07-05] MEDS: levetiracetam 250mg tablet PO SCH ×2 (08:53→20:05)
[2018-07-05] MEDS: clopidogrel 75mg tablet PO SCH (08:53)
[2018-07-05] MEDS: mineral oil/petrolatum, white cream 113gm jar TP SCH ×2 (08:54→20:15)
--- NOTE | 2018-07-05 09:09 | NUR ---
Reassessment: Pt continues with 75-100% PO intake on regular diet meeting nutrient needs. New wt has been obtained using bed scale; pt has gained 6.4 kg in 6 months which is appropriate d/t pt with good PO intake meeting nutrient needs. [facility] 07/04. Pt continues awaiting placement. Will continue to follow. Rec: 1. Continue regular diet 2. Encourage PO intake 3. Monitor need for additional bowel care 4. Wt per rx Addendum: 07/05/18 at [address] Amended: Links added.
[2018-07-05 18:00] VITALS: BP 122/69
--- NOTE | 2018-07-05 18:35 | NUR ---
Problems reprioritized. Patient report given, questions answered & plan of care reviewed with SAGE Barraza.
--- NOTE | 2018-07-05 18:35 | NUR ---
Patient in room [facility]. I have received report from SAGE Michel and had the opportunity to ask questions and assume patient care.
[2018-07-05] MEDS: mirtazapine 15mg tablet PO SCH (20:05)
--- NOTE | 2018-07-06 01:36 | NUR ---
Pt has the urge to void but is having trouble voiding. Pt was bladder scanned and currently has 180 mL in his bladder. Will continue to monitor patient, as the current order for straight cath is for >300mL.
--- NOTE | 2018-07-06 06:18 | NUR ---
Problems reprioritized. Patient report given, questions answered & plan of care reviewed with SAGE Michel.
--- NOTE | 2018-07-06 06:20 | NUR ---
Patient in room [facility]. I have received report from SAGE Barraza and had the opportunity to ask questions and assume patient care.
[2018-07-06 07:00] VITALS: BP 112/59
[2018-07-06] MEDS: enoxaparin 40mg/0.4ml syringe SUBCUT SCH (08:00)
[2018-07-06] MEDS: docusate sod 100mg capsule PO SCH ×2 (08:00→20:36)
[2018-07-06] MEDS: quetiapine 100mg tablet PO SCH ×2 (08:01→20:36)
[2018-07-06] MEDS: clopidogrel 75mg tablet PO SCH (08:01)
[2018-07-06] MEDS: levetiracetam 250mg tablet PO SCH ×2 (08:01→20:35)
[2018-07-06] MEDS: aspirin 81mg tablet.DR PO SCH (08:01)
[2018-07-06] MEDS: baclofen 10mg tablet PO SCH ×2 (08:01→20:35)
[2018-07-06] MEDS: divalproex sodium 500mg tablet.DR PO SCH ×2 (08:01→20:36)
[2018-07-06] MEDS: mineral oil/petrolatum, white cream 113gm jar TP SCH ×2 (08:07→20:42)
--- NOTE | 2018-07-06 18:18 | NUR ---
Problems reprioritized. Patient report given, questions answered & plan of care reviewed with Claribel Sanford RN.
--- NOTE | 2018-07-06 18:30 | NUR ---
Patient in room [facility]. I have received report from YENNIFER CAZARES and had the opportunity to ask questions and assume patient care.
[2018-07-06 20:00] VITALS: BP 123/76
[2018-07-06] MEDS: mirtazapine 15mg tablet PO SCH (20:35)
--- NOTE | 2018-07-07 06:06 | NUR ---
Problems reprioritized. Patient report given, questions answered & plan of care reviewed with MANDEEP CAZARES.
--- NOTE | 2018-07-07 06:13 | NUR ---
Patient in room [facility]. I have received report from Silver CAZARES and had the opportunity to ask questions and assume patient care.
[2018-07-07 07:00] VITALS: BP 143/74
[2018-07-07] MEDS: enoxaparin 40mg/0.4ml syringe SUBCUT SCH (08:00)
[2018-07-07] MEDS: quetiapine 100mg tablet PO SCH ×2 (08:04→20:49)
[2018-07-07] MEDS: aspirin 81mg tablet.DR PO SCH (08:04)
[2018-07-07] MEDS: baclofen 10mg tablet PO SCH ×2 (08:04→20:49)
[2018-07-07] MEDS: mineral oil/petrolatum, white cream 113gm jar TP SCH ×2 (08:05→20:53)
[2018-07-07] MEDS: docusate sod 100mg capsule PO SCH ×2 (08:05→20:48)
[2018-07-07] MEDS: clopidogrel 75mg tablet PO SCH (08:05)
[2018-07-07] MEDS: levetiracetam 250mg tablet PO SCH ×2 (08:05→20:49)
[2018-07-07] MEDS: divalproex sodium 500mg tablet.DR PO SCH ×2 (08:05→20:49)
--- NOTE | 2018-07-07 16:01 | NUR ---
patient became very verbal and yelling loud . patient threw tray across the floor. staff talked with patient who stated NA was late taking him for his 1230 walk. staff encouraged patient to not act out and to use his call button to talk with staff. patient stated" well at least this way i get out of my room"Patient then agreed to use his call light.
--- NOTE | 2018-07-07 18:34 | NUR ---
Problems reprioritized. Patient report given, questions answered & plan of care reviewed with Silver CAZARES.
--- NOTE | 2018-07-07 18:35 | NUR ---
Patient in room [facility]. I have received report from MANDEEP CAZARES and had the opportunity to ask questions and assume patient care.
[2018-07-07 20:00] VITALS: BP 110/64
[2018-07-07] MEDS: mirtazapine 15mg tablet PO SCH (20:49)
--- NOTE | 2018-07-08 06:26 | NUR ---
Problems reprioritized. Patient report given, questions answered & plan of care reviewed with MANDEEP CAZARES.
--- NOTE | 2018-07-08 06:28 | NUR ---
Patient in room [facility]. I have received report from Silver CAZARES and had the opportunity to ask questions and assume patient care.
[2018-07-08 07:06] VITALS: BP 129/80
[2018-07-08] MEDS: quetiapine 100mg tablet PO SCH ×2 (07:55→21:23)
[2018-07-08] MEDS: aspirin 81mg tablet.DR PO SCH (07:55)
[2018-07-08] MEDS: baclofen 10mg tablet PO SCH ×2 (07:55→21:23)
[2018-07-08] MEDS: divalproex sodium 500mg tablet.DR PO SCH ×2 (07:55→21:22)
[2018-07-08] MEDS: docusate sod 100mg capsule PO SCH ×2 (07:55→21:23)
[2018-07-08] MEDS: levetiracetam 250mg tablet PO SCH ×2 (07:55→21:23)
[2018-07-08] MEDS: clopidogrel 75mg tablet PO SCH (07:55)
[2018-07-08] MEDS: enoxaparin 40mg/0.4ml syringe SUBCUT SCH (08:00)
[2018-07-08] MEDS: mineral oil/petrolatum, white cream 113gm jar TP SCH ×2 (08:05→20:00)
--- NOTE | 2018-07-08 18:28 | NUR ---
patient ambulated x3 with rehab walker, pleasant day. No complaints. Report given to Margoth CAZARES
--- NOTE | 2018-07-08 18:34 | NUR ---
Patient in room [facility]. I have received report from SAGE Malik and had the opportunity to ask questions and assume patient care. Addendum: 07/08/18 at 1835 by Patricia Schuster RN Amended: Links added.
[2018-07-08 19:00] VITALS: BP 123/76
[2018-07-08] MEDS: mirtazapine 15mg tablet PO SCH (21:23)
--- NOTE | 2018-07-09 06:22 | NUR ---
Problems reprioritized. Patient report given, questions answered & plan of care reviewed with SAGE ROMANO. Addendum: 07/09/18 at 0623 by Patricia Schuster RN Amended: Links added.
--- NOTE | 2018-07-09 06:29 | NUR ---
Patient in room [facility]. I have received report from Margoth CAZARES and had the opportunity to ask questions and assume patient care.
[2018-07-09 07:08] VITALS: BP 126/69
[2018-07-09] MEDS: docusate sod 100mg capsule PO SCH ×2 (08:00→20:06)
[2018-07-09] MEDS: enoxaparin 40mg/0.4ml syringe SUBCUT SCH (08:00)
[2018-07-09] MEDS: clopidogrel 75mg tablet PO SCH (08:36)
[2018-07-09] MEDS: divalproex sodium 500mg tablet.DR PO SCH ×2 (08:36→20:09)
[2018-07-09] MEDS: levetiracetam 250mg tablet PO SCH ×2 (08:36→20:08)
[2018-07-09] MEDS: aspirin 81mg tablet.DR PO SCH (08:36)
[2018-07-09] MEDS: quetiapine 100mg tablet PO SCH ×2 (08:36→20:08)
[2018-07-09] MEDS: baclofen 10mg tablet PO SCH ×2 (08:37→20:07)
[2018-07-09] MEDS: mineral oil/petrolatum, white cream 113gm jar TP SCH ×2 (08:39→20:10)
--- NOTE | 2018-07-09 14:42 | NUR ---
Patient requested Teo Sammyagustina mendoza, 2 faxes sent to nutrition services. Addendum: 07/09/18 at 1442 by Grace Curry RN Amended: Links added.
--- NOTE | 2018-07-09 18:08 | NUR ---
Patient in room [facility] 348. I have received report from Svetlana CAZARES and had the opportunity to ask questions and assume patient care.
--- NOTE | 2018-07-09 18:20 | NUR ---
Patient in room [facility]. I have received report from Grace CAZARES and had the opportunity to ask questions and assume patient care.
[2018-07-09 19:00] VITALS: BP 112/67
[2018-07-09] MEDS: mirtazapine 15mg tablet PO SCH (20:07)
--- NOTE | 2018-07-10 06:00 | NUR ---
Patient in room [facility] 348. I have received report from Svetlana CAZARES and had the opportunity to ask questions and assume patient care.
--- NOTE | 2018-07-10 06:18 | NUR ---
Problems reprioritized. Patient report given, questions answered & plan of care reviewed with Grace CAZARES.
[2018-07-10 07:40] VITALS: BP 137/80
[2018-07-10] MEDS: baclofen 10mg tablet PO SCH ×3 (08:00→20:17)
[2018-07-10] MEDS: docusate sod 100mg capsule PO SCH ×2 (08:00→20:10)
[2018-07-10] MEDS: clopidogrel 75mg tablet PO SCH ×2 (08:00→08:54)
[2018-07-10] MEDS: aspirin 81mg tablet.DR PO SCH ×2 (08:00→08:54)
[2018-07-10] MEDS: quetiapine 100mg tablet PO SCH ×3 (08:00→20:12)
[2018-07-10] MEDS: enoxaparin 40mg/0.4ml syringe SUBCUT SCH (08:00)
[2018-07-10] MEDS: divalproex sodium 500mg tablet.DR PO SCH ×2 (08:39→20:14)
[2018-07-10] MEDS: levetiracetam 250mg tablet PO SCH ×2 (08:39→20:11)
[2018-07-10] MEDS: mineral oil/petrolatum, white cream 113gm jar TP SCH ×2 (08:48→20:15)
--- NOTE | 2018-07-10 14:43 | NUR ---
Patient refusing to have his scheduled shower today. Will continue to try to motivate patient to shower.
--- NOTE | 2018-07-10 18:18 | NUR ---
Problems reprioritized. Patient report given, questions answered & plan of care reviewed with Svetlana CAZARES.
--- NOTE | 2018-07-10 18:39 | NUR ---
Patient in room [facility]. I have received report from Grace CAZARES and had the opportunity to ask questions and assume patient care.
[2018-07-10 19:00] VITALS: BP 142/70
[2018-07-10] MEDS: mirtazapine 15mg tablet PO SCH (20:14)
--- NOTE | 2018-07-11 05:45 | NUR ---
Problems reprioritized. Patient report given, questions answered & plan of care reviewed with Radha CAZARES.
--- NOTE | 2018-07-11 06:27 | NUR ---
Patient in room [facility]. I have received report from SAGE Mota and had the opportunity to ask questions and assume patient care.
[2018-07-11 07:11] VITALS: BP 117/69
[2018-07-11] MEDS: enoxaparin 40mg/0.4ml syringe SUBCUT SCH ×2 (08:00→10:09)
[2018-07-11] MEDS: oxyCODONE/APAP 10/325mg tablet PO PRN ×2 (08:17→22:00)
--- NOTE | 2018-07-11 08:24 | NUR ---
Pt c/o sore throat. Requested pain pill prior to taking rest of morning medications. Administered pain medication and will reassess to see if sore throat resolves.
[2018-07-11] MEDS: divalproex sodium 500mg tablet.DR PO SCH ×2 (10:07→21:54)
[2018-07-11] MEDS: baclofen 10mg tablet PO SCH ×2 (10:07→21:50)
[2018-07-11] MEDS: aspirin 81mg tablet.DR PO SCH (10:07)
[2018-07-11] MEDS: quetiapine 100mg tablet PO SCH ×2 (10:08→21:49)
[2018-07-11] MEDS: clopidogrel 75mg tablet PO SCH (10:08)
[2018-07-11] MEDS: docusate sod 100mg capsule PO SCH ×2 (10:08→21:48)
[2018-07-11] MEDS: levetiracetam 250mg tablet PO SCH ×2 (10:08→21:48)
[2018-07-11] MEDS: mineral oil/petrolatum, white cream 113gm jar TP SCH ×2 (10:09→21:56)
--- NOTE | 2018-07-11 18:19 | NUR ---
Patient in room [facility] 348. I have received report from Radha CAZARES and had the opportunity to ask questions and assume patient care.
--- NOTE | 2018-07-11 18:26 | NUR ---
Patient in room [facility] 348. I have received report from Radha CAZARES and had the opportunity to ask questions and assume patient care.
--- NOTE | 2018-07-11 18:32 | NUR ---
Problems reprioritized. Patient report given, questions answered & plan of care reviewed with SAGE Mota.
[2018-07-11 19:00] VITALS: BP 138/73
[2018-07-11] MEDS: mirtazapine 15mg tablet PO SCH (21:53)
--- NOTE | 2018-07-12 06:30 | NUR ---
Problems reprioritized. Patient report given, questions answered & plan of care reviewed with Uyen CAZARES.
[2018-07-12] MEDS: clopidogrel 75mg tablet PO SCH (07:42)
[2018-07-12] MEDS: baclofen 10mg tablet PO SCH ×2 (07:42→20:06)
[2018-07-12] MEDS: docusate sod 100mg capsule PO SCH ×2 (07:42→20:04)
[2018-07-12] MEDS: levetiracetam 250mg tablet PO SCH ×2 (07:42→20:07)
[2018-07-12] MEDS: aspirin 81mg tablet.DR PO SCH (07:42)
[2018-07-12] MEDS: quetiapine 100mg tablet PO SCH ×2 (07:42→20:06)
[2018-07-12] MEDS: divalproex sodium 500mg tablet.DR PO SCH ×2 (07:42→20:06)
[2018-07-12] MEDS: enoxaparin 40mg/0.4ml syringe SUBCUT SCH (07:43)
[2018-07-12] MEDS: mineral oil/petrolatum, white cream 113gm jar TP SCH ×2 (08:05→20:07)
--- NOTE | 2018-07-12 10:51 | NUR ---
Reassessment: Pt continues with fluctuating PO intake with some 25% however 75-100% overall likely meeting nutrient needs. Pt working with dispatch clerk for food preferences to optimize PO intake. [facility] 07/09, pt with routine Col[facility]. Pt continues awaiting placement. Will continue to follow. Rec: 1. Continue regular diet 2. Encourage PO intake 3. Monitor need for additional bowel care 4. Wt per rx Addendum: 07/12/18 at [address] Amended: Links added.
--- NOTE | 2018-07-12 11:09 | NUR ---
DURING AMBULATION WITH AIDES, PT FELT WEAK AND FAINT. PT BACK TO BED, AWARE. LAB DRAW ORDERED AND FORCE ORAL HYDRATION. BP 98/59 HR 98 T 97.9 O2 95 BS 84. WILL CONT TO MONITOR PT AND FORCE ORAL HYDRATION. PT STATES THAT HE IS FEELING BETTER AT THIS TIME.
[2018-07-12 11:45] LABS: BASOPHILS % (AUTO) 0.1 % (0-1); EOSINOPHILS % (AUTO) 0.1 % (0-6); RED CELL DISTRIBUTION WIDTH 17.5 % (11.5-14.5); WHITE BLOOD COUNT 23.7 X10'3 (4.5-11.0)
[2018-07-12 11:46] LABS: HEMATOCRIT 35.7 % (42.0-52.0); HEMOGLOBIN 11.7 g/dl (14.0-17.9); LYMPHOCYTES # (AUTO) 14.1 X10'3 (1.1-4.8); LYMPHOCYTES % (AUTO) 59.5 % (21-51); MEAN CORPUSCULAR HEMOGLOBIN 30.9 PG (27.0-31.0); MEAN CORPUSCULAR HGB CONC 32.8 g/dL (33.0-36.5); MEAN CORPUSCULAR VOLUME 94.4 FL (78-98); MEAN PLATELET VOLUME 7.6 FL (7.4-10.4); MONOCYTES # (AUTO) 0.8 X10'3 (0-0.9); MONOCYTES % (AUTO) 3.2 % (2-12); NEUTROPHILS # (AUTO) 8.8 X10'3 (1.8-7.7); NEUTROPHILS % (AUTO) 37.1 % (42-75); PLATELET COUNT 204 X10'3 (140-440); RED BLOOD COUNT 3.79 X10'6 (4.70-6.10)
[2018-07-12 11:51] LABS: MAGNESIUM 1.6 MG/DL (1.5-2.4); PHOSPHORUS 3.2 MG/DL (2.3-4.5)
[2018-07-12 13:19] LABS: ANISOCYTOSIS 1+; PLATELET ESTIMATE NORMAL; TOTAL CELLS COUNTED 100
[2018-07-12 13:20] LABS: SMUDGE CELLS 2+
--- NOTE | 2018-07-12 18:25 | NUR ---
Problems reprioritized. Patient report given, questions answered & plan of care reviewed with beatriz myers.
[2018-07-12 19:00] VITALS: BP 112/66
[2018-07-12] MEDS: mirtazapine 15mg tablet PO SCH (20:05)
--- NOTE | 2018-07-13 06:27 | NUR ---
Problems reprioritized. Patient report given, questions answered & plan of care reviewed with Uyen CAZARES. Addendum: 07/13/18 at 0627 by Marifer Cates RN Amended: Links added.
[2018-07-13 07:00] VITALS: BP 123/75
[2018-07-13] MEDS: levetiracetam 250mg tablet PO SCH ×2 (07:36→20:35)
[2018-07-13] MEDS: clopidogrel 75mg tablet PO SCH (07:37)
[2018-07-13] MEDS: enoxaparin 40mg/0.4ml syringe SUBCUT SCH (07:37)
[2018-07-13] MEDS: docusate sod 100mg capsule PO SCH ×2 (07:37→20:36)
[2018-07-13] MEDS: baclofen 10mg tablet PO SCH ×2 (07:37→20:35)
[2018-07-13] MEDS: quetiapine 100mg tablet PO SCH ×2 (07:37→20:35)
[2018-07-13] MEDS: divalproex sodium 500mg tablet.DR PO SCH ×2 (07:37→20:35)
[2018-07-13] MEDS: aspirin 81mg tablet.DR PO SCH (07:37)
[2018-07-13] MEDS: mineral oil/petrolatum, white cream 113gm jar TP SCH ×2 (07:46→20:36)
[2018-07-13 11:42] LABS: ALBUMIN 2.9 G/DL (3.4-5.0); ANION GAP 9 (8-16); BLOOD UREA NITROGEN 24 MG/DL (7-18); CALCIUM 8.9 MG/DL (8.5-10.1); CHLORIDE 107 MMOL/L (99-107); GLUCOSE 91 MG/DL (70-104); POTASSIUM 4.2 MMOL/L (3.5-5.1); SODIUM 141 MMOL/L (135-145); TOTAL CARBON DIOXIDE 25.1 MMOL/L (24-32); eGFR 74 ML/MIN
[2018-07-13 18:00] VITALS: BP 105/74
--- NOTE | 2018-07-13 18:30 | NUR ---
Problems reprioritized. Patient report given, questions answered & plan of care reviewed with JUSTINA CAZARES.
--- NOTE | 2018-07-13 19:04 | NUR ---
RC'D VERBAL REPORT FROM ODELL CAZARES AND ASSUMED CARE OF PATIENT.
[2018-07-13] MEDS: mirtazapine 15mg tablet PO SCH (20:36)
--- NOTE | 2018-07-14 06:21 | NUR ---
Patient in room [facility]. I have received report from SAGE Rodriguez and had the opportunity to ask questions and assume patient care.
--- NOTE | 2018-07-14 06:22 | NUR ---
Problems reprioritized. Patient report given, questions answered & plan of care reviewed with Conchita CAZARES.
[2018-07-14 07:00] VITALS: BP 113/67
[2018-07-14] MEDS: quetiapine 100mg tablet PO SCH ×2 (08:00→20:39)
[2018-07-14] MEDS: levetiracetam 250mg tablet PO SCH ×2 (08:00→20:35)
[2018-07-14] MEDS: baclofen 10mg tablet PO SCH ×2 (08:00→20:35)
[2018-07-14] MEDS: enoxaparin 40mg/0.4ml syringe SUBCUT SCH (08:00)
[2018-07-14] MEDS: clopidogrel 75mg tablet PO SCH (08:00)
[2018-07-14] MEDS: docusate sod 100mg capsule PO SCH ×2 (08:00→20:39)
[2018-07-14] MEDS: aspirin 81mg tablet.DR PO SCH (08:00)
[2018-07-14] MEDS: divalproex sodium 500mg tablet.DR PO SCH ×2 (08:48→20:35)
[2018-07-14] MEDS: mineral oil/petrolatum, white cream 113gm jar TP SCH ×2 (08:49→20:00)
--- NOTE | 2018-07-14 18:33 | NUR ---
Problems reprioritized. Patient report given, questions answered & plan of care reviewed with SAGE Barraza.
--- NOTE | 2018-07-14 18:40 | NUR ---
Patient in room [facility]. I have received report from SAGE Chery and had the opportunity to ask questions and assume patient care.
[2018-07-14 20:00] VITALS: BP 108/53
[2018-07-14] MEDS: mirtazapine 15mg tablet PO SCH (20:39)
--- NOTE | 2018-07-15 05:59 | NUR ---
Problems reprioritized. Patient report given, questions answered & plan of care reviewed with SAGE Chery.
--- NOTE | 2018-07-15 06:48 | NUR ---
Patient in room [facility]. I have received report from SAGE Barraza and had the opportunity to ask questions and assume patient care.
[2018-07-15 07:00] VITALS: BP 113/67
[2018-07-15] MEDS: enoxaparin 40mg/0.4ml syringe SUBCUT SCH (08:00)
[2018-07-15] MEDS: docusate sod 100mg capsule PO SCH ×2 (08:00→20:00)
[2018-07-15] MEDS: divalproex sodium 500mg tablet.DR PO SCH ×2 (09:02→20:23)
[2018-07-15] MEDS: clopidogrel 75mg tablet PO SCH (09:03)
[2018-07-15] MEDS: aspirin 81mg tablet.DR PO SCH (09:03)
[2018-07-15] MEDS: levetiracetam 250mg tablet PO SCH ×2 (09:03→20:00)
[2018-07-15] MEDS: baclofen 10mg tablet PO SCH ×2 (09:04→20:33)
[2018-07-15] MEDS: quetiapine 100mg tablet PO SCH ×2 (09:04→20:00)
[2018-07-15] MEDS: mineral oil/petrolatum, white cream 113gm jar TP SCH ×2 (09:07→20:00)
--- NOTE | 2018-07-15 18:30 | NUR ---
Patient in room [facility]. I have received report from YENNIFER and had the opportunity to ask questions and assume patient care.
--- NOTE | 2018-07-15 18:30 | NUR ---
Problems reprioritized. Patient report given, questions answered & plan of care reviewed with SAGE ALLEN.
[2018-07-15 19:00] VITALS: BP 98/59
[2018-07-15] MEDS: mirtazapine 15mg tablet PO SCH (20:33)
--- NOTE | 2018-07-16 06:13 | NUR ---
Problems reprioritized. Patient report given, questions answered & plan of care reviewed with SHILPIAR.
[2018-07-16 07:00] VITALS: BP 111/66
--- NOTE | 2018-07-16 07:00 | NUR ---
Patient in room [facility]. I have received report from Janet and had the opportunity to ask questions and assume patient care. Addendum: 07/16/18 at 1118 by Tamiko Mullins RN Amended: Links added.
[2018-07-16] MEDS: docusate sod 100mg capsule PO SCH ×2 (08:00→20:00)
[2018-07-16] MEDS: aspirin 81mg tablet.DR PO SCH (08:00)
[2018-07-16] MEDS: clopidogrel 75mg tablet PO SCH (08:00)
[2018-07-16] MEDS: enoxaparin 40mg/0.4ml syringe SUBCUT SCH (08:00)
[2018-07-16] MEDS: baclofen 10mg tablet PO SCH ×2 (08:00→20:31)
[2018-07-16] MEDS: quetiapine 100mg tablet PO SCH ×2 (08:00→20:00)
[2018-07-16] MEDS: levetiracetam 250mg tablet PO SCH ×2 (08:00→20:00)
[2018-07-16] MEDS: mineral oil/petrolatum, white cream 113gm jar TP SCH ×2 (08:17→20:00)
[2018-07-16] MEDS: divalproex sodium 500mg tablet.DR PO SCH ×2 (08:17→20:31)
--- NOTE | 2018-07-16 18:15 | NUR ---
Problems reprioritized. Patient report given, questions answered & plan of care reviewed with Janet. Addendum: 07/16/18 at 1815 by Tamiko Mullins RN Amended: Links added.
--- NOTE | 2018-07-16 18:30 | NUR ---
Patient in room [facility]. I have received report from LEAH and had the opportunity to ask questions and assume patient care.
[2018-07-16 19:00] VITALS: BP 101/74
[2018-07-16] MEDS: mirtazapine 15mg tablet PO SCH (20:39)
--- NOTE | 2018-07-17 06:27 | NUR ---
Problems reprioritized. Patient report given, questions answered & plan of care reviewed with SHILPIAR.
[2018-07-17 07:00] VITALS: BP 124/70
[2018-07-17] MEDS: levetiracetam 250mg tablet PO SCH ×2 (07:49→21:58)
[2018-07-17] MEDS: baclofen 10mg tablet PO SCH ×2 (07:49→22:00)
[2018-07-17] MEDS: clopidogrel 75mg tablet PO SCH (07:49)
[2018-07-17] MEDS: aspirin 81mg tablet.DR PO SCH (07:49)
[2018-07-17] MEDS: docusate sod 100mg capsule PO SCH ×2 (07:49→21:58)
[2018-07-17] MEDS: divalproex sodium 500mg tablet.DR PO SCH ×2 (07:49→21:59)
[2018-07-17] MEDS: enoxaparin 40mg/0.4ml syringe SUBCUT SCH (07:50)
[2018-07-17] MEDS: mineral oil/petrolatum, white cream 113gm jar TP SCH ×2 (07:50→22:04)
[2018-07-17] MEDS: quetiapine 100mg tablet PO SCH ×2 (07:50→22:04)
--- NOTE | 2018-07-17 18:19 | NUR ---
Patient in room [facility]. I have received report from Williams CAZARES and had the opportunity to ask questions and assume patient care.
--- NOTE | 2018-07-17 18:29 | NUR ---
Problems reprioritized. Patient report given, questions answered & plan of care reviewed with Williams. Addendum: 07/17/18 at 1829 by Tamiko Mullins RN Amended: Links added.
[2018-07-17 19:00] VITALS: BP 141/77
[2018-07-17] MEDS: mirtazapine 15mg tablet PO SCH (22:00)
--- NOTE | 2018-07-18 06:15 | NUR ---
Problems reprioritized. Patient report given, questions answered & plan of care reviewed with Tamiko CAZARES.
[2018-07-18] MEDS: aspirin 81mg tablet.DR PO SCH (06:42)
[2018-07-18] MEDS: levetiracetam 250mg tablet PO SCH ×2 (06:42→19:44)
[2018-07-18] MEDS: docusate sod 100mg capsule PO SCH ×2 (06:42→19:44)
[2018-07-18] MEDS: clopidogrel 75mg tablet PO SCH (06:42)
[2018-07-18] MEDS: baclofen 10mg tablet PO SCH ×2 (06:42→19:43)
[2018-07-18] MEDS: quetiapine 100mg tablet PO SCH ×2 (06:43→19:43)
[2018-07-18] MEDS: enoxaparin 40mg/0.4ml syringe SUBCUT SCH (06:43)
[2018-07-18 07:00] VITALS: BP 125/62
--- NOTE | 2018-07-18 07:00 | NUR ---
Patient in room [facility]. I have received report from Svetlana and had the opportunity to ask questions and assume patient care. Addendum: 07/18/18 at 1049 by Tamiko Mullins RN Amended: Links added.
[2018-07-18] MEDS: divalproex sodium 500mg tablet.DR PO SCH ×2 (07:55→19:45)
[2018-07-18] MEDS: mineral oil/petrolatum, white cream 113gm jar TP SCH ×2 (07:56→20:19)
--- NOTE | 2018-07-18 11:02 | NUR ---
Reassessment: PO intake continues to fluctuate 50-75% and 100% on regular diet likely still meeting nutrient needs. [facility] 07/17. Pt continues awaiting placement. Will continue to follow. Rec: 1. Continue regular diet 2. Encourage PO intake 3. Monitor need for additional bowel care 4. Wt per rx Addendum: 07/18/18 at [address] Amended: Links added.
--- NOTE | 2018-07-18 18:16 | NUR ---
Problems reprioritized. Patient report given, questions answered & plan of care reviewed with Helena. Addendum: 07/18/18 at 1816 by Tamiko Mullins RN Amended: Links added.
--- NOTE | 2018-07-18 18:51 | NUR ---
Patient in room [facility]. I have received report from Tamiko CAZARES and had the opportunity to ask questions and assume patient care.
[2018-07-18 19:00] VITALS: BP 132/70
[2018-07-18] MEDS: mirtazapine 15mg tablet PO SCH (19:44)
--- NOTE | 2018-07-18 23:42 | NUR ---
Problems reprioritized. Patient report given, questions answered & plan of care reviewed with Ghada CAZARES.
--- NOTE | 2018-07-18 23:43 | NUR ---
Patient in room [facility]. I have received report from SAGE Malik and had the opportunity to ask questions and assume patient care.
--- NOTE | 2018-07-19 06:34 | NUR ---
Problems reprioritized. Patient report given, questions answered & plan of care reviewed with SAGE Chery.
--- NOTE | 2018-07-19 06:36 | NUR ---
Patient in room [facility]. I have received report from Thuan RN and Ghada RN and had the opportunity to ask questions and assume patient care.
--- NOTE | 2018-07-19 06:43 | NUR ---
Agree with care observed and charting reviewed of Thuan CAZARES.
[2018-07-19 07:00] VITALS: BP 119/75
[2018-07-19] MEDS: docusate sod 100mg capsule PO SCH ×2 (08:00→21:14)
[2018-07-19] MEDS: enoxaparin 40mg/0.4ml syringe SUBCUT SCH (08:00)
[2018-07-19] MEDS: clopidogrel 75mg tablet PO SCH (08:50)
[2018-07-19] MEDS: levetiracetam 250mg tablet PO SCH ×2 (08:51→21:16)
[2018-07-19] MEDS: divalproex sodium 500mg tablet.DR PO SCH ×2 (08:51→21:15)
[2018-07-19] MEDS: quetiapine 100mg tablet PO SCH ×2 (08:51→21:15)
[2018-07-19] MEDS: baclofen 10mg tablet PO SCH ×2 (08:51→21:15)
[2018-07-19] MEDS: aspirin 81mg tablet.DR PO SCH (08:51)
[2018-07-19] MEDS: mineral oil/petrolatum, white cream 113gm jar TP SCH ×2 (08:52→21:16)
[2018-07-19] MEDS: oxyCODONE/APAP 10/325mg tablet PO PRN (16:00)
--- NOTE | 2018-07-19 18:47 | NUR ---
Patient in room [facility]. I have received report from Anand CAZARES and had the opportunity to ask questions and assume patient care.
--- NOTE | 2018-07-19 18:47 | NUR ---
Problems reprioritized. Patient report given, questions answered & plan of care reviewed with SAGE Gallego.
--- NOTE | 2018-07-19 18:48 | NUR ---
Patient in room [facility]. I have received report from Anand CAZARES and had the opportunity to ask questions and assume patient care.
[2018-07-19 20:03] VITALS: BP 134/79
[2018-07-19] MEDS: mirtazapine 15mg tablet PO SCH (21:14)
--- NOTE | 2018-07-20 06:31 | NUR ---
Problems reprioritized. Patient report given, questions answered & plan of care reviewed with Radha CAZARES.
--- NOTE | 2018-07-20 06:33 | NUR ---
Patient in room [facility]. I have received report from SAGE Gallego and had the opportunity to ask questions and assume patient care.
[2018-07-20 07:00] VITALS: BP 114/66
[2018-07-20] MEDS: enoxaparin 40mg/0.4ml syringe SUBCUT SCH (08:00)
[2018-07-20] MEDS: docusate sod 100mg capsule PO SCH ×2 (08:11→20:11)
[2018-07-20] MEDS: aspirin 81mg tablet.DR PO SCH (08:11)
[2018-07-20] MEDS: levetiracetam 250mg tablet PO SCH ×2 (08:11→20:10)
[2018-07-20] MEDS: clopidogrel 75mg tablet PO SCH (08:11)
[2018-07-20] MEDS: baclofen 10mg tablet PO SCH ×2 (08:11→20:11)
[2018-07-20] MEDS: divalproex sodium 500mg tablet.DR PO SCH ×2 (08:11→20:10)
[2018-07-20] MEDS: quetiapine 100mg tablet PO SCH ×2 (08:11→20:10)
[2018-07-20] MEDS: mineral oil/petrolatum, white cream 113gm jar TP SCH ×2 (08:12→20:12)
[2018-07-20 13:57] LABS: HEMATOCRIT 36.2 % (42.0-52.0); HEMOGLOBIN 12.3 g/dl (14.0-17.9); MEAN CORPUSCULAR HEMOGLOBIN 31.5 PG (27.0-31.0); MEAN CORPUSCULAR HGB CONC 34.1 g/dL (33.0-36.5); MEAN CORPUSCULAR VOLUME 92.4 FL (78-98); PLATELET COUNT 244 X10'3 (140-440); RED BLOOD COUNT 3.91 X10'6 (4.70-6.10); RED CELL DISTRIBUTION WIDTH 17.5 % (11.5-14.5); WHITE BLOOD COUNT 17.7 X10'3 (4.5-11.0)
--- NOTE | 2018-07-20 18:27 | NUR ---
Patient in room [facility] 348. I have received report from Radha CAZARES and had the opportunity to ask questions and assume patient care.
[2018-07-20 19:00] VITALS: BP 103/66
[2018-07-20] MEDS: mirtazapine 15mg tablet PO SCH (20:11)
--- NOTE | 2018-07-21 06:20 | NUR ---
Patient in room [facility]. I have received report from SAGE Gallego and had the opportunity to ask questions and assume patient care.
[2018-07-21 06:30] VITALS: BP 118/84
--- NOTE | 2018-07-21 06:35 | NUR ---
Problems reprioritized. Patient report given, questions answered & plan of care reviewed with Shannan RN.
[2018-07-21] MEDS: baclofen 10mg tablet PO SCH ×2 (09:22→21:39)
[2018-07-21] MEDS: levetiracetam 250mg tablet PO SCH ×2 (09:22→21:38)
[2018-07-21] MEDS: aspirin 81mg tablet.DR PO SCH (09:23)
[2018-07-21] MEDS: clopidogrel 75mg tablet PO SCH (09:23)
[2018-07-21] MEDS: divalproex sodium 500mg tablet.DR PO SCH ×2 (09:23→21:38)
[2018-07-21] MEDS: quetiapine 100mg tablet PO SCH ×2 (09:23→21:38)
[2018-07-21] MEDS: enoxaparin 40mg/0.4ml syringe SUBCUT SCH (09:25)
[2018-07-21] MEDS: docusate sod 100mg capsule PO SCH ×2 (09:25→21:38)
[2018-07-21] MEDS: mineral oil/petrolatum, white cream 113gm jar TP SCH ×2 (09:26→21:39)
--- NOTE | 2018-07-21 18:45 | NUR ---
Patient in room [facility] 348. I have received report from Shannan CAZARES and had the opportunity to ask questions and assume patient care.
[2018-07-21] MEDS: mirtazapine 15mg tablet PO SCH (21:39)
--- NOTE | 2018-07-22 06:10 | NUR ---
Patient in room [facility]. I have received report from SAGE Gallego and had the opportunity to ask questions and assume patient care.
[2018-07-22 06:30] VITALS: BP 127/78
--- NOTE | 2018-07-22 06:57 | NUR ---
Problems reprioritized. Patient report given, questions answered & plan of care reviewed with Shannan RN.
[2018-07-22] MEDS: docusate sod 100mg capsule PO SCH ×2 (09:55→20:21)
[2018-07-22] MEDS: clopidogrel 75mg tablet PO SCH (09:57)
[2018-07-22] MEDS: quetiapine 100mg tablet PO SCH ×2 (09:57→20:21)
[2018-07-22] MEDS: levetiracetam 250mg tablet PO SCH ×2 (09:57→20:21)
[2018-07-22] MEDS: aspirin 81mg tablet.DR PO SCH (09:58)
[2018-07-22] MEDS: divalproex sodium 500mg tablet.DR PO SCH ×2 (09:58→20:21)
[2018-07-22] MEDS: baclofen 10mg tablet PO SCH ×2 (09:58→20:22)
[2018-07-22] MEDS: enoxaparin 40mg/0.4ml syringe SUBCUT SCH (10:03)
[2018-07-22] MEDS: mineral oil/petrolatum, white cream 113gm jar TP SCH ×2 (10:04→20:26)
--- NOTE | 2018-07-22 18:20 | NUR ---
Problems reprioritized. Patient report given, questions answered & plan of care reviewed with SAGE Cai.
--- NOTE | 2018-07-22 18:27 | NUR ---
Patient in room [facility] 355. I have received report from SAGE Campbell and had the opportunity to ask questions and assume patient care.
[2018-07-22 20:00] VITALS: BP 113/56
[2018-07-22] MEDS: mirtazapine 15mg tablet PO SCH (20:21)
--- NOTE | 2018-07-23 06:30 | NUR ---
Patient in room [facility]. I have received report from SAGE Gambino and had the opportunity to ask questions and assume patient care.
--- NOTE | 2018-07-23 06:52 | NUR ---
Problems reprioritized. Patient report given, questions answered & plan of care reviewed with SAGE Campbell.
[2018-07-23] MEDS: aspirin 81mg tablet.DR PO SCH (10:16)
[2018-07-23] MEDS: divalproex sodium 500mg tablet.DR PO SCH ×2 (10:16→21:12)
[2018-07-23] MEDS: levetiracetam 250mg tablet PO SCH ×2 (10:17→21:12)
[2018-07-23] MEDS: clopidogrel 75mg tablet PO SCH (10:19)
[2018-07-23] MEDS: baclofen 10mg tablet PO SCH ×2 (10:20→21:13)
[2018-07-23] MEDS: quetiapine 100mg tablet PO SCH ×2 (10:20→21:13)
[2018-07-23] MEDS: docusate sod 100mg capsule PO SCH ×3 (10:20→21:13)
[2018-07-23] MEDS: enoxaparin 40mg/0.4ml syringe SUBCUT SCH (10:21)
[2018-07-23] MEDS: mineral oil/petrolatum, white cream 113gm jar TP SCH ×2 (10:34→20:00)
[2018-07-23 11:00] VITALS: BP 107/65
--- NOTE | 2018-07-23 18:45 | NUR ---
Problems reprioritized. Patient report given, questions answered & plan of care reviewed with SAGE Gambino.
[2018-07-23 20:00] VITALS: BP 126/78
[2018-07-23] MEDS: mirtazapine 15mg tablet PO SCH (21:12)
--- NOTE | 2018-07-24 06:02 | NUR ---
Problems reprioritized. Patient report given, questions answered & plan of care reviewed with SAGE Chery.
--- NOTE | 2018-07-24 06:20 | NUR ---
Patient in room [facility]. I have received report from Ayala Valentin RN and had the opportunity to ask questions and assume patient care.
[2018-07-24 07:30] VITALS: BP 126/78
[2018-07-24] MEDS: levetiracetam 250mg tablet PO SCH ×2 (08:00→22:04)
[2018-07-24] MEDS: quetiapine 100mg tablet PO SCH ×2 (08:00→22:04)
[2018-07-24] MEDS: baclofen 10mg tablet PO SCH ×2 (08:00→22:04)
[2018-07-24] MEDS: divalproex sodium 500mg tablet.DR PO SCH ×2 (08:00→22:04)
[2018-07-24] MEDS: clopidogrel 75mg tablet PO SCH (08:00)
[2018-07-24] MEDS: aspirin 81mg tablet.DR PO SCH (08:00)
[2018-07-24] MEDS: enoxaparin 40mg/0.4ml syringe SUBCUT SCH (08:00)
[2018-07-24] MEDS: docusate sod 100mg capsule PO SCH ×2 (08:00→22:03)
[2018-07-24] MEDS: mineral oil/petrolatum, white cream 113gm jar TP SCH ×2 (08:00→22:11)
--- NOTE | 2018-07-24 19:02 | NUR ---
Problems reprioritized. Patient report given, questions answered & plan of care reviewed with Claribel Sanford RN.
--- NOTE | 2018-07-24 19:03 | NUR ---
Patient in room [facility]. I have received report from YENNIFER CAZARES and had the opportunity to ask questions and assume patient care.
[2018-07-24 20:00] VITALS: BP 107/85
[2018-07-24] MEDS: mirtazapine 15mg tablet PO SCH (22:05)
--- NOTE | 2018-07-25 06:00 | NUR ---
Patient in room [facility] 348. I have received report from Claribel Sanford RN and had the opportunity to ask questions and assume patient care.
--- NOTE | 2018-07-25 06:30 | NUR ---
Problems reprioritized. Patient report given, questions answered & plan of care reviewed with YENNIEFR RN.
[2018-07-25 07:00] VITALS: BP 114/66
[2018-07-25] MEDS: enoxaparin 40mg/0.4ml syringe SUBCUT SCH (08:00)
[2018-07-25] MEDS: docusate sod 100mg capsule PO SCH ×2 (08:30→20:32)
[2018-07-25] MEDS: levetiracetam 250mg tablet PO SCH ×2 (08:30→20:34)
[2018-07-25] MEDS: clopidogrel 75mg tablet PO SCH (08:30)
[2018-07-25] MEDS: quetiapine 100mg tablet PO SCH ×2 (08:30→20:31)
[2018-07-25] MEDS: divalproex sodium 500mg tablet.DR PO SCH ×2 (08:30→20:27)
[2018-07-25] MEDS: aspirin 81mg tablet.DR PO SCH (08:30)
[2018-07-25] MEDS: mineral oil/petrolatum, white cream 113gm jar TP SCH ×2 (08:31→20:36)
[2018-07-25] MEDS: baclofen 10mg tablet PO SCH ×2 (08:31→20:33)
--- NOTE | 2018-07-25 18:10 | NUR ---
Patient in room [facility]. I have received report from Anand CAZARES and had the opportunity to ask questions and assume patient care.
--- NOTE | 2018-07-25 18:24 | NUR ---
Problems reprioritized. Patient report given, questions answered & plan of care reviewed with SAGE Urrutia and SAGE Wilcox.
[2018-07-25 20:00] VITALS: BP 111/60
[2018-07-25] MEDS: mirtazapine 15mg tablet PO SCH (20:28)
--- NOTE | 2018-07-26 06:25 | NUR ---
Problems reprioritized. Patient report given, questions answered & plan of care reviewed with Kristine CAZARES.
--- NOTE | 2018-07-26 06:27 | NUR ---
Agree with charting and care observed by Brenden CAZARES.
--- NOTE | 2018-07-26 06:27 | NUR ---
Patient in room [facility]. I have received report from AROLDO CAZARES and had the opportunity to ask questions and assume patient care.
[2018-07-26 07:00] VITALS: BP_SYST 140; BP_SYST 96; BP_DIAS 52; BP_DIAS 84
[2018-07-26] MEDS: baclofen 10mg tablet PO SCH ×2 (08:00→21:00)
[2018-07-26] MEDS: mineral oil/petrolatum, white cream 113gm jar TP SCH ×2 (08:00→20:59)
[2018-07-26] MEDS: docusate sod 100mg capsule PO SCH ×2 (08:49→20:59)
[2018-07-26] MEDS: quetiapine 100mg tablet PO SCH ×2 (08:49→20:59)
[2018-07-26] MEDS: aspirin 81mg tablet.DR PO SCH (08:49)
[2018-07-26] MEDS: divalproex sodium 500mg tablet.DR PO SCH ×2 (08:49→20:59)
[2018-07-26] MEDS: enoxaparin 40mg/0.4ml syringe SUBCUT SCH (08:49)
[2018-07-26] MEDS: levetiracetam 250mg tablet PO SCH ×2 (08:49→20:59)
[2018-07-26] MEDS: clopidogrel 75mg tablet PO SCH (08:49)
--- NOTE | 2018-07-26 09:56 | NUR ---
Reassessment: No significant changes in nutrition at this time. Pt continues with fluctuating PO intake averaging 75-100% with some 25-50%, still likely meeting nutrient needs. [facility] 07/23, pt continues with routine bowel care. Will continue to follow. Rec: 1. Continue regular diet 2. Encourage PO intake 3. Monitor need for additional bowel care 4. Wt per rx Addendum: 07/26/18 at [address] Amended: Links added.
--- NOTE | 2018-07-26 18:48 | NUR ---
Patient's youngest son here to visit. Patient is tearful and excited that he is visiting. Will continue to monitor.
[2018-07-26 20:00] VITALS: BP 126/71
[2018-07-26] MEDS: mirtazapine 15mg tablet PO SCH (20:59)
[2018-07-27 04:56] LABS: MEAN CORPUSCULAR HEMOGLOBIN 31.2 PG (27.0-31.0); MEAN CORPUSCULAR HGB CONC 33.3 g/dL (33.0-36.5); MEAN CORPUSCULAR VOLUME 93.7 FL (78-98); PLATELET COUNT 217 X10'3 (140-440); RED BLOOD COUNT 3.84 X10'6 (4.70-6.10); RED CELL DISTRIBUTION WIDTH 16.7 % (11.5-14.5); WHITE BLOOD COUNT 20.7 X10'3 (4.5-11.0)
[2018-07-27] MEDS: mineral oil/petrolatum, white cream 113gm jar TP SCH ×2 (08:00→20:18)
[2018-07-27] MEDS: aspirin 81mg tablet.DR PO SCH (08:15)
[2018-07-27] MEDS: quetiapine 100mg tablet PO SCH ×2 (08:15→20:14)
[2018-07-27] MEDS: levetiracetam 250mg tablet PO SCH ×2 (08:15→20:14)
[2018-07-27] MEDS: divalproex sodium 500mg tablet.DR PO SCH ×2 (08:15→20:14)
[2018-07-27] MEDS: docusate sod 100mg capsule PO SCH ×2 (08:15→20:14)
[2018-07-27] MEDS: clopidogrel 75mg tablet PO SCH (08:15)
[2018-07-27] MEDS: enoxaparin 40mg/0.4ml syringe SUBCUT SCH (08:16)
[2018-07-27 18:00] VITALS: BP 120/78
--- NOTE | 2018-07-27 18:30 | NUR ---
Patient in room [facility]. I have received report from Kristine CAZARES and had the opportunity to ask questions and assume patient care.
--- NOTE | 2018-07-27 18:30 | NUR ---
Problems reprioritized. Patient report given, questions answered & plan of care reviewed with AROLDO CAZARES.
[2018-07-27] MEDS: baclofen 10mg tablet PO SCH (20:14)
[2018-07-27] MEDS: mirtazapine 15mg tablet PO SCH (20:14)
--- NOTE | 2018-07-28 03:24 | NUR ---
Pt states he is "Sick as a dog for three days", coughing up "mouthfuls of crap". Rn did not see any tissues with mucus in room, but encouraged pt to drink more water. Lungs are clear to auscultation. Will continue to monitor
--- NOTE | 2018-07-28 06:26 | NUR ---
Problems reprioritized. Patient report given, questions answered & plan of care reviewed with Kristine CAZARES.
--- NOTE | 2018-07-28 06:38 | NUR ---
Patient in room [facility]. I have received report from ELSIE CAZARES and had the opportunity to ask questions and assume patient care.
[2018-07-28 07:00] VITALS: BP 117/77
[2018-07-28] MEDS: divalproex sodium 500mg tablet.DR PO SCH ×2 (08:29→20:43)
[2018-07-28] MEDS: enoxaparin 40mg/0.4ml syringe SUBCUT SCH (08:31)
[2018-07-28] MEDS: docusate sod 100mg capsule PO SCH ×2 (08:33→20:42)
[2018-07-28] MEDS: mineral oil/petrolatum, white cream 113gm jar TP SCH ×2 (08:34→20:47)
[2018-07-28] MEDS: clopidogrel 75mg tablet PO SCH (08:34)
[2018-07-28] MEDS: aspirin 81mg tablet.DR PO SCH (08:34)
[2018-07-28] MEDS: quetiapine 100mg tablet PO SCH ×2 (08:34→20:44)
[2018-07-28] MEDS: levetiracetam 250mg tablet PO SCH ×2 (08:34→20:42)
--- NOTE | 2018-07-28 08:37 | NUR ---
scanned pt's meds and they did not save. had to manually scan them again
[2018-07-28 18:00] VITALS: BP 132/79
--- NOTE | 2018-07-28 18:07 | NUR ---
Problems reprioritized. Patient report given, questions answered & plan of care reviewed with VANDA CAZARES.
--- NOTE | 2018-07-28 18:50 | NUR ---
Patient in room [facility]. I have received report from Pallavi CAZARES and had the opportunity to ask questions and assume patient care Addendum: 07/29/18 at 0150 by Marifer Cates RN Amended: Links added.
[2018-07-28] MEDS: baclofen 10mg tablet PO SCH (20:42)
[2018-07-28] MEDS: mirtazapine 15mg tablet PO SCH (20:43)
[2018-07-29 07:00] VITALS: BP 100/54
--- NOTE | 2018-07-29 07:03 | NUR ---
Patient in room [facility]. I have received report from SAGE Caicedo and had the opportunity to ask questions and assume patient care.
[2018-07-29] MEDS: enoxaparin 40mg/0.4ml syringe SUBCUT SCH (08:00)
[2018-07-29] MEDS: mineral oil/petrolatum, white cream 113gm jar TP SCH ×2 (09:26→20:00)
[2018-07-29] MEDS: docusate sod 100mg capsule PO SCH ×2 (09:29→20:21)
[2018-07-29] MEDS: divalproex sodium 500mg tablet.DR PO SCH ×2 (09:29→20:21)
[2018-07-29] MEDS: aspirin 81mg tablet.DR PO SCH (09:29)
[2018-07-29] MEDS: clopidogrel 75mg tablet PO SCH (09:30)
[2018-07-29] MEDS: quetiapine 100mg tablet PO SCH ×2 (09:30→20:21)
[2018-07-29] MEDS: levetiracetam 250mg tablet PO SCH ×2 (09:30→20:21)
[2018-07-29] MEDS: guaiFENesin/DM 10ml UD oral syrup PO SCH ×2 (14:49→20:21)
[2018-07-29] MEDS ORDERED: LORazepam 0.5 MG tablet PO ONE (17:35)
--- NOTE | 2018-07-29 18:44 | NUR ---
Problems reprioritized. Patient report given, questions answered & plan of care reviewed with SAGE Cai.
[2018-07-29 20:00] VITALS: BP 125/70
[2018-07-29] MEDS: baclofen 10mg tablet PO SCH (20:21)
[2018-07-29] MEDS: mirtazapine 15mg tablet PO SCH (20:21)
[2018-07-30] MEDS: guaiFENesin/DM 10ml UD oral syrup PO SCH ×4 (02:00→20:45)
--- NOTE | 2018-07-30 06:30 | NUR ---
Patient in room [facility] 348. I have received report from SAGE Cai and had the opportunity to ask questions and assume patient care.
--- NOTE | 2018-07-30 06:36 | NUR ---
Problems reprioritized. Patient report given, questions answered & plan of care reviewed with SAGE Joseph.
[2018-07-30 07:00] VITALS: BP 108/67
[2018-07-30] MEDS: enoxaparin 40mg/0.4ml syringe SUBCUT SCH (08:00)
[2018-07-30] MEDS: mineral oil/petrolatum, white cream 113gm jar TP SCH ×2 (08:00→20:51)
[2018-07-30] MEDS: docusate sod 100mg capsule PO SCH ×2 (08:00→20:48)
[2018-07-30] MEDS: divalproex sodium 500mg tablet.DR PO SCH ×2 (08:00→20:49)
[2018-07-30] MEDS: quetiapine 100mg tablet PO SCH ×2 (08:00→20:47)
[2018-07-30] MEDS: levetiracetam 250mg tablet PO SCH ×2 (08:00→20:45)
[2018-07-30] MEDS: clopidogrel 75mg tablet PO SCH (13:41)
[2018-07-30] MEDS: aspirin 81mg tablet.DR PO SCH (13:41)
--- NOTE | 2018-07-30 13:47 | NUR ---
Patient has been very sleepy today. Patient refusing meds all morning. Patient stated, "No medications today. Let me sleep. Maybe when I wake up". Patient was asked at 1330 if he was willing to take just a couple of his medications and he said yes. Patient was given only the medications that are a daily give as well as his 1400 medication. Patient refused the belly shot still.
--- NOTE | 2018-07-30 18:41 | NUR ---
Problems reprioritized. Patient report given, questions answered & plan of care reviewed with SAGE Cai.
[2018-07-30 20:00] VITALS: BP 104/74
[2018-07-30] MEDS: baclofen 10mg tablet PO SCH (20:44)
[2018-07-30] MEDS: mirtazapine 15mg tablet PO SCH (20:47)
[2018-07-31] MEDS: guaiFENesin/DM 10ml UD oral syrup PO SCH ×4 (02:00→20:00)
--- NOTE | 2018-07-31 06:20 | NUR ---
Problems reprioritized. Patient report given, questions answered & plan of care reviewed with SAGE Joseph.
--- NOTE | 2018-07-31 06:28 | NUR ---
Patient in room [facility] 348. I have received report from SAGE Cai and had the opportunity to ask questions and assume patient care.
[2018-07-31 07:00] VITALS: BP 115/72
[2018-07-31] MEDS: enoxaparin 40mg/0.4ml syringe SUBCUT SCH (08:00)
[2018-07-31] MEDS: clopidogrel 75mg tablet PO SCH (08:54)
[2018-07-31] MEDS: aspirin 81mg tablet.DR PO SCH (08:54)
[2018-07-31] MEDS: quetiapine 100mg tablet PO SCH ×2 (08:54→21:11)
[2018-07-31] MEDS: levetiracetam 250mg tablet PO SCH ×2 (08:54→21:04)
[2018-07-31] MEDS: docusate sod 100mg capsule PO SCH ×2 (08:54→21:06)
[2018-07-31] MEDS: divalproex sodium 500mg tablet.DR PO SCH ×2 (08:54→21:01)
[2018-07-31] MEDS: mineral oil/petrolatum, white cream 113gm jar TP SCH ×2 (08:56→21:08)
--- NOTE | 2018-07-31 18:04 | NUR ---
Problems reprioritized. Patient report given, questions answered & plan of care reviewed with SAGE Hsu.
--- NOTE | 2018-07-31 18:25 | NUR ---
Patient in room [facility]. I have received report from Hyacinth CAZARES and had the opportunity to ask questions and assume patient care. Patient is agitated and trying to climb out of bed. Techs and I repositioned patient. I spoke with patient and tried to calm him down. Patient says; " I want to go home, I have a cat and dog that miss me. " Addendum: 07/31/18 at 1902 by Shadi Hill RN I received report from Opal CAZARES, not Hyacinth CAZARES
[2018-07-31 19:33] VITALS: BP 113/67
[2018-07-31] MEDS: mirtazapine 15mg tablet PO SCH (21:03)
[2018-07-31] MEDS: baclofen 10mg tablet PO SCH (21:05)
--- NOTE | 2018-07-31 22:57 | NUR ---
last blood draw was on 07/27/18, patients WBC was 20.7 Addendum: 07/31/18 at 2259 by Shadi Hill RN Amended: Links added.
[2018-08-01] MEDS: guaiFENesin/DM 10ml UD oral syrup PO SCH ×2 (02:00→08:01)
--- NOTE | 2018-08-01 06:08 | NUR ---
Problems reprioritized. Patient report given, questions answered & plan of care reviewed with Jaclyn CAZARES.
--- NOTE | 2018-08-01 06:27 | NUR ---
Patient in room [facility]. I have received report from SAGE GASTELUM and had the opportunity to ask questions and assume patient care.
[2018-08-01 07:31] VITALS: BP 128/78
[2018-08-01] MEDS: quetiapine 100mg tablet PO SCH ×2 (07:56→20:15)
[2018-08-01] MEDS: docusate sod 100mg capsule PO SCH ×2 (07:56→20:15)
[2018-08-01] MEDS: aspirin 81mg tablet.DR PO SCH (07:56)
[2018-08-01] MEDS: levetiracetam 250mg tablet PO SCH ×2 (07:57→20:16)
[2018-08-01] MEDS: clopidogrel 75mg tablet PO SCH (07:57)
[2018-08-01] MEDS: enoxaparin 40mg/0.4ml syringe SUBCUT SCH (08:00)
[2018-08-01] MEDS: divalproex sodium 500mg tablet.DR PO SCH ×2 (08:01→20:15)
[2018-08-01] MEDS: mineral oil/petrolatum, white cream 113gm jar TP SCH ×2 (08:03→20:16)
--- NOTE | 2018-08-01 11:35 | NUR ---
Reassessment: Pt continues with fluctuations in PO intake documented with 50% and 100% likely still meeting nutrient needs. Pt continues working with dietitian helper for food preferences. [facility] 07/31. Will continue to follow per LOS protocol. Rec: 1. Continue regular diet 2. Encourage PO intake 3. Monitor need for additional bowel care 4. Wt per rx Addendum: 08/01/18 at [address] Amended: Links added.
--- NOTE | 2018-08-01 18:20 | NUR ---
Patient in room [facility]. I have received report from Jaclyn CAZARES and had the opportunity to ask questions and assume patient care.
--- NOTE | 2018-08-01 18:41 | NUR ---
Problems reprioritized. Patient report given, questions answered & plan of care reviewed with SAGE STONE.
[2018-08-01 20:00] VITALS: BP 120/73
[2018-08-01] MEDS: baclofen 10mg tablet PO SCH (20:15)
[2018-08-01] MEDS: mirtazapine 15mg tablet PO SCH (20:16)
--- NOTE | 2018-08-02 06:20 | NUR ---
Patient in room [facility]. I have received report from SAGE Lofton and had the opportunity to ask questions and assume patient care.
--- NOTE | 2018-08-02 06:31 | NUR ---
Problems reprioritized. Patient report given, questions answered & plan of care reviewed with Lorena CAZARES.
[2018-08-02 07:18] VITALS: BP 140/74
[2018-08-02] MEDS: enoxaparin 40mg/0.4ml syringe SUBCUT SCH (08:00)
[2018-08-02] MEDS: mineral oil/petrolatum, white cream 113gm jar TP SCH ×2 (08:00→20:32)
[2018-08-02] MEDS: docusate sod 100mg capsule PO SCH ×2 (08:54→20:31)
[2018-08-02] MEDS: aspirin 81mg tablet.DR PO SCH (08:54)
[2018-08-02] MEDS: divalproex sodium 500mg tablet.DR PO SCH ×2 (08:54→20:31)
[2018-08-02] MEDS: quetiapine 100mg tablet PO SCH ×2 (08:55→20:32)
[2018-08-02] MEDS: levetiracetam 250mg tablet PO SCH ×2 (08:55→20:31)
[2018-08-02] MEDS: clopidogrel 75mg tablet PO SCH (08:55)
[2018-08-02 11:19] VITALS: BP 106/60
[2018-08-02 18:00] VITALS: BP 132/72
--- NOTE | 2018-08-02 18:29 | NUR ---
Problems reprioritized. Patient report given, questions answered & plan of care reviewed with Ayala Helton RN.
[2018-08-02] MEDS: baclofen 10mg tablet PO SCH (20:31)
[2018-08-02] MEDS: mirtazapine 15mg tablet PO SCH (20:31)
--- NOTE | 2018-08-03 06:28 | NUR ---
Problems reprioritized. Patient report given, questions answered & plan of care reviewed with SAGE DAVILA.
[2018-08-03 07:00] VITALS: BP 108/65
--- NOTE | 2018-08-03 07:20 | NUR ---
RECEIVED REPORT FROM NOAH Martin RN
[2018-08-03] MEDS: levetiracetam 250mg tablet PO SCH ×2 (08:24→20:36)
[2018-08-03] MEDS: aspirin 81mg tablet.DR PO SCH (08:24)
[2018-08-03] MEDS: divalproex sodium 500mg tablet.DR PO SCH ×2 (08:24→20:36)
[2018-08-03] MEDS: docusate sod 100mg capsule PO SCH ×2 (08:24→20:36)
[2018-08-03] MEDS: clopidogrel 75mg tablet PO SCH (08:24)
[2018-08-03] MEDS: quetiapine 100mg tablet PO SCH ×2 (08:25→20:36)
[2018-08-03] MEDS: mineral oil/petrolatum, white cream 113gm jar TP SCH ×2 (08:25→20:40)
[2018-08-03] MEDS: enoxaparin 40mg/0.4ml syringe SUBCUT SCH (08:25)
--- NOTE | 2018-08-03 10:00 | NUR ---
FAMILY CAME BY AND DROPPED OFF AN ELECTRIC RAZOR FOR PT. I LABELED IT AND ALL ITS PIECES AND PUT IT IN A PLASTIC BAG WITH PT'S NAME ON IT
[2018-08-03 18:00] VITALS: BP 130/78
--- NOTE | 2018-08-03 18:30 | NUR ---
Patient in room [facility]. I have received report from GIOVANNI CAZARES and had the opportunity to ask questions and assume patient care.
[2018-08-03] MEDS: mirtazapine 15mg tablet PO SCH (20:37)
[2018-08-03] MEDS: baclofen 10mg tablet PO SCH (20:37)
--- NOTE | 2018-08-04 06:05 | NUR ---
Patient in room [facility] 348. I have received report from Claribel Sanford RN and had the opportunity to ask questions and assume patient care.
--- NOTE | 2018-08-04 06:09 | NUR ---
Problems reprioritized. Patient report given, questions answered & plan of care reviewed with BONITA RN.
[2018-08-04 06:30] VITALS: BP 133/85
[2018-08-04 07:44] LABS: HEMATOCRIT 40.3 % (42.0-52.0); HEMOGLOBIN 13.1 g/dl (14.0-17.9); MEAN CORPUSCULAR HEMOGLOBIN 31.1 PG (27.0-31.0); MEAN CORPUSCULAR HGB CONC 32.5 g/dL (33.0-36.5); MEAN CORPUSCULAR VOLUME 95.7 FL (78-98); MEAN PLATELET VOLUME 7.8 FL (7.4-10.4); PLATELET COUNT 256 X10'3 (140-440); RED BLOOD COUNT 4.21 X10'6 (4.70-6.10); RED CELL DISTRIBUTION WIDTH 17.7 % (11.5-14.5); WHITE BLOOD COUNT 23.5 X10'3 (4.5-11.0)
[2018-08-04] MEDS: docusate sod 100mg capsule PO SCH ×2 (08:00→19:43)
[2018-08-04] MEDS: mineral oil/petrolatum, white cream 113gm jar TP SCH ×2 (08:00→19:51)
[2018-08-04] MEDS: quetiapine 100mg tablet PO SCH ×2 (08:03→19:44)
[2018-08-04] MEDS: levetiracetam 250mg tablet PO SCH ×2 (08:03→19:44)
[2018-08-04] MEDS: aspirin 81mg tablet.DR PO SCH (08:03)
[2018-08-04] MEDS: clopidogrel 75mg tablet PO SCH (08:03)
[2018-08-04] MEDS: divalproex sodium 500mg tablet.DR PO SCH ×2 (08:03→19:43)
[2018-08-04] MEDS: enoxaparin 40mg/0.4ml syringe SUBCUT SCH (08:04)
--- NOTE | 2018-08-04 18:25 | NUR ---
Problems reprioritized. Patient report given, questions answered & plan of care reviewed with SAGE Ballard.
--- NOTE | 2018-08-04 18:33 | NUR ---
Patient in room [facility]. I have received report from Shannan Calderon and had the opportunity to ask questions and assume patient care. Addendum: 08/04/18 at 1833 by Nellie Sun RN Amended: Links added.
[2018-08-04] MEDS: mirtazapine 15mg tablet PO SCH (19:45)
--- NOTE | 2018-08-04 19:45 | NUR ---
pt took hs meds and cream applied to dry skin hs care had been done.
[2018-08-04] MEDS: baclofen 10mg tablet PO SCH (19:48)
[2018-08-04 20:00] VITALS: BP 130/72
--- NOTE | 2018-08-04 21:35 | NUR ---
pt fell asleep watching a movie on tv
--- NOTE | 2018-08-04 23:40 | NUR ---
no changes appears to be resting comfortably.
--- NOTE | 2018-08-05 01:40 | NUR ---
pt resting without change.
--- NOTE | 2018-08-05 03:51 | NUR ---
resting eyes closed without changes.
--- NOTE | 2018-08-05 06:17 | NUR ---
Problems reprioritized. Patient report given, questions answered & plan of care reviewed with Shannan Calderon. Addendum: 08/05/18 at 0618 by Nellie Sun RN Amended: Links added.
--- NOTE | 2018-08-05 06:20 | NUR ---
Patient in room [facility]. I have received report from SAGE Ballard and had the opportunity to ask questions and assume patient care.
[2018-08-05 06:30] VITALS: BP 120/80
[2018-08-05] MEDS: aspirin 81mg tablet.DR PO SCH (10:06)
[2018-08-05] MEDS: clopidogrel 75mg tablet PO SCH (10:06)
[2018-08-05] MEDS: quetiapine 100mg tablet PO SCH ×2 (10:06→19:38)
[2018-08-05] MEDS: docusate sod 100mg capsule PO SCH ×2 (10:06→19:41)
[2018-08-05] MEDS: divalproex sodium 500mg tablet.DR PO SCH ×2 (10:06→19:38)
[2018-08-05] MEDS: levetiracetam 250mg tablet PO SCH ×2 (10:06→19:41)
[2018-08-05] MEDS: mineral oil/petrolatum, white cream 113gm jar TP SCH ×2 (10:07→19:41)
[2018-08-05] MEDS: enoxaparin 40mg/0.4ml syringe SUBCUT SCH (10:07)
--- NOTE | 2018-08-05 18:20 | NUR ---
Problems reprioritized. Patient report given, questions answered & plan of care reviewed with ASGE Ballard.
--- NOTE | 2018-08-05 18:48 | NUR ---
Patient in room [facility]. I have received report from Shannan Calderon and had the opportunity to ask questions and assume patient care. Addendum: 08/05/18 at 1849 by Nellie Sun RN Amended: Links added.
--- NOTE | 2018-08-05 19:20 | NUR ---
pt took hs meds early prefers to and given pills with ice cream and rootbeer float made for him. pt in a good mood.
[2018-08-05] MEDS: mirtazapine 15mg tablet PO SCH (19:39)
[2018-08-05] MEDS: baclofen 10mg tablet PO SCH (19:40)
--- NOTE | 2018-08-05 19:40 | NUR ---
ambulated with large walker with 2 people around the unit tolerated well. happy to be doing so.
--- NOTE | 2018-08-05 21:00 | NUR ---
pt resting eyes closed without s&s of distress at this time.
--- NOTE | 2018-08-05 23:07 | NUR ---
resting eyes closed without changes appears comfortable.
--- NOTE | 2018-08-06 01:00 | NUR ---
pt resting eyes closed no s&s of distress at this time.
--- NOTE | 2018-08-06 03:00 | NUR ---
resting eyes closed without changes.
--- NOTE | 2018-08-06 05:00 | NUR ---
resting eyes closed without changes.
--- NOTE | 2018-08-06 06:15 | NUR ---
Problems reprioritized. Patient report given, questions answered & plan of care reviewed with SAGE Kramer.
[2018-08-06 06:30] VITALS: BP 120/69
--- NOTE | 2018-08-06 06:41 | NUR ---
Problems reprioritized. Patient report given, questions answered & plan of care reviewed with Shannan Calderon. Addendum: 08/06/18 at 0642 by Nellie Sun RN Amended: Links added.
--- NOTE | 2018-08-06 06:50 | NUR ---
Patient in room [facility]. I have received report from SAGE Ballard and had the opportunity to ask questions and assume patient care.
[2018-08-06] MEDS: divalproex sodium 500mg tablet.DR PO SCH ×2 (09:05→19:34)
[2018-08-06] MEDS: quetiapine 100mg tablet PO SCH ×2 (09:05→19:30)
[2018-08-06] MEDS: clopidogrel 75mg tablet PO SCH (09:05)
[2018-08-06] MEDS: docusate sod 100mg capsule PO SCH ×2 (09:05→19:30)
[2018-08-06] MEDS: levetiracetam 250mg tablet PO SCH ×2 (09:05→19:30)
[2018-08-06] MEDS: aspirin 81mg tablet.DR PO SCH (09:05)
[2018-08-06] MEDS: enoxaparin 40mg/0.4ml syringe SUBCUT SCH (09:06)
[2018-08-06] MEDS: mineral oil/petrolatum, white cream 113gm jar TP SCH ×2 (09:06→19:30)
[2018-08-06 18:30] VITALS: BP 123/70
[2018-08-06] MEDS: baclofen 10mg tablet PO SCH (19:35)
[2018-08-06] MEDS: mirtazapine 15mg tablet PO SCH (19:37)
--- NOTE | 2018-08-07 06:31 | NUR ---
Problems reprioritized. Patient report given, questions answered & plan of care reviewed with HUANG. Addendum: 08/07/18 at 0633 by Hector Nieto RN Amended: Links added.
[2018-08-07 07:00] VITALS: BP 123/78
[2018-08-07] MEDS: mineral oil/petrolatum, white cream 113gm jar TP SCH (08:00)
[2018-08-07] MEDS: levetiracetam 250mg tablet PO SCH ×2 (09:28→19:55)
[2018-08-07] MEDS: divalproex sodium 500mg tablet.DR PO SCH ×2 (09:28→21:00)
[2018-08-07] MEDS: quetiapine 100mg tablet PO SCH ×2 (09:28→19:56)
[2018-08-07] MEDS: clopidogrel 75mg tablet PO SCH (09:28)
[2018-08-07] MEDS: aspirin 81mg tablet.DR PO SCH (09:28)
[2018-08-07] MEDS: docusate sod 100mg capsule PO SCH ×2 (09:28→19:55)
[2018-08-07] MEDS: enoxaparin 40mg/0.4ml syringe SUBCUT SCH (09:29)
[2018-08-07 18:30] VITALS: BP 182/76
[2018-08-07] MEDS: mirtazapine 15mg tablet PO SCH (21:00)
[2018-08-07] MEDS: baclofen 10mg tablet PO SCH (21:00)
--- NOTE | 2018-08-08 06:05 | NUR ---
Patient in room [facility]. I have received report from SAGE Kramer and had the opportunity to ask questions and assume patient care.
--- NOTE | 2018-08-08 06:15 | NUR ---
Problems reprioritized. Patient report given, questions answered & plan of care reviewed with Opal. Addendum: 08/08/18 at 0616 by Hector Nieto RN Amended: Links added.
[2018-08-08 07:00] VITALS: BP 129/73
[2018-08-08] MEDS: docusate sod 100mg capsule PO SCH ×2 (08:26→20:00)
[2018-08-08] MEDS: aspirin 81mg tablet.DR PO SCH (08:26)
[2018-08-08] MEDS: divalproex sodium 500mg tablet.DR PO SCH ×2 (08:26→20:57)
[2018-08-08] MEDS: quetiapine 100mg tablet PO SCH ×2 (08:27→20:47)
[2018-08-08] MEDS: clopidogrel 75mg tablet PO SCH (08:27)
[2018-08-08] MEDS: enoxaparin 40mg/0.4ml syringe SUBCUT SCH (08:27)
[2018-08-08] MEDS: levetiracetam 250mg tablet PO SCH ×2 (08:27→20:47)
--- NOTE | 2018-08-08 13:51 | NUR ---
patient is refusing a shower at this time. Patient keeps saying, "I want to shower later". Every time it is revisited patient still refuses.
--- NOTE | 2018-08-08 14:12 | NUR ---
Reassessment: Pt documented with 75-100% PO intake with fluctuations, likely meeting nutrient needs. [facility] 08/07. Will continue to follow. Rec: 1. Continue regular diet 2. Encourage PO intake 3. Monitor need for additional bowel care 4. Wt per rx Addendum: 08/08/18 at [address] Amended: Links added.
--- NOTE | 2018-08-08 17:55 | NUR ---
Patient still refusing shower and stating, "I just don't feel like it today". NOC shift PCT stated they will reattempt to get patient to shower.
--- NOTE | 2018-08-08 18:11 | NUR ---
Problems reprioritized. Patient report given, questions answered & plan of care reviewed with SAGE Gallego.
--- NOTE | 2018-08-08 18:39 | NUR ---
Patient in room [facility]. I have received report from Opal CAZARES and had the opportunity to ask questions and assume patient care.
[2018-08-08 19:00] VITALS: BP 135/70
[2018-08-08] MEDS: mirtazapine 15mg tablet PO SCH (20:57)
[2018-08-08] MEDS: baclofen 10mg tablet PO SCH (20:58)
--- NOTE | 2018-08-09 06:05 | NUR ---
Patient in room [facility]. I have received report from SAGE Gallego and had the opportunity to ask questions and assume patient care.
--- NOTE | 2018-08-09 06:18 | NUR ---
Problems reprioritized. Patient report given, questions answered & plan of care reviewed with Opal CAZARES. Patient did not sleep very well. He was aggitated.
[2018-08-09 07:00] VITALS: BP 123/70
[2018-08-09] MEDS: clopidogrel 75mg tablet PO SCH (09:02)
[2018-08-09] MEDS: divalproex sodium 500mg tablet.DR PO SCH ×2 (09:02→20:36)
[2018-08-09] MEDS: quetiapine 100mg tablet PO SCH ×2 (09:02→20:35)
[2018-08-09] MEDS: levetiracetam 250mg tablet PO SCH ×2 (09:02→20:36)
[2018-08-09] MEDS: docusate sod 100mg capsule PO SCH ×2 (09:02→20:36)
[2018-08-09] MEDS: aspirin 81mg tablet.DR PO SCH (09:02)
[2018-08-09] MEDS: enoxaparin 40mg/0.4ml syringe SUBCUT SCH (09:04)
[2018-08-09] MEDS: oxyCODONE/APAP 10/325mg tablet PO PRN (14:30)
--- NOTE | 2018-08-09 18:07 | NUR ---
Problems reprioritized. Patient report given, questions answered & plan of care reviewed with SAGE Gallego.
--- NOTE | 2018-08-09 18:43 | NUR ---
Patient in room [facility]. I have received report from Opal CAZARES and had the opportunity to ask questions and assume patient care.
[2018-08-09 19:00] VITALS: BP 128/74
[2018-08-09] MEDS: baclofen 10mg tablet PO SCH (20:36)
[2018-08-09] MEDS: mirtazapine 15mg tablet PO SCH (20:36)
[2018-08-10 06:10] LABS: BASOPHILS # (AUTO) 0.1 X10'3 (0-0.2); BASOPHILS % (AUTO) 0.3 % (0-1); EOSINOPHILS # (AUTO) 0.1 X10'3 (0-0.9); HEMOGLOBIN 12.8 g/dl (14.0-17.9); MEAN PLATELET VOLUME 7.8 FL (7.4-10.4); RED CELL DISTRIBUTION WIDTH 17.5 % (11.5-14.5)
--- NOTE | 2018-08-10 06:10 | NUR ---
Patient in room [facility]. I have received report from SAGE Gallego and had the opportunity to ask questions and assume patient care.
[2018-08-10 06:11] LABS: EOSINOPHILS % (AUTO) 0.4 % (0-6); HEMATOCRIT 38.7 % (42.0-52.0); LYMPHOCYTES # (AUTO) 17.9 X10'3 (1.1-4.8); LYMPHOCYTES % (AUTO) 78.6 % (21-51); MEAN CORPUSCULAR HEMOGLOBIN 31.3 PG (27.0-31.0); MEAN CORPUSCULAR HGB CONC 33.1 g/dL (33.0-36.5); MEAN CORPUSCULAR VOLUME 94.6 FL (78-98); MONOCYTES # (AUTO) 0.6 X10'3 (0-0.9); MONOCYTES % (AUTO) 2.7 % (2-12); NEUTROPHILS # (AUTO) 4.1 X10'3 (1.8-7.7); PLATELET COUNT 193 X10'3 (140-440); RED BLOOD COUNT 4.09 X10'6 (4.70-6.10); WHITE BLOOD COUNT 22.8 X10'3 (4.5-11.0)
--- NOTE | 2018-08-10 06:27 | NUR ---
Problems reprioritized. Patient report given, questions answered & plan of care reviewed with Andria RN. Pateientslept well and he shows no sign of distress.
[2018-08-10 06:44] LABS: TOTAL CELLS COUNTED 100
[2018-08-10 06:45] LABS: ANISOCYTOSIS 1+; ELLIPTOCYTES 1+; PLATELET ESTIMATE NORMAL; SMUDGE CELLS 1+
[2018-08-10 07:20] VITALS: BP 119/74
[2018-08-10] MEDS: clopidogrel 75mg tablet PO SCH (08:15)
[2018-08-10] MEDS: divalproex sodium 500mg tablet.DR PO SCH ×2 (08:15→20:28)
[2018-08-10] MEDS: aspirin 81mg tablet.DR PO SCH (08:15)
[2018-08-10] MEDS: docusate sod 100mg capsule PO SCH ×2 (08:15→20:28)
[2018-08-10] MEDS: levetiracetam 250mg tablet PO SCH ×2 (08:15→20:28)
[2018-08-10] MEDS: quetiapine 100mg tablet PO SCH ×2 (08:15→20:29)
[2018-08-10] MEDS: enoxaparin 40mg/0.4ml syringe SUBCUT SCH (08:16)
--- NOTE | 2018-08-10 18:00 | NUR ---
Problems reprioritized. Patient report given, questions answered & plan of care reviewed with SAGE Gallego.
--- NOTE | 2018-08-10 18:47 | NUR ---
Patient in room [facility]. I have received report from Andria CAZARES and had the opportunity to ask questions and assume patient care.
[2018-08-10 19:00] VITALS: BP 127/59
[2018-08-10] MEDS: mirtazapine 15mg tablet PO SCH (20:28)
[2018-08-10] MEDS: baclofen 10mg tablet PO SCH (20:29)
--- NOTE | 2018-08-11 06:27 | NUR ---
Problems reprioritized. Patient report given, questions answered & plan of care reviewed with Luis Miguel CAZARES.
--- NOTE | 2018-08-11 06:30 | NUR ---
Patient in room [facility]. I have received report from Lashonda CAZARES and had the opportunity to ask questions and assume patient care.
[2018-08-11 07:00] VITALS: BP 113/57
[2018-08-11] MEDS: docusate sod 100mg capsule PO SCH ×2 (08:03→20:11)
[2018-08-11] MEDS: levetiracetam 250mg tablet PO SCH ×2 (08:04→20:11)
[2018-08-11] MEDS: divalproex sodium 500mg tablet.DR PO SCH ×2 (08:04→20:12)
[2018-08-11] MEDS: clopidogrel 75mg tablet PO SCH (08:04)
[2018-08-11] MEDS: aspirin 81mg tablet.DR PO SCH (08:04)
[2018-08-11] MEDS: quetiapine 100mg tablet PO SCH ×2 (08:04→20:12)
[2018-08-11] MEDS: enoxaparin 40mg/0.4ml syringe SUBCUT SCH (08:14)
[2018-08-11 18:00] VITALS: BP 111/73
--- NOTE | 2018-08-11 18:26 | NUR ---
Patient in room [facility]. I have received report from Luis Miguel CAZARES and had the opportunity to ask questions and assume patient care.
--- NOTE | 2018-08-11 18:52 | NUR ---
Problems reprioritized. Patient report given, questions answered & plan of care reviewed with Kirsty CAZARES.
[2018-08-11] MEDS: mirtazapine 15mg tablet PO SCH (20:11)
[2018-08-11] MEDS: baclofen 10mg tablet PO SCH (20:12)
--- NOTE | 2018-08-12 06:05 | NUR ---
Problems reprioritized. Patient report given, questions answered & plan of care reviewed with Luis Miguel CAZARES.
--- NOTE | 2018-08-12 06:52 | NUR ---
Patient in room [facility]. I have received report from Kirsty CAZARES and had the opportunity to ask questions and assume patient care.
[2018-08-12 07:00] VITALS: BP 103/72
[2018-08-12] MEDS: quetiapine 100mg tablet PO SCH ×2 (09:27→20:39)
[2018-08-12] MEDS: aspirin 81mg tablet.DR PO SCH (09:28)
[2018-08-12] MEDS: clopidogrel 75mg tablet PO SCH (09:28)
[2018-08-12] MEDS: docusate sod 100mg capsule PO SCH ×2 (09:28→20:39)
[2018-08-12] MEDS: divalproex sodium 500mg tablet.DR PO SCH ×2 (09:28→20:39)
[2018-08-12] MEDS: levetiracetam 250mg tablet PO SCH ×2 (09:28→20:39)
[2018-08-12] MEDS: enoxaparin 40mg/0.4ml syringe SUBCUT SCH (09:29)
[2018-08-12 18:00] VITALS: BP 116/71
--- NOTE | 2018-08-12 18:19 | NUR ---
Problems reprioritized. Patient report given, questions answered & plan of care reviewed with Christi CAZARES.
--- NOTE | 2018-08-12 18:20 | NUR ---
Patient in room [facility]. I have received report from SAGE Viveros and had the opportunity to ask questions and assume patient care.
[2018-08-12] MEDS: mirtazapine 15mg tablet PO SCH (20:39)
[2018-08-12] MEDS: baclofen 10mg tablet PO SCH (20:40)
--- NOTE | 2018-08-13 06:34 | NUR ---
Patient in room [facility]. I have received report from Christi CAZARES and had the opportunity to ask questions and assume patient care.
--- NOTE | 2018-08-13 06:35 | NUR ---
Problems reprioritized. Patient report given, questions answered & plan of care reviewed with SAGE Edwards.
[2018-08-13 06:51] VITALS: BP 151/85
[2018-08-13] MEDS: docusate sod 100mg capsule PO SCH ×2 (08:00→21:00)
[2018-08-13] MEDS: enoxaparin 40mg/0.4ml syringe SUBCUT SCH (08:00)
[2018-08-13] MEDS ORDERED: LORazepam 1 MG tablet PO ONE (08:30)
[2018-08-13] MEDS: clopidogrel 75mg tablet PO SCH (08:36)
[2018-08-13] MEDS: aspirin 81mg tablet.DR PO SCH (08:36)
[2018-08-13] MEDS: quetiapine 100mg tablet PO SCH ×2 (08:36→21:00)
[2018-08-13] MEDS: divalproex sodium 500mg tablet.DR PO SCH ×2 (08:37→21:01)
[2018-08-13] MEDS: levetiracetam 250mg tablet PO SCH ×2 (08:37→21:01)
--- NOTE | 2018-08-13 14:00 | NUR ---
Patients family member, oldest son, called to talk with patient. Patient stated on the phone that he was "coming home today". Patient stated "here talk to my nurse." The son asked this RN if his dad was being discharged, I stated "He can be if you want to come pick him up." The son stated "I don't think that's going to happen, I can't provide 24 hour care for him." The phone was given back to the patient in which they talked for a few minutes longer.
--- NOTE | 2018-08-13 18:13 | NUR ---
Problems reprioritized. Patient report given, questions answered & plan of care reviewed with Prudence RN.
--- NOTE | 2018-08-13 18:41 | NUR ---
Patient in room [facility]. I have received report from Grace CAZARES and had the opportunity to ask questions and assume patient care. Patient shows no sign of distress.
[2018-08-13 20:00] VITALS: BP 138/79
[2018-08-13] MEDS: mirtazapine 15mg tablet PO SCH (21:01)
[2018-08-13] MEDS: baclofen 10mg tablet PO SCH (21:01)
--- NOTE | 2018-08-14 06:27 | NUR ---
Problems reprioritized. Patient report given, questions answered & plan of care reviewed with Grace CAZARES. Patient slept well through the night. He walked 300 feet.
--- NOTE | 2018-08-14 06:45 | NUR ---
Patient in room [facility]. I have received report from Lashonda CAZARES and had the opportunity to ask questions and assume patient care.
[2018-08-14 06:58] VITALS: BP 137/78
[2018-08-14] MEDS: enoxaparin 40mg/0.4ml syringe SUBCUT SCH (08:00)
[2018-08-14] MEDS: docusate sod 100mg capsule PO SCH ×2 (08:00→21:28)
[2018-08-14] MEDS: divalproex sodium 500mg tablet.DR PO SCH ×2 (08:15→21:31)
[2018-08-14] MEDS: aspirin 81mg tablet.DR PO SCH (08:15)
[2018-08-14] MEDS: clopidogrel 75mg tablet PO SCH (08:15)
[2018-08-14] MEDS: quetiapine 100mg tablet PO SCH ×2 (08:15→21:30)
[2018-08-14] MEDS: levetiracetam 250mg tablet PO SCH ×2 (08:15→21:29)
--- NOTE | 2018-08-14 11:22 | NUR ---
Reassessment: Pt continues with fluctuating PO intake overall 75-100% meeting nutrient needs. [facility] 08/13. Will continue to follow per LOS protocol. Rec: 1. Continue regular diet 2. Encourage PO intake 3. Monitor need for additional bowel care 4. Wt per rx Addendum: 08/14/18 at [address] Amended: Links added.
--- NOTE | 2018-08-14 18:24 | NUR ---
Problems reprioritized. Patient report given, questions answered & plan of care reviewed with Prudence RN.
--- NOTE | 2018-08-14 18:46 | NUR ---
Patient in room [facility]. I have received report from Grace CAZARES and had the opportunity to ask questions and assume patient care.
[2018-08-14 20:00] VITALS: BP 133/72
[2018-08-14] MEDS: moxifloxacin 0.5% ophthalmic drops 3ml LEFTEYE SCH (21:28)
[2018-08-14] MEDS: LORazepam 0.5 MG tablet PO PRN (21:29)
[2018-08-14] MEDS: baclofen 10mg tablet PO SCH (21:30)
[2018-08-14] MEDS: mirtazapine 15mg tablet PO SCH (21:37)
--- NOTE | 2018-08-15 06:18 | NUR ---
Problems reprioritized. Patient report given, questions answered & plan of care reviewed with Grace RN. Patient was irritated at the begining of the shift but eventually went to sleep.
--- NOTE | 2018-08-15 06:27 | NUR ---
Patient in room [facility]. I have received report from Lashonda CAZARES and had the opportunity to ask questions and assume patient care.
[2018-08-15 08:00] VITALS: BP 128/84
[2018-08-15] MEDS: docusate sod 100mg capsule PO SCH ×2 (08:00→20:51)
[2018-08-15] MEDS: enoxaparin 40mg/0.4ml syringe SUBCUT SCH (08:00)
[2018-08-15] MEDS: quetiapine 100mg tablet PO SCH ×2 (09:01→20:51)
[2018-08-15] MEDS: clopidogrel 75mg tablet PO SCH (09:01)
[2018-08-15] MEDS: levetiracetam 250mg tablet PO SCH ×2 (09:01→20:52)
[2018-08-15] MEDS: moxifloxacin 0.5% ophthalmic drops 3ml LEFTEYE SCH ×2 (09:02→20:51)
[2018-08-15] MEDS: divalproex sodium 500mg tablet.DR PO SCH ×2 (09:02→20:51)
[2018-08-15] MEDS: aspirin 81mg tablet.DR PO SCH (09:02)
[2018-08-15] MEDS: acetaminophen 325mg tablet PO PRN (09:05)
--- NOTE | 2018-08-15 17:53 | NUR ---
Patient called Saida on the phone and requested her to bring his two dogs to see him. Patient told Saida that she messed up his transfer to [facility] because she went down and raised hell with them. He told Saida that he wanted to go to his home and and not in the hospital if he was going to . Patient threw the phone on the floor and stated "she told me I was going to in this hospital". Patient was very upset and frustrated. He stated to this RN and to the charge nurse Leilani CAZARES that he doesn't want Saida involved in his medical care at this hospital anymore. Note will be made in the SBAR as such. Patient went for a long walk so he could calm down him self. Patient stated he was very sorry for throwing the phone on the floor and hoped he didn't break it. Patient returned to his bed to eat dinner and was in a better mood.
--- NOTE | 2018-08-15 18:10 | NUR ---
Patient in room [facility]. I have received report from Grace CAZARES and had the opportunity to ask questions and assume patient care.
--- NOTE | 2018-08-15 18:19 | NUR ---
Problems reprioritized. Patient report given, questions answered & plan of care reviewed with PRUDENCE RN.
[2018-08-15 20:00] VITALS: BP 128/71
[2018-08-15] MEDS: mirtazapine 15mg tablet PO SCH (20:51)
[2018-08-15] MEDS: baclofen 10mg tablet PO SCH (20:52)
--- NOTE | 2018-08-16 06:31 | NUR ---
Problems reprioritized. Patient report given, questions answered & plan of care reviewed with Luis Miguel CAZARES. patient slept well last night. He complained of no pain.
--- NOTE | 2018-08-16 06:32 | NUR ---
Patient in room [facility]. I have received report from Lashonda CAZARES and had the opportunity to ask questions and assume patient care.
[2018-08-16] MEDS: divalproex sodium 500mg tablet.DR PO SCH ×2 (07:54→19:56)
[2018-08-16] MEDS: clopidogrel 75mg tablet PO SCH (07:55)
[2018-08-16] MEDS: levetiracetam 250mg tablet PO SCH ×2 (07:55→19:55)
[2018-08-16] MEDS: docusate sod 100mg capsule PO SCH ×2 (07:55→19:55)
[2018-08-16] MEDS: aspirin 81mg tablet.DR PO SCH (07:55)
[2018-08-16] MEDS: quetiapine 100mg tablet PO SCH ×2 (07:55→19:55)
[2018-08-16] MEDS: enoxaparin 40mg/0.4ml syringe SUBCUT SCH (07:56)
[2018-08-16] MEDS: moxifloxacin 0.5% ophthalmic drops 3ml LEFTEYE SCH ×2 (07:57→19:55)
[2018-08-16 11:00] VITALS: BP 108/83
[2018-08-16] MEDS: LORazepam 0.5 MG tablet PO PRN (13:04)
--- NOTE | 2018-08-16 18:25 | NUR ---
Patient in room [facility]. I have received report from SAGE Bolanos and had the opportunity to ask questions and assume patient care. Addendum: 08/17/18 at 0037 by Patricia Schuster RN Amended: Links added.
[2018-08-16 19:15] VITALS: BP 109/70
[2018-08-16] MEDS: mirtazapine 15mg tablet PO SCH (19:55)
[2018-08-16] MEDS: baclofen 10mg tablet PO SCH (19:58)
--- NOTE | 2018-08-17 06:34 | NUR ---
Problems reprioritized. Patient report given, questions answered & plan of care reviewed with SAGE Viveros. Addendum: 08/17/18 at 0635 by Patricia Schuster RN Amended: Links added.
[2018-08-17 07:00] VITALS: BP 124/72
[2018-08-17] MEDS: docusate sod 100mg capsule PO SCH ×2 (08:00→20:31)
[2018-08-17] MEDS: moxifloxacin 0.5% ophthalmic drops 3ml LEFTEYE SCH ×2 (08:00→20:32)
[2018-08-17] MEDS: divalproex sodium 500mg tablet.DR PO SCH ×2 (08:49→20:31)
[2018-08-17] MEDS: aspirin 81mg tablet.DR PO SCH (08:49)
[2018-08-17] MEDS: quetiapine 100mg tablet PO SCH ×2 (08:49→20:31)
[2018-08-17] MEDS: clopidogrel 75mg tablet PO SCH (08:49)
[2018-08-17] MEDS: levetiracetam 250mg tablet PO SCH ×2 (08:55→20:31)
[2018-08-17] MEDS: enoxaparin 40mg/0.4ml syringe SUBCUT SCH (08:57)
--- NOTE | 2018-08-17 18:20 | NUR ---
Received report from Jackeline CAZARES pt is sitting on edge of bed eating dinner in no apparent distress, on RA
[2018-08-17 19:00] VITALS: BP 129/73
[2018-08-17] MEDS: baclofen 10mg tablet PO SCH (20:31)
[2018-08-17] MEDS: mirtazapine 15mg tablet PO SCH (20:31)
--- NOTE | 2018-08-18 06:25 | NUR ---
Gave report to Jackeline CAZARES pt is resting on RA breaths even and unlabored, bed alarm on
[2018-08-18 08:00] VITALS: BP 101/63
[2018-08-18] MEDS: moxifloxacin 0.5% ophthalmic drops 3ml LEFTEYE SCH ×2 (08:00→20:14)
[2018-08-18] MEDS: aspirin 81mg tablet.DR PO SCH (09:49)
[2018-08-18] MEDS: levetiracetam 250mg tablet PO SCH ×2 (09:49→20:14)
[2018-08-18] MEDS: divalproex sodium 500mg tablet.DR PO SCH ×2 (09:49→20:14)
[2018-08-18] MEDS: docusate sod 100mg capsule PO SCH ×2 (09:49→20:00)
[2018-08-18] MEDS: LORazepam 0.5 MG tablet PO PRN (09:49)
[2018-08-18] MEDS: clopidogrel 75mg tablet PO SCH (09:49)
[2018-08-18] MEDS: quetiapine 100mg tablet PO SCH ×2 (09:50→20:14)
[2018-08-18] MEDS: enoxaparin 40mg/0.4ml syringe SUBCUT SCH (09:50)
--- NOTE | 2018-08-18 18:30 | NUR ---
Received report from Jackeline CAZARES pt is sitting in bed eating dinner in no apparent distress, call light and items of freq use within reach.
[2018-08-18 19:00] VITALS: BP 102/64
[2018-08-18] MEDS: baclofen 10mg tablet PO SCH (20:40)
[2018-08-18] MEDS: mirtazapine 15mg tablet PO SCH (20:40)
--- NOTE | 2018-08-19 06:08 | NUR ---
Gave report to Kristine CAZARES pt is resting on RA, bed alarm on, call light and items of freq use within reach
--- NOTE | 2018-08-19 06:29 | NUR ---
Patient in room [facility] 348. I have received report from Shira CAZARES and had the opportunity to ask questions and assume patient care.
[2018-08-19 07:00] VITALS: BP 138/74
[2018-08-19] MEDS: divalproex sodium 500mg tablet.DR PO SCH ×2 (09:54→20:33)
[2018-08-19] MEDS: docusate sod 100mg capsule PO SCH ×2 (09:54→20:30)
[2018-08-19] MEDS: aspirin 81mg tablet.DR PO SCH (09:54)
[2018-08-19] MEDS: quetiapine 100mg tablet PO SCH ×2 (09:54→20:00)
[2018-08-19] MEDS: clopidogrel 75mg tablet PO SCH (09:54)
[2018-08-19] MEDS: moxifloxacin 0.5% ophthalmic drops 3ml LEFTEYE SCH ×2 (09:55→20:28)
[2018-08-19] MEDS: enoxaparin 40mg/0.4ml syringe SUBCUT SCH (09:55)
[2018-08-19] MEDS: levetiracetam 250mg tablet PO SCH ×2 (09:55→20:30)
[2018-08-19 20:00] VITALS: BP 123/69
[2018-08-19] MEDS: mirtazapine 15mg tablet PO SCH (20:31)
[2018-08-19] MEDS: baclofen 10mg tablet PO SCH (20:36)
[2018-08-20] MEDS: quetiapine 100mg tablet PO SCH ×3 (00:17→21:12)
[2018-08-20 06:01] LABS: HEMATOCRIT 36.2 % (42.0-52.0); MEAN CORPUSCULAR HEMOGLOBIN 31.6 PG (27.0-31.0); MEAN CORPUSCULAR HGB CONC 33.1 g/dL (33.0-36.5); MEAN CORPUSCULAR VOLUME 95.6 FL (78-98); MEAN PLATELET VOLUME 7.6 FL (7.4-10.4); PLATELET COUNT 169 X10'3 (140-440); RED BLOOD COUNT 3.79 X10'6 (4.70-6.10); RED CELL DISTRIBUTION WIDTH 17.5 % (11.5-14.5); WHITE BLOOD COUNT 18.6 X10'3 (4.5-11.0)
--- NOTE | 2018-08-20 06:20 | NUR ---
Problems reprioritized. Patient report given, questions answered & plan of care reviewed with Jackeline CAZARES. Patient resting eyes closed respirations even.
[2018-08-20] MEDS: aspirin 81mg tablet.DR PO SCH (07:26)
[2018-08-20] MEDS: divalproex sodium 500mg tablet.DR PO SCH ×2 (07:26→21:13)
[2018-08-20] MEDS: clopidogrel 75mg tablet PO SCH (07:26)
[2018-08-20] MEDS: levetiracetam 250mg tablet PO SCH ×2 (07:26→21:12)
[2018-08-20] MEDS: enoxaparin 40mg/0.4ml syringe SUBCUT SCH (07:27)
[2018-08-20] MEDS: docusate sod 100mg capsule PO SCH ×2 (07:27→21:12)
[2018-08-20] MEDS: moxifloxacin 0.5% ophthalmic drops 3ml LEFTEYE SCH ×2 (07:30→21:11)
[2018-08-20 08:29] VITALS: BP 116/64
[2018-08-20] MEDS: magnesium hydroxide 30ml (MOM) UD suspension PO PRN (15:36)
--- NOTE | 2018-08-20 18:10 | NUR ---
Patient in room [facility] 348. I have received report from Jackeline CAZARES and had the opportunity to ask questions and assume patient care. Patient finishing dinner, will continue to monitor.
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
[2018-08-20 20:00] VITALS: BP 97/67
[2018-08-20] MEDS: baclofen 10mg tablet PO SCH (21:00)
[2018-08-20] MEDS: mirtazapine 15mg tablet PO SCH (21:13)
--- NOTE | 2018-08-21 06:30 | NUR ---
Problems reprioritized. Patient report given, questions answered & plan of care reviewed with Jackeline CAZARES. Resting respirations even
[2018-08-21 07:00] VITALS: BP 139/87
[2018-08-21] MEDS: levetiracetam 250mg tablet PO SCH ×2 (07:27→20:28)
[2018-08-21] MEDS: docusate sod 100mg capsule PO SCH ×2 (07:27→20:28)
[2018-08-21] MEDS: aspirin 81mg tablet.DR PO SCH (07:27)
[2018-08-21] MEDS: clopidogrel 75mg tablet PO SCH (07:27)
[2018-08-21] MEDS: quetiapine 100mg tablet PO SCH ×2 (07:27→20:28)
[2018-08-21] MEDS: divalproex sodium 500mg tablet.DR PO SCH ×2 (07:27→20:27)
[2018-08-21] MEDS: moxifloxacin 0.5% ophthalmic drops 3ml LEFTEYE SCH ×2 (07:31→20:28)
[2018-08-21] MEDS: enoxaparin 40mg/0.4ml syringe SUBCUT SCH (07:37)
--- NOTE | 2018-08-21 09:46 | NUR ---
Reassessment: Pt continues meeting nutrient needs with 75-100% PO intake. [facility] 08/20. Pt continues awaiting placement. Will continue to follow per LOS protocol. Rec: 1. Continue regular diet 2. Encourage PO intake 3. Monitor need for additional bowel care 4. Wt per rx Addendum: 08/21/18 at [address] Amended: Links added.
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
--- NOTE | 2018-08-21 14:14 | NUR ---
Deputy Wheatley from the [facility] called and informed us that the family is renting patients house out to people who are living there currently. Deputy Wheatley can be reached at [phone]. Mandy has been paged.
--- NOTE | 2018-08-21 18:17 | NUR ---
Received report from SAGE Viveros. Patient is awake and alert on room air, in no apparent distress. Call light and items of frequent use within reach. Will continue to monitor.
[2018-08-21 20:00] VITALS: BP 101/86
[2018-08-21] MEDS: mirtazapine 15mg tablet PO SCH (20:27)
[2018-08-21] MEDS: baclofen 10mg tablet PO SCH (20:28)
--- NOTE | 2018-08-22 06:27 | NUR ---
Problems reprioritized. Patient report given, questions answered & plan of care reviewed with SAGE Viveros.
[2018-08-22 07:00] VITALS: BP 133/77
[2018-08-22] MEDS: divalproex sodium 500mg tablet.DR PO SCH ×2 (07:39→20:31)
[2018-08-22] MEDS: moxifloxacin 0.5% ophthalmic drops 3ml LEFTEYE SCH ×2 (07:39→20:42)
[2018-08-22] MEDS: docusate sod 100mg capsule PO SCH ×2 (07:39→20:32)
[2018-08-22] MEDS: enoxaparin 40mg/0.4ml syringe SUBCUT SCH (07:39)
[2018-08-22] MEDS: aspirin 81mg tablet.DR PO SCH (07:39)
[2018-08-22] MEDS: clopidogrel 75mg tablet PO SCH (07:39)
[2018-08-22] MEDS: levetiracetam 250mg tablet PO SCH ×2 (07:39→20:31)
[2018-08-22] MEDS: quetiapine 100mg tablet PO SCH ×2 (07:39→20:32)
[2018-08-22 18:00] VITALS: BP 142/67
[2018-08-22] MEDS: mirtazapine 15mg tablet PO SCH (20:32)
[2018-08-22] MEDS: baclofen 10mg tablet PO SCH (20:32)
[2018-08-23] MEDS: oxyCODONE/APAP 10/325mg tablet PO PRN (02:07)
--- NOTE | 2018-08-23 06:42 | NUR ---
Problems reprioritized. Patient report given, questions answered & plan of care reviewed with SAGE Olivo.
[2018-08-23 07:50] VITALS: BP 118/72
[2018-08-23] MEDS: divalproex sodium 500mg tablet.DR PO SCH ×2 (07:58→21:25)
[2018-08-23] MEDS: quetiapine 100mg tablet PO SCH ×2 (07:58→21:24)
[2018-08-23] MEDS: aspirin 81mg tablet.DR PO SCH (07:58)
[2018-08-23] MEDS: docusate sod 100mg capsule PO SCH ×2 (07:59→21:24)
[2018-08-23] MEDS: clopidogrel 75mg tablet PO SCH (07:59)
[2018-08-23] MEDS: levetiracetam 250mg tablet PO SCH ×2 (07:59→21:24)
[2018-08-23] MEDS: moxifloxacin 0.5% ophthalmic drops 3ml LEFTEYE SCH ×2 (08:00→21:24)
[2018-08-23] MEDS: enoxaparin 40mg/0.4ml syringe SUBCUT SCH (08:03)
--- NOTE | 2018-08-23 09:45 | NUR ---
PAGER ID: [phone] MESSAGE: [facility] [id number] re [address] [id number] pt c/o nausea, requesting PO Zofran, thank you
[2018-08-23] MEDS: pantoprazole 40mg Tablet.DR PO SCH (12:33)
--- NOTE | 2018-08-23 15:14 | NUR ---
Received referral for nail care. Arrived at bedside for procedure. Pt gave informed verbal consent. Trimmed nails and filed edges. Pt tolerated procedure well. Bed left in lowest position, call light and personal items within reach.
--- NOTE | 2018-08-23 18:15 | NUR ---
Patient in room [facility] 348, resting comfortable on room air. I have received report from Pallavi CAZARES and had the opportunity to ask questions and assume patient care.
--- NOTE | 2018-08-23 18:52 | NUR ---
Problems reprioritized. Patient report given, questions answered & plan of care reviewed with AROLDO CAZARES.
[2018-08-23 20:00] VITALS: BP 131/75
[2018-08-23] MEDS: mirtazapine 15mg tablet PO SCH (21:24)
[2018-08-23] MEDS: baclofen 10mg tablet PO SCH (21:25)
--- NOTE | 2018-08-24 06:21 | NUR ---
Problems reprioritized. Patient report given, questions answered & plan of care reviewed with Uyen CAZARES.
[2018-08-24 07:00] VITALS: BP 124/73
[2018-08-24] MEDS: clopidogrel 75mg tablet PO SCH (07:50)
[2018-08-24] MEDS: quetiapine 100mg tablet PO SCH ×2 (07:50→21:40)
[2018-08-24] MEDS: pantoprazole 40mg Tablet.DR PO SCH (07:50)
[2018-08-24] MEDS: docusate sod 100mg capsule PO SCH ×2 (07:50→20:00)
[2018-08-24] MEDS: divalproex sodium 500mg tablet.DR PO SCH ×2 (07:50→21:00)
[2018-08-24] MEDS: aspirin 81mg tablet.DR PO SCH (07:50)
[2018-08-24] MEDS: moxifloxacin 0.5% ophthalmic drops 3ml LEFTEYE SCH ×2 (07:51→20:00)
[2018-08-24] MEDS: levetiracetam 250mg tablet PO SCH ×2 (07:51→20:00)
[2018-08-24] MEDS: enoxaparin 40mg/0.4ml syringe SUBCUT SCH (07:51)
[2018-08-24] MEDS ORDERED: haloperidol lactate 5mg/ml inj IM ONE (13:00)
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
[2018-08-24 18:00] VITALS: BP 121/73
--- NOTE | 2018-08-24 18:05 | NUR ---
Patient in room [facility]. I have received report from Uyen CAZARES and had the opportunity to ask questions and assume patient care.
--- NOTE | 2018-08-24 18:06 | NUR ---
Problems reprioritized. Patient report given, questions answered & plan of care reviewed with AROLDO CAZARES.
[2018-08-24] MEDS: baclofen 10mg tablet PO SCH (21:00)
[2018-08-24] MEDS: LORazepam 0.5 MG tablet PO PRN (21:41)
[2018-08-24] MEDS: mirtazapine 15mg tablet PO SCH (21:41)
[2018-08-24] MEDS: oxyCODONE/APAP 10/325mg tablet PO PRN (22:03)
--- NOTE | 2018-08-25 06:27 | NUR ---
Problems reprioritized. Patient report given, questions answered & plan of care reviewed with Elizabeth CAZARES.
[2018-08-25 07:21] VITALS: BP 163/80
[2018-08-25] MEDS: moxifloxacin 0.5% ophthalmic drops 3ml LEFTEYE SCH ×2 (08:00→21:27)
[2018-08-25] MEDS: enoxaparin 40mg/0.4ml syringe SUBCUT SCH (08:00)
[2018-08-25] MEDS: oxyCODONE/APAP 10/325mg tablet PO PRN (10:11)
[2018-08-25] MEDS: aspirin 81mg tablet.DR PO SCH (10:11)
[2018-08-25] MEDS: clopidogrel 75mg tablet PO SCH (10:11)
[2018-08-25] MEDS: levetiracetam 250mg tablet PO SCH ×2 (10:11→21:27)
[2018-08-25] MEDS: pantoprazole 40mg Tablet.DR PO SCH (10:11)
[2018-08-25] MEDS: quetiapine 100mg tablet PO SCH ×2 (10:12→21:27)
[2018-08-25] MEDS: divalproex sodium 500mg tablet.DR PO SCH ×2 (10:12→21:28)
[2018-08-25] MEDS: docusate sod 100mg capsule PO SCH ×2 (10:12→21:27)
[2018-08-25] MEDS: magnesium hydroxide 30ml (MOM) UD suspension PO PRN (10:18)
[2018-08-25] MEDS ORDERED: haloperidol lactate 5mg/ml inj IM ONE (11:50)
[2018-08-25] MEDS ORDERED: haloperidol lactate 5mg/ml inj IM PRN (12:20)
[2018-08-25 18:00] VITALS: BP 104/66
--- NOTE | 2018-08-25 18:10 | NUR ---
Patient in room [facility] 348. I have received report from Elizabeth CAZARES and had the opportunity to ask questions and assume patient care.
[2018-08-25] MEDS: baclofen 10mg tablet PO SCH (21:28)
[2018-08-25] MEDS: mirtazapine 15mg tablet PO SCH (21:28)
--- NOTE | 2018-08-26 06:15 | NUR ---
Patient in room [facility] 348. I have received report from SAGE Wilcox and had the opportunity to ask questions and assume patient care.
--- NOTE | 2018-08-26 06:16 | NUR ---
Problems reprioritized. Patient report given, questions answered & plan of care reviewed with Lorena CAZARES.
[2018-08-26 07:23] VITALS: BP 150/86
[2018-08-26] MEDS: enoxaparin 40mg/0.4ml syringe SUBCUT SCH (08:00)
[2018-08-26] MEDS: aspirin 81mg tablet.DR PO SCH (10:16)
[2018-08-26] MEDS: docusate sod 100mg capsule PO SCH ×2 (10:16→20:53)
[2018-08-26] MEDS: divalproex sodium 500mg tablet.DR PO SCH ×2 (10:16→20:53)
[2018-08-26] MEDS: pantoprazole 40mg Tablet.DR PO SCH (10:16)
[2018-08-26] MEDS: clopidogrel 75mg tablet PO SCH (10:17)
[2018-08-26] MEDS: levetiracetam 250mg tablet PO SCH ×2 (10:17→20:53)
[2018-08-26] MEDS: quetiapine 100mg tablet PO SCH ×2 (10:17→20:53)
[2018-08-26] MEDS: moxifloxacin 0.5% ophthalmic drops 3ml LEFTEYE SCH ×2 (10:32→20:52)
[2018-08-26 11:58] VITALS: BP 116/66
[2018-08-26 14:01] LABS: HEMATOCRIT 36.2 % (42.0-52.0); HEMOGLOBIN 12.2 g/dl (14.0-17.9); MEAN CORPUSCULAR HEMOGLOBIN 31.9 PG (27.0-31.0); MEAN CORPUSCULAR HGB CONC 33.5 g/dL (33.0-36.5); MEAN CORPUSCULAR VOLUME 95.1 FL (78-98); MEAN PLATELET VOLUME 7.5 FL (7.4-10.4); PLATELET COUNT 200 X10'3 (140-440); RED BLOOD COUNT 3.81 X10'6 (4.70-6.10); RED CELL DISTRIBUTION WIDTH 17.4 % (11.5-14.5)
[2018-08-26 18:00] VITALS: BP 120/68
--- NOTE | 2018-08-26 18:15 | NUR ---
Problems reprioritized. Patient report given, questions answered & plan of care reviewed with SAGE Barraza.
--- NOTE | 2018-08-26 18:45 | NUR ---
Patient in room [facility] 348. I have received report from SAGE Carrillo and had the opportunity to ask questions and assume patient care.
[2018-08-26] MEDS: ondansetron 4mg rapidly disintigrating tab PO PRN (19:26)
[2018-08-26] MEDS: baclofen 10mg tablet PO SCH (20:53)
[2018-08-26] MEDS: mirtazapine 15mg tablet PO SCH (20:54)
--- NOTE | 2018-08-27 06:21 | NUR ---
Problems reprioritized. Patient report given, questions answered & plan of care reviewed with SAGE Chery.
--- NOTE | 2018-08-27 06:25 | NUR ---
Patient in room [facility]. I have received report from SAGE Barraza and had the opportunity to ask questions and assume patient care.
[2018-08-27 06:56] VITALS: BP 118/69
[2018-08-27] MEDS: pantoprazole 40mg Tablet.DR PO SCH (07:30)
[2018-08-27] MEDS: docusate sod 100mg capsule PO SCH ×2 (08:00→20:00)
[2018-08-27] MEDS: aspirin 81mg tablet.DR PO SCH (08:00)
[2018-08-27] MEDS: levetiracetam 250mg tablet PO SCH ×2 (08:00→20:25)
[2018-08-27] MEDS: quetiapine 100mg tablet PO SCH ×2 (08:00→20:25)
[2018-08-27] MEDS: enoxaparin 40mg/0.4ml syringe SUBCUT SCH (08:00)
[2018-08-27] MEDS: clopidogrel 75mg tablet PO SCH (08:00)
[2018-08-27] MEDS: divalproex sodium 500mg tablet.DR PO SCH ×2 (08:22→20:25)
[2018-08-27] MEDS: moxifloxacin 0.5% ophthalmic drops 3ml LEFTEYE SCH ×2 (08:40→20:26)
--- NOTE | 2018-08-27 18:13 | NUR ---
Received report from Miri CAZARES pt requested to have dinner tray moved closer and milk opened for him, on RA, call light within reach.
--- NOTE | 2018-08-27 18:24 | NUR ---
Problems reprioritized. Patient report given, questions answered & plan of care reviewed with SAGE Silva.
[2018-08-27 19:00] VITALS: BP 120/64
[2018-08-27] MEDS: oxyCODONE/APAP 10/325mg tablet PO PRN (20:29)
[2018-08-27] MEDS: mirtazapine 15mg tablet PO SCH (21:00)
[2018-08-27] MEDS: baclofen 10mg tablet PO SCH (21:00)
--- NOTE | 2018-08-28 06:02 | NUR ---
Problems reprioritized. Patient report given, questions answered & plan of care reviewed with Miri RN.
--- NOTE | 2018-08-28 06:05 | NUR ---
Patient in room [facility] 348. I have received report from SAGE Silva and had the opportunity to ask questions and assume patient care.
[2018-08-28 07:00] VITALS: BP 126/60
[2018-08-28] MEDS: pantoprazole 40mg Tablet.DR PO SCH (07:30)
[2018-08-28] MEDS: levetiracetam 250mg tablet PO SCH ×2 (08:38→20:35)
[2018-08-28] MEDS: docusate sod 100mg capsule PO SCH ×2 (08:38→20:00)
[2018-08-28] MEDS: clopidogrel 75mg tablet PO SCH (08:38)
[2018-08-28] MEDS: quetiapine 100mg tablet PO SCH ×2 (08:38→20:34)
[2018-08-28] MEDS: divalproex sodium 500mg tablet.DR PO SCH ×2 (08:39→20:35)
[2018-08-28] MEDS: enoxaparin 40mg/0.4ml syringe SUBCUT SCH (08:39)
[2018-08-28] MEDS: aspirin 81mg tablet.DR PO SCH (08:39)
[2018-08-28] MEDS: moxifloxacin 0.5% ophthalmic drops 3ml LEFTEYE SCH ×2 (08:43→20:34)
--- NOTE | 2018-08-28 09:51 | NUR ---
Reassessment: PO intake with recent decline averaging 50% on regular diet. Pt with nausea per GI trends, receiving Zofran PRN. Pt shelter admit with fluctuations in PO intake throughout LOS, likely PO intake will increase. Pt working with chief dietitian for food preferences. [facility] 08/27. Will continue to follow. Rec: 1. Continue regular diet 2. Encourage PO intake 3. Monitor need for additional bowel care 4. Wt per rx Addendum: 08/28/18 at [address] Amended: Links added.
[2018-08-28 11:00] VITALS: BP 113/56
--- NOTE | 2018-08-28 18:13 | NUR ---
Problems reprioritized. Patient report given, questions answered & plan of care reviewed with SAGE Silva.
--- NOTE | 2018-08-28 18:13 | NUR ---
Received report from Miri CAZARES pt is awake on RA eating dinner in no apparent distress
[2018-08-28 19:00] VITALS: BP 104/66
[2018-08-28] MEDS: mirtazapine 15mg tablet PO SCH (20:34)
[2018-08-28] MEDS: baclofen 10mg tablet PO SCH (20:35)
--- NOTE | 2018-08-29 06:19 | NUR ---
Gave report to Jackeline CAZARES pt is awake in no apparent distress
[2018-08-29] MEDS: quetiapine 100mg tablet PO SCH ×2 (07:12→21:05)
[2018-08-29] MEDS: levetiracetam 250mg tablet PO SCH ×2 (07:12→21:07)
[2018-08-29] MEDS: clopidogrel 75mg tablet PO SCH (07:12)
[2018-08-29] MEDS: docusate sod 100mg capsule PO SCH ×2 (07:12→21:05)
[2018-08-29] MEDS: enoxaparin 40mg/0.4ml syringe SUBCUT SCH (07:12)
[2018-08-29] MEDS: pantoprazole 40mg Tablet.DR PO SCH (07:12)
[2018-08-29] MEDS: aspirin 81mg tablet.DR PO SCH (07:12)
[2018-08-29] MEDS: divalproex sodium 500mg tablet.DR PO SCH ×2 (07:12→21:06)
[2018-08-29 08:00] VITALS: BP 100/62
[2018-08-29] MEDS: moxifloxacin 0.5% ophthalmic drops 3ml LEFTEYE SCH (08:00)
[2018-08-29] MEDS: LORazepam 0.5 MG tablet PO PRN (14:05)
[2018-08-29 18:00] VITALS: BP 123/75
--- NOTE | 2018-08-29 18:10 | NUR ---
Patient in room [facility]. I have received report from SAGE Viveros and had the opportunity to ask questions and assume patient care.
[2018-08-29] MEDS: mirtazapine 15mg tablet PO SCH (21:05)
[2018-08-29] MEDS: baclofen 10mg tablet PO SCH (21:06)
--- NOTE | 2018-08-30 06:09 | NUR ---
Problems reprioritized. Patient report given, questions answered & plan of care reviewed with SAGE Viveros.
[2018-08-30 07:00] VITALS: BP 107/65
[2018-08-30] MEDS: clopidogrel 75mg tablet PO SCH (09:01)
[2018-08-30] MEDS: pantoprazole 40mg Tablet.DR PO SCH (09:01)
[2018-08-30] MEDS: divalproex sodium 500mg tablet.DR PO SCH ×2 (09:01→22:28)
[2018-08-30] MEDS: aspirin 81mg tablet.DR PO SCH (09:01)
[2018-08-30] MEDS: levetiracetam 250mg tablet PO SCH ×2 (09:01→22:27)
[2018-08-30] MEDS: quetiapine 100mg tablet PO SCH ×2 (09:01→22:26)
[2018-08-30] MEDS: docusate sod 100mg capsule PO SCH ×2 (09:01→11:23)
[2018-08-30] MEDS: enoxaparin 40mg/0.4ml syringe SUBCUT SCH (09:02)
[2018-08-30 20:00] VITALS: BP 100/72
[2018-08-30] MEDS: baclofen 10mg tablet PO SCH (22:26)
[2018-08-30] MEDS: mirtazapine 15mg tablet PO SCH (22:27)
[2018-08-31 07:10] VITALS: BP 113/71
[2018-08-31] MEDS: pantoprazole 40mg Tablet.DR PO SCH (07:55)
[2018-08-31] MEDS: levetiracetam 250mg tablet PO SCH ×2 (07:55→20:52)
[2018-08-31] MEDS: docusate sod 100mg capsule PO SCH ×2 (07:55→20:52)
[2018-08-31] MEDS: clopidogrel 75mg tablet PO SCH (07:55)
[2018-08-31] MEDS: divalproex sodium 500mg tablet.DR PO SCH ×2 (07:55→20:53)
[2018-08-31] MEDS: aspirin 81mg tablet.DR PO SCH (07:55)
[2018-08-31] MEDS: quetiapine 100mg tablet PO SCH ×2 (07:55→20:52)
[2018-08-31] MEDS: enoxaparin 40mg/0.4ml syringe SUBCUT SCH (07:56)
--- NOTE | 2018-08-31 16:05 | NUR ---
Family member "Imelda" and grandchildren at bedside. Case management paged in case they are needing to speak with anyone.
[2018-08-31 18:00] VITALS: BP 149/84
--- NOTE | 2018-08-31 18:09 | NUR ---
Problems reprioritized. Patient report given, questions answered & plan of care reviewed with SAGE Randall.
--- NOTE | 2018-08-31 18:30 | NUR ---
Patient in room [facility] 348. I have received report from Eleanor CAZARES and had the opportunity to ask questions and assume patient care.
[2018-08-31] MEDS: mirtazapine 15mg tablet PO SCH (20:52)
[2018-08-31] MEDS: baclofen 10mg tablet PO SCH (20:52)
--- NOTE | 2018-09-01 06:05 | NUR ---
Patient in room [facility] 348. I have received report from SAGE Randall and had the opportunity to ask questions and assume patient care.
[2018-09-01 06:30] VITALS: BP 120/80
--- NOTE | 2018-09-01 06:33 | NUR ---
Problems reprioritized. Patient report given, questions answered & plan of care reviewed with Shannan RN.
[2018-09-01] MEDS: levetiracetam 250mg tablet PO SCH ×2 (10:33→21:40)
[2018-09-01] MEDS: pantoprazole 40mg Tablet.DR PO SCH (10:33)
[2018-09-01] MEDS: divalproex sodium 500mg tablet.DR PO SCH ×2 (10:34→21:40)
[2018-09-01] MEDS: quetiapine 100mg tablet PO SCH ×2 (10:34→21:40)
[2018-09-01] MEDS: docusate sod 100mg capsule PO SCH ×2 (10:34→21:40)
[2018-09-01] MEDS: clopidogrel 75mg tablet PO SCH (10:34)
[2018-09-01] MEDS: aspirin 81mg tablet.DR PO SCH (10:34)
[2018-09-01] MEDS: enoxaparin 40mg/0.4ml syringe SUBCUT SCH (10:35)
[2018-09-01] MEDS: ondansetron 4mg rapidly disintigrating tab PO PRN (10:37)
[2018-09-01 18:00] VITALS: BP 129/69
--- NOTE | 2018-09-01 18:00 | NUR ---
Problems reprioritized. Patient report given, questions answered & plan of care reviewed with SAGE Randall.
--- NOTE | 2018-09-01 18:30 | NUR ---
Patient in room [facility] 348. I have received report from Shannan CAZARES and had the opportunity to ask questions and assume patient care. Pt currently in bed eating dinner with bed alarm on.
--- NOTE | 2018-09-01 19:00 | NUR ---
Pt wanting to "go home". Sitting on edge of bed and calling out. Refusing to take medications or lie down.
--- NOTE | 2018-09-01 21:35 | NUR ---
Pt has taken meds, requests RN to let MD know that he needs to go home tomorrow "in order to get my house back". Pt would also like PT to work with him to "bend my fingers" on his left hand.
[2018-09-01] MEDS: mirtazapine 15mg tablet PO SCH (21:39)
[2018-09-01] MEDS: baclofen 10mg tablet PO SCH (21:39)
--- NOTE | 2018-09-02 06:05 | NUR ---
Patient in room [facility] 348. I have received report from SAGE Randall and had the opportunity to ask questions and assume patient care.
--- NOTE | 2018-09-02 06:22 | NUR ---
Problems reprioritized. Patient report given, questions answered & plan of care reviewed with Shannan RN. pt in bed, bed alarm is on.
[2018-09-02 06:30] VITALS: BP 125/67
[2018-09-02] MEDS: levetiracetam 250mg tablet PO SCH ×2 (07:13→20:52)
[2018-09-02] MEDS: quetiapine 100mg tablet PO SCH ×2 (07:13→20:52)
[2018-09-02] MEDS: pantoprazole 40mg Tablet.DR PO SCH (07:13)
[2018-09-02] MEDS: aspirin 81mg tablet.DR PO SCH (07:13)
[2018-09-02] MEDS: clopidogrel 75mg tablet PO SCH (07:13)
[2018-09-02] MEDS: enoxaparin 40mg/0.4ml syringe SUBCUT SCH (07:13)
[2018-09-02] MEDS: divalproex sodium 500mg tablet.DR PO SCH ×2 (07:13→20:54)
[2018-09-02] MEDS: docusate sod 100mg capsule PO SCH ×2 (07:13→20:52)
[2018-09-02 07:42] LABS: HEMATOCRIT 36.4 % (42.0-52.0); HEMOGLOBIN 11.9 g/dl (14.0-17.9); MEAN CORPUSCULAR HEMOGLOBIN 31.4 PG (27.0-31.0); MEAN CORPUSCULAR HGB CONC 32.9 g/dL (33.0-36.5); MEAN CORPUSCULAR VOLUME 95.6 FL (78-98); MEAN PLATELET VOLUME 7.4 FL (7.4-10.4); PLATELET COUNT 245 X10'3 (140-440); WHITE BLOOD COUNT 19.9 X10'3 (4.5-11.0)
--- NOTE | 2018-09-02 18:35 | NUR ---
Problems reprioritized. Patient report given, questions answered & plan of care reviewed with SAGE Urrutia.
[2018-09-02 20:00] VITALS: BP 145/79
[2018-09-02] MEDS: baclofen 10mg tablet PO SCH (20:53)
[2018-09-02] MEDS: mirtazapine 15mg tablet PO SCH (20:53)
--- NOTE | 2018-09-03 06:05 | NUR ---
Patient in room [facility]. I have received report from SAGE Urrutia and had the opportunity to ask questions and assume patient care.
--- NOTE | 2018-09-03 06:10 | NUR ---
Problems reprioritized. Patient report given, questions answered & plan of care reviewed with Shannan RN. Patient resting in bed, bed alarm on.
[2018-09-03 06:30] VITALS: BP 105/71
[2018-09-03] MEDS: docusate sod 100mg capsule PO SCH ×2 (08:31→20:45)
[2018-09-03] MEDS: pantoprazole 40mg Tablet.DR PO SCH (08:32)
[2018-09-03] MEDS: levetiracetam 250mg tablet PO SCH ×2 (08:32→20:48)
[2018-09-03] MEDS: clopidogrel 75mg tablet PO SCH (08:32)
[2018-09-03] MEDS: divalproex sodium 500mg tablet.DR PO SCH ×2 (08:33→20:47)
[2018-09-03] MEDS: aspirin 81mg tablet.DR PO SCH (08:33)
[2018-09-03] MEDS: quetiapine 100mg tablet PO SCH ×2 (08:33→20:47)
[2018-09-03] MEDS: enoxaparin 40mg/0.4ml syringe SUBCUT SCH (08:36)
[2018-09-03 18:00] VITALS: BP 116/68
--- NOTE | 2018-09-03 18:30 | NUR ---
Patient in room [facility] 348. I have received report from Shannan CAZARES and had the opportunity to ask questions and assume patient care.
--- NOTE | 2018-09-03 18:45 | NUR ---
Problems reprioritized. Patient report given, questions answered & plan of care reviewed with SAGE Urrutia.
[2018-09-03] MEDS: mirtazapine 15mg tablet PO SCH (20:46)
[2018-09-03] MEDS: baclofen 10mg tablet PO SCH (20:46)
--- NOTE | 2018-09-04 06:40 | NUR ---
Patient in room [facility]. I have received report from SAGE Riley and had the opportunity to ask questions and assume patient care.
--- NOTE | 2018-09-04 06:46 | NUR ---
Problems reprioritized. Patient report given, questions answered & plan of care reviewed with Radha CAZARES.
[2018-09-04 08:00] VITALS: BP 108/64
[2018-09-04] MEDS: enoxaparin 40mg/0.4ml syringe SUBCUT SCH (08:40)
[2018-09-04] MEDS: clopidogrel 75mg tablet PO SCH (08:41)
[2018-09-04] MEDS: levetiracetam 250mg tablet PO SCH ×2 (08:41→21:07)
[2018-09-04] MEDS: aspirin 81mg tablet.DR PO SCH (08:41)
[2018-09-04] MEDS: pantoprazole 40mg Tablet.DR PO SCH (08:41)
[2018-09-04] MEDS: docusate sod 100mg capsule PO SCH ×2 (08:42→21:07)
[2018-09-04] MEDS: divalproex sodium 500mg tablet.DR PO SCH ×2 (08:42→21:07)
[2018-09-04] MEDS: quetiapine 100mg tablet PO SCH ×2 (08:42→21:07)
--- NOTE | 2018-09-04 10:45 | NUR ---
Reassessment: Pt continues with 50-100% PO intake likely meeting nutrient needs. [facility] 09/03. Pt continues awaiting placement. Will continue to follow. Rec: 1. Continue regular diet 2. Encourage PO intake 3. Monitor need for additional bowel care 4. Wt per rx Addendum: 09/04/18 at [address] Amended: Links added.
--- NOTE | 2018-09-04 12:05 | NUR ---
I have reviewed and agree with all interventions, assessments performed and documented by SAGE Shane.
[2018-09-04 18:00] VITALS: BP 100/53
--- NOTE | 2018-09-04 18:00 | NUR ---
Problems reprioritized. Patient report given, questions answered & plan of care reviewed with Harman.
--- NOTE | 2018-09-04 18:10 | NUR ---
Patient in room [facility] 348. I have received report from Keith, Roque and had the opportunity to ask questions and assume patient care.
[2018-09-04] MEDS: magnesium hydroxide 30ml (MOM) UD suspension PO PRN (18:48)
[2018-09-04] MEDS: mirtazapine 15mg tablet PO SCH (21:07)
[2018-09-04] MEDS: baclofen 10mg tablet PO SCH (21:07)
--- NOTE | 2018-09-05 06:05 | NUR ---
Problems reprioritized. Patient report given, questions answered & plan of care reviewed with SAGE Edgar.
[2018-09-05 07:00] VITALS: BP 132/79
[2018-09-05] MEDS: levetiracetam 250mg tablet PO SCH ×2 (08:12→21:11)
[2018-09-05] MEDS: clopidogrel 75mg tablet PO SCH (08:12)
[2018-09-05] MEDS: pantoprazole 40mg Tablet.DR PO SCH (08:12)
[2018-09-05] MEDS: divalproex sodium 500mg tablet.DR PO SCH ×2 (08:12→21:10)
[2018-09-05] MEDS: aspirin 81mg tablet.DR PO SCH (08:13)
[2018-09-05] MEDS: oxyCODONE/APAP 10/325mg tablet PO PRN (08:13)
[2018-09-05] MEDS: quetiapine 100mg tablet PO SCH ×2 (08:13→21:10)
[2018-09-05] MEDS: enoxaparin 40mg/0.4ml syringe SUBCUT SCH (08:13)
[2018-09-05] MEDS: docusate sod 100mg capsule PO SCH ×2 (08:14→21:10)
[2018-09-05 18:00] VITALS: BP 128/68
--- NOTE | 2018-09-05 18:08 | NUR ---
Patient in room [facility] 348. I have received report from SAGE Edgar and had the opportunity to ask questions and assume patient care.
[2018-09-05] MEDS: mirtazapine 15mg tablet PO SCH (21:10)
[2018-09-05] MEDS: baclofen 10mg tablet PO SCH (21:10)
--- NOTE | 2018-09-06 06:29 | NUR ---
Problems reprioritized. Patient report given, questions answered & plan of care reviewed with SAGE Echols.
--- NOTE | 2018-09-06 06:30 | NUR ---
Patient in room [facility] 348. I have received report from Thuan CAZARES and had the opportunity to ask questions and assume patient care.
[2018-09-06 07:36] VITALS: BP 135/68
[2018-09-06] MEDS: enoxaparin 40mg/0.4ml syringe SUBCUT SCH (08:00)
[2018-09-06] MEDS: pantoprazole 40mg Tablet.DR PO SCH (09:33)
[2018-09-06] MEDS: quetiapine 100mg tablet PO SCH ×2 (09:33→20:26)
[2018-09-06] MEDS: clopidogrel 75mg tablet PO SCH (09:34)
[2018-09-06] MEDS: levetiracetam 250mg tablet PO SCH ×2 (09:34→20:26)
[2018-09-06] MEDS: aspirin 81mg tablet.DR PO SCH (09:35)
[2018-09-06] MEDS: divalproex sodium 500mg tablet.DR PO SCH ×2 (09:35→20:28)
[2018-09-06] MEDS: docusate sod 100mg capsule PO SCH ×2 (09:35→20:28)
[2018-09-06 18:00] VITALS: BP 141/80
--- NOTE | 2018-09-06 18:00 | NUR ---
Patient in room [facility] 348. I have received report from SAGE Echols and had the opportunity to ask questions and assume patient care.
--- NOTE | 2018-09-06 18:30 | NUR ---
Problems reprioritized. Patient report given, questions answered & plan of care reviewed with Thuan CAZARES.
[2018-09-06] MEDS: baclofen 10mg tablet PO SCH (20:27)
[2018-09-06] MEDS: mirtazapine 15mg tablet PO SCH (20:27)
[2018-09-07 06:30] VITALS: BP_SYST 126; BP_SYST 93; BP_DIAS 59; BP_DIAS 60
--- NOTE | 2018-09-07 06:32 | NUR ---
Patient in room [facility] 348. I have received report from Thuan and had the opportunity to ask questions and assume patient care.
--- NOTE | 2018-09-07 06:43 | NUR ---
Problems reprioritized. Patient report given, questions answered & plan of care reviewed with SAGE Drummond.
[2018-09-07] MEDS: clopidogrel 75mg tablet PO SCH (07:40)
[2018-09-07] MEDS: divalproex sodium 500mg tablet.DR PO SCH ×2 (07:40→20:19)
[2018-09-07] MEDS: aspirin 81mg tablet.DR PO SCH (07:40)
[2018-09-07] MEDS: enoxaparin 40mg/0.4ml syringe SUBCUT SCH (07:40)
[2018-09-07] MEDS: levetiracetam 250mg tablet PO SCH ×2 (07:40→20:19)
[2018-09-07] MEDS: docusate sod 100mg capsule PO SCH ×2 (07:40→20:19)
[2018-09-07] MEDS: pantoprazole 40mg Tablet.DR PO SCH (07:40)
[2018-09-07] MEDS: quetiapine 100mg tablet PO SCH ×2 (07:40→20:19)
[2018-09-07 18:00] VITALS: BP 113/69
--- NOTE | 2018-09-07 18:05 | NUR ---
Patient in room [facility] 348. I have received report from Hoda CAZARES and had the opportunity to ask questions and assume patient care.
--- NOTE | 2018-09-07 18:24 | NUR ---
Problems reprioritized. Patient report given, questions answered & plan of care reviewed with Kirsty.
[2018-09-07] MEDS: baclofen 10mg tablet PO SCH (20:19)
[2018-09-07] MEDS: mirtazapine 15mg tablet PO SCH (20:19)
--- NOTE | 2018-09-08 00:06 | NUR ---
Problems reprioritized. Patient report given, questions answered & plan of care reviewed with Marifer CAZARES.
--- NOTE | 2018-09-08 06:25 | NUR ---
Patient in room [facility]. I have received report from SAGE Caicedo and had the opportunity to ask questions and assume patient care.
[2018-09-08 06:30] VITALS: BP 112/67
[2018-09-08] MEDS: enoxaparin 40mg/0.4ml syringe SUBCUT SCH (08:00)
[2018-09-08] MEDS: quetiapine 100mg tablet PO SCH ×2 (08:37→20:46)
[2018-09-08] MEDS: clopidogrel 75mg tablet PO SCH (08:38)
[2018-09-08] MEDS: docusate sod 100mg capsule PO SCH ×2 (08:38→20:46)
[2018-09-08] MEDS: divalproex sodium 500mg tablet.DR PO SCH ×2 (08:38→20:46)
[2018-09-08] MEDS: levetiracetam 250mg tablet PO SCH ×2 (08:38→20:46)
[2018-09-08] MEDS: aspirin 81mg tablet.DR PO SCH (08:38)
[2018-09-08] MEDS: pantoprazole 40mg Tablet.DR PO SCH (08:45)
[2018-09-08 18:00] VITALS: BP 120/68
--- NOTE | 2018-09-08 18:00 | NUR ---
Problems reprioritized. Patient report given, questions answered & plan of care reviewed with SAGE Randall.
--- NOTE | 2018-09-08 18:25 | NUR ---
Problems reprioritized. Patient report given, questions answered & plan of care reviewed with SAGE Caicedo & SAGE Galo.
--- NOTE | 2018-09-08 18:30 | NUR ---
Patient in room [facility] 348. I have received report from Shannan CAZARES and had the opportunity to ask questions and assume patient care.
[2018-09-08] MEDS: baclofen 10mg tablet PO SCH (20:46)
[2018-09-08] MEDS: mirtazapine 15mg tablet PO SCH (20:46)
--- NOTE | 2018-09-08 22:56 | NUR ---
Pt refuses to drink water when encourage, stating "My piss is clear enough. I don't need to piss anymore." Pt was educated on importance of hydration and dangers to kidneys and other bodily systems from dehydration. Pt stated "My fucking kidneys are fine. I don't care about those damn blood tests. I always pissed fine at home and I drank less there". Will continue to encourage pt to hydrate.
[2018-09-09 05:53] LABS: HEMATOCRIT 34.5 % (42.0-52.0); HEMOGLOBIN 11.6 g/dl (14.0-17.9); MEAN CORPUSCULAR HEMOGLOBIN 31.9 PG (27.0-31.0); MEAN CORPUSCULAR HGB CONC 33.5 g/dL (33.0-36.5); MEAN CORPUSCULAR VOLUME 95.1 FL (78-98); MEAN PLATELET VOLUME 7.6 FL (7.4-10.4); PLATELET COUNT 207 X10'3 (140-440); RED BLOOD COUNT 3.62 X10'6 (4.70-6.10); RED CELL DISTRIBUTION WIDTH 17.3 % (11.5-14.5); WHITE BLOOD COUNT 20.9 X10'3 (4.5-11.0)
--- NOTE | 2018-09-09 06:05 | NUR ---
Problems reprioritized. Patient report given, questions answered & plan of care reviewed with Shannan RN.
--- NOTE | 2018-09-09 06:05 | NUR ---
Patient in room [facility] 348. I have received report from SAGE Randall and had the opportunity to ask questions and assume patient care.
[2018-09-09 06:30] VITALS: BP 107/62
[2018-09-09] MEDS: enoxaparin 40mg/0.4ml syringe SUBCUT SCH (08:00)
[2018-09-09] MEDS: aspirin 81mg tablet.DR PO SCH (08:10)
[2018-09-09] MEDS: divalproex sodium 500mg tablet.DR PO SCH ×2 (08:10→20:44)
[2018-09-09] MEDS: quetiapine 100mg tablet PO SCH ×2 (08:10→20:45)
[2018-09-09] MEDS: pantoprazole 40mg Tablet.DR PO SCH (08:11)
[2018-09-09] MEDS: docusate sod 100mg capsule PO SCH ×2 (08:11→20:45)
[2018-09-09] MEDS: clopidogrel 75mg tablet PO SCH (08:11)
[2018-09-09] MEDS: levetiracetam 250mg tablet PO SCH ×2 (08:11→20:45)
--- NOTE | 2018-09-09 18:10 | NUR ---
Patient in room [facility] 348. I have received report from Shannan CAZARES and had the opportunity to ask questions and assume patient care.
--- NOTE | 2018-09-09 18:25 | NUR ---
Problems reprioritized. Patient report given, questions answered & plan of care reviewed with SAGE Wilcox.
[2018-09-09 20:00] VITALS: BP 130/84
[2018-09-09] MEDS: mirtazapine 15mg tablet PO SCH (20:44)
[2018-09-09] MEDS: baclofen 10mg tablet PO SCH (20:45)
--- NOTE | 2018-09-10 06:10 | NUR ---
Patient in room [facility] 348. I have received report from SAGE Wilcox and had the opportunity to ask questions and assume patient care.
[2018-09-10 06:30] VITALS: BP 129/77
--- NOTE | 2018-09-10 06:39 | NUR ---
Problems reprioritized. Patient report given, questions answered & plan of care reviewed with stacie rn.
[2018-09-10] MEDS: divalproex sodium 500mg tablet.DR PO SCH ×2 (07:26→21:09)
[2018-09-10] MEDS: enoxaparin 40mg/0.4ml syringe SUBCUT SCH (07:27)
[2018-09-10] MEDS: docusate sod 100mg capsule PO SCH ×2 (07:27→21:09)
[2018-09-10] MEDS: levetiracetam 250mg tablet PO SCH ×2 (07:27→21:05)
[2018-09-10] MEDS: aspirin 81mg tablet.DR PO SCH (07:27)
[2018-09-10] MEDS: quetiapine 100mg tablet PO SCH ×2 (07:27→21:08)
[2018-09-10] MEDS: clopidogrel 75mg tablet PO SCH (07:27)
[2018-09-10] MEDS: pantoprazole 40mg Tablet.DR PO SCH (07:27)
[2018-09-10 18:00] VITALS: BP 103/54
--- NOTE | 2018-09-10 18:40 | NUR ---
Problems reprioritized. Patient report given, questions answered & plan of care reviewed with SAGE Hsu.
--- NOTE | 2018-09-10 19:02 | NUR ---
Patient in room [facility] 348. I have received report from SAGE Campbell and had the opportunity to ask questions and assume patient care.
[2018-09-10] MEDS: mirtazapine 15mg tablet PO SCH (21:07)
[2018-09-10] MEDS: baclofen 10mg tablet PO SCH (21:08)
--- NOTE | 2018-09-11 06:15 | NUR ---
Problems reprioritized. Patient report given, questions answered & plan of care reviewed with SAGE Edgar.
[2018-09-11 07:00] VITALS: BP 112/52
[2018-09-11] MEDS: pantoprazole 40mg Tablet.DR PO SCH (07:30)
[2018-09-11] MEDS: quetiapine 100mg tablet PO SCH ×2 (08:00→20:00)
[2018-09-11] MEDS: levetiracetam 250mg tablet PO SCH ×2 (08:00→20:00)
[2018-09-11] MEDS: divalproex sodium 500mg tablet.DR PO SCH ×2 (08:00→20:16)
[2018-09-11] MEDS: enoxaparin 40mg/0.4ml syringe SUBCUT SCH (08:00)
[2018-09-11] MEDS: aspirin 81mg tablet.DR PO SCH (08:00)
[2018-09-11] MEDS: docusate sod 100mg capsule PO SCH ×2 (08:00→20:13)
[2018-09-11] MEDS: clopidogrel 75mg tablet PO SCH (08:00)
--- NOTE | 2018-09-11 09:46 | NUR ---
notified that pt. refused all medications this AM. She went in to assess pt. and said that pt. is stating some depressed comments and she would like a suicide assessment completed. Order a SS consult. No sitter ordered at this time.
--- NOTE | 2018-09-11 09:58 | NUR ---
Reassessment: PO intake continues to fluctuate with 75-100% and some 25%, likely still meeting nutrient needs. Pt continues working with administrative dietitian for food preferences. [facility] 09/09. Will continue to follow. Rec: 1. Continue regular diet 2. Encourage PO intake 3. Monitor need for additional bowel care 4. Wt per rx Addendum: 09/11/18 at [address] Amended: Links added.
--- NOTE | 2018-09-11 10:13 | NUR ---
Spoke to Rosalind VELIZ. She stated that the pt. does not need a sitter at this time but more frequent rounding in order to verbally vent frustrations. Pt. should also have safety/suicide precautions such as no cords or dangerous items in room. Rounded on pt. He is in no dire distress at this moment. Resting although still agitated.
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
[2018-09-11] MEDS: LORazepam 0.5 MG tablet PO PRN (13:14)
--- NOTE | 2018-09-11 18:21 | NUR ---
Patient in room [facility] 348. I have received report from SAGE Edgar and had the opportunity to ask questions and assume patient care.
[2018-09-11 19:00] VITALS: BP 120/71
[2018-09-11] MEDS: baclofen 10mg tablet PO SCH (20:16)
[2018-09-11] MEDS: mirtazapine 15mg tablet PO SCH (20:16)
--- NOTE | 2018-09-12 06:43 | NUR ---
Problems reprioritized. Patient report given, questions answered & plan of care reviewed with SAGE Anaya.
--- NOTE | 2018-09-12 06:52 | NUR ---
Patient in room [facility]. I have received report from SAGE GASTELUM and had the opportunity to ask questions and assume patient care.
[2018-09-12] MEDS: clopidogrel 75mg tablet PO SCH (07:47)
[2018-09-12] MEDS: pantoprazole 40mg Tablet.DR PO SCH (07:47)
[2018-09-12] MEDS: quetiapine 100mg tablet PO SCH ×2 (07:47→21:44)
[2018-09-12] MEDS: levetiracetam 250mg tablet PO SCH ×2 (07:47→21:44)
[2018-09-12] MEDS: divalproex sodium 500mg tablet.DR PO SCH ×2 (07:47→21:44)
[2018-09-12] MEDS: aspirin 81mg tablet.DR PO SCH (07:47)
[2018-09-12] MEDS: docusate sod 100mg capsule PO SCH ×2 (07:47→21:44)
[2018-09-12] MEDS: enoxaparin 40mg/0.4ml syringe SUBCUT SCH (07:49)
--- NOTE | 2018-09-12 18:44 | NUR ---
Problems reprioritized. Patient report given, questions answered & plan of care reviewed with SAGE BARRETO.
--- NOTE | 2018-09-12 18:45 | NUR ---
Patient in room [facility]. I have received report from KARLA CAZARES and had the opportunity to ask questions and assume patient care.
[2018-09-12 20:00] VITALS: BP 152/74
[2018-09-12] MEDS: mirtazapine 15mg tablet PO SCH (21:45)
[2018-09-12] MEDS: baclofen 10mg tablet PO SCH (21:45)
--- NOTE | 2018-09-13 06:30 | NUR ---
Problems reprioritized. Patient report given, questions answered & plan of care reviewed with WESLEY CAZARES.
[2018-09-13 07:00] VITALS: BP 127/75
[2018-09-13] MEDS: enoxaparin 40mg/0.4ml syringe SUBCUT SCH (08:00)
[2018-09-13] MEDS: clopidogrel 75mg tablet PO SCH (10:46)
[2018-09-13] MEDS: levetiracetam 250mg tablet PO SCH ×2 (10:46→22:00)
[2018-09-13] MEDS: aspirin 81mg tablet.DR PO SCH (10:46)
[2018-09-13] MEDS: pantoprazole 40mg Tablet.DR PO SCH (10:46)
[2018-09-13] MEDS: quetiapine 100mg tablet PO SCH ×2 (10:47→22:00)
[2018-09-13] MEDS: docusate sod 100mg capsule PO SCH ×2 (10:47→22:00)
[2018-09-13] MEDS: divalproex sodium 500mg tablet.DR PO SCH ×2 (10:47→22:00)
--- NOTE | 2018-09-13 18:21 | NUR ---
Problems reprioritized. Patient report given, questions answered & plan of care reviewed with SAGE Sheppard.
--- NOTE | 2018-09-13 18:30 | NUR ---
Patient in room [facility] 348. I have received report from WESLEY CAZARES and had the opportunity to ask questions and assume patient care.
[2018-09-13 20:00] VITALS: BP 108/78
[2018-09-13] MEDS: baclofen 10mg tablet PO SCH (21:59)
[2018-09-13] MEDS: mirtazapine 15mg tablet PO SCH (22:00)
[2018-09-14 06:00] VITALS: BP 134/86
--- NOTE | 2018-09-14 06:28 | NUR ---
Problems reprioritized. Patient report given, questions answered & plan of care reviewed with IRENE CAZARES.
--- NOTE | 2018-09-14 06:46 | NUR ---
Patient in room [facility]. I have received report from SAGE Sheppard and had the opportunity to ask questions and assume patient care.
[2018-09-14] MEDS: pantoprazole 40mg Tablet.DR PO SCH (09:08)
[2018-09-14] MEDS: docusate sod 100mg capsule PO SCH ×2 (09:08→21:57)
[2018-09-14] MEDS: divalproex sodium 500mg tablet.DR PO SCH ×2 (09:09→21:58)
[2018-09-14] MEDS: aspirin 81mg tablet.DR PO SCH (09:10)
[2018-09-14] MEDS: quetiapine 100mg tablet PO SCH ×2 (09:10→21:58)
[2018-09-14] MEDS: clopidogrel 75mg tablet PO SCH (09:10)
[2018-09-14] MEDS: levetiracetam 250mg tablet PO SCH ×2 (09:11→21:58)
[2018-09-14] MEDS: enoxaparin 40mg/0.4ml syringe SUBCUT SCH (09:31)
--- NOTE | 2018-09-14 18:21 | NUR ---
Problems reprioritized. Patient report given, questions answered & plan of care reviewed with SAGE Sheppard.
--- NOTE | 2018-09-14 18:30 | NUR ---
Patient in room [facility]. I have received report from IRENE CAZARES and had the opportunity to ask questions and assume patient care.
[2018-09-14 20:00] VITALS: BP 111/51
[2018-09-14] MEDS: mirtazapine 15mg tablet PO SCH (21:57)
[2018-09-14] MEDS: baclofen 10mg tablet PO SCH (21:59)
--- NOTE | 2018-09-15 06:30 | NUR ---
Problems reprioritized. Patient report given, questions answered & plan of care reviewed with IRENE CAZARES.
--- NOTE | 2018-09-15 06:52 | NUR ---
Patient in room [facility]. I have received report from SAGE Sheppard and had the opportunity to ask questions and assume patient care.
[2018-09-15 07:23] VITALS: BP 128/81
[2018-09-15] MEDS: enoxaparin 40mg/0.4ml syringe SUBCUT SCH (08:00)
[2018-09-15] MEDS: divalproex sodium 500mg tablet.DR PO SCH ×2 (08:37→20:44)
[2018-09-15] MEDS: quetiapine 100mg tablet PO SCH ×2 (08:37→20:44)
[2018-09-15] MEDS: levetiracetam 250mg tablet PO SCH ×2 (08:37→20:44)
[2018-09-15] MEDS: clopidogrel 75mg tablet PO SCH (08:38)
[2018-09-15] MEDS: pantoprazole 40mg Tablet.DR PO SCH (08:38)
[2018-09-15] MEDS: aspirin 81mg tablet.DR PO SCH (08:38)
[2018-09-15] MEDS: docusate sod 100mg capsule PO SCH ×2 (08:38→20:00)
--- NOTE | 2018-09-15 18:06 | NUR ---
Problems reprioritized. Patient report given, questions answered & plan of care reviewed with SAGE Silva.
--- NOTE | 2018-09-15 18:26 | NUR ---
Received report from Radha CAZARES pt is awake and alert eating dinner on RA requesting his water bottle be open
[2018-09-15 19:30] VITALS: BP 133/76
[2018-09-15] MEDS: mirtazapine 15mg tablet PO SCH (20:44)
[2018-09-15] MEDS: baclofen 10mg tablet PO SCH (20:56)
--- NOTE | 2018-09-15 21:32 | NUR ---
pt requested to see social service assistant in the morning
--- NOTE | 2018-09-16 06:02 | NUR ---
Problems reprioritized. Patient report given, questions answered & plan of care reviewed with Radha CAZARES.
--- NOTE | 2018-09-16 06:21 | NUR ---
Patient in room [facility] 348. I have received report from SAGE Silva and had the opportunity to ask questions and assume patient care.
--- NOTE | 2018-09-16 06:30 | NUR ---
Patient in room [facility] 348. I have received report from Shira CAZARES and had the opportunity to ask questions and assume patient care.
[2018-09-16] MEDS: docusate sod 100mg capsule PO SCH ×2 (07:29→20:43)
[2018-09-16 07:30] VITALS: BP 119/70
[2018-09-16] MEDS: pantoprazole 40mg Tablet.DR PO SCH (07:30)
[2018-09-16] MEDS: clopidogrel 75mg tablet PO SCH (07:30)
[2018-09-16] MEDS: enoxaparin 40mg/0.4ml syringe SUBCUT SCH ×2 (07:32→08:17)
[2018-09-16] MEDS: aspirin 81mg tablet.DR PO SCH (07:33)
[2018-09-16] MEDS: divalproex sodium 500mg tablet.DR PO SCH ×2 (07:35→20:48)
[2018-09-16] MEDS: levetiracetam 250mg tablet PO SCH ×3 (07:40→20:43)
[2018-09-16] MEDS: quetiapine 100mg tablet PO SCH ×3 (07:40→20:44)
--- NOTE | 2018-09-16 09:30 | NUR ---
Patient in room [facility]. I have received report from Ghada CAZARES and had the opportunity to ask questions and assume patient care.
--- NOTE | 2018-09-16 09:47 | NUR ---
Problems reprioritized. Patient report given, questions answered & plan of care reviewed with Leilani CAZARES. Patient states understanding of change of RN at this time.
[2018-09-16 10:09] LABS: HEMATOCRIT 43.5 % (42.0-52.0); HEMOGLOBIN 14.2 g/dl (14.0-17.9); MEAN CORPUSCULAR HEMOGLOBIN 31.8 PG (27.0-31.0); MEAN CORPUSCULAR HGB CONC 32.5 g/dL (33.0-36.5); MEAN CORPUSCULAR VOLUME 97.7 FL (78-98); MEAN PLATELET VOLUME 7.8 FL (7.4-10.4); PLATELET COUNT 235 X10'3 (140-440); RED BLOOD COUNT 4.46 X10'6 (4.70-6.10); RED CELL DISTRIBUTION WIDTH 17.4 % (11.5-14.5)
[2018-09-16 10:15] LABS: WHITE BLOOD COUNT 27.5 X10'3 (4.5-11.0)
--- NOTE | 2018-09-16 18:10 | NUR ---
Patient in room [facility] 348. I have received report from Leilani Kent Rn and had the opportunity to ask questions and assume patient care. Addendum: 09/16/18 at 1811 by Nellie Sun RN Amended: Links added.
--- NOTE | 2018-09-16 18:21 | NUR ---
Problems reprioritized. Patient report given, questions answered & plan of care reviewed with Janis CAZARES.
[2018-09-16 20:00] VITALS: BP 107/71
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
[2018-09-16] MEDS: baclofen 10mg tablet PO SCH (20:42)
[2018-09-16] MEDS: mirtazapine 15mg tablet PO SCH (20:44)
--- NOTE | 2018-09-16 22:09 | NUR ---
void 100 cc of urine denies pain no complaints.
--- NOTE | 2018-09-17 00:05 | NUR ---
resting eyes closed without changes.
--- NOTE | 2018-09-17 02:15 | NUR ---
awake finishing the end of an old war movie. urinal emptied of cl yellow urine.
--- NOTE | 2018-09-17 03:30 | NUR ---
pt inc of urine and smear of stool. skin care done and linen changed. pt pulled up in bed and bed alarm put back on.
--- NOTE | 2018-09-17 04:05 | NUR ---
pt awake and no complaints at this time.
--- NOTE | 2018-09-17 05:28 | NUR ---
bed alarm on resting eyes closed without s&s of distress at this time.
--- NOTE | 2018-09-17 06:11 | NUR ---
Problems reprioritized. Patient report given, questions answered & plan of care reviewed with Opal Calderon. Addendum: 09/17/18 at 0611 by Nellie Sun RN Amended: Links added.
--- NOTE | 2018-09-17 06:36 | NUR ---
Patient in room [facility]. I have received report from SAGE Ballard and had the opportunity to ask questions and assume patient care.
[2018-09-17 07:00] VITALS: BP 121/69
[2018-09-17] MEDS: divalproex sodium 500mg tablet.DR PO SCH ×2 (08:16→20:48)
[2018-09-17] MEDS: pantoprazole 40mg Tablet.DR PO SCH (08:16)
[2018-09-17] MEDS: aspirin 81mg tablet.DR PO SCH (08:16)
[2018-09-17] MEDS: quetiapine 100mg tablet PO SCH ×2 (08:17→20:49)
[2018-09-17] MEDS: levetiracetam 250mg tablet PO SCH ×2 (08:17→20:48)
[2018-09-17] MEDS: clopidogrel 75mg tablet PO SCH (08:17)
[2018-09-17] MEDS: docusate sod 100mg capsule PO SCH ×2 (08:19→20:49)
[2018-09-17] MEDS: enoxaparin 40mg/0.4ml syringe SUBCUT SCH (08:21)
--- NOTE | 2018-09-17 18:18 | NUR ---
Problems reprioritized. Patient report given, questions answered & plan of care reviewed with SAGE Ballard.
--- NOTE | 2018-09-17 18:21 | NUR ---
Patient in room [facility] 348. I have received report from Opal Calderon and had the opportunity to ask questions and assume patient care. Addendum: 09/17/18 at 1822 by Nellie Sun RN Amended: Links added.
[2018-09-17 20:00] VITALS: BP 117/68
--- NOTE | 2018-09-17 20:30 | NUR ---
pt took hs meds without problems with ice cream then gave him a pepsi float. had that.
[2018-09-17] MEDS: baclofen 10mg tablet PO SCH (20:47)
[2018-09-17] MEDS: mirtazapine 15mg tablet PO SCH (20:49)
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
--- NOTE | 2018-09-17 23:20 | NUR ---
watching movie no complaints.
--- NOTE | 2018-09-18 00:21 | NUR ---
pt resting eyes closed without s&s of distress at this time.
--- NOTE | 2018-09-18 02:20 | NUR ---
pt resting eyesclosed without changes at this time.
--- NOTE | 2018-09-18 04:00 | NUR ---
awoke inc of urine skin care done and pt turned and repositioned in bed to comfort.
--- NOTE | 2018-09-18 05:13 | NUR ---
pt snoring no s&s of distress at this time.
--- NOTE | 2018-09-18 06:55 | NUR ---
Problems reprioritized. Patient report given, questions answered & plan of care reviewed with Helena Calderon. Addendum: 09/18/18 at 0656 by Nellie Sun RN Amended: Links added.
--- NOTE | 2018-09-18 07:02 | NUR ---
Patient in room [facility] 348. I have received report from Veena CAZARES and had the opportunity to ask questions and assume patient care.
[2018-09-18] MEDS: docusate sod 100mg capsule PO SCH ×2 (07:43→20:39)
[2018-09-18] MEDS: aspirin 81mg tablet.DR PO SCH (07:43)
[2018-09-18] MEDS: divalproex sodium 500mg tablet.DR PO SCH ×2 (07:43→20:40)
[2018-09-18] MEDS: quetiapine 100mg tablet PO SCH ×2 (07:43→20:40)
[2018-09-18] MEDS: clopidogrel 75mg tablet PO SCH (07:43)
[2018-09-18] MEDS: pantoprazole 40mg Tablet.DR PO SCH (07:44)
[2018-09-18] MEDS: levetiracetam 250mg tablet PO SCH ×2 (07:44→20:39)
[2018-09-18] MEDS: enoxaparin 40mg/0.4ml syringe SUBCUT SCH (07:44)
[2018-09-18 08:00] VITALS: BP 140/89
--- NOTE | 2018-09-18 09:32 | NUR ---
Reassessment: PO intake 50-100% of meals and receiving food preferences through judge clerk, likely meeting nutrient needs. Noted that diet order got completed, d/w RN to order diet. [facility] 09/17. Will continue to follow. Rec: 1. Continue regular diet 2. Encourage PO intake; honor food preferences 3. Monitor need for additional bowel care 4. Wt per rx Addendum: 09/18/18 at [address] Amended: Links added.
--- NOTE | 2018-09-18 17:53 | NUR ---
patient showered and walked x2. reluctant to walk again. Agitated at 1600hrs. But after spending time in room with patient , patient settled down and rested more.
[2018-09-18 18:00] VITALS: BP 116/70
--- NOTE | 2018-09-18 18:06 | NUR ---
Problems reprioritized. Patient report given, questions answered & plan of care reviewed with Kirsty CAZARES.
--- NOTE | 2018-09-18 18:10 | NUR ---
Patient in room [facility] 348. I have received report from Helena CAZARES and had the opportunity to ask questions and assume patient care.
[2018-09-18] MEDS: baclofen 10mg tablet PO SCH (20:39)
[2018-09-18] MEDS: mirtazapine 15mg tablet PO SCH (20:39)
--- NOTE | 2018-09-19 06:16 | NUR ---
Problems reprioritized. Patient report given, questions answered & plan of care reviewed with Onesimo RN.
--- NOTE | 2018-09-19 07:14 | NUR ---
Patient in room [facility]. I have received report from Kirsty CAZARES and had the opportunity to ask questions and assume patient care.
[2018-09-19 07:21] VITALS: BP 139/70
[2018-09-19] MEDS: divalproex sodium 500mg tablet.DR PO SCH ×2 (09:00→20:52)
[2018-09-19] MEDS: clopidogrel 75mg tablet PO SCH (09:01)
[2018-09-19] MEDS: pantoprazole 40mg Tablet.DR PO SCH (09:01)
[2018-09-19] MEDS: levetiracetam 250mg tablet PO SCH ×2 (09:01→20:53)
[2018-09-19] MEDS: quetiapine 100mg tablet PO SCH ×2 (09:01→20:53)
[2018-09-19] MEDS: aspirin 81mg tablet.DR PO SCH (09:02)
[2018-09-19] MEDS: docusate sod 100mg capsule PO SCH ×2 (09:02→20:54)
[2018-09-19] MEDS: enoxaparin 40mg/0.4ml syringe SUBCUT SCH (09:03)
--- NOTE | 2018-09-19 18:17 | NUR ---
Patient in room [facility] 348. I have received report from SAGE Echols and had the opportunity to ask questions and assume patient care. Addendum: 09/19/18 at 1818 by Chica Brooks RN Amended: Links added.
--- NOTE | 2018-09-19 18:30 | NUR ---
Problems reprioritized. Patient report given, questions answered & plan of care reviewed with Ayala Martin RN.
[2018-09-19 20:00] VITALS: BP 130/70
[2018-09-19] MEDS: baclofen 10mg tablet PO SCH (20:53)
[2018-09-19] MEDS: mirtazapine 15mg tablet PO SCH (20:53)
--- NOTE | 2018-09-20 06:33 | NUR ---
Problems reprioritized. Patient report given, questions answered & plan of care reviewed with SAGE Echols.
[2018-09-20 07:30] VITALS: BP 98/61
[2018-09-20] MEDS: pantoprazole 40mg Tablet.DR PO SCH (07:30)
[2018-09-20] MEDS: docusate sod 100mg capsule PO SCH ×2 (08:00→20:18)
[2018-09-20] MEDS: aspirin 81mg tablet.DR PO SCH (08:00)
[2018-09-20] MEDS: enoxaparin 40mg/0.4ml syringe SUBCUT SCH (08:00)
[2018-09-20] MEDS: quetiapine 100mg tablet PO SCH ×2 (08:00→20:18)
[2018-09-20] MEDS: clopidogrel 75mg tablet PO SCH (08:00)
[2018-09-20] MEDS: divalproex sodium 500mg tablet.DR PO SCH ×2 (08:00→20:18)
[2018-09-20] MEDS: levetiracetam 250mg tablet PO SCH ×2 (08:00→20:19)
--- NOTE | 2018-09-20 09:00 | NUR ---
Patient refused all morning medications, resource nurse attempted 4 times to administer medications and patient still refused to take any of medication.
--- NOTE | 2018-09-20 18:30 | NUR ---
Problems reprioritized. Patient report given, questions answered & plan of care reviewed with Thuan CAZARES.
--- NOTE | 2018-09-20 18:40 | NUR ---
Patient in room [facility] 348. I have received report from SAGE Echols and had the opportunity to ask questions and assume patient care.
[2018-09-20 20:00] VITALS: BP 122/76
[2018-09-20] MEDS: mirtazapine 15mg tablet PO SCH (20:18)
[2018-09-20] MEDS: baclofen 10mg tablet PO SCH (20:19)
--- NOTE | 2018-09-21 06:12 | NUR ---
Problems reprioritized. Patient report given, questions answered & plan of care reviewed with SAGE Carrillo.
--- NOTE | 2018-09-21 06:20 | NUR ---
Patient in room [facility] 348. I have received report from SAGE Larose and had the opportunity to ask questions and assume patient care.
[2018-09-21] MEDS: pantoprazole 40mg Tablet.DR PO SCH (07:30)
[2018-09-21] MEDS: enoxaparin 40mg/0.4ml syringe SUBCUT SCH (08:00)
[2018-09-21] MEDS: levetiracetam 250mg tablet PO SCH ×2 (09:43→20:00)
[2018-09-21] MEDS: quetiapine 100mg tablet PO SCH ×2 (09:43→20:00)
[2018-09-21] MEDS: clopidogrel 75mg tablet PO SCH (09:44)
[2018-09-21] MEDS: divalproex sodium 500mg tablet.DR PO SCH ×2 (09:47→21:20)
[2018-09-21] MEDS: docusate sod 100mg capsule PO SCH ×2 (10:31→21:21)
[2018-09-21] MEDS: aspirin 81mg tablet.DR PO SCH (10:31)
[2018-09-21 12:01] VITALS: BP 110/69
[2018-09-21 18:00] VITALS: BP 104/67
--- NOTE | 2018-09-21 18:00 | NUR ---
Patient became agitated and security had to be called after his son visited and told him that he could go home whenever he wanted. The patient eventually calmed down and is staying in bed.
--- NOTE | 2018-09-21 18:30 | NUR ---
Patient in room [facility] 348. I have received report from Lorena CAZARES and had the opportunity to ask questions and assume patient care. Patient sitting in bed with food at bedside, security here but patient appears to be less agitated. Will continue to monitor.
--- NOTE | 2018-09-21 18:35 | NUR ---
Problems reprioritized. Patient report given, questions answered & plan of care reviewed with SAGE Urrutia.
[2018-09-21] MEDS: baclofen 10mg tablet PO SCH (21:00)
[2018-09-21] MEDS: mirtazapine 15mg tablet PO SCH (21:20)
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
[2018-09-22 06:30] VITALS: BP 125/72
--- NOTE | 2018-09-22 06:35 | NUR ---
Patient in room [facility]. I have received report from SAGE Urrutia and had the opportunity to ask questions and assume patient care.
--- NOTE | 2018-09-22 07:02 | NUR ---
Problems reprioritized. Patient report given, questions answered & plan of care reviewed with Shannan RN.
[2018-09-22] MEDS: pantoprazole 40mg Tablet.DR PO SCH (07:30)
[2018-09-22] MEDS: enoxaparin 40mg/0.4ml syringe SUBCUT SCH (08:00)
[2018-09-22] MEDS: divalproex sodium 500mg tablet.DR PO SCH ×2 (08:00→21:30)
[2018-09-22] MEDS: clopidogrel 75mg tablet PO SCH (08:00)
[2018-09-22] MEDS: levetiracetam 250mg tablet PO SCH ×2 (08:00→21:31)
[2018-09-22] MEDS: quetiapine 100mg tablet PO SCH ×2 (08:00→21:32)
[2018-09-22] MEDS: aspirin 81mg tablet.DR PO SCH (08:00)
[2018-09-22] MEDS: docusate sod 100mg capsule PO SCH ×2 (08:00→21:32)
--- NOTE | 2018-09-22 18:20 | NUR ---
Problems reprioritized. Patient report given, questions answered & plan of care reviewed with SAGE Urrutia.
[2018-09-22 19:00] VITALS: BP 116/69
[2018-09-22] MEDS: baclofen 10mg tablet PO SCH (21:00)
[2018-09-22] MEDS: mirtazapine 15mg tablet PO SCH (21:34)
[2018-09-23 06:04] LABS: HEMATOCRIT 37.2 % (42.0-52.0); HEMOGLOBIN 12.5 g/dl (14.0-17.9); MEAN CORPUSCULAR HEMOGLOBIN 31.9 PG (27.0-31.0); MEAN CORPUSCULAR HGB CONC 33.5 g/dL (33.0-36.5); MEAN CORPUSCULAR VOLUME 95.3 FL (78-98); MEAN PLATELET VOLUME 7.9 FL (7.4-10.4); PLATELET COUNT 205 X10'3 (140-440); RED BLOOD COUNT 3.91 X10'6 (4.70-6.10); RED CELL DISTRIBUTION WIDTH 16.8 % (11.5-14.5); WHITE BLOOD COUNT 20.5 X10'3 (4.5-11.0)
--- NOTE | 2018-09-23 06:35 | NUR ---
Patient in room [facility]. I have received report from Ghada CAZARES and had the opportunity to ask questions and assume patient care.
--- NOTE | 2018-09-23 07:01 | NUR ---
Problems reprioritized. Patient report given, questions answered & plan of care reviewed with Grace CAZARES.
[2018-09-23 07:12] VITALS: BP 115/69
[2018-09-23] MEDS: enoxaparin 40mg/0.4ml syringe SUBCUT SCH (08:00)
[2018-09-23] MEDS: levetiracetam 250mg tablet PO SCH ×2 (08:52→21:15)
[2018-09-23] MEDS: aspirin 81mg tablet.DR PO SCH (08:53)
[2018-09-23] MEDS: clopidogrel 75mg tablet PO SCH (08:53)
[2018-09-23] MEDS: docusate sod 100mg capsule PO SCH ×2 (08:53→21:15)
[2018-09-23] MEDS: quetiapine 100mg tablet PO SCH ×2 (08:53→21:15)
[2018-09-23] MEDS: divalproex sodium 500mg tablet.DR PO SCH ×2 (08:53→21:14)
[2018-09-23] MEDS: pantoprazole 40mg Tablet.DR PO SCH (08:58)
--- NOTE | 2018-09-23 18:05 | NUR ---
Patient in room [facility]. I have received report from Grace CAZARES and had the opportunity to ask questions and assume patient care.
--- NOTE | 2018-09-23 18:26 | NUR ---
Problems reprioritized. Patient report given, questions answered & plan of care reviewed with Brenden CAZARES.
[2018-09-23 20:00] VITALS: BP 113/76
[2018-09-23] MEDS: mirtazapine 15mg tablet PO SCH (21:15)
[2018-09-23] MEDS: baclofen 10mg tablet PO SCH (21:15)
--- NOTE | 2018-09-24 06:08 | NUR ---
Patient in room [facility] 348. I have received report from Brenden CAZARES and had the opportunity to ask questions and assume patient care.
--- NOTE | 2018-09-24 06:24 | NUR ---
Problems reprioritized. Patient report given, questions answered & plan of care reviewed with Grace CAZARES.
[2018-09-24 08:00] VITALS: BP 120/65
[2018-09-24] MEDS: enoxaparin 40mg/0.4ml syringe SUBCUT SCH (08:00)
[2018-09-24] MEDS: quetiapine 100mg tablet PO SCH ×2 (08:37→22:21)
[2018-09-24] MEDS: divalproex sodium 500mg tablet.DR PO SCH ×2 (08:37→22:21)
[2018-09-24] MEDS: aspirin 81mg tablet.DR PO SCH (08:38)
[2018-09-24] MEDS: docusate sod 100mg capsule PO SCH ×2 (08:38→22:21)
[2018-09-24] MEDS: clopidogrel 75mg tablet PO SCH (08:38)
[2018-09-24] MEDS: levetiracetam 250mg tablet PO SCH ×2 (08:38→22:21)
[2018-09-24] MEDS: pantoprazole 40mg Tablet.DR PO SCH (08:38)
[2018-09-24] MEDS: oxyCODONE/APAP 10/325mg tablet PO PRN (10:04)
--- NOTE | 2018-09-24 18:13 | NUR ---
Problems reprioritized. Patient report given, questions answered & plan of care reviewed with Lianne CAZARES.
[2018-09-24 20:00] VITALS: BP 111/70
[2018-09-24] MEDS: mirtazapine 15mg tablet PO SCH (22:21)
[2018-09-24] MEDS: baclofen 10mg tablet PO SCH (22:21)
[2018-09-25 06:55] VITALS: BP 104/62
[2018-09-25] MEDS: levetiracetam 250mg tablet PO SCH ×2 (07:42→19:28)
[2018-09-25] MEDS: clopidogrel 75mg tablet PO SCH (07:42)
[2018-09-25] MEDS: aspirin 81mg tablet.DR PO SCH (07:42)
[2018-09-25] MEDS: quetiapine 100mg tablet PO SCH ×2 (07:43→19:29)
[2018-09-25] MEDS: divalproex sodium 500mg tablet.DR PO SCH ×2 (07:43→19:29)
[2018-09-25] MEDS: enoxaparin 40mg/0.4ml syringe SUBCUT SCH (07:43)
[2018-09-25] MEDS: pantoprazole 40mg Tablet.DR PO SCH (07:43)
[2018-09-25] MEDS: docusate sod 100mg capsule PO SCH ×2 (07:43→19:29)
--- NOTE | 2018-09-25 11:43 | NUR ---
Reassessment: PO intake continues to fluctuate with 75-100% and occasionally 50-75% and documented with refusal of dinner 09/21 and 09/22. Pt still meeting nutrient needs and dietetic intern continues working with pt for food preferences. No recent changes in weight. [facility] 09/24. Will continue to follow per LOS protocol. Rec: 1. Continue regular diet 2. Encourage PO intake; honor food preferences 3. Monitor need for additional bowel care 4. Wt per rx Addendum: 09/25/18 at [address] Amended: Links added.
--- NOTE | 2018-09-25 18:37 | NUR ---
Pt. sitting up eating dinner, comfortable in bed. Gave report to Christina CAZARES.
--- NOTE | 2018-09-25 18:38 | NUR ---
Patient in room [facility]. I have received report from Tala CAZARES and had the opportunity to ask questions and assume patient care.
[2018-09-25] MEDS: baclofen 10mg tablet PO SCH (19:28)
[2018-09-25] MEDS: mirtazapine 15mg tablet PO SCH (19:29)
[2018-09-25 20:00] VITALS: BP 113/62
--- NOTE | 2018-09-26 06:38 | NUR ---
Problems reprioritized. Patient report given, questions answered & plan of care reviewed with Helena CAZARES.
--- NOTE | 2018-09-26 06:42 | NUR ---
Patient in room [facility] 348. I have received report from prosper myers and had the opportunity to ask questions and assume patient care.
--- NOTE | 2018-09-26 07:00 | NUR ---
PATIENT AGITATED THIS AM REFUSED MEDS.
[2018-09-26 08:00] VITALS: BP 118/63
[2018-09-26] MEDS: enoxaparin 40mg/0.4ml syringe SUBCUT SCH (08:00)
[2018-09-26] MEDS: quetiapine 100mg tablet PO SCH ×2 (09:03→19:26)
[2018-09-26] MEDS: levetiracetam 250mg tablet PO SCH ×2 (09:04→19:26)
[2018-09-26] MEDS: divalproex sodium 500mg tablet.DR PO SCH ×2 (09:04→19:26)
[2018-09-26] MEDS: docusate sod 100mg capsule PO SCH ×2 (09:05→19:27)
[2018-09-26] MEDS: aspirin 81mg tablet.DR PO SCH (09:05)
[2018-09-26] MEDS: clopidogrel 75mg tablet PO SCH (09:05)
[2018-09-26] MEDS: pantoprazole 40mg Tablet.DR PO SCH (09:05)
--- NOTE | 2018-09-26 10:15 | NUR ---
Grace RN was able to administer meds. patient ambulated x1
--- NOTE | 2018-09-26 18:41 | NUR ---
Problems reprioritized. Patient report given, questions answered & plan of care reviewed with prosper CAZARES.
--- NOTE | 2018-09-26 18:48 | NUR ---
Patient in room [facility] 348. I have received report from Helena CAZARES and had the opportunity to ask questions and assume patient care.
[2018-09-26] MEDS: mirtazapine 15mg tablet PO SCH (19:25)
[2018-09-26 20:00] VITALS: BP 116/73
--- NOTE | 2018-09-27 06:17 | NUR ---
Patient in room [facility] 348. I have received report from prosper CAZARES and had the opportunity to ask questions and assume patient care.
--- NOTE | 2018-09-27 06:28 | NUR ---
Problems reprioritized. Patient report given, questions answered & plan of care reviewed with Helena CAZARES.
[2018-09-27 07:00] VITALS: BP 115/70
[2018-09-27] MEDS: pantoprazole 40mg Tablet.DR PO SCH (07:59)
[2018-09-27] MEDS: clopidogrel 75mg tablet PO SCH (07:59)
[2018-09-27] MEDS: quetiapine 100mg tablet PO SCH ×2 (07:59→20:07)
[2018-09-27] MEDS: divalproex sodium 500mg tablet.DR PO SCH ×2 (07:59→20:08)
[2018-09-27] MEDS: aspirin 81mg tablet.DR PO SCH (07:59)
[2018-09-27] MEDS: levetiracetam 250mg tablet PO SCH ×2 (07:59→20:07)
[2018-09-27] MEDS: docusate sod 100mg capsule PO SCH ×2 (07:59→20:15)
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
[2018-09-27] MEDS: ondansetron 4mg rapidly disintigrating tab PO PRN (09:52)
--- NOTE | 2018-09-27 17:36 | NUR ---
project manager industrial and social work msw informed staff that patient is going to facility in the morning. Early breakfast tray ordered. Dr Cabral aware of early DC . patient is to leave 0830hrs via [facility]. patient appears very happy about this.
[2018-09-27] MEDS ORDERED: PANT-47 PO (18:28)
[2018-09-27 19:00] VITALS: BP 110/68
[2018-09-27] MEDS: mirtazapine 15mg tablet PO SCH (20:07)
--- NOTE | 2018-09-28 05:45 | NUR ---
Problems reprioritized. Patient report given, questions answered & plan of care reviewed with Uyen CAZARES.
[2018-09-28 07:00] VITALS: BP 103/64
[2018-09-28] MEDS: pantoprazole 40mg Tablet.DR PO SCH (07:57)
[2018-09-28] MEDS: divalproex sodium 500mg tablet.DR PO SCH (07:57)
[2018-09-28] MEDS: docusate sod 100mg capsule PO SCH (07:57)
[2018-09-28] MEDS: clopidogrel 75mg tablet PO SCH (07:57)
[2018-09-28] MEDS: levetiracetam 250mg tablet PO SCH (07:57)
[2018-09-28] MEDS: aspirin 81mg tablet.DR PO SCH (07:57)
[2018-09-28] MEDS: quetiapine 100mg tablet PO SCH (07:57)
--- NOTE | 2018-09-28 08:30 | NUR ---
PT DISCHARGED TO [facility], KELI MURILLO CALLED REPORT TO YESICA. ALL BELONGINGS SENT WITH PT.
== END 2018-09-28 08:27 | DRG 640 ==
LOC: ER 18:22 → OBSVTOIN 22:35 → ED HOLD 22:35 → SUR 3N 23:58 → UNDODISIN 09-14 14:04
PROVIDERS: ADMIT Hospitalist; ATTEND Family Medicine
DX: E86.0 Dehydration (principal); R53.2 Functional quadriplegia; G93.41 Metabolic encephalopathy; I69.354 Hemiplegia and hemiparesis following cerebral infarction affecting left non-dominant side; C91.10 Chronic lymphocytic leukemia of B-cell type not having achieved remission; E44.0 Moderate protein-calorie malnutrition; R45.851 Suicidal ideations; M80.052A Age-related osteoporosis with current pathological fracture, left femur, initial encounter for fracture; G40.909 Epilepsy, unspecified, not intractable, without status epilepticus; F03.90 Unspecified dementia, unspecified severity, without behavioral disturbance, psychotic disturbance, mood disturbance, and anxiety; B19.20 Unspecified viral hepatitis C without hepatic coma; F32.9 Major depressive disorder, single episode, unspecified; F41.9 Anxiety disorder, unspecified; C44.41 Basal cell carcinoma of skin of scalp and neck; M25.551 Pain in right hip; W18.39XA Other fall on same level, initial encounter; M24.542 Contracture, left hand; H10.9 Unspecified conjunctivitis; I25.10 Atherosclerotic heart disease of native coronary artery without angina pectoris; I25.2 Old myocardial infarction; Z73.6 Limitation of activities due to disability; Z80.0 Family history of malignant neoplasm of digestive organs; Z88.6 Allergy status to analgesic agent; Z88.8 Allergy status to other drugs, medicaments and biological substances; Z79.02 Long term (current) use of antithrombotics/antiplatelets; Z79.82 Long term (current) use of aspirin; Z68.20 Body mass index [BMI] 20.0-20.9, adult; Z87.820 Personal history of traumatic brain injury; Y93.89 Activity, other specified; Y92.89 Other specified places as the place of occurrence of the external cause; Y99.8 Other external cause status; Y92.238 Other place in hospital as the place of occurrence of the external cause
CPT/HCPCS: 36415; 70450; 71045; 73502; 73700; 80048; 80053; 80061; 80164; 80177; 81001; 82948; 83540; 83550; 83605; 83735; 84100; 84145; 84443; 84484; 85025; 85027; 85610; 85730; 87070; 87081; 87088; 93005; 97110; 97112; 97116; 97162; 97530; 97535; 99285; G0378; J1630; J1650; J2060; J7030